=== PATIENT | female | born 1925 | race Caucasian/White ===

== ENCOUNTER 2016-06-27 02:10 | Inpatient (IN) | payer MEDICARE, BC ==
[~2016-06-27] VITALS: Ht 172.7 cm; Wt 63.5 kg
[2016-06-27] VITALS (9 sets, daily range): BP systolic 103–146; BP diastolic 58–92; PULSE 70–120; RESP 16–24; TEMP 98.2–102.3; O2SAT 94–98
[~2016-06-27 02:10] MED LIST: CEFU250T PO; GLIP10TA6 PO; INDA2.5T3 PO; LACTCAP7 PO; LATA.005%O EACH EYE; LORA0.5T PO; NYST100010 TOP; PROT40TA PO; SIMV20 PO; SUCR1S PO; TIMO0.5S29 EACH EYE; VITA500S3 PO; [UNRECOGNIZED DRUG - CODE] PO
--- NOTE | 2016-06-27 02:36 | PD ---
HPI Chief Complaint: Fever Time Seen by Provider: 02:28 Travel History International Travel<30 days: No Contact w/Intl Traveler<30days: No Traveled to known affect area: No History of Present Illness HPI The patient is an 89-year-old female that was sent from [facility] because of fever and vomiting. The patient has had chills for 3 days. She denies any cough or shortness of breath. She does have some slight dysuria and frequency. She does have a history of diabetes and arthroscopic cardiovascular disease. She is a patient of Dr. Bello. [facility] Past Medical History Anxiety: Yes Cancer: No Cardiovascular Problems: Yes High Cholesterol: Yes Diabetes: Yes Patient Takes Glucophage: No (UNKNOWN AT THIS TIME) Diminished Hearing: No Glaucoma: Yes Genitourinary: No Hypertension: Yes Immune Disorder: Yes Musculoskeletal: No Neurologic: No Reproductive: No Respiratory: No Menopausal: Yes Past Surgical History Gynecologic Surgery: Yes (HYSTERECTOMY ) Hysterectomy: Yes (AGE 52) Tonsillectomy: Yes (AGE 9) Other Surgery: Yes Social History Alcohol Use: Yes (A GLASS OF WINE OCC) Tobacco Use: No Substance Use: No Allergies-Medications (Allergen,Severity, Reaction): Coded Allergies: No Known Allergies (Verified , 01/17/16) Reported Meds & Prescriptions Reported Meds & Active Scripts Active Reported Lorazepam 0.5 Mg Tab 0.5 Mg PO Q8H PRN Tylenol (Acetaminophen) 325 Mg Cap 325 Mg PO Q4HR PRN Milk of Magnesia Concentrate Liq (Magnesium Hydroxide) 1,200 Mg/5 Ml Susp 30 Ml PO HS PRN Lantus Inj (Insulin Glargine) 100 Unit/Ml Inj 28 Units SQ DAILY Novolin R Inj (Insulin Human Regular) 100 Unit/Ml Inj Unknown Dose SQ QID Omeprazole 20 Mg Cap 20 Mg PO DAILY Glipizide 5 Mg Tab 5 Mg PO DAILY Take 30 minutes before a meal Glipizide 10 Mg Tab 10 Mg PO DAILY Take 30 minutes before a meal Docusate Sodium 100 Mg Cap 100 Mg PO TID Potassium Chloride ER (Potassium Chloride) 20 Meq Tab 20 Meq PO DAILY Xalatan Opth Drops (Latanoprost) 0.005% Drops 1 Drop EACH EYE HS Timolol Opth Drops 0.5 % Soln 1 Drop EACH EYE BID Aspirin 81 (Aspirin) 81 Mg Tabdr 81 Mg PO DAILY Simvastatin 20 Mg Tab 20 Mg PO DAILY Acidophilus (Probiotic Product) 1 Cap Cap 1 Cap PO DAILY Indapamide 2.5 Mg Tab 2.5 Mg PO DAILY Furosemide 20 Mg Tab 20 Mg PO DAILY Vitamin B-12 (Cyanocobalamin) 1,000 Mcg Tab 1,000 Mcg PO DAILY Review of Systems Except as stated in HPI: all other systems reviewed are Neg Physical Exam Narrative GENERAL: The patient is alert, oriented 3 and slight apparent distress with her bladder discomfort. The patient does appear moderately dehydrated. Her vital signs show rectal temp of 102.3, blood pressure 126/58 and oximetry 94%. The patient is incontinent of urine and stool. SKIN: Warm and dry. HEAD: Atraumatic. Normocephalic. EYES: Pupils equal and round. No scleral icterus. No injection or drainage. ENT: No nasal bleeding or discharge. Mucous membranes pink and moist. NECK: Trachea midline. No JVD. CARDIOVASCULAR: Regular rate and rhythm. No murmur appreciated. RESPIRATORY: No accessory muscle use. Clear to auscultation. Breath sounds equal bilaterally. GASTROINTESTINAL: Abdomen soft, slight bladder discomfort is present when palpating the bladder, nondistended. Hepatic and splenic margins not palpable. I do not get any flank tenderness present. MUSCULOSKELETAL: No obvious deformities. No clubbing. No cyanosis. No edema. NEUROLOGICAL: Awake and alert. No obvious cranial nerve deficits. Motor grossly within normal limits. Normal speech. PSYCHIATRIC: Appropriate mood and affect; insight and judgment normal. Data Data Last Documented VS Vital Signs Date Time Temp Pulse Resp B/P Pulse Ox O2 Delivery O2 Flow Rate FiO2 06/27/16 03:36 71 18 108/58 97 Nasal Cannula 2 06/27/16 02:12 102.3 Orders Blood Culture (06/27/16 02:22) Lactic Acid (06/27/16 02:22) Complete Blood Count With Diff (06/27/16 02:22) Act Partial Throm Time (Ptt) (06/27/16 02:22) Iv Access Insert/Monitor (06/27/16 02:22) Urinalysis - C+S If Indicated (06/27/16 02:22) Cath For Specimen (06/27/16 02:22) Comprehensive Metabolic Panel (06/27/16 02:29) Urine Culture (06/27/16 02:25) Prothrombin Time / Inr (Pt) (06/27/16 03:58) Chest, Pa & Lat (06/27/16 03:59) Urinary Catheter Insert/Apply (06/27/16 05:03) Labs Laboratory Tests Test 06/27/16 06/27/16 02:25 02:35 Urine Color YELLOW Urine Turbidity CLOUDY Urine pH 5.5 Urine Specific [place] 1.016 Urine Protein 30 mg/dL Urine Glucose (UA) NEG mg/dL Urine Ketones NEG mg/dL Urine Occult Blood MOD Urine Nitrite NEG Urine Bilirubin NEG Urine Urobilinogen LESS THAN 2.0 MG/DL Urine Leukocyte Esterase LARGE Urine RBC 13 /hpf Urine WBC /hpf Urine WBC Clumps MANY Urine Squamous Epithelial 1 /hpf Cells Urine Transitional Epithelial <1 /hpf Cells Urine Renal Epithelial Cells 1 /hpf Urine Bacteria MANY /hpf Urine Hyaline Casts 6 /lpf Urine Mucus FEW /lpf Urine Yeast (Budding) MANY Microscopic Urinalysis Comment CATH-CULTURE IND White Blood Count 13.8 TH/MM3 Red Blood Count 3.87 MIL/MM3 Hemoglobin 10.8 GM/DL Hematocrit 30.8 % Mean Corpuscular Volume 79.8 FL Mean Corpuscular Hemoglobin 27.9 PG Mean Corpuscular Hemoglobin 35.0 % Concent Red Cell Distribution Width 16.3 % Platelet Count 233 TH/MM3 Mean Platelet Volume 8.0 FL Neutrophils (%) (Auto) 81.8 % Lymphocytes (%) (Auto) 4.7 % Monocytes (%) (Auto) 13.2 % Eosinophils (%) (Auto) 0.0 % Basophils (%) (Auto) 0.3 % Neutrophils # (Auto) 11.2 TH/MM3 Lymphocytes # (Auto) 0.7 TH/MM3 Monocytes # (Auto) 1.8 TH/MM3 Eosinophils # (Auto) 0.0 TH/MM3 Basophils # (Auto) 0.0 TH/MM3 CBC Comment DIFF FINAL Differential Comment Prothrombin Time 12.7 SEC Prothromb Time International 1.1 RATIO Ratio Activated Partial 30.0 SEC Thromboplast Time Sodium Level 135 MEQ/L Potassium Level 3.8 MEQ/L Chloride Level 99 MEQ/L Carbon Dioxide Level 24.3 MEQ/L Anion Gap 12 MEQ/L Blood Urea Nitrogen 61 MG/DL Creatinine 1.94 MG/DL Estimat Glomerular Filtration 24 ML/MIN Rate Random Glucose 300 MG/DL Lactic Acid Level 2.1 mmol/L Calcium Level 8.6 MG/DL Total Bilirubin 0.4 MG/DL Aspartate Amino Transf 38 U/L (AST/SGOT) Alanine Aminotransferase 37 U/L (ALT/SGPT) Alkaline Phosphatase 104 U/L Total Protein 6.7 GM/DL Albumin 2.6 GM/DL MDM Medical Decision Making Medical Screen Exam Complete: Yes Emergency Medical Condition: Yes Medical Record Reviewed: Yes Interpretation(s) The CBC shows a white count of 13,800 with 82% neutrophils and hemoglobin of 10.8 and hematocrit of 30.8. The urine shows cloudy turbidity, moderate occult blood, large leukocyte esterase with 13 red cells and innumerable white cells with many white cell clumping's and many bacteria. Culture is indicated. The complete metabolic profile shows a BUN of 61 and creatinine of 1.94. The glucose is 300 and the AST is 38 and the albumin is 2.6. The coagulation profile is normal except for a ProTime of 12.7. Differential Diagnosis Sepsis, urosepsis, acute renal failure, urinary tract infection, dehydration, electrolyte disorder, anemia Narrative Course The patient has a urinary tract infection with dehydration and acute renal failure. The creatinine is 0.78 on 22 January in 2015 but has gone up to 1.94 today. Yesterday the values were similar but slightly lower on the BUN and creatinine. Lactic acid is 2.1. The patient also appears dehydrated clinically. Physician Communication Physician Communication I discussed the patient with Dr. Pickett, the patient will be admitted to her. Diagnosis Primary Impression: Acute renal failure Additional Impressions: Urinary tract infection Moderate dehydration Admitting Information Admitting Physician Requests: Admit Geoffrey Carey MD Jun 27, 2016 02:35
[2016-06-27 02:42] LABS: AUTOMATED NEUTROPHIL # 11.2 TH/MM3 (1.8-7.7); BASOPHIL % 0.3 % (0.0-2.0); HEMATOCRIT 30.8 % (35.0-46.0); HEMO FLAGS DIFF FINAL; LYMPH % 4.7 % (9.0-44.0); LYMPHOCYTE # 0.7 TH/MM3 (1.0-4.8); MEAN CELL VOLUME 79.8 FL (80.0-100.0); MEAN CORPUSCULAR HEMOGLOBIN 27.9 PG (27.0-34.0); MONO % 13.2 % (0.0-8.0); NEUT % 81.8 % (16.0-70.0); PLATELET COUNT 233 TH/MM3 (150-450); RED BLOOD COUNT 3.87 MIL/MM3 (4.00-5.30); RED CELL DISTRIBUTION WIDTH 16.3 % (11.6-17.2); WHITE BLOOD COUNT 13.8 TH/MM3 (4.0-11.0)
[2016-06-27 02:47] LABS: BACTERIA, URINE MANY /hpf; BLOOD, URINE MOD (NEG); COMMENT (UR) CATH-CULTURE IND; CULTURE IF INDICATED CATH CULTURE IND; GLUCOSE,URINE NEG (NEG); HYALINE CAST, URINE 6 /lpf (RARE); KETONE, URINE NEG (NEG); MUCUS URINE FEW /lpf (OCC); NITRITE,URINE NEG (NEG); PH, URINE 5.5 (5.0-8.5); RENAL EPITHELIAL CELLS 1 /hpf; SQUAMOUS EPITHELIAL CELL URINE 1 /hpf (0-5); TRANSITIONAL EPI CELLS, URINE <1 /hpf; URINE COLOR YELLOW (YELLW/STRAW)
[2016-06-27] MEDS ORDERED: LANTUS2P SQ (02:50)
[2016-06-27] MEDS ORDERED: GLIP10TA6 PO (02:50)
[2016-06-27] MEDS ORDERED: TIMO0.5S30 EACH EYE (02:50)
[2016-06-27] MEDS ORDERED: GLIP5TAB8 PO (02:50)
[2016-06-27] MEDS ORDERED: PROB1CAP12 PO (02:50)
[2016-06-27] MEDS ORDERED: OMEP20CA2 PO (02:50)
[2016-06-27] MEDS ORDERED: LORA-373 PO (02:50)
[2016-06-27] MEDS ORDERED: MILK2400 PO (02:50)
[2016-06-27] MEDS ORDERED: ASPI-110 PO (02:50)
[2016-06-27] MEDS ORDERED: POTA-163 PO (02:50)
[2016-06-27] MEDS ORDERED: VITA10002 PO (02:50)
[2016-06-27] MEDS ORDERED: DOCU100C PO (02:50)
[2016-06-27] MEDS ORDERED: FURO20TA PO (02:50)
[2016-06-27] MEDS ORDERED: INDA2.5T PO (02:50)
[2016-06-27] MEDS ORDERED: NRDRIP SQ (02:50)
[2016-06-27] MEDS ORDERED: LATA.005%O EACH EYE (02:50)
[2016-06-27] MEDS ORDERED: SIMV20TA PO (02:50)
[2016-06-27] MEDS ORDERED: ACET1CAP18 PO (02:50)
[2016-06-27 03:08] LABS: ALT (GPT) 37 U/L (10-53); ANION GAP 12 MEQ/L (5-15); AST (GOT) 38 U/L (15-37); BICARBONATE 24.3 MEQ/L (21.0-32.0); BLOOD UREA NITROGEN 61 MG/DL (7-18); CHLORIDE 99 MEQ/L (98-107); GLOMERULAR FILTRATION RATE 24 ML/MIN (>89); POTASSIUM 3.8 MEQ/L (3.5-5.1); SODIUM (NA) 135 MEQ/L (136-145)
[2016-06-27 03:10] LABS: ALKALINE PHOSPHATASE 104 U/L (45-117); TOTAL BILIRUBIN ADULT 0.4 MG/DL (0.2-1.0)
[2016-06-27 04:20] LABS: INTERNATIONAL NORMALIZED RATIO 1.1 RATIO; PROTHROMBIN TIME - PATIENT 12.7 SEC (9.8-11.6)
[2016-06-27] MEDS ORDERED: NALOXONE HCL 0.4 MG/ML AMP IV PRN (06:00)
[2016-06-27] MEDS ORDERED: SODIUM CHLORIDE 0.9% FLUSH 10 ML FLUSH IV FLUSH PRN (06:00)
--- NOTE | 2016-06-27 06:08 | RADRPT ---
EXAM DATE/TIME: 06/27/2016 05:32 [place] COMPARISON: CHEST SINGLE AP, January 18, 2010, 10:31. INDICATIONS : Fever. MEDICAL HISTORY : None. SURGICAL HISTORY : None. ENCOUNTER: Initial ACUITY: 1 day PAIN SCORE: 0/10 LOCATION: chest FINDINGS: PA and lateral views of the chest demonstrate the lungs to be symmetrically aerated without evidence of mass, infiltrate or effusion. The cardiomediastinal contours are unremarkable. Osseous structure s are intact. Advanced osteoarthritis involving the right shoulder. CONCLUSION: No acute disease. Vasiliy Lorenzana Jr., MD on June 27, 2016 at 6:06 Board Certified Radiologist. This report was verified electronically.
[2016-06-27] MEDS: CIPROFLOXACIN 400 MG PREMIX 200 ML IV SCH (06:15)
[2016-06-27] MEDS: HEPARIN SODIUM - SQ 10,000 UNITS/ML VIAL SQ SCH ×3 (06:15→22:09)
[2016-06-27] MEDS ORDERED: MAGNESIUM HYDROXIDE SUSP 30 ML CUP PO PRN (08:15)
[2016-06-27] MEDS ORDERED: DEXTROSE 50% IN WATER 50 ML VIAL(D50) IV PUSH PRN (08:30)
[2016-06-27] MEDS ORDERED: GLUCAGON 1 MG/ML VIAL OTHER PRN (08:30)
--- NOTE | 2016-06-27 08:32 | HHI.HP ---
[facility] Unknown Admission Diagnosis acute renal failure, urinary tract infection, dehydration Diagnoses: Chief Complaint: "aching and chills" Travel History International Travel<30 Days: No Contact w/Intl Traveler <30 Da: No Traveled to Known Affected Are: No History of Present Illness This 89-year-old female patient from [facility] with a past medical history which includes HTN, Glaucoma, recurrent UTI, diabetes mellitus type 2, anxiety and macular degeneration. Patient evaluated alert to person only. Patient believes she is back at [facility] and it is year 1919. Therefore information gathered from patient as well as prior computerized charting and documentation from [facility]. Per ER doctor, patient was brought in because of fever and vomiting. Patient reports generalized body aches and chills 3 days. Patient did report dysuria to the emergency room physician currently has Tripathi catheter in place and denies urinary symptoms at this time. Patient does report she has been vomiting and has had lack of appetite for the last 2-3 days. Patient also reports sneezing frequently and feeling associated cannot take a deep breath. Rectal temperature upon arrival to the emergency department was 102.3. Patient denies chest pain diarrhea or constipation. Review of Systems ROS Limitations: Clinical Condition, Poor Historian Except as stated in HPI: all other systems reviewed are Neg Past Family Social History Past Medical History HTN, Glaucoma, recurrent UTI, diabetes mellitus type 2, anxiety and macular degeneration Past Surgical History Hysterectomy age of 52 Tonsillectomy age of 9 Ankle surgery age of 37 Reported Medications Lorazepam 0.5 Mg Tab 0.5 Mg PO Q8H PRN Tylenol (Acetaminophen) 325 Mg Cap 325 Mg PO Q4HR PRN Milk of Magnesia Concentrate Liq (Magnesium Hydroxide) 1,200 Mg/5 Ml Susp 30 Ml PO HS PRN Lantus Inj (Insulin Glargine) 100 Unit/Ml Inj 28 Units SQ DAILY Novolin R Inj (Insulin Human Regular) 100 Unit/Ml Inj Unknown Dose SQ QID Omeprazole 20 Mg Cap 20 Mg PO DAILY Glipizide 5 Mg Tab 5 Mg PO DAILY Take 30 minutes before a meal Glipizide 10 Mg Tab 10 Mg PO DAILY Take 30 minutes before a meal Docusate Sodium 100 Mg Cap 100 Mg PO TID Potassium Chloride ER (Potassium Chloride) 20 Meq Tab 20 Meq PO DAILY Xalatan Opth Drops (Latanoprost) 0.005% Drops 1 Drop EACH EYE HS Timolol Opth Drops 0.5 % Soln 1 Drop EACH EYE BID Aspirin 81 (Aspirin) 81 Mg Tabdr 81 Mg PO DAILY Simvastatin 20 Mg Tab 20 Mg PO DAILY Acidophilus (Probiotic Product) 1 Cap Cap 1 Cap PO DAILY Indapamide 2.5 Mg Tab 2.5 Mg PO DAILY Furosemide 20 Mg Tab 20 Mg PO DAILY Vitamin B-12 (Cyanocobalamin) 1,000 Mcg Tab 1,000 Mcg PO DAILY Allergies: Coded Allergies: No Known Allergies (Verified , 01/17/16) Active Ordered Medications Current Medications Medications (Trade) Dose Ordered Sig/Damaris Route Start Time Stop Time Status Last Admin (NS Flush) 2 ml UNSCH PRN IV FLUSH 06/27/16 06:00 (NS Flush) 2 ml BID IV FLUSH 06/27/16 09:00 (Heparin Inj) 5,000 units Q8HR SQ 06/27/16 06:00 06/27/16 06:15 Naloxone HCl 0.4 mg 0.4 mg UNSCH PRN IV 06/27/16 06:00 (Cipro 400 Mg Premix) 200 ml @ 200 mls/hr Q24H IV 06/27/16 06:00 06/27/16 06:15 Family History Single child, doesn't have siblings Mother had IN at the age of 80 Father at the age of 81, heart problems unspecified. Social History Denies EtOH use ( says occasionally maybe one glass of wine at times), denies tobacco use or illicit drug use. Physical Exam Vital Signs Vital Signs Date Time Temp Pulse Resp B/P Pulse Ox O2 Delivery O2 Flow Rate FiO2 06/27/16 07:20 98.8 96 18 145/67 06/27/16 07:20 93 Room Air 06/27/16 05:55 98.2 06/27/16 05:15 70 17 132/60 97 Nasal Cannula 2 06/27/16 03:36 71 18 108/58 97 Nasal Cannula 2 06/27/16 02:12 102.3 89 24 126/58 94 Physical Exam GENERAL: This is a well-nourished, well-developed patient, ill-appearing elderly 89-year-old female alert and oriented to person only SKIN: Generalized thinning of skin HEAD: Atraumatic. Normocephalic. No temporal or scalp tenderness. EYES: Extraocular motions intact. No scleral icterus. No injection or drainage. CARDIOVASCULAR: Regular rate and rhythm without murmurs, gallops, or rubs. RESPIRATORY: Clear to auscultation. Breath sounds equal bilaterally. No wheezes , rales, or rhonchi. GASTROINTESTINAL: Abdomen soft, non-tender, nondistended. No guarding. MUSCULOSKELETAL: Right ankle larger than left patient had right ankle surgery at 37 years old reports has been edematous since that point. No calf tenderness. Negative Homans sign bilaterally. NEUROLOGICAL: Awake and alert. Oriented to person only. Motor and sensory grossly within normal limits. 4 out of 5 muscle strength in all muscle groups. Normal speech. Laboratory Laboratory Tests Test 06/27/16 06/27/16 02:25 02:35 Urine Color YELLOW Urine Turbidity CLOUDY Urine pH 5.5 Urine Specific [place] 1.016 Urine Protein 30 Urine Glucose (UA) NEG Urine Ketones NEG Urine Occult Blood MOD Urine Nitrite NEG Urine Bilirubin NEG Urine Urobilinogen LESS THAN 2.0 Urine Leukocyte Esterase LARGE Urine RBC 13 Urine WBC Urine WBC Clumps MANY Urine Squamous Epithelial 1 Cells Urine Transitional Epithelial <1 Cells Urine Renal Epithelial Cells 1 Urine Bacteria MANY Urine Hyaline Casts 6 Urine Mucus FEW Urine Yeast (Budding) MANY Microscopic Urinalysis Comment CATH-CULTURE IND White Blood Count 13.8 Red Blood Count 3.87 Hemoglobin 10.8 Hematocrit 30.8 Mean Corpuscular Volume 79.8 Mean Corpuscular Hemoglobin 27.9 Mean Corpuscular Hemoglobin 35.0 Concent Red Cell Distribution Width 16.3 Platelet Count 233 Mean Platelet Volume 8.0 Neutrophils (%) (Auto) 81.8 Lymphocytes (%) (Auto) 4.7 Monocytes (%) (Auto) 13.2 Eosinophils (%) (Auto) 0.0 Basophils (%) (Auto) 0.3 Neutrophils # (Auto) 11.2 Lymphocytes # (Auto) 0.7 Monocytes # (Auto) 1.8 Eosinophils # (Auto) 0.0 Basophils # (Auto) 0.0 CBC Comment DIFF FINAL Differential Comment Prothrombin Time 12.7 Prothromb Time International 1.1 Ratio Activated Partial 30.0 Thromboplast Time Sodium Level 135 Potassium Level 3.8 Chloride Level 99 Carbon Dioxide Level 24.3 Anion Gap 12 Blood Urea Nitrogen 61 Creatinine 1.94 Estimat Glomerular Filtration 24 Rate Random Glucose 300 Lactic Acid Level 2.1 Calcium Level 8.6 Total Bilirubin 0.4 Aspartate Amino Transf 38 (AST/SGOT) Alanine Aminotransferase 37 (ALT/SGPT) Alkaline Phosphatase 104 Total Protein 6.7 Albumin 2.6 Date/Time Procedure Status Source Growth 06/27/16 02:35 Aerobic Blood Culture Received Blood Peripheral Pending 06/27/16 02:35 Anaerobic Blood Culture Received Blood Peripheral Pending 06/27/16 02:25 Urine Culture Received Urine Catheterized Urine Pending Result Diagram: 06/27/16 0235 06/27/16 0235 Imaging Last Impressions Chest X-Ray 06/27/16 0359 Signed Impressions: Service Date/Time: Monday, June 27, 2016 05:32 - CONCLUSION: No acute disease. Vasiliy Lorenzana Jr., MD Septic Shock Reassessment Heart: Regular rate and rhythm Lungs: Clear Skin: Warm, Dry Peripheral Pulses: Bounding Right Radial Bounding Left Radial Bounding Right Dorsalis Pedis Bounding Left Dorsalis Pedis Capillary Refill: Brisk Assessment and Plan Assessment and Plan This 89-year-old female patient from [facility] with a past medical history which includes HTN, Glaucoma, recurrent UTI, diabetes mellitus type 2, anxiety and macular degeneration. Patient confused alert to person only. Temperature 102.3 upon arrival with chills and vomiting 3 days and dysuria. Sepsis (temperature 102.3, white blood cell count 13.8, lactic acid 2.1, source UTI) Lactic acidosis UTI UA reviewed by myself as well as Dr. Lora indicate UTI await culture results Ciprofloxacin 400 mg IV every 24 hours Blood culture obtained and pending Repeat lactic acid per protocol Acute kidney injury Dehydration Normal saline at 100 cc/h Hold home PO diuretics Recheck BMP in a.m. Diabetes mellitus- uncontrolled glucose 300 upon arrival Restart patient's Levemir 28 units daily Accu-Cheks before meals at bedtime with Medium-dose sliding scale insulin coverage and Anxiety Lorazepam 0.5mg Q8H PRN anxiety Macular degeneration Glaucoma continue patient's home Latanoprost and Timolol eyedrops Hyperlipidemia continue patient's simvastatin 20 mg daily GERD continue patient's present omeprazole DVT prophylaxis heparin subQ Discussed with ER provider, nursing and patient Dr. Lora also discussed with nurse at [facility]. At baseline, patient does have periods of confusions, especially at night. She is able to hold a simple conversation. Written by Rachel Gonzales, acting as scribe for Dr. Lora on 06/27/16 at 08:32. All or portions of this note were transcribed by scribe [Rachel Gonzales, PAC]. I, Dr. Moris Lora personally performed the history, physical exam, and medical decision making; and confirmed the accuracy of the information in the transcribed note. Authenticated by Dr. Moris Lora on 06/27/16 at 08:55. Physician Certification 2 Midnight Certification Type: Admission for Inpatient Services Order for Inpatient Services The services are ordered in accordance with Medicare regulations or non- Medicare payer requirements, as applicable. In the case of services not specified as inpatient-only, they are appropriately provided as inpatient services in accordance with the 2-midnight benchmark. Estimated LOS (days): 3 days is the estimated time the patient will need to remain in the hospital, assuming treatment plan goals are met and no additional complications. Post-Hospital Plan: [facility] Rachel Gonzales Jun 27, 2016 08:32 Moris Lora MD Jun 27, 2016 08:56
[2016-06-27] MEDS ORDERED: INSULIN DETEMIR 100 UNITS/ML VIAL SQ SCH (09:00)
[2016-06-27] MEDS: SODIUM CHLOR 0.9% 1000 ML INJ 1,000 ML IV SCH ×2 (10:11→22:09)
[2016-06-27] MEDS: TIMOLOL MALEATE 0.5% OPHT SOLN 5 ML BTL EACH EYE SCH ×2 (10:12→22:09)
[2016-06-27] MEDS: CYANOCOBALAMIN 1,000 MCG TAB PO SCH (10:13)
[2016-06-27] MEDS: ASPIRIN EC 81 MG TABEC PO SCH (10:13)
[2016-06-27] MEDS: PANTOPRAZOLE SOD 20 MG DELAYED RELEASE TAB PO SCH (10:13)
[2016-06-27] MEDS: LACTOBACILLUS ACIDOPHILUS TAB PO SCH (10:13)
[2016-06-27] MEDS: SODIUM CHLORIDE 0.9% FLUSH 10 ML FLUSH IV FLUSH SCH ×2 (10:13→21:00)
[2016-06-27] MEDS: PRAVASTATIN SOD 40 MG TAB PO SCH (10:22)
[2016-06-27] MEDS: INSULIN ASPART SUPPLEMENTAL SCALE SQ SCH ×3 (11:00→21:00)
[2016-06-27] MEDS: ACETAMINOPHEN 325 MG TAB PO PRN (22:08)
[2016-06-27] MEDS: LATANOPROST 0.005% OPHT SOLN 2.5 ML BTL EACH EYE SCH (22:11)
[2016-06-28] VITALS (7 sets, daily range): BP systolic 91–117; BP diastolic 54–68; PULSE 84–104; RESP 16–20; TEMP 96.7–99.9; O2SAT 92–96
[2016-06-28 04:33] LABS: HEMATOCRIT 30.7 % (35.0-46.0); MEAN CELL VOLUME 79.5 FL (80.0-100.0); MEAN CORPUSCULAR HEMOGLOBIN 26.1 PG (27.0-34.0); MEAN CORPUSCULAR HGB CONC 32.8 % (32.0-36.0); PLATELET COUNT 212 TH/MM3 (150-450); RED BLOOD COUNT 3.86 MIL/MM3 (4.00-5.30); RED CELL DISTRIBUTION WIDTH 15.9 % (11.6-17.2); WHITE BLOOD COUNT 13.7 TH/MM3 (4.0-11.0)
[2016-06-28 04:34] LABS: HEMO FLAGS AUTO DIFF
[2016-06-28 05:12] LABS: BICARBONATE 26.2 MEQ/L (21.0-32.0); MAGNESIUM 2.3 MG/DL (1.5-2.5); POTASSIUM 3.4 MEQ/L (3.5-5.1)
[2016-06-28 05:32] LABS: CKMB 0.7 NG/ML (0.5-3.6)
[2016-06-28] MEDS: CIPROFLOXACIN 400 MG PREMIX 200 ML IV SCH (05:54)
[2016-06-28] MEDS: INSULIN ASPART SUPPLEMENTAL SCALE SQ SCH ×4 (05:54→21:00)
[2016-06-28] MEDS: HEPARIN SODIUM - SQ 10,000 UNITS/ML VIAL SQ SCH ×2 (05:54→14:57)
[2016-06-28] MEDS ORDERED: DEXTROSE 50% IN WATER 50 ML SYRINGE IV ONE (06:00)
[2016-06-28] MEDS ORDERED: POTASSIUM CHLORIDE 25 MEQ EFFERVESCENT TAB PO ONE (06:00)
[2016-06-28 06:10] LABS: BANDS 4 % (0-6); BASOPHILS 1 % (0-2); NEUTROPHIL # MANUAL DIFF 10.3 TH/MM3 (1.8-7.7); POLYS (SEG NEUTROPHILS) 71 % (16-70); WBC DIFF SAMPLE 100
[2016-06-28 06:11] LABS: PLATELET ESTIMATE SMEAR NORMAL (NORMAL); PLATELET MORPHOLOGY NORMAL (NORMAL); SCAN/DIFF FINAL DIFF MANUAL
[2016-06-28] MEDS ORDERED: SODIUM CHLORID 0.9% 500 ML INJ 500 ML IV ONE (08:45)
--- NOTE | 2016-06-28 08:55 | HHI.PR ---
Subjective Remarks Patient seen in follow-up for sepsis secondary to UTI, acute renal failure, dehydration, new onset atrial fibrillation. Overnight patient noted to be in A. fib on the monitor. Heart rate in the 90s. Blood glucose 42 on BMP this morning but bedside Accu-Cheks in the 70s. Currently she denies chest pain or heart palpitations. No shortness of breath. States she is feeling bad overall. Main complaint is discomfort at the IV site. No abdominal pain. Objective Vitals Vital Signs Date Time Temp Pulse Resp B/P Pulse Ox O2 Delivery O2 Flow Rate FiO2 06/28/16 04:00 96.8 85 20 103/56 93 06/28/16 00:00 97.7 85 20 105/54 96 06/27/16 23:08 18 06/27/16 20:00 101.1 120 20 108/61 98 06/27/16 16:00 100.7 92 19 103/67 97 06/27/16 14:42 94 Room Air 06/27/16 14:42 102 16 146/77 94 06/27/16 12:47 119 16 113/92 96 Room Air 06/27/16 12:47 Room Air I/O 06/27/16 06/27/16 06/27/16 06/28/16 06/28/16 06/28/16 07:00 15:00 23:00 07:00 15:00 23:00 Intake Total 240 ml 60 ml 1040 ml Output Total 1400 ml 500 ml 700 ml Balance -1160 ml -440 ml 340 ml Intake Oral 240 ml 60 ml 240 ml IV Total 800 ml Output Urine Total 1400 ml 500 ml 700 ml # Voids 1 # Bowel Movements 2 1 Result Diagram: 06/28/16 0330 06/28/16 0330 Imaging Last Impressions Chest X-Ray 06/27/16 0359 Signed Impressions: Service Date/Time: Monday, June 27, 2016 05:32 - CONCLUSION: No acute disease. Vasiliy Lorenzana Jr., MD Objective Remarks GENERAL: Elderly female in no acute distress CARDIOVASCULAR: Rate in the 90s and irregular rhythm without murmurs, gallops, or rubs. RESPIRATORY: Good respiratory efforts. Breath sounds equal and clear to auscultation bilaterally. GASTROINTESTINAL: Abdomen soft, non-tender, non-distended. Normal active bowel sounds MUSCULOSKELETAL: Extremities without cyanosis, or edema. NEURO: Alert to person and place but not to time and situation. Can move all extremities spontaneously. Normal speech PSYCH: Appropriate mood and affect. A/P Problem List: (1) Sepsis secondary to UTI ICD Code: A41.9 Status: Acute (2) Acute renal failure ICD Code: N17.9 Status: Acute (3) Moderate dehydration ICD Code: E86.0 Status: Acute (4) Hypoglycemia ICD Code: E16.2 Status: Acute (5) Atrial fibrillation, new onset ICD Code: I48.91 Status: Acute Assessment and Plan 89-year-old female with Sepsis secondary to UTI. On admission (temperature 102.3, white blood cell count 13.8, lactic acid 2.1, source UTI) - Continue antibiotics. Switch to Rocephin. - Blood pressure borderline. We'll gave a bolus of 500 cc and increase IV fluids to 1 25 cc per hour. - Follow urine and blood cultures. New-onset atrial fibrillation/mild elevation of troponin: Current sepsis and dehydration may be precipitating factors - Cardiology consulted - Rate currently in the 90's at rest with no overt symptoms but have some mild elevation in Troponin. Will start Metoprolol 25 mg BID. Further plans per Cardiology. Acute kidney injury/Dehydration: Mild improvement. Still dry. IV fluid as above. Continue to Hold home PO diuretics Recheck BMP in a.m. Diabetes mellitus- : Hypoglycemic episode. Decrease Levemir to 20 units daily Accu-Cheks before meals at bedtime with Medium-dose sliding scale insulin coverage and Anxiety Lorazepam 0.5mg Q8H PRN anxiety Macular degeneration Glaucoma continue patient's home Latanoprost and Timolol eyedrops Hyperlipidemia continue patient's simvastatin 20 mg daily GERD continue patient's present omeprazole GI prophylaxis: PPI. Stool softener PRN constipation. DVT PPx: Heparin I discussed with the patient's daughter Lela and updated her on the patient's condition. Moris Lora MD Jun 28, 2016 08:55
[2016-06-28] MEDS: METOPROLOL TARTRATE 25 MG TAB PO SCH ×2 (09:00→21:42)
[2016-06-28] MEDS: SODIUM CHLORIDE 0.9% FLUSH 10 ML FLUSH IV FLUSH SCH ×2 (09:00→21:00)
[2016-06-28] MEDS: LACTOBACILLUS ACIDOPHILUS TAB PO SCH (09:06)
[2016-06-28] MEDS: PANTOPRAZOLE SOD 20 MG DELAYED RELEASE TAB PO SCH (09:06)
[2016-06-28] MEDS: LORazepam 0.5 MG TAB PO PRN (09:06)
[2016-06-28] MEDS: PRAVASTATIN SOD 40 MG TAB PO SCH (09:06)
[2016-06-28] MEDS: CYANOCOBALAMIN 1,000 MCG TAB PO SCH (09:06)
[2016-06-28] MEDS: ASPIRIN EC 81 MG TABEC PO SCH (09:06)
[2016-06-28] MEDS: SODIUM CHLOR 0.9% 1000 ML INJ 1,000 ML IV SCH ×2 (09:07→14:57)
[2016-06-28] MEDS: TIMOLOL MALEATE 0.5% OPHT SOLN 5 ML BTL EACH EYE SCH ×2 (09:08→21:43)
[2016-06-28] MEDS: INSULIN DETEMIR 100 UNITS/ML VIAL SQ SCH (09:20)
[2016-06-28] MEDS: cefTRIAXone INJ 1,000 MG in SODIUM CHLORIDE 0.9% INJ 100 ML IV SCH (09:20)
[2016-06-28] MEDS ORDERED: INFLUENZA VIRUS VACCINE (QUADRIVALENT) 0.5 ML SYR IM ONE (10:00)
[2016-06-28] MEDS ORDERED: PNEUMOCOCCAL POLYVALENT INJ 25 MCG/0.5 ML SYR IM ONE (10:00)
[2016-06-28 11:31] LABS: CKMB 0.6 NG/ML (0.5-3.6)
--- NOTE | 2016-06-28 17:26 | EKG ---
Date Performed: 06/28/2016 Time Performed: 01:30:14 PTAGE: 89 years EKG: Atrial fibrillation with controlled ventricular rate Poor R wave progression - suspect lead placement issues Extensive ST-T changes may be due to myocardial ischemia Compared to previous biju ng, atrial fibrillation is new. Nonspecific ST abnormalities improved. Abnormal ECG NO PREVIOUS TRACING DOCTOR: Kevin Carey Interpretating Date/Time 06/28/2016 17:24:54
--- NOTE | 2016-06-28 18:56 | MB ---
cc: NICHOLE HEIN DATE OF CONSULTATION 06/28/2016 REASON FOR CONSULTATION Ms. Gee is an 89-year-old white female with no previous cardiac history. She was admitted for sepsis secondary to urinary tract infection and acute renal failure and dehydration. She developed atrial fibrillation last night with controlled ventricular response. She denies any chest pain or shortness of breath. She is feeling better today. She denies any previous cardiac history. PAST MEDICAL HISTORY Positive for: 1. Hypertension. 2. Type 2 diabetes mellitus. 3. Recurrent urinary tract infections. 4. Glaucoma. 5. Anxiety. 6. Macular degeneration. MEDICATIONS At home include: 1. Vitamin B12. 2. Furosemide 20 milligrams daily. 3. Indapamide 2.5 milligrams daily. 4. Acidophilus. 5. Simvastatin. 6. Baby aspirin. 7. Timolol. 8. Xalatan eye drops. 9. Potassium. 10. Docusate. 11. Glipizide. 12. Omeprazole. 13. Novolin insulin. 14. Lantus insulin. 15. Milk of Magnesia. 16. Tylenol as needed. 17. Lorazepam as needed. ALLERGIES NONE. SOCIAL HISTORY The patient does not smoke. She drinks wine infrequently. She lives at [facility]. FAMILY HISTORY Positive for heart disease, myocardial infarction in her mother and congestive heart failure in her father. REVIEW OF SYSTEMS Otherwise negative. PHYSICAL EXAMINATION VITAL SIGNS: Blood pressure 107/61, pulse 90 and irregular. HEENT: Negative. 2+ carotid upstroke. No bruits. LUNGS: Clear. HEART: Irregularly irregular with no murmur, gallop or rub. ABDOMEN: Soft. No bruits. EXTREMITIES: Without edema. 2+ distal pulses. NEUROLOGICAL: Grossly nonfocal. LABORATORY DATA EKG was reviewed and showed atrial fibrillation with controlled ventricular response, delayed R wave progression of precordial leads and nonspecific ST-T changes. Previous EKG from 01/2016 showed sinus rhythm. Hemoglobin 10.0. Potassium 3.4. Creatinine 1.94 and 1.51. CK 431 and 273. Troponin 0.09 and 0.07. AST 38, ALT 37. DIAGNOSES 1. Atrial fibrillation with controlled ventricular response. 2. Sepsis secondary to urinary tract infection. 3. Acute renal failure. 4. Dehydration. DISPOSITION Ms. Gee was found to be in atrial fibrillation of unknown duration. Her heart rate is now controlled and I recommend to continue low dose metoprolol. I recommend to start low dose Eliquis 2.5 milligrams twice a day for anticoagulation. The last time sinus rhythm was documented appears to be in January of last year. Ms. Gee will be monitored on telemetry. I will follow her for cardiology during her hospitalization. MD NASRIN Moreno/KK /2:47 PM /6:44 PM MTDDanae
[2016-06-28] MEDS: APIXABAN 2.5 MG TABLET PO SCH (21:42)
[2016-06-28] MEDS: LATANOPROST 0.005% OPHT SOLN 2.5 ML BTL EACH EYE SCH (21:56)
[2016-06-29] VITALS (9 sets, daily range): BP systolic 119–143; BP diastolic 62–87; PULSE 62–108; RESP 16–22; TEMP 97.4–99.7; O2SAT 90–97
[2016-06-29] MEDS: SODIUM CHLOR 0.9% 1000 ML INJ 1,000 ML IV SCH ×3 (00:09→20:39)
[2016-06-29] MEDS: LORazepam 0.5 MG TAB PO PRN ×2 (03:17→20:39)
[2016-06-29 04:39] LABS: BICARBONATE 22.4 MEQ/L (21.0-32.0); POTASSIUM 3.5 MEQ/L (3.5-5.1)
[2016-06-29 04:41] LABS: HEMATOCRIT 29.9 % (35.0-46.0); MEAN CELL VOLUME 80.4 FL (80.0-100.0); MEAN CORPUSCULAR HEMOGLOBIN 26.9 PG (27.0-34.0); MEAN CORPUSCULAR HGB CONC 33.5 % (32.0-36.0); PLATELET COUNT 239 TH/MM3 (150-450); RED BLOOD COUNT 3.72 MIL/MM3 (4.00-5.30); RED CELL DISTRIBUTION WIDTH 16.2 % (11.6-17.2); REVIEW FLAG FINAL
[2016-06-29] MEDS: INSULIN ASPART SUPPLEMENTAL SCALE SQ SCH ×4 (05:12→20:42)
--- NOTE | 2016-06-29 06:47 | RADRPT ---
EXAM DATE/TIME: 06/29/2016 06:20 [facility] COMPARISON: CHEST PA & LAT, June 27, 2016, 5:32. CHEST SINGLE AP, January 18, 2010, 10:31. INDICATIONS : Hypoxia. Wheezing. MEDICAL HISTORY : None. SURGICAL HISTORY : None. ENCOUNTER: Subsequent ACUITY: 3 days PAIN SCORE: 6/10 LOCATION: Bilateral chest FINDINGS: A single portable frontal view of the chest shows a rounded area of masslike consolidation involving the right hilum. This is new from the prior study. A retrocardiac parenchymal density also noted whic h is also new. No discernible effusions. The heart is at the upper limits of normal in terms of size. Advanced osteoarthritis involving the right shoulder. CONCLUSION: New area of consolidation involving the right hilum. and left lower lobe. Vasiliy Lorenzana Jr., MD on June 29, 2016 at 6:44 Board Certified Radiologist. This report was verified electronically.
[2016-06-29] MEDS: TIMOLOL MALEATE 0.5% OPHT SOLN 5 ML BTL EACH EYE SCH ×2 (08:22→20:40)
[2016-06-29] MEDS: SODIUM CHLORIDE 0.9% FLUSH 10 ML FLUSH IV FLUSH SCH ×2 (08:22→20:39)
[2016-06-29] MEDS: cefTRIAXone INJ 1,000 MG in SODIUM CHLORIDE 0.9% INJ 100 ML IV SCH (08:22)
[2016-06-29] MEDS: PRAVASTATIN SOD 40 MG TAB PO SCH (08:23)
[2016-06-29] MEDS: PANTOPRAZOLE SOD 20 MG DELAYED RELEASE TAB PO SCH (08:23)
[2016-06-29] MEDS: LACTOBACILLUS ACIDOPHILUS TAB PO SCH (08:23)
[2016-06-29] MEDS: CYANOCOBALAMIN 1,000 MCG TAB PO SCH (08:23)
[2016-06-29] MEDS: ASPIRIN EC 81 MG TABEC PO SCH (08:23)
[2016-06-29] MEDS: METOPROLOL TARTRATE 25 MG TAB PO SCH ×2 (08:23→20:39)
[2016-06-29] MEDS: INSULIN DETEMIR 100 UNITS/ML VIAL SQ SCH (08:24)
[2016-06-29] MEDS: RESP: ALBUTEROL 2.5 MG/IPRATROPIUM 0.5 MG NEB (PRN) NEB (08:31)
[2016-06-29] MEDS ORDERED: AZITHROMYCIN INJ 500 MG in SODIUM CHLOR 0.9% 250 ML INJ 250 ML IV SCH (09:00)
[2016-06-29] MEDS: APIXABAN 2.5 MG TABLET PO SCH ×2 (09:09→20:39)
[2016-06-29] MEDS ORDERED: PIPERACIL-TAZO 3.375 GM PREMIX 50 ML IV SCH (10:00)
--- NOTE | 2016-06-29 10:56 | HHI.PR ---
Subjective Remarks Patient had difficulty with breathing overnight. Chest x-ray showed consolidations. She is stable this morning on 2 L nasal cannula. She denies chest pain. No fevers, or cough. Objective Vitals Vital Signs Date Time Temp Pulse Resp B/P Pulse Ox O2 Delivery O2 Flow Rate FiO2 06/29/16 08:31 94 Nasal Cannula 2.00 06/29/16 08:00 99.7 108 17 136/87 94 06/29/16 05:54 97 Nasal Cannula 2.00 06/29/16 05:51 98.2 100 20 129/70 90 06/29/16 00:00 99.2 96 18 119/68 94 06/28/16 20:17 102 06/28/16 20:00 99.1 104 18 116/68 94 06/28/16 16:00 99.2 84 16 91/54 95 06/28/16 12:00 96.7 87 16 107/61 92 I/O 06/28/16 06/28/16 06/28/16 06/29/16 06/29/16 06/29/16 07:00 15:00 23:00 07:00 15:00 23:00 Intake Total 1040 ml 1483 ml 960 ml 1148 ml Output Total 700 ml 600 ml 450 ml 800 ml Balance 340 ml 883 ml 510 ml 348 ml Intake Oral 240 ml 240 ml 240 ml 240 ml IV Total 800 ml 743 ml 720 ml 908 ml Other 500 ml Output Urine Total 700 ml 600 ml 450 ml 800 ml # Bowel Movements 0 Result Diagram: 06/29/16 0335 06/29/16 0335 Objective Remarks GENERAL: Elderly female in no acute distress CARDIOVASCULAR: Rate in the 80s and irregular rhythm without murmurs, gallops, or rubs. RESPIRATORY: Good respiratory efforts. Breath sounds equal and clear to auscultation bilaterally. GASTROINTESTINAL: Abdomen soft, non-tender, non-distended. Normal active bowel sounds MUSCULOSKELETAL: Extremities without cyanosis, or edema. NEURO: Alert to person and place but not to time and situation. Can move all extremities spontaneously. Normal speech PSYCH: Appropriate mood and affect. A/P Problem List: (1) Sepsis secondary to UTI ICD Code: A41.9 Status: Acute (2) Acute renal failure ICD Code: N17.9 Status: Acute (3) Moderate dehydration ICD Code: E86.0 Status: Acute (4) Hypoglycemia ICD Code: E16.2 Status: Acute (5) Atrial fibrillation, new onset ICD Code: I48.91 Status: Acute Assessment and Plan 89-year-old female with Sepsis secondary to UTI. On admission (temperature 102.3, white blood cell count 13.8, lactic acid 2.1, source UTI) - Urine Culture grew ESBL pos E. Coli. - DC Rocephin and start Zosyn. - Blood pressure normalizing. Decrease IVF to 75 cc per hour. - Follow blood cultures. Pneumonia: Patient had a normal CXR on 06/27/16. X-ray today shows consolidation - On antibiotics as above. - Breathing treatments and supplemental oxygen as needed. New-onset atrial fibrillation/mild elevation of troponin: Current sepsis and dehydration may be precipitating factors - Cardiology following. Continue metoprolol. Patient started on Eliquis. Acute kidney injury/Dehydration: Mild improvement. Decrease IV fluid Continue to Hold home PO diuretics Recheck BMP in a.m. Diabetes mellitus- : Doing okay with decreased dose of Levemir to 20 units daily Accu-Cheks before meals at bedtime with Medium-dose sliding scale insulin coverage and Anxiety Lorazepam 0.5mg Q8H PRN anxiety Macular degeneration Glaucoma continue patient's home Latanoprost and Timolol eyedrops Hyperlipidemia continue patient's simvastatin 20 mg daily GERD continue patient's present omeprazole GI prophylaxis: PPI. Stool softener PRN constipation. DVT PPx: Heparin Moris Lora MD Jun 29, 2016 10:56
--- NOTE | 2016-06-29 13:52 | PD.CARD.PN ---
Subjective Subjective Remarks No CP or SOB, feels tired Objective Medications Current Medications Medications (Trade) Dose Ordered Sig/Damaris Route Start Time Stop Time Status Last Admin (NS Flush) 2 ml UNSCH PRN IV FLUSH 06/27/16 06:00 (NS Flush) 2 ml BID IV FLUSH 06/27/16 09:00 06/27/16 10:13 (Narcan Inj) 0.4 mg UNSCH PRN IV 06/27/16 06:00 (Tylenol) 325 mg Q4HR PRN PO 06/27/16 08:15 06/27/16 22:08 (Ecotrin Ec) 81 mg DAILY PO 06/27/16 09:00 06/29/16 08:23 (Vitamin B12) 1,000 mcg DAILY PO 06/27/16 09:00 06/29/16 08:23 (Xalatan 0.005% Opth Soln) 1 drop HS EACH EYE 06/27/16 21:00 06/28/16 21:56 (Ativan) 0.5 mg Q8H PRN PO 06/27/16 08:15 06/29/16 03:17 (Timoptic 0.5% Opth Soln) 1 drop BID EACH EYE 06/27/16 09:00 06/29/16 08:22 (Milk Of Magnesia Liq) 30 ml HS PRN PO 06/27/16 08:15 (Protonix) 20 mg DAILY PO 06/27/16 09:00 06/29/16 08:23 (Lactinex) 1 tab DAILY PO 06/27/16 09:00 06/29/16 08:23 (Pravachol) 40 mg DAILY PO 06/27/16 09:15 06/29/16 08:23 (D50w (Vial) Inj) 25 ml UNSCH PRN IV PUSH 06/27/16 08:30 (Glucagon Inj) 1 mg UNSCH PRN OTHER 06/27/16 08:30 Insulin Detemir 20 units 20 units DAILY SQ 06/28/16 09:00 06/29/16 08:24 (NS 1000 ml Inj) 1,000 ml @ 75 mls/hr [id number] IV 06/28/16 08:45 06/29/16 08:19 (Lopressor) 25 mg Q12HR PO 06/28/16 09:00 06/29/16 08:23 Apixaban 2.5 mg 2.5 mg BID PO 06/28/16 21:00 06/29/16 09:09 Azithromycin 500 mg/Sodium Chloride 250 ml @ 250 mls/hr Q24H IV 06/29/16 09:00 06/29/16 09:09 (Zosyn 3.375 Gm Premix) 50 ml @ 100 mls/hr Q8H IV 06/29/16 10:00 06/29/16 11:32 Vital Signs / I&O Vital Signs Date Time Temp Pulse Resp B/P Pulse Ox O2 Delivery O2 Flow Rate FiO2 06/29/16 12:00 97.5 71 16 131/62 94 06/29/16 08:31 94 Nasal Cannula 2.00 06/29/16 08:00 99.7 108 17 136/87 94 06/29/16 05:54 97 Nasal Cannula 2.00 06/29/16 05:51 98.2 100 20 129/70 90 06/29/16 00:00 99.2 96 18 119/68 94 06/28/16 20:17 102 06/28/16 20:00 99.1 104 18 116/68 94 06/28/16 16:00 99.2 84 16 91/54 95 I/O 06/28/16 06/28/16 06/28/16 06/29/16 06/29/16 06/29/16 06:59 14:59 22:59 06:59 14:59 22:59 Intake Total 1040 ml 1483 ml 960 ml 1148 ml Output Total 700 ml 600 ml 450 ml 800 ml Balance 340 ml 883 ml 510 ml 348 ml Intake Oral 240 ml 240 ml 240 ml 240 ml IV Total 800 ml 743 ml 720 ml 908 ml Other 500 ml Output Urine Total 700 ml 600 ml 450 ml 800 ml # Bowel Movements 0 Physical Exam GENERAL: In NAD SKIN: Warm and dry. HEAD: Normocephalic. EYES: No scleral icterus. No injection or drainage. NECK: Supple, trachea midline. No JVD or lymphadenopathy. CARDIOVASCULAR: Regular rate and rhythm without murmurs, gallops, or rubs. RESPIRATORY: Breath sounds equal bilaterally. No accessory muscle use. GASTROINTESTINAL: Abdomen soft, non-tender, nondistended. MUSCULOSKELETAL: No cyanosis, or edema. Laboratory Laboratory Tests Test 06/29/16 03:35 White Blood Count 11.0 TH/MM3 Red Blood Count 3.72 MIL/MM3 Hemoglobin 10.0 GM/DL Hematocrit 29.9 % Mean Corpuscular Volume 80.4 FL Mean Corpuscular Hemoglobin 26.9 PG Mean Corpuscular Hemoglobin 33.5 % Concent Red Cell Distribution Width 16.2 % Platelet Count 239 TH/MM3 Mean Platelet Volume 8.4 FL Sodium Level 140 MEQ/L Potassium Level 3.5 MEQ/L Chloride Level 107 MEQ/L Carbon Dioxide Level 22.4 MEQ/L Anion Gap 11 MEQ/L Blood Urea Nitrogen 41 MG/DL Creatinine 1.35 MG/DL Estimat Glomerular Filtration 37 ML/MIN Rate Random Glucose 132 MG/DL Calcium Level 8.5 MG/DL Imaging Last Impressions Chest X-Ray 06/29/16 0000 Signed Impressions: Service Date/Time: Wednesday, June 29, 2016 06:20 - CONCLUSION: New area of consolidation involving the right hilum. and left lower lobe. Vasiliy Lorenzana Jr., MD Assessment and Plan Problem List: (1) Atrial fibrillation, new onset (2) Sepsis secondary to UTI (3) Moderate dehydration (4) Acute renal failure Assessment and Plan Pt spontaneously converted to SR. Continue low dose metoprolol. Continue anticoagulation with Eliquis. Increase activity. Cont tx for sepsis/UTI. D/w pt and family. Karlie Helton MD Jun 29, 2016 13:52
--- NOTE | 2016-06-29 13:55 | PD.ID.CON ---
History of Present Illness Service ID Consult Requested By Reason for Consult Evaluation and Mment of sepsis, ESBL UTI and ? pneumonia. Primary Care Physician Unknown Diagnoses: History of Present Illness is an 89 y/o CF patient from [facility] with a past medical history which includes HTN, Glaucoma, recurrent UTI, diabetes mellitus type 2, anxiety and macular degeneration. Patient confused on admission and oriented x 1 only. Patient reports to me a history of urinary stones and having seen urology in the past. Per ER doctor, patient was brought in because of fever and vomiting. Patient reports generalized body aches and chills 3 days. Patient did report dysuria to the emergency room physician. Patient reported she has been vomiting and has had lack of appetite for the last 2-3 days. Rectal temperature upon arrival to the emergency department was 102.3 and had leucocytosis. Patient was also found to be in acute renal failure. Patient met criteria for severe sepsis and workup initiated. Urine Culture with ESBL E.coli , blood cultures negative. CXR now with infiltrate. H/o vomiting and AMS prior to admission concerning for aspiration pneumonia. Patient denies chest pain diarrhea or constipation. ID consulted for evaluation of sepsis, ESBL E.coli UTI and Pneumonia. Review of Systems ROS Limitations: Altered Mental Status Past Family Social History Allergies: Coded Allergies: No Known Allergies (Verified , 01/17/16) Past Medical History HTN Glaucoma, recurrent UTI, diabetes mellitus type 2, macular degeneration h/o renal stones used to see urology in past. Past Surgical History Hysterectomy age of 52 Tonsillectomy age of 9 Ankle surgery age of 37 Reported Medications Reported Meds & Active Scripts Active Reported Lorazepam 0.5 Mg Tab 0.5 Mg PO Q8H PRN Tylenol (Acetaminophen) 325 Mg Cap 325 Mg PO Q4HR PRN Milk of Magnesia Concentrate Liq (Magnesium Hydroxide) 1,200 Mg/5 Ml Susp 30 Ml PO HS PRN Lantus Inj (Insulin Glargine) 100 Unit/Ml Inj 28 Units SQ DAILY Novolin R Inj (Insulin Human Regular) 100 Unit/Ml Inj Unknown Dose SQ QID Omeprazole 20 Mg Cap 20 Mg PO DAILY Glipizide 5 Mg Tab 5 Mg PO DAILY Take 30 minutes before a meal Glipizide 10 Mg Tab 10 Mg PO DAILY Take 30 minutes before a meal Docusate Sodium 100 Mg Cap 100 Mg PO TID Potassium Chloride ER (Potassium Chloride) 20 Meq Tab 20 Meq PO DAILY Xalatan Opth Drops (Latanoprost) 0.005% Drops 1 Drop EACH EYE HS Timolol Opth Drops 0.5 % Soln 1 Drop EACH EYE BID Aspirin 81 (Aspirin) 81 Mg Tabdr 81 Mg PO DAILY Simvastatin 20 Mg Tab 20 Mg PO DAILY Acidophilus (Probiotic Product) 1 Cap Cap 1 Cap PO DAILY Indapamide 2.5 Mg Tab 2.5 Mg PO DAILY Furosemide 20 Mg Tab 20 Mg PO DAILY Vitamin B-12 (Cyanocobalamin) 1,000 Mcg Tab 1,000 Mcg PO DAILY Active Ordered Medications Current Medications Medications (Trade) Dose Ordered Sig/Damaris Route Start Time Stop Time Status Last Admin (NS Flush) 2 ml UNSCH PRN IV FLUSH 06/27/16 06:00 (NS Flush) 2 ml BID IV FLUSH 06/27/16 09:00 06/27/16 10:13 (Narcan Inj) 0.4 mg UNSCH PRN IV 06/27/16 06:00 (Tylenol) 325 mg Q4HR PRN PO 06/27/16 08:15 06/27/16 22:08 (Ecotrin Ec) 81 mg DAILY PO 06/27/16 09:00 06/29/16 08:23 (Vitamin B12) 1,000 mcg DAILY PO 06/27/16 09:00 06/29/16 08:23 (Xalatan 0.005% Opth Soln) 1 drop HS EACH EYE 06/27/16 21:00 06/28/16 21:56 (Ativan) 0.5 mg Q8H PRN PO 06/27/16 08:15 06/29/16 03:17 (Timoptic 0.5% Opth Soln) 1 drop BID EACH EYE 06/27/16 09:00 06/29/16 08:22 (Milk Of Magnesia Liq) 30 ml HS PRN PO 06/27/16 08:15 (Protonix) 20 mg DAILY PO 06/27/16 09:00 06/29/16 08:23 (Lactinex) 1 tab DAILY PO 06/27/16 09:00 06/29/16 08:23 (Pravachol) 40 mg DAILY PO 06/27/16 09:15 06/29/16 08:23 (D50w (Vial) Inj) 25 ml UNSCH PRN IV PUSH 06/27/16 08:30 (Glucagon Inj) 1 mg UNSCH PRN OTHER 06/27/16 08:30 Insulin Detemir 20 units 20 units DAILY SQ 06/28/16 09:00 06/29/16 08:24 (NS 1000 ml Inj) 1,000 ml @ 75 mls/hr [id number] IV 06/28/16 08:45 06/29/16 08:19 (Lopressor) 25 mg Q12HR PO 06/28/16 09:00 06/29/16 08:23 Apixaban 2.5 mg 2.5 mg BID PO 06/28/16 21:00 06/29/16 09:09 (INVanz INJ/NS Inj) 100 ml @ 200 mls/hr Q24H IV 06/29/16 14:00 UNV (Zithromax) 500 mg DAILY PO 06/30/16 09:00 UNV Family History Per records: Single child, doesn't have siblings Mother had DC at the age of 80 Father at the age of 81, heart problems unspecified. Social History Denies EtOH use ( says occasionally maybe one glass of wine at times), denies tobacco use or illicit drug use. Physical Exam Vital Signs Vital Signs Date Time Temp Pulse Resp B/P Pulse Ox O2 Delivery O2 Flow Rate FiO2 06/29/16 12:00 97.5 71 16 131/62 94 06/29/16 08:31 94 Nasal Cannula 2.00 06/29/16 08:00 99.7 108 17 136/87 94 06/29/16 05:54 97 Nasal Cannula 2.00 06/29/16 05:51 98.2 100 20 129/70 90 06/29/16 00:00 99.2 96 18 119/68 94 06/28/16 20:17 102 06/28/16 20:00 99.1 104 18 116/68 94 06/28/16 16:00 99.2 84 16 91/54 95 Physical Exam GENERAL: This is a fairly well-nourished, well-developed patient, in no apparent distress. SKIN: No rashes, ecchymoses or lesions. Cool and dry. HEAD: Atraumatic. Normocephalic. No temporal or scalp tenderness. EYES: Pupils equal round and reactive. Extraocular motions intact. No scleral icterus. No injection or drainage. ENT: Nose without bleeding, purulent drainage or septal hematoma. Throat without erythema, tonsillar hypertrophy or exudate. Uvula midline. Airway patent. NECK: Trachea midline. Supple, nontender, no meningeal signs. CARDIOVASCULAR: RRR RESPIRATORY: Clear to auscultation. Breath sounds equal bilaterally. No wheezes , rales, or rhonchi. GASTROINTESTINAL: Abdomen soft, non-tender, nondistended. MUSCULOSKELETAL: Extremities without clubbing, cyanosis, or edema. No joint tenderness, effusion, or edema noted. No calf tenderness. Negative Homans sign bilaterally. NEUROLOGICAL: Awake and alert. Grossly non focal Psych: cooperative IV line sites with no e.o infection. Laboratory Laboratory Tests Test 06/29/16 03:35 White Blood Count 11.0 Red Blood Count 3.72 Hemoglobin 10.0 Hematocrit 29.9 Mean Corpuscular Volume 80.4 Mean Corpuscular Hemoglobin 26.9 Mean Corpuscular Hemoglobin 33.5 Concent Red Cell Distribution Width 16.2 Platelet Count 239 Mean Platelet Volume 8.4 Sodium Level 140 Potassium Level 3.5 Chloride Level 107 Carbon Dioxide Level 22.4 Anion Gap 11 Blood Urea Nitrogen 41 Creatinine 1.35 Estimat Glomerular Filtration 37 Rate Random Glucose 132 Calcium Level 8.5 Date/Time Procedure Status Source Growth 06/27/16 02:35 Aerobic Blood Culture - Preliminary Resulted Blood Peripheral NO GROWTH IN 2 DAYS 06/27/16 02:35 Anaerobic Blood Culture - Preliminary Resulted Blood Peripheral NO GROWTH IN 2 DAYS 06/27/16 02:25 Urine Culture - Final Complete Urine Catheterized Urine Escherichia Coli Esbl Positive Result Diagram: 06/29/16 0335 06/29/16 0335 Imaging Last Impressions Chest X-Ray 06/29/16 0000 Signed Impressions: Service Date/Time: Wednesday, June 29, 2016 06:20 - CONCLUSION: New area of consolidation involving the right hilum. and left lower lobe. Vasiliy Lorenzana Jr., MD Assessment and Plan Assessment and Plan Severe Sepsis present on admission (acute renal failure, acute metabolic encephalopathy on admission) ESBL E.coli UTI, ? complicated given h/o renal stones. Prior h/o renal stones Pneumonia likely aspiration. Patient was dry on admission and after adequate fluids may have pneumonia showing up. Rule out atypical or CA Pneumonia. DM 2 uncontrolled. Acute renal failure: Cr in Jan 2016 was normal. Prerenal, sepsis. Acute metabolic encephalopathy on admission: ? sepsis related. Recs Check Urine legionella Ag DC Zosyn IV Contact isolation for ESBL E.coli. Start Ertapenem IV (ASP: ESBL UTI) Continue Azithro change to oral plan on 4 more days. US KUB: look for hydronephrosis or renal/ureteral stones. If any pathology on US will consider Urology consult. Bladder training exercises before cath removal and also check residuals ? neurogenic bladder. d/w patient plan for the day d.w Maria Del Rosario Cox MD Jun 29, 2016 13:55
[2016-06-29] MEDS ORDERED: MISCELLANEOUS PHARMACY INFORMATION XX PRN (14:00)
[2016-06-29] MEDS ORDERED: ASP: Path resistant to other antimicrobials, culture proven XX PRN (14:00)
[2016-06-29] MEDS: ERTAPENEM INJ 1,000 MG in SODIUM CHLORIDE 0.9% INJ 100 ML IV SCH (15:44)
[2016-06-29] MEDS: RESP: ALBUTEROL 2.5 MG/IPRATROPIUM 0.5 MG NEB (SCH) NEB ×2 (16:00→22:00)
[2016-06-29] MEDS: LATANOPROST 0.005% OPHT SOLN 2.5 ML BTL EACH EYE SCH (20:40)
--- NOTE | 2016-06-29 23:13 | RADRPT ---
EXAM DATE/TIME: 06/29/2016 22:14 [facility] COMPARISON: CT ABDOMEN & PELVIS W/O CONTRAST, January 17, 2016, 17:07. INDICATIONS : Recurrent urinary tract infections and history of renal calculi. MEDICAL HISTORY : Renal calculi. Hypercholesterolemia. Hypertension. Recurrent urinary tract infections. Glaucoma. Macu lar degeneration. Diabetes. Anxiety. SURGICAL HISTORY : Tonsillectomy. Hysterectomy. Right ankle fracture repair. ENCOUNTER: Initial ACUITY: 1 day PAIN SCORE: 0/10 LOCATION: Bilateral flank MEASUREMENTS: RIGHT KIDNEY: 11.1 x 5.2 x 5.3 cm LEFT KIDNEY: 10.8 x 5.1 x 4.9 cm FINDINGS: RIGHT KIDNEY: Renal cortex is normal in thickness and echotexture. No hydronephrosis, stone, or mass. Echogenic m ass along the upper pole right kidney measures 23 x 18 x 15 mm. LEFT KIDNEY: Renal cortex is normal in thickness and echotexture. No hydronephrosis, stone, or mass. BLADDER: Decompressed by Tripathi catheter. Incidentally noted is evidence of cholelithiasis. CONCLUSION: 1. 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 This measures 2.3 cm. 2. Bladder decompressed by Tripathi catheter. 3. Cholelithiasis. Bryan Sommers MD on June 29, 2016 at 23:10 Board Certified Radiologist. This report was verified electronically.
[2016-06-30] VITALS (7 sets, daily range): BP systolic 114–140; BP diastolic 65–72; PULSE 70–107; RESP 18–22; TEMP 96.4–98.7; O2SAT 94–97
[2016-06-30] MEDS: INSULIN ASPART SUPPLEMENTAL SCALE SQ SCH ×4 (05:59→22:49)
[2016-06-30] MEDS: RESP: ALBUTEROL 2.5 MG/IPRATROPIUM 0.5 MG NEB (SCH) NEB ×4 (06:29→19:46)
[2016-06-30] MEDS: SODIUM CHLORIDE 0.9% FLUSH 10 ML FLUSH IV FLUSH SCH ×2 (09:00→21:00)
[2016-06-30] MEDS: ASPIRIN EC 81 MG TABEC PO SCH (11:13)
[2016-06-30] MEDS: CYANOCOBALAMIN 1,000 MCG TAB PO SCH (11:13)
[2016-06-30] MEDS: INSULIN DETEMIR 100 UNITS/ML VIAL SQ SCH (11:13)
[2016-06-30] MEDS: METOPROLOL TARTRATE 25 MG TAB PO SCH ×2 (11:13→22:49)
[2016-06-30] MEDS: LACTOBACILLUS ACIDOPHILUS TAB PO SCH (11:13)
[2016-06-30] MEDS: PRAVASTATIN SOD 40 MG TAB PO SCH (11:13)
[2016-06-30] MEDS: APIXABAN 2.5 MG TABLET PO SCH ×2 (11:13→22:49)
[2016-06-30] MEDS: PANTOPRAZOLE SOD 20 MG DELAYED RELEASE TAB PO SCH (11:14)
[2016-06-30] MEDS: AZITHROMYCIN 250 MG TAB PO SCH (11:14)
--- NOTE | 2016-06-30 11:18 | PD.CARD.PN ---
Subjective Subjective Remarks No CP or SOB Objective Medications Current Medications Medications (Trade) Dose Ordered Sig/Damaris Route Start Time Stop Time Status Last Admin (NS Flush) 2 ml UNSCH PRN IV FLUSH 06/27/16 06:00 (NS Flush) 2 ml BID IV FLUSH 06/27/16 09:00 06/27/16 10:13 (Narcan Inj) 0.4 mg UNSCH PRN IV 06/27/16 06:00 (Tylenol) 325 mg Q4HR PRN PO 06/27/16 08:15 06/27/16 22:08 (Ecotrin Ec) 81 mg DAILY PO 06/27/16 09:00 06/29/16 08:23 (Vitamin B12) 1,000 mcg DAILY PO 06/27/16 09:00 06/29/16 08:23 (Xalatan 0.005% Opth Soln) 1 drop HS EACH EYE 06/27/16 21:00 06/29/16 20:40 (Ativan) 0.5 mg Q8H PRN PO 06/27/16 08:15 06/29/16 20:39 (Timoptic 0.5% Opth Soln) 1 drop BID EACH EYE 06/27/16 09:00 06/29/16 20:40 (Milk Of Magnesia Liq) 30 ml HS PRN PO 06/27/16 08:15 (Protonix) 20 mg DAILY PO 06/27/16 09:00 06/29/16 08:23 (Lactinex) 1 tab DAILY PO 06/27/16 09:00 06/29/16 08:23 (Pravachol) 40 mg DAILY PO 06/27/16 09:15 06/29/16 08:23 (D50w (Vial) Inj) 25 ml UNSCH PRN IV PUSH 06/27/16 08:30 (Glucagon Inj) 1 mg UNSCH PRN OTHER 06/27/16 08:30 Insulin Detemir 20 units 20 units DAILY SQ 06/28/16 09:00 06/29/16 08:24 (NS 1000 ml Inj) 1,000 ml @ 75 mls/hr [id number] IV 06/28/16 08:45 06/29/16 20:39 (Lopressor) 25 mg Q12HR PO 06/28/16 09:00 06/29/16 20:39 Apixaban 2.5 mg 2.5 mg BID PO 06/28/16 21:00 06/29/16 20:39 (INVanz INJ/NS Inj) 100 ml @ 200 mls/hr Q24H IV 06/29/16 15:00 06/29/16 15:44 (Zithromax) 500 mg DAILY PO 06/30/16 09:00 Vital Signs / I&O Vital Signs Date Time Temp Pulse Resp B/P Pulse Ox O2 Delivery O2 Flow Rate FiO2 06/30/16 08:47 94 Nasal Cannula 2.00 06/30/16 08:00 96.4 70 22 140/65 95 06/30/16 04:00 97.8 82 20 129/72 95 06/30/16 00:00 98.2 80 20 134/72 96 06/29/16 22:02 94 Nasal Cannula 2.00 06/29/16 20:00 97.4 76 22 141/74 95 06/29/16 16:00 98.3 62 16 143/ 95 06/29/16 12:00 97.5 71 16 131/62 94 I/O 06/29/16 06/29/16 06/29/16 06/30/16 06/30/16 06/30/16 07:00 15:00 23:00 07:00 15:00 23:00 Intake Total 1148 ml 946 ml 953 ml 913 ml Output Total 800 ml 500 ml 650 ml 400 ml Balance 348 ml 446 ml 303 ml 513 ml Intake Oral 240 ml 130 ml 440 ml 220 ml IV Total 908 ml 816 ml 513 ml 693 ml Output Urine Total 800 ml 500 ml 650 ml 400 ml # Bowel Movements 1 0 0 Physical Exam GENERAL: In NAD SKIN: Warm and dry. HEAD: Normocephalic. EYES: No scleral icterus. No injection or drainage. NECK: Supple, trachea midline. No JVD or lymphadenopathy. CARDIOVASCULAR: Regular rate and rhythm without murmurs, gallops, or rubs. RESPIRATORY: Breath sounds equal bilaterally. No accessory muscle use. GASTROINTESTINAL: Abdomen soft, non-tender, nondistended. MUSCULOSKELETAL: No cyanosis, or edema. Laboratory Laboratory Tests Test 06/27/16 06/27/16 06/28/16 06/28/16 02:25 02:35 03:30 10:25 Urine Color YELLOW Urine Turbidity CLOUDY Urine pH 5.5 Urine Specific [place] 1.016 Urine Protein 30 mg/dL Urine Glucose (UA) NEG mg/dL Urine Ketones NEG mg/dL Urine Occult Blood MOD Urine Nitrite NEG Urine Bilirubin NEG Urine Urobilinogen LESS THAN 2.0 MG/DL Urine Leukocyte Esterase LARGE Urine RBC 13 /hpf Urine WBC /hpf Urine WBC Clumps MANY Urine Squamous Epithelial 1 /hpf Cells Urine Transitional Epithelial <1 /hpf Cells Urine Renal Epithelial Cells 1 /hpf Urine Bacteria MANY /hpf Urine Hyaline Casts 6 /lpf Urine Mucus FEW /lpf Urine Yeast (Budding) MANY Microscopic Urinalysis Comment CATH-CULTURE IND Prothrombin Time 12.7 SEC Prothromb Time International 1.1 RATIO Ratio Activated Partial 30.0 SEC Thromboplast Time Total Bilirubin 0.4 MG/DL Aspartate Amino Transf 38 U/L (AST/SGOT) Alanine Aminotransferase 37 U/L (ALT/SGPT) Alkaline Phosphatase 104 U/L Total Protein 6.7 GM/DL Albumin 2.6 GM/DL Neutrophils (%) (Auto) % Lymphocytes (%) (Auto) % Monocytes (%) (Auto) % Eosinophils (%) (Auto) % Basophils (%) (Auto) % Neutrophils # (Auto) TH/MM3 Lymphocytes # (Auto) TH/MM3 Monocytes # (Auto) TH/MM3 Eosinophils # (Auto) TH/MM3 Basophils # (Auto) TH/MM3 CBC Comment AUTO DIFF Differential Total Cells 100 Counted Neutrophils % (Manual) 71 % Band Neutrophils % 4 % Lymphocytes % 10 % Monocytes % 14 % Basophils % 1 % Neutrophils # (Manual) 10.3 TH/MM3 Differential Comment FINAL DIFF MANUAL Platelet Estimate NORMAL Platelet Morphology Comment NORMAL Red Cell Morphology Comment NORMAL Magnesium Level 2.3 MG/DL Thyroid Stimulating Hormone 0.738 uIU/ML 3rd Gen Lactic Acid Level 1.8 mmol/L Total Creatine Kinase 273 U/L Creatine Kinase MB 0.6 NG/ML Creatine Kinase MB % 0.2 % Troponin I 0.07 NG/ML Test 06/29/16 03:35 White Blood Count 11.0 TH/MM3 Red Blood Count 3.72 MIL/MM3 Hemoglobin 10.0 GM/DL Hematocrit 29.9 % Mean Corpuscular Volume 80.4 FL Mean Corpuscular Hemoglobin 26.9 PG Mean Corpuscular Hemoglobin 33.5 % Concent Red Cell Distribution Width 16.2 % Platelet Count 239 TH/MM3 Mean Platelet Volume 8.4 FL Sodium Level 140 MEQ/L Potassium Level 3.5 MEQ/L Chloride Level 107 MEQ/L Carbon Dioxide Level 22.4 MEQ/L Anion Gap 11 MEQ/L Blood Urea Nitrogen 41 MG/DL Creatinine 1.35 MG/DL Estimat Glomerular Filtration 37 ML/MIN Rate Random Glucose 132 MG/DL Calcium Level 8.5 MG/DL Imaging Last Impressions Renal Ultrasound 06/29/16 0000 Signed Impressions: Service Date/Time: Wednesday, June 29, 2016 22:14 - CONCLUSION: 1. 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 This measures 2.3 cm. 2. Bladder decompressed by Tripathi catheter. 3. Cholelithiasis. Bryan Sommers MD Chest X-Ray 06/29/16 0000 Signed Impressions: Service Date/Time: Wednesday, June 29, 2016 06:20 - CONCLUSION: New area of consolidation involving the right hilum. and left lower lobe. Vasiliy Lorenzana Jr., MD Assessment and Plan Problem List: (1) Atrial fibrillation, new onset (2) Sepsis secondary to UTI (3) Moderate dehydration (4) Acute renal failure Assessment and Plan Pt spontaneously converted to SR. Continue low dose metoprolol. Continue anticoagulation with Eliquis. Increase activity. Cont tx for sepsis/UTI. Karlie Helton MD Jun 30, 2016 11:18
--- NOTE | 2016-06-30 12:51 | HHI.IDPN ---
Subjective Subjective Remarks is an 89 y/o CF patient from [facility] with a past medical history which includes HTN, Glaucoma, recurrent UTI, diabetes mellitus type 2, anxiety and macular degeneration. ID following for ESBL UTI and ESBL bacteremia. Overnight events reviewed. No fevers No rash No diarrhea Antibiotics Ertapenem IV Lines Line sites with no e/o infection. Past Medical History reviewed Allergies: Coded Allergies: *MDRO Multi-Drug Resistant Organism (Verified Adverse Reaction, Unknown, ) ESBL E.Coli (urine)-06/27/16 Objective . Vital Signs Date Time Temp Pulse Resp B/P Pulse Ox O2 Delivery O2 Flow Rate FiO2 06/30/16 08:47 94 Nasal Cannula 2.00 06/30/16 08:00 96.4 70 22 140/65 95 06/30/16 04:00 97.8 82 20 129/72 95 06/30/16 00:00 98.2 80 20 134/72 96 06/29/16 22:02 94 Nasal Cannula 2.00 06/29/16 20:00 97.4 76 22 141/74 95 06/29/16 16:00 98.3 62 16 143/ 95 06/29/16 06/29/16 06/30/16 15:00 23:00 07:00 Intake Total 946 ml 953 ml 913 ml Output Total 500 ml 650 ml 400 ml Balance 446 ml 303 ml 513 ml Intake Oral 130 ml 440 ml 220 ml IV Total 816 ml 513 ml 693 ml Output Urine Total 500 ml 650 ml 400 ml # Bowel Movements 1 0 0 . Laboratory Tests Test 06/29/16 03:35 White Blood Count 11.0 TH/MM3 Red Blood Count 3.72 MIL/MM3 Hemoglobin 10.0 GM/DL Hematocrit 29.9 % Mean Corpuscular Volume 80.4 FL Mean Corpuscular Hemoglobin 26.9 PG Mean Corpuscular Hemoglobin 33.5 % Concent Red Cell Distribution Width 16.2 % Platelet Count 239 TH/MM3 Mean Platelet Volume 8.4 FL Laboratory Tests Test 06/29/16 03:35 Sodium Level 140 MEQ/L Potassium Level 3.5 MEQ/L Chloride Level 107 MEQ/L Carbon Dioxide Level 22.4 MEQ/L Anion Gap 11 MEQ/L Blood Urea Nitrogen 41 MG/DL Creatinine 1.35 MG/DL Estimat Glomerular Filtration 37 ML/MIN Rate Random Glucose 132 MG/DL Calcium Level 8.5 MG/DL Microbiology Date/Time Procedure Status Source Growth 06/29/16 23:59 Legionella Antigen - Final Complete Urine Catheterized Urine PRESUMPTIVE NEGATIVE FOR LEGIONELLA P... 06/29/16 23:59 Streptococcus pneumoniae Antigen (M - Final Complete Urine Catheterized Urine PRESUMPTIVE NEGATIVE FOR STREPTOCOCCU... Imaging Last Impressions Renal Ultrasound 06/29/16 0000 Signed Impressions: Service Date/Time: Wednesday, June 29, 2016 22:14 - CONCLUSION: 1. 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 This measures 2.3 cm. 2. Bladder decompressed by Tripathi catheter. 3. Cholelithiasis. Bryan Sommers MD Chest X-Ray 06/29/16 0000 Signed Impressions: Service Date/Time: Wednesday, June 29, 2016 06:20 - CONCLUSION: New area of consolidation involving the right hilum. and left lower lobe. Vasiliy Lorenzana Jr., MD Physical Exam GENERAL: This is a fairly well-nourished, well-developed patient, in no apparent distress. SKIN: No rashes, ecchymoses or lesions. Cool and dry. HEAD: Atraumatic. Normocephalic. No temporal or scalp tenderness. EYES: Pupils equal round and reactive. Extraocular motions intact. No scleral icterus. No injection or drainage. ENT: Nose without bleeding, purulent drainage or septal hematoma. Throat without erythema, tonsillar hypertrophy or exudate. Uvula midline. Airway patent. NECK: Trachea midline. Supple, nontender, no meningeal signs. CARDIOVASCULAR: RRR RESPIRATORY: Clear to auscultation. Breath sounds equal bilaterally. No wheezes , rales, or rhonchi. GASTROINTESTINAL: Abdomen soft, non-tender, nondistended. MUSCULOSKELETAL: Extremities without clubbing, cyanosis, or edema. No joint tenderness, effusion, or edema noted. No calf tenderness. Negative Homans sign bilaterally. NEUROLOGICAL: Awake and alert. Grossly non focal Psych: cooperative IV line sites with no e.o infection. Assessment & Plan Remarks Severe Sepsis present on admission (acute renal failure, acute metabolic encephalopathy on admission) ESBL E.coli UTI, ? complicated given h/o renal stones. Prior h/o renal stones Renal angiomyoplipoma. Pneumonia likely aspiration. Patient was dry on admission and after adequate fluids may have pneumonia showing up. Rule out atypical or CA Pneumonia. DM 2 uncontrolled. Acute renal failure: Cr in Jan 2016 was normal. Prerenal, sepsis. Acute metabolic encephalopathy on admission: ? sepsis related. Recs Contact isolation for ESBL E.coli. Continue Ertapenem IV (ASP: ESBL UTI) Continue Azithro change to oral plan on 4 more days. US KUB: no stones. Bladder training exercises before cath removal and also check residuals ? neurogenic bladder. d/w patient plan for the day d.w Maria Del Rosario Cox MD Jun 30, 2016 12:51
--- NOTE | 2016-06-30 12:52 | HHI.PR ---
Subjective Remarks Patient reports feeling slightly better today. Afebrile. Objective Vitals Vital Signs Date Time Temp Pulse Resp B/P Pulse Ox O2 Delivery O2 Flow Rate FiO2 06/30/16 08:47 94 Nasal Cannula 2.00 06/30/16 08:00 96.4 70 22 140/65 95 06/30/16 04:00 97.8 82 20 129/72 95 06/30/16 00:00 98.2 80 20 134/72 96 06/29/16 22:02 94 Nasal Cannula 2.00 06/29/16 20:00 97.4 76 22 141/74 95 06/29/16 16:00 98.3 62 16 143/ 95 I/O 06/29/16 06/29/16 06/29/16 06/30/16 06/30/16 06/30/16 07:00 15:00 23:00 07:00 15:00 23:00 Intake Total 1148 ml 946 ml 953 ml 913 ml Output Total 800 ml 500 ml 650 ml 400 ml Balance 348 ml 446 ml 303 ml 513 ml Intake Oral 240 ml 130 ml 440 ml 220 ml IV Total 908 ml 816 ml 513 ml 693 ml Output Urine Total 800 ml 500 ml 650 ml 400 ml # Bowel Movements 1 0 0 Result Diagram: 06/29/1633406/29/16334 Objective Remarks GENERAL: Elderly female in no acute distress CARDIOVASCULAR: Rate in the 80s and regular rhythm without murmurs, gallops, or rubs. RESPIRATORY: Good respiratory efforts. Breath sounds equal and clear to auscultation bilaterally. GASTROINTESTINAL: Abdomen soft, non-tender, non-distended. Normal active bowel sounds MUSCULOSKELETAL: Extremities without cyanosis, or edema. NEURO: Alert to person and place but not to time and situation. Can move all extremities spontaneously. Normal speech PSYCH: Appropriate mood and affect. A/P Problem List: (1) Sepsis secondary to UTI ICD Code: A41.9 Status: Acute (2) Acute renal failure ICD Code: N17.9 Status: Acute (3) Moderate dehydration ICD Code: E86.0 Status: Acute (4) Hypoglycemia ICD Code: E16.2 Status: Acute (5) Atrial fibrillation, new onset ICD Code: I48.91 Status: Acute Assessment and Plan 89-year-old female with Sepsis secondary to UTI. On admission (temperature 102.3, white blood cell count 13.8, lactic acid 2.1, source UTI) - Urine Culture grew ESBL pos E. Coli. -Infectious disease following. On Ertapenem and azithromycin.. - Follow blood cultures. Pneumonia: Patient had a normal CXR on 06/27/16. X-ray today shows consolidation - On antibiotics as above. - Breathing treatments and supplemental oxygen as needed. - Incentive spirometry New-onset atrial fibrillation/mild elevation of troponin: Current sepsis and dehydration may be precipitating factors. Patient converted in sinus rhythm after starting metoprolol. - Cardiology following. Continue metoprolol. Patient started on Eliquis. Acute kidney injury/Dehydration: Improving Continue to Hold home PO diuretics Recheck BMP in a.m. Diabetes mellitus- : Doing okay with decreased dose of Levemir to 20 units daily Accu-Cheks before meals at bedtime with Medium-dose sliding scale insulin coverage and Anxiety Lorazepam 0.5mg Q8H PRN anxiety Macular degeneration Glaucoma continue patient's home Latanoprost and Timolol eyedrops Hyperlipidemia continue patient's simvastatin 20 mg daily GERD continue patient's present omeprazole GI prophylaxis: PPI. Stool softener PRN constipation. DVT PPx: Heparin Moris Lora MD Jun 30, 2016 12:52
[2016-06-30] MEDS: ERTAPENEM INJ 1,000 MG in SODIUM CHLORIDE 0.9% INJ 100 ML IV SCH (14:17)
[2016-06-30] MEDS: TIMOLOL MALEATE 0.5% OPHT SOLN 5 ML BTL EACH EYE SCH ×2 (14:17→22:50)
[2016-06-30] MEDS: LORazepam 0.5 MG TAB PO PRN ×2 (14:21→22:49)
[2016-06-30] MEDS: RESP: ALBUTEROL 2.5 MG/IPRATROPIUM 0.5 MG NEB (PRN) NEB (16:28)
[2016-06-30] MEDS: LATANOPROST 0.005% OPHT SOLN 2.5 ML BTL EACH EYE SCH (22:50)
[2016-07-01] VITALS (9 sets, daily range): BP systolic 116–130; BP diastolic 63–80; PULSE 80–95; RESP 17–20; TEMP 97.2–98.8; O2SAT 92–96
[2016-07-01] MEDS: RESP: ALBUTEROL 2.5 MG/IPRATROPIUM 0.5 MG NEB (SCH) NEB ×4 (04:44→20:10)
[2016-07-01 05:03] LABS: HEMATOCRIT 28.1 % (35.0-46.0); MEAN CELL VOLUME 79.9 FL (80.0-100.0); MEAN CORPUSCULAR HEMOGLOBIN 26.8 PG (27.0-34.0); MEAN CORPUSCULAR HGB CONC 33.5 % (32.0-36.0); PLATELET COUNT 291 TH/MM3 (150-450); RED BLOOD COUNT 3.51 MIL/MM3 (4.00-5.30); RED CELL DISTRIBUTION WIDTH 16.6 % (11.6-17.2); REVIEW FLAG FINAL; WHITE BLOOD COUNT 14.5 TH/MM3 (4.0-11.0)
[2016-07-01 05:28] LABS: BICARBONATE 22.1 MEQ/L (21.0-32.0)
[2016-07-01 05:34] LABS: POTASSIUM 2.9 MEQ/L (3.5-5.1)
[2016-07-01] MEDS: INSULIN ASPART SUPPLEMENTAL SCALE SQ SCH ×4 (06:10→21:00)
[2016-07-01] MEDS ORDERED: POTASSIUM CHLORIDE 10 MEQ CONTROLLED RELEASE TAB PO ONE (08:30)
[2016-07-01] MEDS: ASPIRIN EC 81 MG TABEC PO SCH (09:00)
[2016-07-01] MEDS: SODIUM CHLORIDE 0.9% FLUSH 10 ML FLUSH IV FLUSH SCH ×2 (09:00→21:00)
[2016-07-01] MEDS: PRAVASTATIN SOD 40 MG TAB PO SCH (09:00)
[2016-07-01] MEDS: CYANOCOBALAMIN 1,000 MCG TAB PO SCH (09:00)
[2016-07-01] MEDS: METOPROLOL TARTRATE 25 MG TAB PO SCH ×2 (10:40→22:01)
[2016-07-01] MEDS: LACTOBACILLUS ACIDOPHILUS TAB PO SCH (10:41)
[2016-07-01] MEDS: PANTOPRAZOLE SOD 20 MG DELAYED RELEASE TAB PO SCH (10:41)
[2016-07-01] MEDS: AZITHROMYCIN 250 MG TAB PO SCH (10:41)
[2016-07-01] MEDS: APIXABAN 2.5 MG TABLET PO SCH ×2 (10:41→22:01)
[2016-07-01] MEDS: LORazepam 0.5 MG TAB PO PRN (10:42)
[2016-07-01] MEDS: TIMOLOL MALEATE 0.5% OPHT SOLN 5 ML BTL EACH EYE SCH ×2 (10:46→22:01)
[2016-07-01] MEDS: INSULIN DETEMIR 100 UNITS/ML VIAL SQ SCH (10:49)
[2016-07-01] MEDS: ERTAPENEM INJ 1,000 MG in SODIUM CHLORIDE 0.9% INJ 100 ML IV SCH (13:47)
--- NOTE | 2016-07-01 15:31 | PD.CARD.PN ---
Subjective Subjective Remarks No CP or SOB, tired Objective Medications Current Medications Medications (Trade) Dose Ordered Sig/Damaris Route Start Time Stop Time Status Last Admin (NS Flush) 2 ml UNSCH PRN IV FLUSH 06/27/16 06:00 (NS Flush) 2 ml BID IV FLUSH 06/27/16 09:00 06/27/16 10:13 (Narcan Inj) 0.4 mg UNSCH PRN IV 06/27/16 06:00 (Tylenol) 325 mg Q4HR PRN PO 06/27/16 08:15 06/27/16 22:08 (Ecotrin Ec) 81 mg DAILY PO 06/27/16 09:00 07/01/16 09:00 (Vitamin B12) 1,000 mcg DAILY PO 06/27/16 09:00 06/30/16 11:13 (Xalatan 0.005% Opth Soln) 1 drop HS EACH EYE 06/27/16 21:00 06/30/16 22:50 (Ativan) 0.5 mg Q8H PRN PO 06/27/16 08:15 07/01/16 10:42 (Timoptic 0.5% Opth Soln) 1 drop BID EACH EYE 06/27/16 09:00 07/01/16 10:46 (Milk Of Magnesia Liq) 30 ml HS PRN PO 06/27/16 08:15 (Protonix) 20 mg DAILY PO 06/27/16 09:00 07/01/16 10:41 (Lactinex) 1 tab DAILY PO 06/27/16 09:00 07/01/16 10:41 (Pravachol) 40 mg DAILY PO 06/27/16 09:15 07/01/16 09:00 (D50w (Vial) Inj) 25 ml UNSCH PRN IV PUSH 06/27/16 08:30 (Glucagon Inj) 1 mg UNSCH PRN OTHER 06/27/16 08:30 (Levemir Inj) 20 units DAILY SQ 06/28/16 09:00 07/01/16 10:49 (Lopressor) 25 mg Q12HR PO 06/28/16 09:00 07/01/16 10:40 Apixaban 2.5 mg 2.5 mg BID PO 06/28/16 21:00 07/01/16 10:41 (INVanz INJ/NS Inj) 100 ml @ 200 mls/hr Q24H IV 06/29/16 15:00 07/01/16 13:47 (Zithromax) 500 mg DAILY PO 06/30/16 09:00 07/01/16 10:41 Vital Signs / I&O Vital Signs Date Time Temp Pulse Resp B/P Pulse Ox O2 Delivery O2 Flow Rate FiO2 07/01/16 12:00 97.5 83 17 120/68 96 07/01/16 08:33 92 Nasal Cannula 2.00 07/01/16 08:00 97.7 95 19 130/63 93 07/01/16 04:46 93 Nasal Cannula 2.00 07/01/16 04:00 97.8 80 20 130/80 95 07/01/16 00:00 97.4 84 20 128/76 95 06/30/16 19:46 96 Nasal Cannula 2.00 06/30/16 16:00 98.7 92 18 128/70 97 I/O 06/30/16 06/30/16 06/30/16 07/01/16 07/01/16 07/01/16 07:00 15:00 23:00 07:00 15:00 23:00 Intake Total 913 ml 480 ml 440 ml 240 ml 240 ml Output Total 400 ml 1200 ml 1450 ml 450 ml 600 ml Balance 513 ml -720 ml -1010 ml -210 ml -360 ml Intake Oral 220 ml 480 ml 440 ml 240 ml 240 ml IV Total 693 ml Output Urine Total 400 ml 1200 ml 1450 ml 450 ml 600 ml # Bowel Movements 0 0 0 0 0 Physical Exam GENERAL: In NAD SKIN: Warm and dry. HEAD: Normocephalic. EYES: No scleral icterus. No injection or drainage. NECK: Supple, trachea midline. No JVD or lymphadenopathy. CARDIOVASCULAR: irregular rate and rhythm without murmurs, gallops, or rubs. RESPIRATORY: Breath sounds equal bilaterally. No accessory muscle use. GASTROINTESTINAL: Abdomen soft, non-tender, nondistended. MUSCULOSKELETAL: No cyanosis, or edema. Laboratory Laboratory Tests Test 07/01/16 04:33 White Blood Count 14.5 TH/MM3 Red Blood Count 3.51 MIL/MM3 Hemoglobin 9.4 GM/DL Hematocrit 28.1 % Mean Corpuscular Volume 79.9 FL Mean Corpuscular Hemoglobin 26.8 PG Mean Corpuscular Hemoglobin 33.5 % Concent Red Cell Distribution Width 16.6 % Platelet Count 291 TH/MM3 Mean Platelet Volume 8.0 FL Sodium Level 143 MEQ/L Potassium Level 2.9 MEQ/L Chloride Level 110 MEQ/L Carbon Dioxide Level 22.1 MEQ/L Anion Gap 11 MEQ/L Blood Urea Nitrogen 29 MG/DL Creatinine 1.08 MG/DL Estimat Glomerular Filtration 48 ML/MIN Rate Random Glucose 77 MG/DL Calcium Level 8.5 MG/DL Imaging Last Impressions Renal Ultrasound 06/29/16 0000 Signed Impressions: Service Date/Time: Wednesday, June 29, 2016 22:14 - CONCLUSION: 1. 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 This measures 2.3 cm. 2. Bladder decompressed by Tripathi catheter. 3. Cholelithiasis. Bryan Sommers MD Chest X-Ray 06/29/16 0000 Signed Impressions: Service Date/Time: Wednesday, June 29, 2016 06:20 - CONCLUSION: New area of consolidation involving the right hilum. and left lower lobe. Vasiliy Lorenzana Jr., MD Assessment and Plan Problem List: (1) Atrial fibrillation, new onset (2) Sepsis secondary to UTI (3) Moderate dehydration (4) Acute renal failure Assessment and Plan Back in a fib with controlled VR. Continue low dose metoprolol for rate control. Continue anticoagulation with Eliquis. Increase activity. Cont tx for sepsis/UTI. Karlie Helton MD Jul 01, 2016 15:31
--- NOTE | 2016-07-01 15:33 | HHI.PR ---
Subjective Remarks Feeling okay today. Afebrile. Denies suprapubic pain. Still not eating much. She does not like the food here. Objective Vitals Vital Signs Date Time Temp Pulse Resp B/P Pulse Ox O2 Delivery O2 Flow Rate FiO2 07/01/16 12:00 97.5 83 17 120/68 96 07/01/16 08:33 92 Nasal Cannula 2.00 07/01/16 08:00 97.7 95 19 130/63 93 07/01/16 04:46 93 Nasal Cannula 2.00 07/01/16 04:00 97.8 80 20 130/80 95 07/01/16 00:00 97.4 84 20 128/76 95 06/30/16 19:46 96 Nasal Cannula 2.00 06/30/16 16:00 98.7 92 18 128/70 97 I/O 06/30/16 06/30/16 06/30/16 07/01/16 07/01/16 07/01/16 07:00 15:00 23:00 07:00 15:00 23:00 Intake Total 913 ml 480 ml 440 ml 240 ml 240 ml Output Total 400 ml 1200 ml 1450 ml 450 ml 600 ml Balance 513 ml -720 ml -1010 ml -210 ml -360 ml Intake Oral 220 ml 480 ml 440 ml 240 ml 240 ml IV Total 693 ml Output Urine Total 400 ml 1200 ml 1450 ml 450 ml 600 ml # Bowel Movements 0 0 0 0 0 Result Diagram: 07/01/1643207/01/16432 Objective Remarks GENERAL: Elderly female in no acute distress CARDIOVASCULAR: Rate in the 80s and regular rhythm without murmurs, gallops, or rubs. RESPIRATORY: Good respiratory efforts. Breath sounds equal and clear to auscultation bilaterally. GASTROINTESTINAL: Abdomen soft, non-tender, non-distended. Normal active bowel sounds MUSCULOSKELETAL: Extremities without cyanosis, or edema. NEURO: Alert to person and place but not to time and situation. Can move all extremities spontaneously. Normal speech PSYCH: Appropriate mood and affect. A/P Problem List: (1) Sepsis secondary to UTI ICD Code: A41.9 Status: Acute (2) Acute renal failure ICD Code: N17.9 Status: Acute (3) Moderate dehydration ICD Code: E86.0 Status: Acute (4) Hypoglycemia ICD Code: E16.2 Status: Acute (5) Atrial fibrillation, new onset ICD Code: I48.91 Status: Acute Assessment and Plan 89-year-old female with Sepsis secondary to UTI. On admission (temperature 102.3, white blood cell count 13.8, lactic acid 2.1, source UTI) - Urine Culture grew ESBL pos E. Coli. - Infectious disease following. On Ertapenem and azithromycin.. - Follow blood cultures. Pneumonia: Patient had a normal CXR on 06/27/16. X-ray today shows consolidation - On antibiotics as above. - Breathing treatments and supplemental oxygen as needed. - Incentive spirometry New-onset atrial fibrillation/mild elevation of troponin: Current sepsis and dehydration may be precipitating factors. Patient converted in sinus rhythm after starting metoprolol. - Cardiology following. Continue metoprolol. Patient started on Eliquis. Acute kidney injury/Dehydration: Improving Continue to Hold home PO diuretics Recheck BMP in a.m. Hypokalemia: Replace and monitor. Diabetes mellitus- : Doing okay with decreased dose of Levemir to 20 units daily Accu-Cheks before meals at bedtime with Medium-dose sliding scale insulin coverage and Anxiety Lorazepam 0.5mg Q8H PRN anxiety Macular degeneration Glaucoma continue patient's home Latanoprost and Timolol eyedrops Hyperlipidemia continue patient's simvastatin 20 mg daily GERD continue patient's present omeprazole GI prophylaxis: PPI. Stool softener PRN constipation. DVT PPx: Heparin Moris Lora MD Jul 01, 2016 15:33
[2016-07-01] MEDS ORDERED: POTASSIUM CHLORIDE 20 MEQ CONTROLLED RELEASE TAB PO ONE (15:45)
[2016-07-01] MEDS: LATANOPROST 0.005% OPHT SOLN 2.5 ML BTL EACH EYE SCH (21:00)
[2016-07-02] VITALS (9 sets, daily range): BP systolic 100–134; BP diastolic 64–80; PULSE 78–107; RESP 18–20; TEMP 96.8–99.8; O2SAT 92–98
[2016-07-02] MEDS: RESP: ALBUTEROL 2.5 MG/IPRATROPIUM 0.5 MG NEB (SCH) NEB ×3 (04:23→21:23)
[2016-07-02 04:57] LABS: HEMATOCRIT 29.4 % (35.0-46.0); MEAN CELL VOLUME 80.4 FL (80.0-100.0); MEAN CORPUSCULAR HEMOGLOBIN 25.3 PG (27.0-34.0); MEAN CORPUSCULAR HGB CONC 31.5 % (32.0-36.0); PLATELET COUNT 346 TH/MM3 (150-450); RED BLOOD COUNT 3.66 MIL/MM3 (4.00-5.30); RED CELL DISTRIBUTION WIDTH 16.9 % (11.6-17.2); REVIEW FLAG FINAL; WHITE BLOOD COUNT 13.9 TH/MM3 (4.0-11.0)
[2016-07-02 05:13] LABS: BICARBONATE 25.5 MEQ/L (21.0-32.0); POTASSIUM 3.7 MEQ/L (3.5-5.1)
[2016-07-02] MEDS: INSULIN ASPART SUPPLEMENTAL SCALE SQ SCH ×4 (05:14→20:45)
[2016-07-02] MEDS: METOPROLOL TARTRATE 25 MG TAB PO SCH ×2 (08:57→20:39)
[2016-07-02] MEDS: AZITHROMYCIN 250 MG TAB PO SCH (08:57)
[2016-07-02] MEDS: APIXABAN 2.5 MG TABLET PO SCH ×2 (08:57→20:39)
[2016-07-02] MEDS: LORazepam 0.5 MG TAB PO PRN (08:57)
[2016-07-02] MEDS: ASPIRIN EC 81 MG TABEC PO SCH (08:57)
[2016-07-02] MEDS: PANTOPRAZOLE SOD 20 MG DELAYED RELEASE TAB PO SCH (08:57)
[2016-07-02] MEDS: CYANOCOBALAMIN 1,000 MCG TAB PO SCH (08:58)
[2016-07-02] MEDS: PRAVASTATIN SOD 40 MG TAB PO SCH (08:58)
[2016-07-02] MEDS: LACTOBACILLUS ACIDOPHILUS TAB PO SCH (08:58)
[2016-07-02] MEDS: SODIUM CHLORIDE 0.9% FLUSH 10 ML FLUSH IV FLUSH SCH ×2 (08:59→20:44)
[2016-07-02] MEDS: INSULIN DETEMIR 100 UNITS/ML VIAL SQ SCH (08:59)
[2016-07-02] MEDS: TIMOLOL MALEATE 0.5% OPHT SOLN 5 ML BTL EACH EYE SCH ×2 (09:00→20:40)
--- NOTE | 2016-07-02 10:48 | RADRPT ---
EXAM DATE/TIME: 07/02/2016 10:00 [place] COMPARISON: CHEST SINGLE AP, June 29, 2016, 6:20. INDICATIONS : Pneumonia, wheezing MEDICAL HISTORY : Diabetes mellitus type II. SURGICAL HISTORY : None. ENCOUNTER: Initial ACUITY: 4 - 6 days PAIN SCORE: 0/10 LOCATION: Bilateral chest FINDINGS: The cardiac silhouette is enlarged in transverse diameter. There are findings of congestive heart gomez lure with interstitial and alveolar opacity bilaterally. Moderate size bilateral pleural effusions ar e identified. The findings have worsened when compared with the prior examination. CONCLUSION: 1. Cardiomegaly and findings of congestive heart failure. The findings have worsened when compared wi th the prior examination. Ta Dickerson MD on July 02, 2016 at 10:45 Board Certified Radiologist. This report was verified electronically.
--- NOTE | 2016-07-02 11:46 | HHI.IDPN ---
Subjective Subjective Remarks is an 89 y/o CF patient from [facility] with a past medical history which includes HTN, Glaucoma, recurrent UTI, diabetes mellitus type 2, anxiety and macular degeneration. ID following for ESBL UTI. Overnight events reviewed. No fevers No rash No diarrhea Lethargic Antibiotics Ertapenem IV Lines Line sites with no e/o infection. Past Medical History reviewed Allergies: Coded Allergies: *MDRO Multi-Drug Resistant Organism (Verified Adverse Reaction, Unknown, ) ESBL E.Coli (urine)-06/27/16 Objective . Vital Signs Date Time Temp Pulse Resp B/P Pulse Ox O2 Delivery O2 Flow Rate FiO2 07/02/16 10:37 97 Nasal Cannula 2.00 07/02/16 10:00 98.8 95 18 118/79 98 07/02/16 08:00 98.5 97 19 117/73 97 07/02/16 04:25 92 Nasal Cannula 2.00 07/02/16 04:00 99.8 99 18 118/64 96 07/01/16 20:12 95 Nasal Cannula 2.00 07/01/16 20:00 98.8 93 18 116/69 93 07/01/16 16:00 97.2 88 17 128/66 94 07/01/16 12:00 97.5 83 17 120/68 96 07/01/16 07/01/16 07/02/16 15:00 23:00 07:00 Intake Total 240 ml 120 ml 120 ml Output Total 600 ml Balance -360 ml 120 ml 120 ml Intake Oral 240 ml 120 ml 120 ml Output Urine Total 600 ml # Voids 2 2 # Bowel Movements 0 . Laboratory Tests Test 07/01/16 07/02/16 04:33 04:35 White Blood Count 14.5 TH/MM3 13.9 TH/MM3 Red Blood Count 3.51 MIL/MM3 3.66 MIL/MM3 Hemoglobin 9.4 GM/DL 9.3 GM/DL Hematocrit 28.1 % 29.4 % Mean Corpuscular Volume 79.9 FL 80.4 FL Mean Corpuscular Hemoglobin 26.8 PG 25.3 PG Mean Corpuscular Hemoglobin 33.5 % 31.5 % Concent Red Cell Distribution Width 16.6 % 16.9 % Platelet Count 291 TH/MM3 346 TH/MM3 Mean Platelet Volume 8.0 FL 8.0 FL Laboratory Tests Test 07/01/16 07/02/16 04:33 04:35 Sodium Level 143 MEQ/L 144 MEQ/L Potassium Level 2.9 MEQ/L 3.7 MEQ/L Chloride Level 110 MEQ/L 110 MEQ/L Carbon Dioxide Level 22.1 MEQ/L 25.5 MEQ/L Anion Gap 11 MEQ/L 9 MEQ/L Blood Urea Nitrogen 29 MG/DL 28 MG/DL Creatinine 1.08 MG/DL 1.03 MG/DL Estimat Glomerular Filtration 48 ML/MIN 51 ML/MIN Rate Random Glucose 77 MG/DL 92 MG/DL Calcium Level 8.5 MG/DL 8.5 MG/DL Microbiology Date/Time Procedure Status Source Growth 06/29/16 23:59 Legionella Antigen - Final Complete Urine Catheterized Urine PRESUMPTIVE NEGATIVE FOR LEGIONELLA P... 06/29/16 23:59 Streptococcus pneumoniae Antigen (M - Final Complete Urine Catheterized Urine PRESUMPTIVE NEGATIVE FOR STREPTOCOCCU... Imaging Last Impressions Renal Ultrasound 06/29/16 0000 Signed Impressions: Service Date/Time: Wednesday, June 29, 2016 22:14 - CONCLUSION: 1. 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 This measures 2.3 cm. 2. Bladder decompressed by Tripathi catheter. 3. Cholelithiasis. Bryan Sommers MD Chest X-Ray 06/29/16 0000 Signed Impressions: Service Date/Time: Wednesday, June 29, 2016 06:20 - CONCLUSION: New area of consolidation involving the right hilum. and left lower lobe. Vasiliy Lorenzana Jr., MD Physical Exam GENERAL: This is a fairly well-nourished, well-developed patient, in no apparent distress. SKIN: No rashes, ecchymoses or lesions. Cool and dry. HEAD: Atraumatic. Normocephalic. No temporal or scalp tenderness. EYES: Pupils equal round and reactive. Extraocular motions intact. No scleral icterus. No injection or drainage. ENT: Nose without bleeding, purulent drainage or septal hematoma. Throat without erythema, tonsillar hypertrophy or exudate. Uvula midline. Airway patent. NECK: Trachea midline. Supple, nontender, no meningeal signs. CARDIOVASCULAR: RRR RESPIRATORY: Clear to auscultation. Breath sounds equal bilaterally. No wheezes , rales, or rhonchi. GASTROINTESTINAL: Abdomen soft, non-tender, nondistended. MUSCULOSKELETAL: Extremities without clubbing, cyanosis, or edema. No joint tenderness, effusion, or edema noted. No calf tenderness. Negative Homans sign bilaterally. NEUROLOGICAL: Awake and alert. Grossly non focal Psych: cooperative IV line sites with no e.o infection. Assessment & Plan Remarks Severe Sepsis present on admission (acute renal failure, acute metabolic encephalopathy on admission) ESBL E.coli UTI, ? complicated given h/o renal stones. Prior h/o renal stones Renal angiomyoplipoma. Pneumonia likely aspiration. Patient was dry on admission and after adequate fluids may have pneumonia showing up. Rule out atypical or CA Pneumonia. Component of pulm edema. DM 2 uncontrolled. Acute renal failure: Cr in Jan 2016 was normal. Prerenal, sepsis. Acute metabolic encephalopathy on admission: ? sepsis related. Recs Contact isolation for ESBL E.coli. Continue Ertapenem IV (ASP: ESBL UTI) (stop date: 07/13/2016) Continue Azithro (stop date: 07/03/2016) US KUB: no stones. Bladder training exercises before cath removal and also check residuals ? neurogenic bladder. d/w patient plan for the day d.w RN d/w : Still weak, may need rehab on discharge. Pulm edema, 2D ECHO ordered and pending. Will follow prn. If any change in clinical condition or ready for discharge please call sooner. If ready for discharge to rehab and antibiotics pending please call me for DC orders. Maria Del Rosario Aleman MD Jul 02, 2016 11:46
[2016-07-02] MEDS ORDERED: FUROSEMIDE 20 MG/2 ML VIAL IV PUSH ONE (13:30)
--- NOTE | 2016-07-02 13:31 | HHI.PR ---
Subjective Remarks Patient reports feeling about the same. She denies chest pain or shortness of breath. Discussed with RN. Based on discussion with the patient's daughter. She is wheelchair bound at the [facility]. Objective Vitals Vital Signs Date Time Temp Pulse Resp B/P Pulse Ox O2 Delivery O2 Flow Rate FiO2 07/02/16 12:00 97.3 107 18 100/72 96 07/02/16 10:37 97 Nasal Cannula 2.00 07/02/16 10:00 98.8 95 18 118/79 98 07/02/16 08:00 98.5 97 19 117/73 97 07/02/16 04:25 92 Nasal Cannula 2.00 07/02/16 04:00 99.8 99 18 118/64 96 07/01/16 20:12 95 Nasal Cannula 2.00 07/01/16 20:00 98.8 93 18 116/69 93 07/01/16 16:00 97.2 88 17 128/66 94 I/O 07/01/16 07/01/16 07/01/16 07/02/16 07/02/16 07/02/16 07:00 15:00 23:00 07:00 15:00 23:00 Intake Total 240 ml 240 ml 120 ml 120 ml Output Total 450 ml 600 ml Balance -210 ml -360 ml 120 ml 120 ml Intake Oral 240 ml 240 ml 120 ml 120 ml Output Urine Total 450 ml 600 ml # Voids 2 2 # Bowel Movements 0 0 Result Diagram: 07/02/16 0435 07/02/16 0435 Imaging Last Impressions Chest X-Ray 07/02/16 0000 Signed Impressions: Service Date/Time: Saturday, July 02, 2016 10:00 - CONCLUSION: 1. Cardiomegaly and findings of congestive heart failure. The findings have worsened when compared with the prior examination. Ta Dickerson MD Renal Ultrasound 06/29/16 0000 Signed Impressions: Service Date/Time: Wednesday, June 29, 2016 22:14 - CONCLUSION: 1. 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 This measures 2.3 cm. 2. Bladder decompressed by Tripathi catheter. 3. Cholelithiasis. Bryan Sommers MD Objective Remarks GENERAL: Elderly female in no acute distress CARDIOVASCULAR: Rate in the 80s and regular rhythm without murmurs, gallops, or rubs. RESPIRATORY: Good respiratory efforts. Breath sounds diminished at the bases bilaterally. GASTROINTESTINAL: Abdomen soft, non-tender, non-distended. Normal active bowel sounds MUSCULOSKELETAL: Extremities without cyanosis, or edema. NEURO: Alert to person and place but not to time and situation. Can move all extremities spontaneously. Normal speech PSYCH: Appropriate mood and affect. A/P Problem List: (1) Sepsis secondary to UTI ICD Code: A41.9 Status: Acute (2) Acute renal failure ICD Code: N17.9 Status: Acute (3) Moderate dehydration ICD Code: E86.0 Status: Acute (4) Hypoglycemia ICD Code: E16.2 Status: Acute (5) Atrial fibrillation, new onset ICD Code: I48.91 Status: Acute Assessment and Plan 89-year-old female with Sepsis secondary to UTI. On admission (temperature 102.3, white blood cell count 13.8, lactic acid 2.1, source UTI) - Urine Culture grew ESBL pos E. Coli. - Infectious disease following. On Ertapenem and azithromycin. - Blood cultures negative. Pneumonia: Patient had a normal CXR on 06/27/16. X-ray shows consolidation. - On antibiotics as above. - Breathing treatments and supplemental oxygen as needed. - Incentive spirometry Pulmonary edema: Patient has been on Lasix at home. No documented CHF in the EMR. She presented with sepsis and was dry, therefore resuscitated with IV fluids. Chest x-ray today shows pulmonary edema. - Give a dose of IV Lasix, then resume home dose of 20 mg daily. Follow I/O - Obtain echocardiogram. New-onset atrial fibrillation/mild elevation of troponin: Current sepsis and dehydration may be precipitating factors. Patient converted in sinus rhythm after starting metoprolol. - Cardiology following. Continue metoprolol. Patient started on Eliquis. Acute kidney injury/Dehydration: Improving Continue to Hold home PO diuretics Recheck BMP in a.m. Hypokalemia: Replace and monitor. Diabetes mellitus- : Doing okay with decreased dose of Levemir to 20 units daily Accu-Cheks before meals at bedtime with Medium-dose sliding scale insulin coverage and Anxiety Lorazepam 0.5mg Q8H PRN anxiety Macular degeneration Glaucoma continue patient's home Latanoprost and Timolol eyedrops Hyperlipidemia continue patient's simvastatin 20 mg daily GERD continue patient's present omeprazole GI prophylaxis: PPI. Stool softener PRN constipation. DVT PPx: Heparin Moris Lora MD Jul 02, 2016 13:31
--- NOTE | 2016-07-02 13:39 | PD.CARD.PN ---
Subjective Subjective Remarks Not feeling well, but denies any CP or SOB Objective Medications Current Medications Medications (Trade) Dose Ordered Sig/Damaris Route Start Time Stop Time Status Last Admin (NS Flush) 2 ml UNSCH PRN IV FLUSH 06/27/16 06:00 (NS Flush) 2 ml BID IV FLUSH 06/27/16 09:00 07/02/16 08:59 (Narcan Inj) 0.4 mg UNSCH PRN IV 06/27/16 06:00 (Tylenol) 325 mg Q4HR PRN PO 06/27/16 08:15 06/27/16 22:08 (Ecotrin Ec) 81 mg DAILY PO 06/27/16 09:00 07/02/16 08:57 (Vitamin B12) 1,000 mcg DAILY PO 06/27/16 09:00 07/02/16 08:58 (Xalatan 0.005% Opth Soln) 1 drop HS EACH EYE 06/27/16 21:00 07/01/16 21:00 (Ativan) 0.5 mg Q8H PRN PO 06/27/16 08:15 07/02/16 08:57 (Timoptic 0.5% Opth Soln) 1 drop BID EACH EYE 06/27/16 09:00 07/02/16 09:00 (Milk Of Magnesia Liq) 30 ml HS PRN PO 06/27/16 08:15 (Protonix) 20 mg DAILY PO 06/27/16 09:00 07/02/16 08:57 (Lactinex) 1 tab DAILY PO 06/27/16 09:00 07/02/16 08:58 (Pravachol) 40 mg DAILY PO 06/27/16 09:15 07/02/16 08:58 (D50w (Vial) Inj) 25 ml UNSCH PRN IV PUSH 06/27/16 08:30 (Glucagon Inj) 1 mg UNSCH PRN OTHER 06/27/16 08:30 (Levemir Inj) 20 units DAILY SQ 06/28/16 09:00 07/02/16 08:59 (Lopressor) 25 mg Q12HR PO 06/28/16 09:00 07/02/16 08:57 Apixaban 2.5 mg 2.5 mg BID PO 06/28/16 21:00 07/02/16 08:57 (INVanz INJ/NS Inj) 100 ml @ 200 mls/hr Q24H IV 06/29/16 15:00 07/01/16 13:47 (Zithromax) 500 mg DAILY PO 06/30/16 09:00 07/03/16 08:59 07/02/16 08:57 Vital Signs / I&O Vital Signs Date Time Temp Pulse Resp B/P Pulse Ox O2 Delivery O2 Flow Rate FiO2 07/02/16 12:00 97.3 107 18 100/72 96 07/02/16 10:37 97 Nasal Cannula 2.00 07/02/16 10:00 98.8 95 18 118/79 98 07/02/16 08:00 98.5 97 19 117/73 97 07/02/16 04:25 92 Nasal Cannula 2.00 07/02/16 04:00 99.8 99 18 118/64 96 07/01/16 20:12 95 Nasal Cannula 2.00 07/01/16 20:00 98.8 93 18 116/69 93 07/01/16 16:00 97.2 88 17 128/66 94 I/O 07/01/16 07/01/16 07/01/16 07/02/16 07/02/16 07/02/16 07:00 15:00 23:00 07:00 15:00 23:00 Intake Total 240 ml 240 ml 120 ml 120 ml Output Total 450 ml 600 ml Balance -210 ml -360 ml 120 ml 120 ml Intake Oral 240 ml 240 ml 120 ml 120 ml Output Urine Total 450 ml 600 ml # Voids 2 2 # Bowel Movements 0 0 Physical Exam GENERAL: In NAD SKIN: Warm and dry. HEAD: Normocephalic. EYES: No scleral icterus. No injection or drainage. NECK: Supple, trachea midline. No JVD or lymphadenopathy. CARDIOVASCULAR: irregular rate and rhythm without murmurs, gallops, or rubs. RESPIRATORY: Breath sounds equal bilaterally. No accessory muscle use. GASTROINTESTINAL: Abdomen soft, non-tender, nondistended. MUSCULOSKELETAL: No cyanosis, or edema. Laboratory Laboratory Tests Test 07/02/16 04:35 White Blood Count 13.9 TH/MM3 Red Blood Count 3.66 MIL/MM3 Hemoglobin 9.3 GM/DL Hematocrit 29.4 % Mean Corpuscular Volume 80.4 FL Mean Corpuscular Hemoglobin 25.3 PG Mean Corpuscular Hemoglobin 31.5 % Concent Red Cell Distribution Width 16.9 % Platelet Count 346 TH/MM3 Mean Platelet Volume 8.0 FL Sodium Level 144 MEQ/L Potassium Level 3.7 MEQ/L Chloride Level 110 MEQ/L Carbon Dioxide Level 25.5 MEQ/L Anion Gap 9 MEQ/L Blood Urea Nitrogen 28 MG/DL Creatinine 1.03 MG/DL Estimat Glomerular Filtration 51 ML/MIN Rate Random Glucose 92 MG/DL Calcium Level 8.5 MG/DL Imaging Last Impressions Chest X-Ray 07/02/16 0000 Signed Impressions: Service Date/Time: Saturday, July 02, 2016 10:00 - CONCLUSION: 1. Cardiomegaly and findings of congestive heart failure. The findings have worsened when compared with the prior examination. Ta Dickerson MD Renal Ultrasound 06/29/16 0000 Signed Impressions: Service Date/Time: Wednesday, June 29, 2016 22:14 - CONCLUSION: 1. 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 This measures 2.3 cm. 2. Bladder decompressed by Tripathi catheter. 3. Cholelithiasis. Bryan Sommers MD Assessment and Plan Problem List: (1) Atrial fibrillation, new onset (2) Sepsis secondary to UTI (3) Moderate dehydration (4) Acute renal failure Assessment and Plan Stays in a fib with controlled VR. Continue low dose metoprolol for rate control. Continue anticoagulation with Eliquis. Cont tx for sepsis/UTI. Renal fx improved. Increase activity. Karlie Helton MD Jul 02, 2016 13:39
[2016-07-02] MEDS: ERTAPENEM INJ 1,000 MG in SODIUM CHLORIDE 0.9% INJ 100 ML IV SCH (14:26)
--- NOTE | 2016-07-02 17:08 | EC ---
Study Study Date:07/02/2016 STUDY CONCLUSIONS SUMMARY - Left ventricle: The cavity size was normal. Wall thickness was at the upper limits of normal. Systolic function was normal. The estimated ejection fraction was in the range of 55% to 60%. Wall motion was normal; there were no regional wall motion abnormalities. - Aortic valve: A bicuspid morphology cannot be excluded; normal thickness, mildly calcified leaflets. Valve area: 1.41cm^2 (Vmax). - Mitral valve: Mildly to moderately calcified annulus. Mild regurgitation. - Left atrium: The atrium was mildly dilated. - Tricuspid valve: Mild regurgitation. If LV function is below 40, please consider prescribing an ACEI or ARB or document rationale for non-use. PROCEDURE DATA STUDY STATUS: Elective. Procedure: Transthoracic echocardiography. Image quality was good. Scanning was performed from the parasternal, apical, and subcostal acoustic windows. Study completion: The patient tolerated the procedure well. Transthoracic echocardiography. M-mode, complete 2D, complete spectral Doppler, and color Doppler. Height: Height: 68in. Weight: Weight: 138.7lb. Body mass index: BMI: 21.1kg/m^2. Body surface area: BSA: 1.75m^2. Patient status: Inpatient. CARDIAC ANATOMY LEFT VENTRICLE: The cavity size was normal. Wall thickness was at the upper limits of normal. Systolic function was normal. The estimated ejection fraction was in the range of 55% to 60%. Wall motion was normal; there were no regional wall motion abnormalities. AORTIC VALVE: A bicuspid morphology cannot be excluded; normal thickness, mildly calcified leaflets. Doppler: Transvalvular velocity was minimally increased. There was no stenosis. No regurgitation. Valve area: 1.41cm^2 (Vmax). Indexed valve area: 0.81cm^2/m^2 (Vmax). Mean gradient: 7mm Hg (S). Peak gradient: 12mm Hg (S). AORTA: Aortic root: The aortic root was normal in size. MITRAL VALVE: Mildly to moderately calcified annulus. Doppler: Transvalvular velocity was within the normal range. There was no evidence for stenosis. Mild regurgitation. LEFT ATRIUM: The atrium was mildly dilated. RIGHT VENTRICLE: The cavity size was normal. Wall thickness was normal. PULMONIC VALVE: Doppler: Transvalvular velocity was within the normal range. There was no evidence for stenosis. No regurgitation. TRICUSPID VALVE: Structurally normal valve. Doppler: Transvalvular velocity was within the normal range. Mild regurgitation. PULMONARY ARTERY: The main pulmonary artery was normal-sized. Systolic pressure was within the normal range. RIGHT ATRIUM: The atrium was normal in size. PERICARDIUM: There was no pericardial effusion. SYSTEMIC VEINS: Inferior vena cava: The vessel was mildly dilated. Patient weight: 138.7lb _Ejection fraction:_ 65-75% _Fractional shortening:_ 32% up to 5Kg 5-11.5Kg 11.6-22.9Kg 23-45Kg 45-57Kg Aortic Root 7-13 <17 13-22 17-27 17-27 LA diam 6-13 <23 24-38 33-47 37-40 RVID 10-17 7-15 7-15 7-18 8-17 LVIDd 12-22 <32 24-38 33-47 37-40 LVPW 2-4 3-6 5-7 6-8 7-8 IVS 2-4 3-6 5-7 6-8 7-8 BASIC MEASUREMENTS ADULT NORMAL Left ventricle LV internal dimension, ED, chordal *38 mm 43-52 level, PLAX LV internal dimension, ES, chordal 33 mm 23-38 level, PLAX Fractional shortening, chordal level, *13 % >29 PLAX LV posterior wall thickness, ED 9.91 mm IVS/LVPW ratio, ED 1.11 <1.3 Ventricular septum Septal thickness, ED 11 mm Aortic valve Leaflet separation 19 mm 15-26 BASIC MEASUREMENTS ADULT NORMAL Aortic valve Leaflet separation 19 mm 15-26 Aorta Root diameter, ED 28 mm 20-37 Left atrium Anterior-posterior dimension, ES 36 mm 19-40 Anterior-posterior dimension index, ES 2.06 cm/m^2 <2.2 LA/aortic root ratio 1.29 DOPPLER MEASUREMENTS ADULT NORMAL Main pulmonary artery Pressure, S 29 mm Hg =30 Aortic valve Peak velocity, S 170 cm/s Mean velocity, S 126 cm/s VTI, S 36.3 cm Mean gradient, S 7 mm Hg Peak gradient, S 12 mm Hg Valve area, Vmax 1.41 cm^2 Valve area index, Vmax 0.81 cm^2/m^2 Mitral valve Maximal regurgitant velocity 301 cm/s Tricuspid valve Regurgitant peak velocity 240 cm/s Peak RV-RA gradient, S 23 mm Hg Systemic veins Estimated CVP 10 mm Hg Right ventricle RV pressure, S *33 mm Hg <30 Pulmonic valve Peak velocity, S 96.4 cm/s LEGEND: Mean values are shown as u=mean value. Asterisk (*) oates values outside specified normal range. Prepared and signed by Kevin Carey [id number]
[2016-07-02] MEDS: LATANOPROST 0.005% OPHT SOLN 2.5 ML BTL EACH EYE SCH (20:40)
[2016-07-03] VITALS (8 sets, daily range): BP systolic 109–159; BP diastolic 58–98; PULSE 72–97; RESP 18–22; TEMP 96.7–98.7; O2SAT 94–96
[2016-07-03] MEDS: RESP: ALBUTEROL 2.5 MG/IPRATROPIUM 0.5 MG NEB (SCH) NEB (04:15)
[2016-07-03 05:34] LABS: HEMATOCRIT 30.7 % (35.0-46.0); MEAN CELL VOLUME 80.5 FL (80.0-100.0); MEAN CORPUSCULAR HEMOGLOBIN 26.6 PG (27.0-34.0); PLATELET COUNT 434 TH/MM3 (150-450); RED BLOOD COUNT 3.82 MIL/MM3 (4.00-5.30); RED CELL DISTRIBUTION WIDTH 16.7 % (11.6-17.2); REVIEW FLAG FINAL; WHITE BLOOD COUNT 13.9 TH/MM3 (4.0-11.0)
[2016-07-03 05:50] LABS: BICARBONATE 26.7 MEQ/L (21.0-32.0); POTASSIUM 3.3 MEQ/L (3.5-5.1)
[2016-07-03] MEDS: INSULIN ASPART SUPPLEMENTAL SCALE SQ SCH ×4 (06:25→20:14)
[2016-07-03] MEDS: PRAVASTATIN SOD 40 MG TAB PO SCH (09:00)
[2016-07-03] MEDS: INSULIN DETEMIR 100 UNITS/ML VIAL SQ SCH (09:00)
[2016-07-03] MEDS: SODIUM CHLORIDE 0.9% FLUSH 10 ML FLUSH IV FLUSH SCH ×2 (09:00→20:14)
--- NOTE | 2016-07-03 09:06 | HHI.PR ---
Subjective Remarks Feeling better today. Hungry. Wants breakfast. Confused. Denies shortness of breath or chest pain. Objective Vitals Vital Signs Date Time Temp Pulse Resp B/P Pulse Ox O2 Delivery O2 Flow Rate FiO2 07/03/16 04:00 98.4 72 18 130/76 96 07/03/16 00:00 97.0 80 20 128/78 96 07/02/16 21:23 97 Nasal Cannula 2.00 07/02/16 20:00 98.0 78 20 134/80 95 07/02/16 16:00 96.8 93 18 115/68 96 07/02/16 12:00 97.3 107 18 100/72 96 07/02/16 10:37 97 Nasal Cannula 2.00 07/02/16 10:00 98.8 95 18 118/79 98 I/O 07/02/16 07/02/16 07/02/16 07/03/16 07/03/16 07/03/16 07:00 15:00 23:00 07:00 15:00 23:00 Intake Total 120 ml 120 ml 480 ml 220 ml Output Total 550 ml Balance 120 ml 120 ml 480 ml -330 ml Intake Oral 120 ml 120 ml 480 ml 220 ml IV Total 0 ml Output Urine Total 550 ml # Voids 2 3 3 # Bowel Movements 0 0 0 Result Diagram: 07/03/16 0449 07/03/16 0449 Objective Remarks GENERAL: Elderly female in no acute distress CARDIOVASCULAR: Rate in the 80s and regular rhythm without murmurs, gallops, or rubs. RESPIRATORY: Good respiratory efforts. Breath sounds diminished at the bases bilaterally. GASTROINTESTINAL: Abdomen soft, non-tender, non-distended. Normal active bowel sounds MUSCULOSKELETAL: Extremities without cyanosis, or edema. NEURO: Alert to person and place but not to time and situation. Can move all extremities spontaneously. Normal speech PSYCH: Appropriate mood and affect. A/P Problem List: (1) Sepsis secondary to UTI ICD Code: A41.9 Status: Acute (2) Acute renal failure ICD Code: N17.9 Status: Acute (3) Moderate dehydration ICD Code: E86.0 Status: Acute (4) Hypoglycemia ICD Code: E16.2 Status: Acute (5) Atrial fibrillation, new onset ICD Code: I48.91 Status: Acute Assessment and Plan 89-year-old female with Sepsis secondary to UTI. On admission (temperature 102.3, white blood cell count 13.8, lactic acid 2.1, source UTI) - Urine Culture grew ESBL pos E. Coli. - Infectious disease following. On Ertapenem and azithromycin. - Blood cultures negative. Pneumonia: Patient had a normal CXR on 06/27/16. X-ray shows consolidation. - On antibiotics as above. - Breathing treatments and supplemental oxygen as needed. - Incentive spirometry Pulmonary edema: Patient has been on Lasix at home. No documented CHF in the EMR. She presented with sepsis and was dry, therefore resuscitated with IV fluids. Chest x-ray today shows pulmonary edema. - Given a dose of IV Lasix, then resume home dose of 20 mg daily. Follow I/O - Echocardiogram shows preserved EF New-onset atrial fibrillation/mild elevation of troponin: Current sepsis and dehydration may be precipitating factors. Patient converted in sinus rhythm after starting metoprolol. - Cardiology following. Continue metoprolol. Patient started on Eliquis. Acute kidney injury/Dehydration: Resolved -Avoid nephrotoxins. Monitor Hypokalemia: Replace and monitor. Diabetes mellitus- : Doing okay with decreased dose of Levemir to 20 units daily Accu-Cheks before meals at bedtime with Medium-dose sliding scale insulin coverage and Anxiety Lorazepam 0.5mg Q8H PRN anxiety Macular degeneration Glaucoma continue patient's home Latanoprost and Timolol eyedrops Hyperlipidemia continue patient's simvastatin 20 mg daily GERD continue patient's present omeprazole GI prophylaxis: PPI. Stool softener PRN constipation. DVT PPx: Heparin Discharge Planning Improving. Will consider discharge tomorrow if remain stable. Moris Lora MD Jul 03, 2016 09:06
[2016-07-03] MEDS ORDERED: POTASSIUM CHLORIDE 10 MEQ CONTROLLED RELEASE TAB PO ONE (09:45)
[2016-07-03] MEDS: ASPIRIN EC 81 MG TABEC PO SCH (09:51)
[2016-07-03] MEDS: LACTOBACILLUS ACIDOPHILUS TAB PO SCH (09:51)
[2016-07-03] MEDS: PANTOPRAZOLE SOD 20 MG DELAYED RELEASE TAB PO SCH (09:51)
[2016-07-03] MEDS: APIXABAN 2.5 MG TABLET PO SCH ×2 (09:52→20:09)
[2016-07-03] MEDS: METOPROLOL TARTRATE 25 MG TAB PO SCH ×2 (09:52→20:09)
[2016-07-03] MEDS: CYANOCOBALAMIN 1,000 MCG TAB PO SCH (09:52)
[2016-07-03] MEDS: TIMOLOL MALEATE 0.5% OPHT SOLN 5 ML BTL EACH EYE SCH ×2 (09:53→20:15)
--- NOTE | 2016-07-03 10:07 | PD.CARD.PN ---
Subjective Subjective Remarks No CP or SOB, HR better controlled Objective Medications Current Medications Medications (Trade) Dose Ordered Sig/Damaris Route Start Time Stop Time Status Last Admin (NS Flush) 2 ml UNSCH PRN IV FLUSH 06/27/16 06:00 (NS Flush) 2 ml BID IV FLUSH 06/27/16 09:00 07/03/16 09:00 (Narcan Inj) 0.4 mg UNSCH PRN IV 06/27/16 06:00 (Tylenol) 325 mg Q4HR PRN PO 06/27/16 08:15 06/27/16 22:08 (Ecotrin Ec) 81 mg DAILY PO 06/27/16 09:00 07/03/16 09:51 (Vitamin B12) 1,000 mcg DAILY PO 06/27/16 09:00 07/03/16 09:52 (Xalatan 0.005% Opth Soln) 1 drop HS EACH EYE 06/27/16 21:00 07/02/16 20:40 (Ativan) 0.5 mg Q8H PRN PO 06/27/16 08:15 07/02/16 08:57 (Timoptic 0.5% Opth Soln) 1 drop BID EACH EYE 06/27/16 09:00 07/03/16 09:53 (Milk Of Magnesia Liq) 30 ml HS PRN PO 06/27/16 08:15 (Protonix) 20 mg DAILY PO 06/27/16 09:00 07/03/16 09:51 (Lactinex) 1 tab DAILY PO 06/27/16 09:00 07/03/16 09:51 (Pravachol) 40 mg DAILY PO 06/27/16 09:15 07/03/16 09:00 (D50w (Vial) Inj) 25 ml UNSCH PRN IV PUSH 06/27/16 08:30 (Glucagon Inj) 1 mg UNSCH PRN OTHER 06/27/16 08:30 (Levemir Inj) 20 units DAILY SQ 06/28/16 09:00 07/03/16 09:00 (Lopressor) 25 mg Q12HR PO 06/28/16 09:00 07/03/16 09:52 Apixaban 2.5 mg 2.5 mg BID PO 06/28/16 21:00 07/03/16 09:52 (INVanz INJ/NS Inj) 100 ml @ 200 mls/hr Q24H IV 06/29/16 15:00 07/13/16 14:59 07/02/16 14:26 (Lasix) 20 mg DAILY PO 07/04/16 09:00 Vital Signs / I&O Vital Signs Date Time Temp Pulse Resp B/P Pulse Ox O2 Delivery O2 Flow Rate FiO2 07/03/16 04:00 98.4 72 18 130/76 96 07/03/16 00:00 97.0 80 20 128/78 96 07/02/16 21:23 97 Nasal Cannula 2.00 07/02/16 20:00 98.0 78 20 134/80 95 07/02/16 16:00 96.8 93 18 115/68 96 07/02/16 12:00 97.3 107 18 100/72 96 07/02/16 10:37 97 Nasal Cannula 2.00 I/O 07/02/16 07/02/16 07/02/16 07/03/16 07/03/16 07/03/16 07:00 15:00 23:00 07:00 15:00 23:00 Intake Total 120 ml 120 ml 480 ml 220 ml Output Total 550 ml Balance 120 ml 120 ml 480 ml -330 ml Intake Oral 120 ml 120 ml 480 ml 220 ml IV Total 0 ml Output Urine Total 550 ml # Voids 2 3 3 # Bowel Movements 0 0 0 Physical Exam GENERAL: In NAD SKIN: Warm and dry. HEAD: Normocephalic. EYES: No scleral icterus. No injection or drainage. NECK: Supple, trachea midline. No JVD or lymphadenopathy. CARDIOVASCULAR: irregular rate and rhythm without murmurs, gallops, or rubs. RESPIRATORY: Breath sounds equal bilaterally. No accessory muscle use. GASTROINTESTINAL: Abdomen soft, non-tender, nondistended. MUSCULOSKELETAL: No cyanosis, or edema. Laboratory Laboratory Tests Test 07/03/16 04:49 White Blood Count 13.9 TH/MM3 Red Blood Count 3.82 MIL/MM3 Hemoglobin 10.2 GM/DL Hematocrit 30.7 % Mean Corpuscular Volume 80.5 FL Mean Corpuscular Hemoglobin 26.6 PG Mean Corpuscular Hemoglobin 33.0 % Concent Red Cell Distribution Width 16.7 % Platelet Count 434 TH/MM3 Mean Platelet Volume 8.0 FL Sodium Level 142 MEQ/L Potassium Level 3.3 MEQ/L Chloride Level 106 MEQ/L Carbon Dioxide Level 26.7 MEQ/L Anion Gap 9 MEQ/L Blood Urea Nitrogen 26 MG/DL Creatinine 0.97 MG/DL Estimat Glomerular Filtration 54 ML/MIN Rate Random Glucose 103 MG/DL Calcium Level 8.6 MG/DL Imaging Last Impressions Chest X-Ray 07/02/16 0000 Signed Impressions: Service Date/Time: Saturday, July 02, 2016 10:00 - CONCLUSION: 1. Cardiomegaly and findings of congestive heart failure. The findings have worsened when compared with the prior examination. Ta Dickerson MD Renal Ultrasound 06/29/16 0000 Signed Impressions: Service Date/Time: Wednesday, June 29, 2016 22:14 - CONCLUSION: 1. 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 This measures 2.3 cm. 2. Bladder decompressed by Tripathi catheter. 3. Cholelithiasis. Bryan Sommers MD Assessment and Plan Problem List: (1) Atrial fibrillation, new onset (2) Sepsis secondary to UTI (3) Moderate dehydration (4) Acute renal failure Assessment and Plan Stays in a fib with controlled VR. Continue low dose metoprolol for rate control. Renal function improved, continue diuresis with furosemide. Continue anticoagulation with Eliquis. Cont tx for sepsis/UTI. Increase activity. Karlie Helton MD Jul 03, 2016 10:07
[2016-07-03] MEDS ORDERED: EPIN1INJ21 IV PUSH (14:58)
[2016-07-03] MEDS ORDERED: ERTA1P IV (14:58)
[2016-07-03] MEDS ORDERED: SOLU250I IV PUSH (14:58)
[2016-07-03] MEDS ORDERED: EPIN1INJ21 SQ (14:58)
--- NOTE | 2016-07-03 15:07 | HHI.FF ---
Infusion Therapy Location of Infusion Therapy: [facility] Infusion Therapy Order Patient Information Appointment Date: Jul 03, 2016 Patient Weight 63.5 kg Diagnosis: Diagnosis ESBL UTI possible Pyelonephritis Pneumonia community acquired. Coded Allergies: *MDRO Multi-Drug Resistant Organism (Verified Adverse Reaction, Unknown, ) ESBL E.Coli (urine)-06/27/16 Administer Medication Ertapenem 1 gram IV q 24 hours Start Treatment: Jul 03, 2016 Stop Treatment: Jul 13, 2016 Additional Information Venous access: Other (Midline. 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 [] May leave port accessed during therapy. [] May leave peripheral site accessed for duration of therapy. [x] If patient has SOB or respiratory distress, check oxygen saturation. If less than 90% or clinical signs of respiratory distress, administer oxygen at 2 L/min. via nasal cannula and notify physician. [x] Anaphylaxis/Reaction orders: * Stop infusion. * Keep IV line open with saline flush. * Notify physician. * Monitor vital signs every 15 minutes until symptoms resolve. * Check Oxygen saturation; Oxygen at 2 L/min. via nasal cannula if less than 90% or clinical signs of respiratory distress. * Administer diphenhydramine (Benadryl) 25 mg IV STAT, (unless patient has received as pre-med). May repeat once, if necessary. * Solu-Cortef 250 mg IVP over 30-60 seconds, use 100 mg vials for each dissolution. * Epinephrine (1mg/1 ml) 0.3 mg subcutaneously or IVP now with any signs of respiratory distress. * Check with physician for new additional pre-med orders if patient is re- challenged or re-treated. [x] May remove PICC line when treatment complete, after confirming with Physician. [x] If the patient is admitted to the hospital, the ED, or transferred via [facility] , complete transfer form including medication reconciliation order sheet. Laboratory Tests Additional Information Please draw labs on 07/07/2016. Call with abnormals, change in clinical condition or problems to: Primary MD at correction AND or Covering ID Physician Follow up appt: Follow up with PCP Follow up with other MDs as planned. Counseling: Counseled about medication side effects Counseled about PICC line care and hand hygiene. Maria Del Rosario Aleman MD Jul 03, 2016 15:07
--- NOTE | 2016-07-03 15:08 | HHI.PR ---
Addendum to Inpatient Note Addendum Reason: Additional Documentation Additional Information Recd call from patient clinically much improved and being discharged to [facility]. IV infusion orders entered in chart. Medications entered in discharge JUN. Will sign off please call back if any change in clinical condition or questions. Maria Del Rosario Aleman MD Jul 03, 2016 15:08
[2016-07-03] MEDS: ERTAPENEM INJ 1,000 MG in SODIUM CHLORIDE 0.9% INJ 100 ML IV SCH (16:56)
[2016-07-03] MEDS: LORazepam 0.5 MG TAB PO PRN (19:17)
[2016-07-03] MEDS: ACETAMINOPHEN 325 MG TAB PO PRN (20:09)
[2016-07-03] MEDS: LATANOPROST 0.005% OPHT SOLN 2.5 ML BTL EACH EYE SCH (20:15)
[2016-07-04] MEDS: LORazepam 0.5 MG TAB PO PRN (05:57)
[2016-07-04] MEDS: INSULIN ASPART SUPPLEMENTAL SCALE SQ SCH ×2 (06:01→11:00)
--- NOTE | 2016-07-04 07:24 | PD.CARD.PN ---
Subjective Subjective Remarks Feels better, no CP or SOB Objective Medications Current Medications Medications (Trade) Dose Ordered Sig/Damaris Route Start Time Stop Time Status Last Admin (NS Flush) 2 ml UNSCH PRN IV FLUSH 06/27/16 06:00 (NS Flush) 2 ml BID IV FLUSH 06/27/16 09:00 07/03/16 20:14 (Narcan Inj) 0.4 mg UNSCH PRN IV 06/27/16 06:00 (Tylenol) 325 mg Q4HR PRN PO 06/27/16 08:15 07/03/16 20:09 (Ecotrin Ec) 81 mg DAILY PO 06/27/16 09:00 07/03/16 09:51 (Vitamin B12) 1,000 mcg DAILY PO 06/27/16 09:00 07/03/16 09:52 (Xalatan 0.005% Opth Soln) 1 drop HS EACH EYE 06/27/16 21:00 07/03/16 20:15 (Ativan) 0.5 mg Q8H PRN PO 06/27/16 08:15 07/04/16 05:57 (Timoptic 0.5% Opth Soln) 1 drop BID EACH EYE 06/27/16 09:00 07/03/16 20:15 (Milk Of Magnesia Liq) 30 ml HS PRN PO 06/27/16 08:15 (Protonix) 20 mg DAILY PO 06/27/16 09:00 07/03/16 09:51 (Lactinex) 1 tab DAILY PO 06/27/16 09:00 07/03/16 09:51 (Pravachol) 40 mg DAILY PO 06/27/16 09:15 07/03/16 09:00 (D50w (Vial) Inj) 25 ml UNSCH PRN IV PUSH 06/27/16 08:30 (Glucagon Inj) 1 mg UNSCH PRN OTHER 06/27/16 08:30 (Levemir Inj) 20 units DAILY SQ 06/28/16 09:00 07/03/16 09:00 (Lopressor) 25 mg Q12HR PO 06/28/16 09:00 07/03/16 20:09 Apixaban 2.5 mg 2.5 mg BID PO 06/28/16 21:00 07/03/16 20:09 (INVanz INJ/NS Inj) 100 ml @ 200 mls/hr Q24H IV 06/29/16 15:00 07/13/16 14:59 07/03/16 16:56 (Lasix) 20 mg DAILY PO 07/04/16 09:00 Vital Signs / I&O Vital Signs Date Time Temp Pulse Resp B/P Pulse Ox O2 Delivery O2 Flow Rate FiO2 07/03/16 23:41 96.7 84 20 110/58 94 07/03/16 20:00 98.7 91 21 159/98 96 07/03/16 19:04 95 07/03/16 16:00 97.5 97 18 110/62 95 07/03/16 12:00 97.0 90 22 109/61 95 07/03/16 08:00 98.4 97 18 132/66 96 I/O 07/03/16 07/03/16 07/03/16 07/04/16 07/04/16 07/04/16 07:00 15:00 23:00 07:00 15:00 23:00 Intake Total 220 ml 240 ml 240 ml 120 ml Output Total 550 ml Balance -330 ml 240 ml 240 ml 120 ml Intake Oral 220 ml 240 ml 240 ml 120 ml Output Urine Total 550 ml # Voids 3 3 5 # Bowel Movements 0 1 3 Physical Exam GENERAL: In NAD SKIN: Warm and dry. HEAD: Normocephalic. EYES: No scleral icterus. No injection or drainage. NECK: Supple, trachea midline. No JVD or lymphadenopathy. CARDIOVASCULAR: irregular rate and rhythm without murmurs, gallops, or rubs. RESPIRATORY: Breath sounds equal bilaterally. No accessory muscle use. GASTROINTESTINAL: Abdomen soft, non-tender, nondistended. MUSCULOSKELETAL: No cyanosis, or edema. Laboratory Laboratory Tests Test 07/03/16 04:49 White Blood Count 13.9 TH/MM3 Red Blood Count 3.82 MIL/MM3 Hemoglobin 10.2 GM/DL Hematocrit 30.7 % Mean Corpuscular Volume 80.5 FL Mean Corpuscular Hemoglobin 26.6 PG Mean Corpuscular Hemoglobin 33.0 % Concent Red Cell Distribution Width 16.7 % Platelet Count 434 TH/MM3 Mean Platelet Volume 8.0 FL Sodium Level 142 MEQ/L Potassium Level 3.3 MEQ/L Chloride Level 106 MEQ/L Carbon Dioxide Level 26.7 MEQ/L Anion Gap 9 MEQ/L Blood Urea Nitrogen 26 MG/DL Creatinine 0.97 MG/DL Estimat Glomerular Filtration 54 ML/MIN Rate Random Glucose 103 MG/DL Calcium Level 8.6 MG/DL Imaging Last Impressions Chest X-Ray 07/02/16 0000 Signed Impressions: Service Date/Time: Saturday, July 02, 2016 10:00 - CONCLUSION: 1. Cardiomegaly and findings of congestive heart failure. The findings have worsened when compared with the prior examination. Ta Dickerson MD Renal Ultrasound 06/29/16 0000 Signed Impressions: Service Date/Time: Wednesday, June 29, 2016 22:14 - CONCLUSION: 1. 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 This measures 2.3 cm. 2. Bladder decompressed by Tripathi catheter. 3. Cholelithiasis. Bryan Sommers MD Assessment and Plan Problem List: (1) Atrial fibrillation, new onset (2) Sepsis secondary to UTI (3) Moderate dehydration (4) Acute renal failure Assessment and Plan Stays in a fib, but rate much better controlled. Continue low dose metoprolol for rate control. Renal function improved, continue diuresis with furosemide. Continue anticoagulation with Eliquis. Cont tx for sepsis/UTI. Increase activity. No new cardiac issues. Karlie Helton MD Jul 04, 2016 07:24
[2016-07-04 08:00] VITALS: BP 122/72; PULSE 104; RESP 20; TEMP 98; O2SAT 93
[2016-07-04] MEDS: TIMOLOL MALEATE 0.5% OPHT SOLN 5 ML BTL EACH EYE SCH (09:00)
[2016-07-04] MEDS: INSULIN DETEMIR 100 UNITS/ML VIAL SQ SCH (09:00)
[2016-07-04] MEDS: SODIUM CHLORIDE 0.9% FLUSH 10 ML FLUSH IV FLUSH SCH (09:00)
[2016-07-04] MEDS: PRAVASTATIN SOD 40 MG TAB PO SCH (09:00)
[2016-07-04] MEDS ORDERED: FUROSEMIDE 20 MG TAB PO SCH (09:00)
[2016-07-04] MEDS ORDERED: METO25TA3 PO (09:16)
[2016-07-04] MEDS ORDERED: APIX2.5T PO (09:16)
[2016-07-04] MEDS ORDERED: LANTUS2P SQ (09:16)
[2016-07-04] MEDS: CYANOCOBALAMIN 1,000 MCG TAB PO SCH (09:17)
[2016-07-04] MEDS: LACTOBACILLUS ACIDOPHILUS TAB PO SCH (09:17)
[2016-07-04] MEDS: ASPIRIN EC 81 MG TABEC PO SCH (09:17)
[2016-07-04] MEDS: PANTOPRAZOLE SOD 20 MG DELAYED RELEASE TAB PO SCH (09:17)
[2016-07-04] MEDS: APIXABAN 2.5 MG TABLET PO SCH (09:17)
[2016-07-04] MEDS: METOPROLOL TARTRATE 25 MG TAB PO SCH (09:17)
--- NOTE | 2016-07-04 09:18 | HHI.DS ---
Discharge Summary Admission Date Jun 27, 2016 at 05:20 Discharge Date: Jul 04, 2016 Admitting Diagnosis acute renal failure, urinary tract infection, dehydration (1) Sepsis secondary to UTI ICD Code: A41.9 (2) Acute renal failure ICD Code: N17.9 (3) Moderate dehydration ICD Code: E86.0 (4) Hypoglycemia ICD Code: E16.2 (5) Atrial fibrillation, new onset ICD Code: I48.91 Procedures None Brief History - From Admission This 89-year-old female patient from [facility] with a past medical history which includes HTN, Glaucoma, recurrent UTI, diabetes mellitus type 2, anxiety and macular degeneration. Patient evaluated alert to person only. Patient believes she is back at [facility] and it is year 1919. Therefore information gathered from patient as well as prior computerized charting and documentation from [facility]. Per ER doctor, patient was brought in because of fever and vomiting. Patient reports generalized body aches and chills 3 days. Patient did report dysuria to the emergency room physician currently has Tripathi catheter in place and denies urinary symptoms at this time. Patient does report she has been vomiting and has had lack of appetite for the last 2-3 days. Patient also reports sneezing frequently and feeling associated cannot take a deep breath. Rectal temperature upon arrival to the emergency department was 102.3. Patient denies chest pain diarrhea or constipation. CBC/BMP: 07/03/16 0449 07/03/16 0449 Significant Findings Laboratory Tests Test 07/02/16 07/03/16 04:35 04:49 White Blood Count 13.9 TH/MM3 13.9 TH/MM3 (4.0-11.0) (4.0-11.0) Red Blood Count 3.66 MIL/MM3 3.82 MIL/MM3 (4.00-5.30) (4.00-5.30) Hemoglobin 9.3 GM/DL 10.2 GM/DL (11.6-15.3) (11.6-15.3) Hematocrit 29.4 % 30.7 % (35.0-46.0) (35.0-46.0) Mean Corpuscular Hemoglobin 25.3 PG 26.6 PG (27.0-34.0) (27.0-34.0) Mean Corpuscular Hemoglobin 31.5 % Concent (32.0-36.0) Chloride Level 110 MEQ/L (98-107) Blood Urea Nitrogen 28 MG/DL (7-18) 26 MG/DL (7-18) Creatinine 1.03 MG/DL (0.50-1.00) Estimat Glomerular Filtration 51 ML/MIN (>89) 54 ML/MIN (>89) Rate Potassium Level 3.3 MEQ/L (3.5-5.1) Imaging Last Impressions Chest X-Ray 07/02/16 0000 Signed Impressions: Service Date/Time: Saturday, July 02, 2016 10:00 - CONCLUSION: 1. Cardiomegaly and findings of congestive heart failure. The findings have worsened when compared with the prior examination. Ta Dickerson MD Renal Ultrasound 06/29/16 0000 Signed Impressions: Service Date/Time: Wednesday, June 29, 2016 22:14 - CONCLUSION: 1. 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 This measures 2.3 cm. 2. Bladder decompressed by Tripathi catheter. 3. Cholelithiasis. Bryan Sommers MD PE at Discharge GENERAL: Elderly female in no acute distress CARDIOVASCULAR: Rate in the 80s and regular rhythm without murmurs, gallops, or rubs. RESPIRATORY: Good respiratory efforts. Breath sounds diminished at the bases bilaterally. GASTROINTESTINAL: Abdomen soft, non-tender, non-distended. Normal active bowel sounds MUSCULOSKELETAL: Extremities without cyanosis, or edema. NEURO: Alert to person and place but not to time and situation. Can move all extremities spontaneously. Normal speech PSYCH: Appropriate mood and affect. Pt update on day of discharge Feeling OK. She wants to be back to [facility] at her familiar environment. Denies shortness of breath. Hospital Course 89-year-old female admitted and treated for the following: Sepsis secondary to UTI. On admission (temperature 102.3, white blood cell count 13.8, lactic acid 2.1, source UTI) - Urine Culture grew ESBL pos E. Coli. - Infectious disease followed the patient. She was treated with ertapenem and azithromycin. Blood cultures were negative. She is discharged on ertapenem until July 13 per infectious disease recommendations. Pneumonia: Patient had a normal CXR on 06/27/16. X-ray shows consolidation. - Patient treated with antibiotics as above. Breathing treatments and supplemental oxygen as needed. Incentive spirometry Pulmonary edema: Patient has been on Lasix at home. No documented CHF in the EMR. She presented with sepsis and was dry, therefore resuscitated with IV fluids. Chest x-ray showed pulmonary edema. She was given a dose of Lasix and responded well. Home dose Lasix of 20 mg daily resumed. Repeat echocardiogram showed preserved EF. New-onset atrial fibrillation/mild elevation of troponin: Sepsis and dehydration may be precipitating factors. Patient converted in sinus rhythm after starting metoprolol. - Cardiology followed the patient. She was started on metoprolol and Eliquis. She is discharged on the same. Acute kidney injury/Dehydration: Resolved with IV fluid Hypokalemia: Replaced. Diabetes mellitus- : Doing okay with decreased dose of Levemir to 20 units daily Accu-Cheks before meals at bedtime with Medium-dose sliding scale insulin coverage Anxiety Lorazepam 0.5mg Q8H PRN anxiety Macular degeneration Glaucoma continue patient's home Latanoprost and Timolol eyedrops Hyperlipidemia continue patient's simvastatin 20 mg daily GERD continue patient's home dose omeprazole Pt Condition on Discharge: Stable Discharge Disposition: Discharge to SNF Discharge Time: > 30 minutes Discharge Instructions DIET: Follow Instructions for: Heart Healthy Diet Activities you can perform: See Additionl Instruction Other Activity Instructions: per PT instructions. Use assistance at all times. Follow up Referrals: Appointment for Follow Up - 1 Week with PCP New Medications: Epinephrine Inj (Epinephrine Inj) 1 Mg/Ml Inj 0.3 MG IV PUSH ONCE PRN ALLERGIC REACTION #1 VIAL Epinephrine Inj (Epinephrine Inj) 1 Mg/Ml Inj 0.3 MG SQ ONCE Give with any signs of respiratory distress. PRN ALLERGIC REACTION #1 VIAL Ertapenem Inj (Invanz Inj) 1 Gm Vial 1 GM IV DAILY ESBL UTI pyelonephritis Days 9 Ref 0 BAG Hydrocortisone Inj (Solu-Cortef Inj) 250 Mg Inj 250 MG IV PUSH ONCE Give over 30-60 seconds. PRN ALLERGIC REACTION #1 Ref 0 VIAL Apixaban (Eliquis) 2.5 Mg Tab 2.5 MG PO BID #60 TAB Metoprolol Tartrate (Metoprolol Tartrate) 25 Mg Tab 25 MG PO Q12HR #60 TAB Changed Medications: Insulin Glargine Inj (Lantus Inj) 100 Unit/Ml Inj 20 UNITS SQ DAILY Days 30 (Changed from: 28 UNITS) Continued Medications: Acetaminophen (Tylenol) 325 Mg Cap 325 MG PO Q4HR PRN FEVER Ref [address] (Aspirin 81) 81 Mg Tabdr 81 MG PO DAILY Ref 0 TAB Cyanocobalamin (Vitamin B-12) 1,000 Mcg Tab 1000 MCG PO DAILY Nutritional Supplement #1 Ref 0 BOTTLE Docusate Sodium (Docusate Sodium) 100 Mg Cap 100 MG PO TID Prevent Constipation #60 Ref 0 CAP Furosemide (Furosemide) 20 Mg Tab 20 MG PO DAILY #30 Ref 0 TAB Glipizide (Glipizide) 10 Mg Tab 10 MG PO DAILY Take 30 minutes before a meal Blood Sugar Management #30 Ref 0 TAB Glipizide (Glipizide) 5 Mg Tab 5 MG PO DAILY Take 30 minutes before a meal Blood Sugar Management #30 Ref 0 TAB Latanoprost Opth Drops (Xalatan Opth Drops) 0.005% Drops 1 DROP EACH EYE HS Glaucoma #2.5 Ref 0 ML Lorazepam (Lorazepam) 0.5 Mg Tab 0.5 MG PO Q8H PRN ANXIETY Ref 0 TAB Magnesium Hydroxide Concentrate Liq (Milk of Magnesia Concentrate Liq) 1,200 Mg/ 5 Ml Susp 30 ML PO HS PRN CONSTIPATION #1 BOTTLE Omeprazole (Omeprazole) 20 Mg Cap 20 MG PO DAILY Potassium Chloride ER (Potassium Chloride ER) 20 Meq Tab 20 MEQ PO DAILY Electrolyte Replacement #30 Ref 0 TAB Probiotic Product (Acidophilus) 1 Cap Cap 1 CAP PO DAILY Simvastatin (Simvastatin) 20 Mg Tab 20 MG PO DAILY Cholesterol Management #30 Ref 0 TAB Timolol Opth Drops (Timolol Opth Drops) 0.5 % Soln 1 DROP EACH EYE BID Glaucoma #1 Ref 0 BOTTLE Discontinued Medications: Indapamide (Indapamide) 2.5 Mg Tab 2.5 MG PO DAILY Insulin Human Regular Inj (Novolin R Inj) 100 Unit/Ml Inj Unknown Dose SQ QID Moris Lora MD Jul 04, 2016 09:18
[2016-07-18] MEDS ORDERED: INSU100V2 SQ (15:37)
[2016-07-18] MEDS ORDERED: GLIP5TAB8 PO (15:37)
[2016-07-18] MEDS ORDERED: TYLE325T PO (15:41)
[2016-07-18] MEDS ORDERED: MILKSUS PO (15:41)
[2016-07-18] MEDS ORDERED: DULC10SU3 RECTAL (15:41)
[2016-07-24] MEDS ORDERED: CEFT250T8 PO (10:41)
[2016-07-24] MEDS ORDERED: LANTUS2P SQ (12:54)
[2016-07-31] MEDS ORDERED: LANTUS2P SQ (10:53)
[2016-07-31] MEDS ORDERED: ZITHTAB PO (10:53)
[2016-08-15] MEDS ORDERED: LANTUS2P SQ (15:38)
== END 2016-07-04 13:32 | DRG 682 ==
LOC: NEPC 02:10 → NEDA 05:20 → NEDH 08:54 → N07B 15:21
PROVIDERS: ADMIT Family Medicine; ATTEND Family Medicine
DX: N17.9 Acute kidney failure, unspecified (principal); G93.41 Metabolic encephalopathy; R65.20 Severe sepsis without septic shock; J18.9 Pneumonia, unspecified organism; J81.1 Chronic pulmonary edema; E87.2 Acidosis; N39.0 Urinary tract infection, site not specified; E11.649 Type 2 diabetes mellitus with hypoglycemia without coma; E11.65 Type 2 diabetes mellitus with hyperglycemia; E86.0 Dehydration; I48.91 Unspecified atrial fibrillation; I10 Essential (primary) hypertension; B96.20 Unspecified Escherichia coli [E. coli] as the cause of diseases classified elsewhere; E78.00 Pure hypercholesterolemia, unspecified; E78.5 Hyperlipidemia, unspecified; E87.6 Hypokalemia; Z79.01 Long term (current) use of anticoagulants; Z99.3 Dependence on wheelchair; D17.71 Benign lipomatous neoplasm of kidney; Z87.442 Personal history of urinary calculi; H35.30 Unspecified macular degeneration; F41.9 Anxiety disorder, unspecified; H40.9 Unspecified glaucoma; Z79.899 Other long term (current) drug therapy; K21.9 Gastro-esophageal reflux disease without esophagitis
CPT/HCPCS: 51702; 71010; 71020; 76775; 76937; 80048; 80053; 81001; 82550; 82552; 82948; 83605; 83735; 84443; 84484; 85007; 85025; 85027; 85610; 85730; 87040; 87077; 87086; 87186; 87449; 93005; 93306; 94150; 94640; 94664; J0456; J0696; J0744; J1335; J1644; J1815; J1940; J2543; J7030; J7040; J7050

== ENCOUNTER 2017-04-06 14:01 | Inpatient (IN) | payer MEDICARE, BC ==
[~2017-04-06] VITALS: Ht 170.2 cm; Wt 82.9 kg
[2017-04-06] VITALS (10 sets, daily range): BP systolic 100–152; BP diastolic 56–81; PULSE 85–97; RESP 20–32; TEMP 98–98.5; O2SAT 95–100
[~2017-04-06 14:01] MED LIST changes: +APIX2.5T PO; +ASPI1TAB57 PO; -CEFU250T PO; +DOCU100C15 PO; +DULC10SU3 RECTAL; +FURO20TA PO; -GLIP10TA6 PO; -INDA2.5T3 PO; +INSU100V2 SQ; -LACTCAP7 PO; +LANTUS2P SQ; +METO25TA3 PO; +MILK2400 PO; -NYST100010 TOP; +OMEP20CA2 PO; +POTA-163 PO; -PROT40TA PO; -SIMV20 PO; +SIMV20TA PO; -SUCR1S PO; -TIMO0.5S29 EACH EYE; +TIMO0.5S30 EACH EYE; +TIMO0.5S4 EACH EYE; +TYLE325T PO; +VITA10002 PO; -VITA500S3 PO; -[UNRECOGNIZED DRUG - CODE] PO
--- NOTE | 2017-04-06 14:22 | PD ---
HPI Chief Complaint: Respiratory Distress Time Seen by Provider: 14:10 Travel History International Travel<30 days: No Contact w/Intl Traveler<30days: No Traveled to known affect area: No History of Present Illness HPI The patient is a 89-year-old female who presents to the emergency department from [facility] via EMS for shortness of breath. According to EMS they received a call for shortness of breath and when they arrived the patient was breathing approximately 40 times per minute and was satting in the low 90s on several liters of oxygen via nasal cannula. They placed the patient on BiPAP with significant improvement in her symptoms. Upon arrival the patient was able to speak in 2-3 word sentences secondary to her shortness of breath. She does note a dry mostly nonproductive cough. She does complain of shortness of breath without any chest pain. [facility] paperwork stated that the patient's speech was slurred, however, EMS states her speech was garbled secondary to BiPAP. When removed her speech was normal. The patient denies any acute weakness of the arms or legs, does have a chronic right lower extremity injury and has poor mobility. The patient is unsure if she's had any fevers, has had similar symptoms in the past secondary to pneumonia. The patient is unsure if she has any history of COPD or congestive heart failure. EMS did provide the patient 125 mg of Solu-Medrol prior to arrival. PFSH Past Medical History Atrial Fibrillation: Yes Anxiety: Yes Cancer: No Cardiovascular Problems: Yes High Cholesterol: Yes Diabetes: Yes Patient Takes Glucophage: No Diminished Hearing: No Glaucoma: Yes Genitourinary: No Hypertension: Yes Immune Disorder: Yes Musculoskeletal: No Neurologic: No Reproductive: No Respiratory: No Menopausal: Yes Past Surgical History Gynecologic Surgery: Yes (HYSTERECTOMY ) Hysterectomy: Yes (AGE 52) Tonsillectomy: Yes (AGE 9) Other Surgery: Yes Social History Alcohol Use: Yes (A GLASS OF WINE OCC) Tobacco Use: No Substance Use: No Allergies-Medications (Allergen,Severity, Reaction): Coded Allergies: *MDRO Multi-Drug Resistant Organism (Verified Adverse Reaction, Unknown, ) ESBL E.Coli (urine)-06/27/16 Reported Meds & Prescriptions Reported Meds & Active Scripts Active Lorazepam 0.5 Mg Tab 0.5 Mg PO DIRECTED PRN 0.5mg HS scheudled; hold if sleeping or sedated Timoptic-Xe Opth Gel (Timolol Opth Gel) 0.5 % Gel 1 Drop EACH EYE DAILY Metoprolol Tartrate 25 Mg Tab 25 Mg PO Q12HR Eliquis (Apixaban) 2.5 Mg Tab 2.5 Mg PO BID Reported Duoneb (Ipratropium-Albuterol Neb) 0.5-2.5 Mg/3 Ml Neb 1 Nebule INH Q4HR NEB PRN Lantus Inj (Insulin Glargine) 1,000 Unit/10 Ml Vial 15 Units SQ BID Humulin R Inj (Insulin Human Regular) 1,000 Unit/10 Ml Vial 2 Units SQ DIRECTED 2 units prior to lunch Dulcolax Supp (Bisacodyl) 10 Mg Supp 10 Mg RECTAL DAILY PRN Tylenol (Acetaminophen) 325 Mg Tab 650 Mg PO Q4H PRN Humulin R Inj (Insulin Human Regular) 1,000 Unit/10 Ml Vial 1-21 Units SQ ONCE SS coverage: 150-200 3u, 201-250 6u, 251-300 9u, 301-350 12u, 351-400 15u, 401-450 18u, 451-500 21u Milk of Magnesia Concentrate Liq (Magnesium Hydroxide) 1,200 Mg/5 Ml Susp 30 Ml PO HS PRN Omeprazole 20 Mg Cap 20 Mg PO DAILY Docusate Sodium 100 Mg Cap 100 Mg PO TID Potassium Chloride ER (Potassium Chloride) 20 Meq Tab 20 Meq PO DAILY Xalatan Opth Drops (Latanoprost) 0.005% Drops 1 Drop EACH EYE HS Timolol Opth Drops 0.5 % Soln 1 Drop EACH EYE BID Aspirin 81 (Aspirin) 81 Mg Tabdr 81 Mg PO DAILY Simvastatin 20 Mg Tab 20 Mg PO DAILY Furosemide 20 Mg Tab 20 Mg PO DAILY Vitamin B-12 (Cyanocobalamin) 1,000 Mcg Tab 1,000 Mcg PO DAILY Review of Systems Except as stated in HPI: all other systems reviewed are Neg General / Constitutional: No: Fever HENT: Positive: Congestion, No: Lightheadedness Cardiovascular: Positive: Irregular Rhythm, Tachycardia, No: Chest Pain or Discomfort Respiratory: Positive: Cough, Shortness of Breath, Wheezing Gastrointestinal: No: Nausea, Vomiting Musculoskeletal: No: Weakness, Edema Neurologic: No: Dizziness Physical Exam Narrative GENERAL: Awake, alert, pleasant 89-year-old female appears her stated age and is in moderate respiratory distress. She is able to speak in 2-3 word sentences with BiPAP in place. SKIN: Focused skin assessment warm/dry. HEAD: Atraumatic. Normocephalic. EYES: No injection or drainage. ENT: Unable to assess secondary to BiPAP. NECK: Trachea midline. No JVD. CARDIOVASCULAR: Irregularly irregular with a heart rate in the 90s. RESPIRATORY: Tachypnea with a respiratory rate of 26. Upper wheezes noted, diminished breath sounds on the right base. GASTROINTESTINAL: Abdomen soft, slight erythema and some firmness over the anterior lateral right abdomen but no tenderness. MUSCULOSKELETAL: No obvious deformities. No clubbing. No cyanosis. No edema. Chronic degenerative changes noted to the feet bilaterally. NEUROLOGICAL: Awake and alert. No obvious cranial nerve deficits. Motor grossly within normal limits. Normal speech. Speaks in 2-3 word sentences, however, speech is clear, no obvious dysarthria. She is able to move her upper and lower extremities. Sensation is symmetric on the arms and legs bilaterally. PSYCHIATRIC: Appropriate mood and affect; insight and judgment normal. Data Data Last Documented VS Vital Signs Date Time Temp Pulse Resp B/P (MAP) Pulse Ox O2 Delivery O2 Flow Rate FiO2 04/06/17 15:20 85 24 152/65 (94) 100 BiPAP 04/06/17 14:09 98.0 04/06/17 13:50 50 Orders Orders Complete Blood Count With Diff (04/06/17 14:10) Comprehensive Metabolic Panel (04/06/17 14:10) B-Type Natriuretic Peptide (04/06/17 14:10) Act Partial Throm Time (Ptt) (04/06/17 14:10) Prothrombin Time / Inr (Pt) (04/06/17 14:10) Magnesium (Mg) (04/06/17 14:10) Ckmb (Isoenzyme) Profile (04/06/17 14:10) Troponin I (04/06/17 14:10) Arterial Blood Gas (Abg) (04/06/17 14:10) Influenzae A/B Antigen (04/06/17 14:10) Iv Access Insert/Monitor (04/06/17 14:10) Electrocardiogram (04/06/17 14:10) Ecg Monitoring (04/06/17 14:10) Oximetry (04/06/17 14:10) Oxygen Administration (04/06/17 14:10) Chest, Single Ap (04/06/17 14:10) Sodium Chloride 0.9% Flush (Ns Flush) (04/06/17 14:15) Albuterol-Ipratropium Neb (Duoneb Neb) (04/06/17 14:15) Resp Bipap / Cpap Non Invas Vt (04/06/17 14:10) Lactic Acid (04/06/17 14:16) Blood Culture (04/06/17 14:16) Furosemide Inj (Lasix Inj) (04/06/17 15:15) Aspirin Chew (Aspirin Chew) (04/06/17 15:15) Labs Laboratory Tests Test 04/06/17 14:15 04/06/17 14:20 White Blood Count 9.6 TH/MM3 Red Blood Count 4.79 MIL/MM3 Hemoglobin 12.9 GM/DL Hematocrit 39.6 % Mean Corpuscular Volume 82.6 FL Mean Corpuscular Hemoglobin 26.9 PG Mean Corpuscular Hemoglobin Concent 32.6 % Red Cell Distribution Width 16.3 % Platelet Count 256 TH/MM3 Mean Platelet Volume 7.9 FL Neutrophils (%) (Auto) 70.5 % Lymphocytes (%) (Auto) 16.2 % Monocytes (%) (Auto) 12.1 % Eosinophils (%) (Auto) 0.9 % Basophils (%) (Auto) 0.3 % Neutrophils # (Auto) 6.8 TH/MM3 Lymphocytes # (Auto) 1.6 TH/MM3 Monocytes # (Auto) 1.2 TH/MM3 Eosinophils # (Auto) 0.1 TH/MM3 Basophils # (Auto) 0.0 TH/MM3 CBC Comment DIFF FINAL Differential Comment Prothrombin Time 11.1 SEC Prothromb Time International Ratio 1.1 RATIO Activated Partial Thromboplast Time 28.1 SEC Blood Urea Nitrogen 25 MG/DL Creatinine 1.51 MG/DL Random Glucose 184 MG/DL Total Protein 7.5 GM/DL Albumin 4.1 GM/DL Calcium Level 8.5 MG/DL Magnesium Level 2.0 MG/DL Alkaline Phosphatase 120 U/L Aspartate Amino Transf (AST/SGOT) 16 U/L Alanine Aminotransferase (ALT/SGPT) 16 U/L Total Bilirubin 0.4 MG/DL Sodium Level 136 MEQ/L Potassium Level 4.3 MEQ/L Chloride Level 94 MEQ/L Carbon Dioxide Level 32.7 MEQ/L Anion Gap 9 MEQ/L Estimat Glomerular Filtration Rate 32 ML/MIN Total Creatine Kinase 44 U/L Troponin I LESS THAN 0.02 NG/ML B-Type Natriuretic Peptide 294 PG/ML Lactic Acid Level 1.3 mmol/L MDM Medical Decision Making Medical Screen Exam Complete: Yes Emergency Medical Condition: Yes Medical Record Reviewed: Yes Interpretation(s) EKG reveals atrial fibrillation with a heart rate in 92. Nonspecific ST and T- wave changes. Wavy baseline noted. Laboratory Tests Test 04/06/17 14:15 04/06/17 14:20 White Blood Count 9.6 TH/MM3 Red Blood Count 4.79 MIL/MM3 Hemoglobin 12.9 GM/DL Hematocrit 39.6 % Mean Corpuscular Volume 82.6 FL Mean Corpuscular Hemoglobin 26.9 PG Mean Corpuscular Hemoglobin Concent 32.6 % Red Cell Distribution Width 16.3 % Platelet Count 256 TH/MM3 Mean Platelet Volume 7.9 FL Neutrophils (%) (Auto) 70.5 % Lymphocytes (%) (Auto) 16.2 % Monocytes (%) (Auto) 12.1 % Eosinophils (%) (Auto) 0.9 % Basophils (%) (Auto) 0.3 % Neutrophils # (Auto) 6.8 TH/MM3 Lymphocytes # (Auto) 1.6 TH/MM3 Monocytes # (Auto) 1.2 TH/MM3 Eosinophils # (Auto) 0.1 TH/MM3 Basophils # (Auto) 0.0 TH/MM3 CBC Comment DIFF FINAL Differential Comment Prothrombin Time 11.1 SEC Prothromb Time International Ratio 1.1 RATIO Activated Partial Thromboplast Time 28.1 SEC Blood Urea Nitrogen 25 MG/DL Creatinine 1.51 MG/DL Random Glucose 184 MG/DL Total Protein 7.5 GM/DL Albumin 4.1 GM/DL Calcium Level 8.5 MG/DL Magnesium Level 2.0 MG/DL Alkaline Phosphatase 120 U/L Aspartate Amino Transf (AST/SGOT) 16 U/L Alanine Aminotransferase (ALT/SGPT) 16 U/L Total Bilirubin 0.4 MG/DL Sodium Level 136 MEQ/L Potassium Level 4.3 MEQ/L Chloride Level 94 MEQ/L Carbon Dioxide Level 32.7 MEQ/L Anion Gap 9 MEQ/L Estimat Glomerular Filtration Rate 32 ML/MIN Total Creatine Kinase 44 U/L Troponin I LESS THAN 0.02 NG/ML B-Type Natriuretic Peptide 294 PG/ML Lactic Acid Level 1.3 mmol/L Last Impressions Chest X-Ray 04/06/17 1410 Signed Impressions: Service Date/Time: Thursday, April 06, 2017 14:19 - CONCLUSION: Cardiomegaly with mild prominence of interstitium which may represent some pulmonary venous hypertension. Dez Milligan MD Differential Diagnosis Differential diagnosis includes pneumonia, bronchitis, COPD exacerbation, congestive heart failure, pleural effusion, pulmonary embolism, influenza, bronchospasm. Narrative Course IV was established, labs are drawn and sent, and the patient was placed on cardiac telemetry monitoring and continuous pulse oximetry monitoring. EKG was ordered and interpreted. Chest x-ray was obtained. The patient was administered duo nebs on BiPAP, BiPAP was started at 10/5 50%. ABG was obtained. Chest x-ray reveals pulmonary congestion, BNP is elevated, patient was administered Lasix 40 mg intravenously. The patient has congestive heart failure, was reevaluated several times, her breathing did improve on the BiPAP, respiratory rate came down to 20, however, patient will require admission. The patient's primary physician at the care home is Dr. Abel Romero, therefore, the residents were paged for admission. Physician Communication Physician Communication The residents were paged for admission. Diagnosis Primary Impression: Congestive heart failure Qualified Codes: I50.9 - Heart failure, unspecified Additional Impression: Dyspnea Qualified Codes: R06.00 - Dyspnea, unspecified Condition: Stable Sung Bangura MD Apr 06, 2017 14:22
[2017-04-06] MEDS ORDERED: LANTUS2P SQ (14:28)
[2017-04-06] MEDS ORDERED: IPRASOL INH (14:29)
[2017-04-06 14:33] LABS: AUTOMATED NEUTROPHIL # 6.8 TH/MM3 (1.8-7.7); BASOPHIL % 0.3 % (0.0-2.0); EOSINOPHIL # 0.1 TH/MM3 (0-0.4); EOSINOPHIL % 0.9 % (0.0-4.0); HEMATOCRIT 39.6 % (35.0-46.0); HEMOGLOBIN 12.9 GM/DL (11.6-15.3); LYMPH % 16.2 % (9.0-44.0); LYMPHOCYTE # 1.6 TH/MM3 (1.0-4.8); MEAN CELL VOLUME 82.6 FL (80.0-100.0); MEAN CORPUSCULAR HEMOGLOBIN 26.9 PG (27.0-34.0); MEAN CORPUSCULAR HGB CONC 32.6 % (32.0-36.0); MEAN PLATELET VOLUME 7.9 FL (7.0-11.0); MONO % 12.1 % (0.0-8.0); MONOCYTE # 1.2 TH/MM3 (0-0.9); NEUT % 70.5 % (16.0-70.0); PLATELET COUNT 256 TH/MM3 (150-450); RED BLOOD COUNT 4.79 MIL/MM3 (4.00-5.30); RED CELL DISTRIBUTION WIDTH 16.3 % (11.6-17.2); WHITE BLOOD COUNT 9.6 TH/MM3 (4.0-11.0)
--- NOTE | 2017-04-06 14:44 | RADRPT ---
EXAM DATE/TIME: 04/06/2017 14:19 [facility] COMPARISON: CHEST SINGLE AP, July 02, 2016, 10:00. INDICATIONS : Difficulty breathing. MEDICAL HISTORY : Renal calculi. Hypercholesterolemia. Hypertension. Recurrent urinary tract infections. Glaucoma. Macu lar degeneration. Diabetes. Anxiety. SURGICAL HISTORY : Tonsillectomy. Hysterectomy. Right ankle fracture repair. ENCOUNTER: Initial ACUITY: 1 day PAIN SCORE: Non-responsive. LOCATION: Bilateral chest FINDINGS: The heart size is mildly enlarged. There is minimal prominence of the interstitium. Focal consolidati on is not seen. Significant effusions are not seen. CONCLUSION: Cardiomegaly with mild prominence of interstitium which may represent some pulmonary venous hypertens ion. Dze Milligan MD on April 06, 2017 at 14:41 Board Certified Radiologist. This report was verified electronically.
[2017-04-06 14:46] LABS: INTERNATIONAL NORMALIZED RATIO 1.1 RATIO; PROTHROMBIN TIME - PATIENT 11.1 SEC (9.8-11.6)
[2017-04-06 14:49] LABS: ALBUMIN 4.1 GM/DL (3.4-5.0); ALT (GPT) 16 U/L (10-53); AST (GOT) 16 U/L (15-37); BICARBONATE 32.7 MEQ/L (21.0-32.0); BLOOD UREA NITROGEN 25 MG/DL (7-18); CALCIUM 8.5 MG/DL (8.5-10.1); CHLORIDE 94 MEQ/L (98-107); CREATININE 1.51 MG/DL (0.50-1.00); GLOMERULAR FILTRATION RATE 32 ML/MIN (>89); GLUCOSE,RANDOM 184 MG/DL (74-106); SODIUM (NA) 136 MEQ/L (136-145)
[2017-04-06 14:54] LABS: ALKALINE PHOSPHATASE 120 U/L (45-117); TOTAL BILIRUBIN ADULT 0.4 MG/DL (0.2-1.0); TOTAL PROTEIN 7.5 GM/DL (6.4-8.2); TROPONIN I LESS THAN 0.02 NG/ML (0.02-0.05)
[2017-04-06] MEDS: RESP: ALBUTEROL 2.5 MG/IPRATROPIUM 0.5 MG NEB (SCH) INH (15:04)
[2017-04-06] MEDS ORDERED: FUROSEMIDE 40 MG/4 ML VIAL IV PUSH ONE (15:15)
[2017-04-06] MEDS ORDERED: ASPIRIN 81 MG CHEW TAB CHEW ONE (15:15)
[2017-04-06] MEDS: SODIUM CHLORIDE 0.9% FLUSH 10 ML FLUSH IVF PRN (15:18)
--- NOTE | 2017-04-06 16:12 | HHI.HP ---
HPI Service Family Medicine Primary Care Physician Abel Romero MD Admission Diagnosis Diagnoses: International Travel<30 Days: No Contact w/Intl Traveler<30days: No Known Affected Area: No History of Present Illness Mrs. Gee is a 89yo white female with a PMH of Afib, DM type 2, and HTN presenting with shortness of breath and slurred speech. Residents access liaison received 2 calls from Kamini Pride today. The first at 0651 concerning the patient having congestion in her right lung base. Her vitals at that time were a temp of 99-100, BP 144/84, HR 94-100, nonlabored respirations, satting 93-94% on 2L via NC. No significant dyspnea or worsening cough, no fevers. Portable chest x-ray was called stat as well as sharon peña. Was also given a dose of furosemide 20 mg at that time. Physical call was at 1318 visit was notified of the patient having a wet sounding cough and altered mental status which is not her baseline. Also appearing sweaty. It is noted that the chest x-ray was clear. The resident advised the center to transfer the patient to the ER for workup. Note from Malgorzata Mireles. Resident started with cough and congestion. CXR negative. now with slurred speech. O2 sat 94% on 2L NC earlier today before being sent to hospital. Patient was unable to answer our questions due to drowsiness and BiPAP mask. She did nod and shake her head to a few questions. She shook her head no to chest pain and abdominal pain. She nodded her head yes to shortness of breath since this morning and to having palpitations. She was able to speak to the ED doctor earlier this evening without any slurred speech. She noted a dry mostly nonproductive cough. Denied any acute weakness of the arms or legs. Unsure of any history of COPD or congestive heart failure. Spoke to her daughter Lela this evening as well. She stated that her mother had a cough that she described as deep and mucousy that started 3-4 days ago. Today she woke up and was talking like she had something in her mouth. No history of slurred speech or confusion. However, today she couldn't form sentences. She was hard to understand. The daughter was unable to tell if her mother was swallowing okay. She also informed us about her mother's wishes and that she is DNR. She has never had to require oxygen in the past. Her mother is able to move about normally and take care of herself at baseline. (Chela Avelar MD R1) Review of Systems ROS Limitations: Clinical Condition, Altered Mental Status Cardiovascular: COMPLAINS OF: Palpitations, DENIES: Chest pain (Chela Avelar MD R1) Past Family Social History Past Medical History Type 2 diabetes Macular degeneration Glaucoma Paroxysmal atrial fibrillation Hospitalized June 2016 due to urinary tract infection with sepsis and associated pneumonia Hx frequent UTIs Past Surgical History Hysterectomy age 52 Tonsillectomy 89 Right ankle surgery age 37 following an injury Reported Medications Reported Meds & Active Scripts Active Lorazepam 0.5 Mg Tab 0.5 Mg PO DIRECTED PRN 0.5mg HS scheudled; hold if sleeping or sedated Timoptic-Xe Opth Gel (Timolol Opth Gel) 0.5 % Gel 1 Drop EACH EYE DAILY Metoprolol Tartrate 25 Mg Tab 25 Mg PO Q12HR Eliquis (Apixaban) 2.5 Mg Tab 2.5 Mg PO BID Reported Duoneb (Ipratropium-Albuterol Neb) 0.5-2.5 Mg/3 Ml Neb 1 Nebule INH Q4HR NEB PRN Lantus Inj (Insulin Glargine) 1,000 Unit/10 Ml Vial 15 Units SQ BID Humulin R Inj (Insulin Human Regular) 1,000 Unit/10 Ml Vial 2 Units SQ DIRECTED 2 units prior to lunch Dulcolax Supp (Bisacodyl) 10 Mg Supp 10 Mg RECTAL DAILY PRN Tylenol (Acetaminophen) 325 Mg Tab 650 Mg PO Q4H PRN Humulin R Inj (Insulin Human Regular) 1,000 Unit/10 Ml Vial 1-21 Units SQ ONCE SS coverage: 150-200 3u, 201-250 6u, 251-300 9u, 301-350 12u, 351-400 15u, 401-450 18u, 451-500 21u Milk of Magnesia Concentrate Liq (Magnesium Hydroxide) 1,200 Mg/5 Ml Susp 30 Ml PO HS PRN Omeprazole 20 Mg Cap 20 Mg PO DAILY Docusate Sodium 100 Mg Cap 100 Mg PO TID Potassium Chloride ER (Potassium Chloride) 20 Meq Tab 20 Meq PO DAILY Xalatan Opth Drops (Latanoprost) 0.005% Drops 1 Drop EACH EYE HS Timolol Opth Drops 0.5 % Soln 1 Drop EACH EYE BID Aspirin 81 (Aspirin) 81 Mg Tabdr 81 Mg PO DAILY Simvastatin 20 Mg Tab 20 Mg PO DAILY Furosemide 20 Mg Tab 20 Mg PO DAILY Vitamin B-12 (Cyanocobalamin) 1,000 Mcg Tab 1,000 Mcg PO DAILY (Chela Avelar MD R1) Allergies: Coded Allergies: *MDRO Multi-Drug Resistant Organism (Verified Adverse Reaction, Unknown, ) ESBL E.Coli (urine)-06/27/16 Family History Father: at age 81 of heart problems Mother: [place] age 80 Siblings: none Children: Two daughters in [place], one daughter has had radiation to eye tumor. 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 Born in [place], moved to in the 194s. Grew up in [facility]. 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 Tobacco: none Alcohol: rare Illicit drug use: none (Chela Avelar MD R1) Physical Exam Vital Signs Vital Signs Date Time Temp Pulse Resp B/P (MAP) Pulse Ox O2 Delivery O2 Flow Rate FiO2 04/06/17 16:00 92 20 100/56 (71) 98 BiPAP 04/06/17 15:20 85 24 152/65 (94) 100 BiPAP 04/06/17 14:09 98.0 04/06/17 14:04 93 32 137/81 (99) 100 04/06/17 13:50 100 50 Physical Exam GENERAL: This is a well-nourished, well-developed obese white female patient laying in bed on BiPAP machine asleep, in no apparent distress. SKIN: No ecchymoses or lesions. Cool and dry. Erythematous rash on right breast and right torso. Large erythematous rash on abdomen. HEAD: Atraumatic. Normocephalic. EYES: Pupils equal round and reactive. Extraocular motions intact. No scleral icterus. No injection or drainage. NECK: Trachea midline. CARDIOVASCULAR: Irregular irregular rate and rhythm without murmurs, gallops, or rubs. RESPIRATORY: Breath sounds equal bilaterally. Diffuse wheezes. GASTROINTESTINAL: Abdomen soft, non-tender, distended. No hepato-splenomegaly, or palpable masses. No guarding. MUSCULOSKELETAL: Extremities without clubbing, cyanosis, or edema. No joint tenderness, effusion, or edema noted. NEUROLOGICAL: drowsy. Able to open eyes when asked. Nods and shakes head to yes or no questions then falls back asleep. Easily aroused. 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 able to move bilateral legs. Did not lift arms when asked. Unable to assess speech. Laboratory Laboratory Tests Test 04/06/17 14:15 04/06/17 14:20 04/06/17 15:35 White Blood Count 9.6 Red Blood Count 4.79 Hemoglobin 12.9 Hematocrit 39.6 Mean Corpuscular Volume 82.6 Mean Corpuscular Hemoglobin 26.9 Mean Corpuscular Hemoglobin Concent 32.6 Red Cell Distribution Width 16.3 Platelet Count 256 Mean Platelet Volume 7.9 Neutrophils (%) (Auto) 70.5 Lymphocytes (%) (Auto) 16.2 Monocytes (%) (Auto) 12.1 Eosinophils (%) (Auto) 0.9 Basophils (%) (Auto) 0.3 Neutrophils # (Auto) 6.8 Lymphocytes # (Auto) 1.6 Monocytes # (Auto) 1.2 Eosinophils # (Auto) 0.1 Basophils # (Auto) 0.0 CBC Comment DIFF FINAL Differential Comment Prothrombin Time 11.1 Prothromb Time International Ratio 1.1 Activated Partial Thromboplast Time 28.1 Blood Urea Nitrogen 25 Creatinine 1.51 Random Glucose 184 Total Protein 7.5 Albumin 4.1 Calcium Level 8.5 Magnesium Level 2.0 Alkaline Phosphatase 120 Aspartate Amino Transf (AST/SGOT) 16 Alanine Aminotransferase (ALT/SGPT) 16 Total Bilirubin 0.4 Sodium Level 136 Potassium Level 4.3 Chloride Level 94 Carbon Dioxide Level 32.7 Anion Gap 9 Estimat Glomerular Filtration Rate 32 Total Creatine Kinase 44 Troponin I LESS THAN 0.02 B-Type Natriuretic Peptide 294 Lactic Acid Level 1.3 Blood Gas Puncture Site RT RADIAL Blood Gas Patient Temperature 98.6 Blood Gas HCO3 29 Blood Gas Base Excess 4.7 Blood Gas Oxygen Saturation 98 Arterial Blood pH 7.42 Arterial Blood Partial Pressure CO2 46 Arterial Blood Partial Pressure O2 150 Arterial Blood Oxygen Content 17.8 Arterial Blood Carboxyhemoglobin 1.2 Arterial Blood Methemoglobin 0.6 Blood Gas Hemoglobin 12.8 Oxygen Delivery Device BIPAP Blood Gas Ventilator Setting 10 IPAP/ 5 EPAP Blood Gas Inspired Oxygen 50 Date/Time Source Procedure Growth Status 04/06/17 14:20 Blood Peripheral Aerobic Blood Culture Pending Received 04/06/17 14:20 Blood Peripheral Anaerobic Blood Culture Pending Received 04/06/17 14:17 Nasal Aspirate Influenza Types A,B Antigen (FABIANA) - Final NEGATIVE FOR FLU A AND B ANTIGEN.... Complete (Chela Avelar MD R1) Result Diagram: 04/06/17 1415 04/06/17 1415 Imaging Last Impressions Chest X-Ray 04/06/17 1410 Signed Impressions: Service Date/Time: Thursday, April 06, 2017 14:19 - CONCLUSION: Cardiomegaly with mild prominence of interstitium which may represent some pulmonary venous hypertension. Dez Milligan MD Head CT 04/06/17 0000 Signed Impressions: Service Date/Time: Thursday, April 06, 2017 17:15 - CONCLUSION: Chronic and small vessel ischemic changes without any evidence for acute hemorrhage or mass effect. Anthony Tripp MD Course Started on BiPAP by EMS and also given 125mg of Solu-Medrol prior to arrival to the ED (Chela Avelar MD R1) Caprini VTE Risk Assessment Caprini VTE Risk Assessment: Mod/High Risk (score >= 2) Caprini Risk Assessment Model Point Value = 1 Point Value = 2 Point Value = 3 Point Value = 5 Age 41-60 Minor surgery BMI > 25 kg/m2 Swollen legs Varicose veins or History of unexplained or recurrent spontaneous Oral contraceptives or hormone replacement Sepsis (< 1 month) Serious lung disease, including pneumonia (< 1 month) Abnormal pulmonary function Acute myocardial infarction Congestive heart failure (< 1 month) History of inflammatory bowel disease Medical patient at bed rest Age 61-74 Arthroscopic surgery Major open surgery (> 45 min) Laparoscopic surgery (> 45 min) Malignancy Confined to bed (> 72 hours) Immobilizing plaster cast Central venous access Age >= 75 History of VTE Family history of VTE Factor V Leiden Prothrombin [id number] Lupus anticoagulant Anticardiolipin antibodies Elevated serum homocysteine Heparin-induced thrombocytopenia Other congenital or acquired thrombophilia Stroke (< 1 month) Elective arthroplasty Hip, pelvis, or leg fracture Acute spinal cord injury (< 1 month) Prophylaxis Regimen Total Risk Factor Score Risk Level Prophylaxis Regimen 0-1 Low Early ambulation 2 Moderate Order ONE of the following: *Sequential Compression Device (SCD) *Heparin 5000 units SQ BID 3-4 Higher Order ONE of the following medications: *Heparin 5000 units SQ TID *Enoxaparin/Lovenox 40 mg SQ daily (WT < 150 kg, CrCl > 30 mL/min) *Enoxaparin/Lovenox 30 mg SQ daily (WT < 150 kg, CrCl > 10-29 mL/min) *Enoxaparin/Lovenox 30 mg SQ BID (WT < 150 kg, CrCl > 30 mL/min) AND/OR *Sequential Compression Device (SCD) 5 or more Highest Order ONE of the following medications: *Heparin 5000 units SQ TID (Preferred with Epidurals) *Enoxaparin/Lovenox 40 mg SQ daily (WT < 150 kg, CrCl > 30 mL/min) *Enoxaparin/Lovenox 30 mg SQ daily (WT < 150 kg, CrCl > 10-29 mL/min) *Enoxaparin/Lovenox 30 mg SQ BID (WT < 150 kg, CrCl > 30 mL/min) AND *Sequential Compression Device (SCD) (Chela Avelar MD R1) Assessment and Plan Assessment and Plan 89-year-old white female with a past medical history of A. fib, hypertension, and had 2 diabetes presenting with shortness of breath and altered mental status. She is being admitted to inpatient. Code Status DNR Discussed Condition With Doctors Nedra and Danielle (Chela Avelar MD R1) Attending Attestation Patient seen and examined. Case reviewed and discussed with the resident team. Agree with plan of care as discussed with me and documented in the resident note. she was seen in the ED on admission. very concerned about her decreased consciousness and would consider intubation but she is definitely a DNR per daughter (Betzy Santos MD) Problem List: (1) Dyspnea ICD Codes: R06.00 - Dyspnea, unspecified Status: Acute Plan: Patient with cough and ingestion for 3-4 days duration. Shortness of breath started today with tachypnea and saturations in the low 90s. She is currently on BiPAP and does not wish to be intubated. Differential diagnosis: Pneumonia versus CHF. BNP is 294. Blood Gas on 04/06 shows pH 7.42/PCO2 46/PO2 150 on BiPAP/HCO3 29 Chest x-ray upon admission shows cardiomegaly with Pap mild prominence of interstitium which may represent some pulmonary venous hypertension. Influenza A, B antigens are negative * Patient given duo nebs and EGD * 1 dose of furosemide 40 mg IV given in the ED * Continue at home furosemide 20 mg po daily * Started Zosyn 4.5 g IV and vancomycin 2 g IV to cover for possible pneumonia, Consulted pharmacy for vancomycin dosing * Blood cultures pending (2) Mental status alteration ICD Codes: R41.82 - Altered mental status, unspecified Status: Acute Plan: Patient with slurred speech and drowsiness. Not have a history of dementia, confusion. Takes care of herself at baseline. Head CT done on 04/06 shows significant degree of brain atrophy. Moderate to severe periventricular white matter changes, mostly consistent with chronic small vessel ischemic changes. No signs of acute infarction. * Patient has a history of frequent UTIs, will check UA to rule out AMS due to UTI * Neuro checks every 4h * Consult PT, OT, speech therapy (3) Acute kidney injury ICD Codes: N17.9 - Acute kidney failure, unspecified Status: Acute Plan: Creatinine at admission is 1.51. Last creatinine in June was 0.97. * Will continue to monitor * Avoid nephrotoxic meds (4) Atrial fibrillation ICD Codes: I48.91 - Unspecified atrial fibrillation Plan: History of paroxysmal atrial fibrillation. EKG on admission showed atrial fibrillation with rate of 92. * Continue at-home Eliquis 2.5 mg twice a day * Continue at home metoprolol 25 mg q12h * Telemetry (5) Diabetes mellitus type 2 in obese ICD Codes: E11.69 - Type 2 diabetes mellitus with other specified complication ; E66.9 - Obesity, unspecified Status: Acute Plan: * Low-dose sliding scale insulin * Regular Accu-Cheks * Hypoglycemia protocol (6) Glaucoma ICD Codes: H40.9 - Unspecified glaucoma Status: Chronic Plan: * Continue at home medications (7) FEN Status: Acute Plan: Fluids: NS @ 100ml/hr Electrolytes: monitor and replete as needed. Continue at home potassium chloride due to Lasix. Nutrition: NPO, until evaluation by speech therapy. DVT Prophylaxis: Early ambulation. Continue at home Eliquis GI Prophylaxis: Continue at home pantoprazole Fever: Tylenol (Chela Avelar MD R1) Physician Certification 2 Midnight Certification Type: Admission for Inpatient Services Order for Inpatient Services The services are ordered in accordance with Medicare regulations or non- Medicare payer requirements, as applicable. In the case of services not specified as inpatient-only, they are appropriately provided as inpatient services in accordance with the 2-midnight benchmark. Estimated LOS (days): 2 days is the estimated time the patient will need to remain in the hospital, assuming treatment plan goals are met and no additional complications. Post-Hospital Plan: Not yet determined (Chela Avelar MD R1) Problem Qualifiers (1) Dyspnea: Qualified Codes: R06.00 - Dyspnea, unspecified (2) Mental status alteration: Qualified Codes: R41.82 - Altered mental status, unspecified (3) Atrial fibrillation: Qualified Codes: I48.0 - Paroxysmal atrial fibrillation (4) Glaucoma: Qualified Codes: H40.9 - Unspecified glaucoma Chela Avelar MD R1 Apr 06, 2017 16:12 Betzy Santos MD Apr 07, 2017 15:20
[2017-04-06] MEDS ORDERED: BISACODYL 10 MG SUPP RECTAL PRN (17:00)
[2017-04-06] MEDS ORDERED: MAGNESIUM HYDROXIDE SUSP 30 ML CUP PO PRN (17:00)
[2017-04-06] MEDS ORDERED: Vancomycin Consult Pharmacy 1 EA OTHER SCH (17:00)
[2017-04-06] MEDS ORDERED: ACETAMINOPHEN 325 MG TAB PO PRN (17:00)
[2017-04-06] MEDS ORDERED: LACTULOSE SYRUP 20 GM/30 ML CUP PO PRN (17:00)
[2017-04-06] MEDS ORDERED: VANCOMYCIN INJ 1,000 MG in SODIUM CHLOR 0.9% 250 ML INJ 250 ML IV ONE (17:00)
[2017-04-06] MEDS ORDERED: SENNOSIDES 8.6 MG TAB PO PRN (17:00)
[2017-04-06] MEDS ORDERED: NALOXONE HCL 0.4 MG/ML AMP IV PUSH PRN (17:00)
[2017-04-06] MEDS ORDERED: GLUCAGON 1 MG/ML VIAL OTHER PRN (17:15)
[2017-04-06] MEDS ORDERED: DEXTROSE 50% IN WATER 50 ML VIAL(D50) IV PUSH PRN (17:15)
--- NOTE | 2017-04-06 17:40 | RADRPT ---
EXAM DATE/TIME: 04/06/2017 17:15 [facility] COMPARISON: CT BRAIN W/O CONTRAST, January 17, 2016, 16:39. INDICATIONS : Altered mental status. RADIATION DOSE: 56.35 CTDIvol (mGy) MEDICAL HISTORY : Cardiovascular disease. Hypertension. diabetes SURGICAL HISTORY : Hysterectomy. ENCOUNTER: Initial ACUITY: 1 day PAIN SCALE: Non-responsive LOCATION: Bilateral head TECHNIQUE: Multiple contiguous axial images were obtained of the head. Using automated exposure control and adj ustment of the mA and/or kV according to patient size, radiation dose was kept as low as reasonably a chievable to obtain optimal diagnostic quality images. DICOM format image data is available electro nically for review and comparison. FINDINGS: There is no evidence for intracranial hemorrhage, mass effect, mass lesions, or edema. The visualize d bony structures appear intact. Significant degree of brain atrophy is seen. Moderate to severe per iventricular white matter changes are seen nonspecific mostly consistent with chronic small vessel is chemic changes. There are no signs of acute infarction for technique. CONCLUSION: Chronic and small vessel ischemic changes without any evidence for acute hemorrhage o r mass effect. Anthony Tripp MD on April 06, 2017 at 17:37 Board Certified Radiologist. This report was verified electronically.
[2017-04-06] MEDS ORDERED: VANCOMYCIN INJ 2,000 MG in SODIUM CHLORID 0.9% 500 ML INJ 500 ML IV ONE (18:00)
[2017-04-06] MEDS: PIPERACIL-TAZO 4.5 GM PREMIX 100 ML IV SCH ×2 (20:50→23:47)
[2017-04-06] MEDS: SODIUM CHLOR 0.9% 1000 ML INJ 1,000 ML IV SCH (20:50)
[2017-04-06] MEDS: INSULIN ASPART SUPPLEMENTAL SCALE SQ SCH (20:51)
[2017-04-06] MEDS: METOPROLOL TARTRATE 25 MG TAB PO SCH (21:00)
[2017-04-06] MEDS: APIXABAN 2.5 MG TABLET PO SCH (21:00)
[2017-04-06] MEDS: DOCUSATE SODIUM 50 MG/SENNA 8.6 MG TAB PO SCH (21:00)
[2017-04-06] MEDS ORDERED: TIMOLOL MALEATE 0.5% OPHT SOLN 5 ML BTL EACH EYE SCH (21:00)
[2017-04-07] VITALS (15 sets, daily range): BP systolic 110–141; BP diastolic 64–93; PULSE 76–106; RESP 20–22; TEMP 97.8–99.1; O2SAT 93–98
[2017-04-07 00:47] LABS: BACTERIA, URINE MOD /hpf; BILIRUBIN, URINE NEG (NEG); BLOOD, URINE NEG (NEG); GLUCOSE,URINE NEG (NEG); KETONE, URINE NEG (NEG); NITRITE,URINE POS (NEG); SQUAMOUS EPITHELIAL CELL URINE <1 /hpf (0-5); URINE COLOR LIGHT-YELLOW (YELLW/STRAW); URINE LEUKOCYTE ESTERASE SMALL (NEG)
[2017-04-07] MEDS: PIPERACIL-TAZO 4.5 GM PREMIX 100 ML IV SCH ×2 (05:49→13:10)
[2017-04-07 07:04] LABS: AUTOMATED NEUTROPHIL # 5.6 TH/MM3 (1.8-7.7); BASOPHIL % 0.3 % (0.0-2.0); HEMATOCRIT 35.8 % (35.0-46.0); HEMOGLOBIN 11.8 GM/DL (11.6-15.3); LYMPH % 9.9 % (9.0-44.0); LYMPHOCYTE # 0.7 TH/MM3 (1.0-4.8); MEAN CELL VOLUME 83.9 FL (80.0-100.0); MEAN CORPUSCULAR HEMOGLOBIN 27.8 PG (27.0-34.0); MEAN CORPUSCULAR HGB CONC 33.1 % (32.0-36.0); MONO % 11.1 % (0.0-8.0); MONOCYTE # 0.8 TH/MM3 (0-0.9); NEUT % 78.7 % (16.0-70.0); PLATELET COUNT 231 TH/MM3 (150-450); RED BLOOD COUNT 4.27 MIL/MM3 (4.00-5.30); RED CELL DISTRIBUTION WIDTH 16.5 % (11.6-17.2); WHITE BLOOD COUNT 7.1 TH/MM3 (4.0-11.0)
[2017-04-07 07:14] LABS: ALBUMIN 2.8 GM/DL (3.4-5.0); ALKALINE PHOSPHATASE 108 U/L (45-117); ALT (GPT) 18 U/L (10-53); AST (GOT) 8 U/L (15-37); BICARBONATE 27.4 MEQ/L (21.0-32.0); BLOOD UREA NITROGEN 30 MG/DL (7-18); CHLORIDE 103 MEQ/L (98-107); CREATININE 1.36 MG/DL (0.50-1.00); GLOMERULAR FILTRATION RATE 37 ML/MIN (>89); GLUCOSE,RANDOM 225 MG/DL (74-106); SODIUM (NA) 137 MEQ/L (136-145); TOTAL BILIRUBIN ADULT 0.4 MG/DL (0.2-1.0); TOTAL PROTEIN 6.7 GM/DL (6.4-8.2)
[2017-04-07] MEDS ORDERED: TIMOLOL MALEATE 0.25% OPHT SOLN 5 ML BTL EACH EYE SCH (09:00)
[2017-04-07] MEDS: PANTOPRAZOLE SOD 20 MG DELAYED RELEASE TAB PO SCH (09:39)
[2017-04-07] MEDS: DOCUSATE SODIUM 50 MG/SENNA 8.6 MG TAB PO SCH ×2 (09:39→21:30)
[2017-04-07] MEDS: FUROSEMIDE 20 MG TAB PO SCH (09:39)
[2017-04-07] MEDS: ASPIRIN EC 81 MG TABEC PO SCH (09:40)
[2017-04-07] MEDS: METOPROLOL TARTRATE 25 MG TAB PO SCH ×2 (09:40→21:29)
[2017-04-07] MEDS: APIXABAN 2.5 MG TABLET PO SCH ×2 (09:40→21:00)
[2017-04-07] MEDS: PRAVASTATIN SOD 40 MG TAB PO SCH (09:40)
[2017-04-07] MEDS: POTASSIUM CHLORIDE 20 MEQ CONTROLLED RELEASE TAB PO SCH (09:40)
[2017-04-07] MEDS: CYANOCOBALAMIN 1,000 MCG TAB PO SCH (09:40)
[2017-04-07] MEDS: INSULIN ASPART SUPPLEMENTAL SCALE SQ SCH ×4 (09:41→21:49)
[2017-04-07] MEDS: SODIUM CHLOR 0.9% 1000 ML INJ 1,000 ML IV SCH (11:29)
[2017-04-07] MEDS: methylPREDNISolone SOD SUCC 40 MG/1 ML VIAL IV PUSH SCH ×2 (13:11→21:31)
--- NOTE | 2017-04-07 13:54 | HHI.HP ---
HPI Service Family Medicine Primary Care Physician Abel Romero MD Admission Diagnosis Diagnoses: (1) Dyspnea Diagnosis: Principal (2) Mental status alteration Diagnosis: Principal (3) Acute kidney injury Diagnosis: Principal (4) Atrial fibrillation Diagnosis: Principal (5) Diabetes mellitus type 2 in obese Diagnosis: Principal (6) Glaucoma Diagnosis: Principal (7) FEN International Travel<30 Days: No Contact w/Intl Traveler<30days: No Known Affected Area: No History of Present Illness Mrs. Gee is a 89yo white female with a PMH of Afib, DM type 2, and HTN presenting with shortness of breath and slurred speech. 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 The first at 0651 concerning the patient having congestion in her right lung base. Her vitals at that time were a temp of 99-100, BP 144/84, HR 94-100, nonlabored respirations, satting 93-94% on 2L via NC. No significant dyspnea or worsening cough, no fevers. Portable chest x- ray was called stat as well as sharon peña. Was also given a dose of furosemide 20 mg at that time. Physical call was at 1318 visit was notified of the patient having a wet sounding cough and altered mental status which is not her baseline. Also appearing sweaty. It is noted that the chest x-ray was clear. The resident advised the center to transfer the patient to the ER for workup. Note from Malgorzata Mireles. Resident started with cough and congestion. CXR negative. now with slurred speech. O2 sat 94% on 2L NC earlier today before being sent to hospital. Patient was unable to answer our questions due to drowsiness and BiPAP mask in the ED. She did nod and shake her head to a few questions. She shook her head no to chest pain and abdominal pain. She nodded her head yes to shortness of breath since this morning and to having palpitations. She was able to speak to the ED doctor earlier this evening without any slurred speech. She noted a dry mostly nonproductive cough. Denied any acute weakness of the arms or legs. Unsure of any history of COPD or congestive heart failure. Spoke to her daughter Lela this evening as well. She stated that her mother had a cough that she described as deep and "mucousy" that started 3-4 days ago. She woke up and was "talking like she had something in her mouth". No history of slurred speech or confusion. However, she couldn't form sentences. She was hard to understand. The daughter was unable to tell if her mother was swallowing okay. She also informed us about her mother's wishes and that she is DNR. She has never required oxygen in the past. Her mother is able to move about normally and take care of herself at baseline. Overnight, Ms Gee's maculopapular erythematous rash disappeared and her breathing is so much better now. She was sitting up in the room and eating her breakfast and a remarkable improvement from yesterday Review of Systems ROS Limitations: Clinical Condition Constitutional: COMPLAINS OF: Diaphoretic episodes, Fatigue Eyes: COMPLAINS OF: Eye inflammation, Vision loss Ears, nose, mouth, throat: COMPLAINS OF: Hearing loss, DENIES: Nasal discharge Respiratory: COMPLAINS OF: Cough, Wheezing, Shortness of breath Cardiovascular: COMPLAINS OF: Dyspnea on Exertion, DENIES: Chest pain Gastrointestinal: DENIES: Abdominal pain, Nausea, Vomiting, Anorexia Genitourinary: COMPLAINS OF: Urinary incontinence, DENIES: Abnormal vaginal bleeding, Urinary frequency, Dysuria Musculoskeletal: DENIES: Joint pain Integumentary: COMPLAINS OF: Rash Hematologic/lymphatic: DENIES: Bruising Immunologic/allergic: COMPLAINS OF: Urticaria, DENIES: Eczema Neurologic: COMPLAINS OF: Speech Problems, DENIES: Headache, Seizures Psychiatric: DENIES: Confusion, Hallucinations, Agitation Other ROS Limitations: Clinical Condition, Altered Mental Status Cardiovascular: COMPLAINS OF: Palpitations, DENIES: Chest pain Past Family Social History Past Medical History Type 2 diabetes Macular degeneration Glaucoma Paroxysmal atrial fibrillation Hospitalized June 2016 due to urinary tract infection with sepsis and associated pneumonia Hx frequent UTIs Past Surgical History Hysterectomy age 52 Tonsillectomy 89 Right ankle surgery age 37 following an injury Reported Medications Lorazepam 0.5 Mg Tab 0.5 Mg PO DIRECTED PRN 0.5mg HS scheudled; hold if sleeping or sedated Timoptic-Xe Opth Gel (Timolol Opth Gel) 0.5 % Gel 1 Drop EACH EYE DAILY Metoprolol Tartrate 25 Mg Tab 25 Mg PO Q12HR Eliquis (Apixaban) 2.5 Mg Tab 2.5 Mg PO BID Reported Duoneb (Ipratropium-Albuterol Neb) 0.5-2.5 Mg/3 Ml Neb 1 Nebule INH Q4HR NEB PRN Lantus Inj (Insulin Glargine) 1,000 Unit/10 Ml Vial 15 Units SQ BID Humulin R Inj (Insulin Human Regular) 1,000 Unit/10 Ml Vial 2 Units SQ DIRECTED 2 units prior to lunch Dulcolax Supp (Bisacodyl) 10 Mg Supp 10 Mg RECTAL DAILY PRN Tylenol (Acetaminophen) 325 Mg Tab 650 Mg PO Q4H PRN Humulin R Inj (Insulin Human Regular) 1,000 Unit/10 Ml Vial 1-21 Units SQ ONCE SS coverage: 150-200 3u, 201-250 6u, 251-300 9u, 301-350 12u, 351-400 15u, 401-450 18u, 451-500 21u Milk of Magnesia Concentrate Liq (Magnesium Hydroxide) 1,200 Mg/5 Ml Susp 30 Ml PO HS PRN Omeprazole 20 Mg Cap 20 Mg PO DAILY Docusate Sodium 100 Mg Cap 100 Mg PO TID Potassium Chloride ER (Potassium Chloride) 20 Meq Tab 20 Meq PO DAILY Xalatan Opth Drops (Latanoprost) 0.005% Drops 1 Drop EACH EYE HS Timolol Opth Drops 0.5 % Soln 1 Drop EACH EYE BID Aspirin 81 (Aspirin) 81 Mg Tabdr 81 Mg PO DAILY Simvastatin 20 Mg Tab 20 Mg PO DAILY Furosemide 20 Mg Tab 20 Mg PO DAILY Vitamin B-12 (Cyanocobalamin) 1,000 Mcg Tab 1,000 Mcg PO DAILY Allergies: Coded Allergies: *MDRO Multi-Drug Resistant Organism (Verified Adverse Reaction, Unknown, ) ESBL E.Coli (urine)-06/27/16 Family History Father: at age 81 of heart problems Mother: [place] age 80 Siblings: none Children: Two daughters in [place], one daughter has had radiation to eye tumor. Son (bipolar disorder) Social History Marital Status: Living Situation: shelter care resident at [facility]. Born in [place], moved to in the 194s. Grew up in [facility]. 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 Tobacco: none Alcohol: rare Illicit drug use: none Physical Exam Vital Signs Vital Signs Date Time Temp Pulse Resp B/P (MAP) Pulse Ox O2 Delivery O2 Flow Rate FiO2 04/07/17 11:32 98.2 79 22 141/75 (97) 98 04/07/17 09:05 2.00 04/07/17 07:05 98.5 79 20 110/70 (83) 96 04/07/17 07:05 95 Nasal Cannula 2.00 04/07/17 05:10 95 Nasal Cannula 2.00 04/07/17 05:00 93 Nasal Cannula 2.00 04/07/17 04:00 82 04/07/17 04:00 97 Bi-Pap 50 04/07/17 04:00 98.1 82 20 117/64 (81) 97 04/07/17 02:00 78 04/07/17 01:05 95 35 04/07/17 00:00 82 04/07/17 00:00 98.4 82 20 134/71 (92) 97 04/07/17 00:00 97 Bi-Pap 50 04/06/17 22:00 86 04/06/17 22:00 95 35 04/06/17 20:00 98.5 96 22 129/56 (80) 98 04/06/17 20:00 98 Bi-Pap 50 04/06/17 20:00 96 04/06/17 19:35 100 35 04/06/17 18:35 99 50 04/06/17 18:33 98.0 97 20 105/65 (78) 97 04/06/17 18:17 BiPAP 50 04/06/17 18:00 04/06/17 16:00 92 20 100/56 (71) 98 BiPAP 04/06/17 15:20 85 24 152/65 (94) 100 BiPAP 04/06/17 14:09 98.0 04/06/17 14:04 93 32 137/81 (99) 100 04/06/17 13:50 100 50 Physical Exam GENERAL: This is a well-nourished, well-developed obese white female patient sitting up in bed on nasal canula, in no apparent distress. Eating breakfast well SKIN: No ecchymoses or lesions. Cool and dry. Erythematous rash on right breast and right torso. Large erythematous rash on abdomen maculopapular on admission. all skin rashes are gone today with the skin on her abdomen and breast clear this am HEAD: Atraumatic. Normocephalic. EYES: Pupils equal round and reactive. Extraocular motions intact. No scleral icterus. No injection or drainage. NECK: Trachea midline. CARDIOVASCULAR: Irregular irregular rate and rhythm without murmurs, gallops, or rubs. RESPIRATORY: Breath sounds equal bilaterally. Diffuse wheezes end expiratory. GASTROINTESTINAL: Abdomen soft, non-tender, distended. No hepato-splenomegaly, or palpable masses. No guarding. MUSCULOSKELETAL: Extremities without clubbing, cyanosis, or edema. No joint tenderness, effusion, or edema noted. NEUROLOGICAL:awake and alert and conversant this am. a very big improvement from admission Laboratory Laboratory Tests Test 04/06/17 14:15 04/06/17 14:20 04/06/17 15:35 04/06/17 23:20 White Blood Count 9.6 Red Blood Count 4.79 Hemoglobin 12.9 Hematocrit 39.6 Mean Corpuscular Volume 82.6 Mean Corpuscular Hemoglobin 26.9 Mean Corpuscular Hemoglobin Concent 32.6 Red Cell Distribution Width 16.3 Platelet Count 256 Mean Platelet Volume 7.9 Neutrophils (%) (Auto) 70.5 Lymphocytes (%) (Auto) 16.2 Monocytes (%) (Auto) 12.1 Eosinophils (%) (Auto) 0.9 Basophils (%) (Auto) 0.3 Neutrophils # (Auto) 6.8 Lymphocytes # (Auto) 1.6 Monocytes # (Auto) 1.2 Eosinophils # (Auto) 0.1 Basophils # (Auto) 0.0 CBC Comment DIFF FINAL Differential Comment Prothrombin Time 11.1 Prothromb Time International Ratio 1.1 Activated Partial Thromboplast Time 28.1 Blood Urea Nitrogen 25 Creatinine 1.51 Random Glucose 184 Total Protein 7.5 Albumin 4.1 Calcium Level 8.5 Magnesium Level 2.0 Alkaline Phosphatase 120 Aspartate Amino Transf (AST/SGOT) 16 Alanine Aminotransferase (ALT/SGPT) 16 Total Bilirubin 0.4 Sodium Level 136 Potassium Level 4.3 Chloride Level 94 Carbon Dioxide Level 32.7 Anion Gap 9 Estimat Glomerular Filtration Rate 32 Total Creatine Kinase 44 Troponin I LESS THAN 0.02 B-Type Natriuretic Peptide 294 Lactic Acid Level 1.3 Blood Gas Puncture Site RT RADIAL Blood Gas Patient Temperature 98.6 Blood Gas HCO3 29 Blood Gas Base Excess 4.7 Blood Gas Oxygen Saturation 98 Arterial Blood pH 7.42 Arterial Blood Partial Pressure CO2 46 Arterial Blood Partial Pressure O2 150 Arterial Blood Oxygen Content 17.8 Arterial Blood Carboxyhemoglobin 1.2 Arterial Blood Methemoglobin 0.6 Blood Gas Hemoglobin 12.8 Oxygen Delivery Device BIPAP Blood Gas Ventilator Setting 10 IPAP/ 5 EPAP Blood Gas Inspired Oxygen 50 Urine Color LIGHT-YELLOW Urine Turbidity CLEAR Urine pH 5.0 Urine Specific [place] 1.006 Urine Protein NEG Urine Glucose (UA) NEG Urine Ketones NEG Urine Occult Blood NEG Urine Nitrite POS Urine Bilirubin NEG Urine Urobilinogen LESS THAN 2.0 Urine Leukocyte Esterase SMALL Urine RBC 1 Urine WBC 2 Urine Squamous Epithelial Cells <1 Urine Bacteria MOD Microscopic Urinalysis Comment CATH-CULTURE IND Test 04/07/17 06:28 White Blood Count 7.1 Red Blood Count 4.27 Hemoglobin 11.8 Hematocrit 35.8 Mean Corpuscular Volume 83.9 Mean Corpuscular Hemoglobin 27.8 Mean Corpuscular Hemoglobin Concent 33.1 Red Cell Distribution Width 16.5 Platelet Count 231 Mean Platelet Volume 8.0 Neutrophils (%) (Auto) 78.7 Lymphocytes (%) (Auto) 9.9 Monocytes (%) (Auto) 11.1 Eosinophils (%) (Auto) 0.0 Basophils (%) (Auto) 0.3 Neutrophils # (Auto) 5.6 Lymphocytes # (Auto) 0.7 Monocytes # (Auto) 0.8 Eosinophils # (Auto) 0.0 Basophils # (Auto) 0.0 CBC Comment DIFF FINAL Differential Comment Blood Urea Nitrogen 30 Creatinine 1.36 Random Glucose 225 Total Protein 6.7 Albumin 2.8 Calcium Level 8.0 Alkaline Phosphatase 108 Aspartate Amino Transf (AST/SGOT) 8 Alanine Aminotransferase (ALT/SGPT) 18 Total Bilirubin 0.4 Sodium Level 137 Potassium Level 4.4 Chloride Level 103 Carbon Dioxide Level 27.4 Anion Gap 7 Estimat Glomerular Filtration Rate 37 Date/Time Source Procedure Growth Status 04/06/17 14:20 Blood Peripheral Aerobic Blood Culture - Preliminary NO GROWTH IN 1 DAY Resulted 04/06/17 14:20 Blood Peripheral Anaerobic Blood Culture - Preliminary NO GROWTH IN 1 DAY Resulted 04/06/17 14:17 Nasal Aspirate Influenza Types A,B Antigen (FABIANA) - Final NEGATIVE FOR FLU A AND B ANTIGEN.... Complete 1/1/18 23:20 Urine Catheterized Urine Urine Culture Pending Received Result Diagram: 04/07/17 0628 04/07/17 0628 Imaging Last Impressions Chest X-Ray 04/06/17 1410 Signed Impressions: Service Date/Time: Thursday, April 06, 2017 14:19 - CONCLUSION: Cardiomegaly with mild prominence of interstitium which may represent some pulmonary venous hypertension. Dez Milligan MD Head CT 04/06/17 0000 Signed Impressions: Service Date/Time: Thursday, April 06, 2017 17:15 - CONCLUSION: Chronic and small vessel ischemic changes without any evidence for acute hemorrhage or mass effect. Anthony Tripp MD [place] VTE Risk Assessment Caprini VTE Risk Assessment: Mod/High Risk (score >= 2) Caprini Risk Assessment Model Point Value = 1 Point Value = 2 Point Value = 3 Point Value = 5 Age 41-60 Minor surgery BMI > 25 kg/m2 Swollen legs Varicose veins or History of unexplained or recurrent spontaneous Oral contraceptives or hormone replacement Sepsis (< 1 month) Serious lung disease, including pneumonia (< 1 month) Abnormal pulmonary function Acute myocardial infarction Congestive heart failure (< 1 month) History of inflammatory bowel disease Medical patient at bed rest Age 61-74 Arthroscopic surgery Major open surgery (> 45 min) Laparoscopic surgery (> 45 min) Malignancy Confined to bed (> 72 hours) Immobilizing plaster cast Central venous access Age >= 75 History of VTE Family history of VTE Factor V Leiden Prothrombin [id number] Lupus anticoagulant Anticardiolipin antibodies Elevated serum homocysteine Heparin-induced thrombocytopenia Other congenital or acquired thrombophilia Stroke (< 1 month) Elective arthroplasty Hip, pelvis, or leg fracture Acute spinal cord injury (< 1 month) Prophylaxis Regimen Total Risk Factor Score Risk Level Prophylaxis Regimen 0-1 Low Early ambulation 2 Moderate Order ONE of the following: *Sequential Compression Device (SCD) *Heparin 5000 units SQ BID 3-4 Higher Order ONE of the following medications: *Heparin 5000 units SQ TID *Enoxaparin/Lovenox 40 mg SQ daily (WT < 150 kg, CrCl > 30 mL/min) *Enoxaparin/Lovenox 30 mg SQ daily (WT < 150 kg, CrCl > 10-29 mL/min) *Enoxaparin/Lovenox 30 mg SQ BID (WT < 150 kg, CrCl > 30 mL/min) AND/OR *Sequential Compression Device (SCD) 5 or more Highest Order ONE of the following medications: *Heparin 5000 units SQ TID (Preferred with Epidurals) *Enoxaparin/Lovenox 40 mg SQ daily (WT < 150 kg, CrCl > 30 mL/min) *Enoxaparin/Lovenox 30 mg SQ daily (WT < 150 kg, CrCl > 10-29 mL/min) *Enoxaparin/Lovenox 30 mg SQ BID (WT < 150 kg, CrCl > 30 mL/min) AND *Sequential Compression Device (SCD) Assessment and Plan Assessment and Plan 89-year-old white female with a past medical history of A. fib, hypertension, and type 2 diabetes presenting with shortness of breath and altered mental status. She was admitted to inpatient. Problem List: (1) Dyspnea ICD Codes: R06.00 - Dyspnea, unspecified Status: Acute Plan: Patient with cough and ingestion for 3-4 days duration. Shortness of breath started today with tachypnea and saturations in the low 90s. She was on BiPAP and does not wish to be intubated. Differential diagnosis: Pneumonia versus CHF vs possible allergic reaction. BNP is 294. Blood Gas on 04/06 shows pH 7.42/PCO2 46/PO2 150 on BiPAP/HCO3 29 Chest x-ray upon admission shows cardiomegaly with Pap mild prominence of interstitium which may represent some pulmonary venous hypertension. Influenza A, B antigens are negative * Patient given duo nebs and EGD * 1 dose of furosemide 40 mg IV given in the ED * Continue at home furosemide 20 mg po daily * Started Zosyn 4.5 g IV and vancomycin 2 g IV to cover for possible pneumonia, Consulted pharmacy for vancomycin dosing * Blood cultures pending * considered allergy as she developed such acute respiratory failure with a RR of 40 plus her skin findings that might have been hives or an allergic rash. She is markedly improved today. I called Kamini Mireles and she did not take any new meds or anything different so it makes allergy less likely. (2) Mental status alteration ICD Codes: R41.82 - Altered mental status, unspecified Status: Acute Plan: Patient with slurred speech and drowsiness on admission, better now. Not have a history of dementia, confusion. Takes care of herself at baseline. Head CT done on 04/06 shows significant degree of brain atrophy. Moderate to severe periventricular white matter changes, mostly consistent with chronic small vessel ischemic changes. No signs of acute infarction. * Patient has a history of frequent UTIs, will check UA to rule out AMS due to UTI * Neuro checks every 4h * Consult PT, OT, speech therapy (3) Acute kidney injury ICD Codes: N17.9 - Acute kidney failure, unspecified Status: Acute Plan: Creatinine at admission is 1.51. Last creatinine in June was 0.97. * Will continue to monitor * Avoid nephrotoxic meds (4) Atrial fibrillation ICD Codes: I48.91 - Unspecified atrial fibrillation Plan: History of paroxysmal atrial fibrillation. EKG on admission showed atrial fibrillation with rate of 92. * Continue at-home Eliquis 2.5 mg twice a day * Continue at home metoprolol 25 mg q12h * Telemetry (5) Diabetes mellitus type 2 in obese ICD Codes: E11.69 - Type 2 diabetes mellitus with other specified complication ; E66.9 - Obesity, unspecified Status: Acute Plan: * Low-dose sliding scale insulin * Regular Accu-Cheks * Hypoglycemia protocol (6) Glaucoma ICD Codes: H40.9 - Unspecified glaucoma Status: Chronic Plan: * Continue at home medications (7) FEN Status: Acute Plan: Fluids: NS @ 100ml/hr, jose enrique heplock Electrolytes: monitor and replete as needed. Continue at home potassium chloride due to Lasix. Nutrition: eating this am DVT Prophylaxis: Early ambulation. Continue at home Eliquis GI Prophylaxis: Continue at home pantoprazole Fever: Tylenol Problem Qualifiers (1) Dyspnea: Qualified Codes: R06.00 - Dyspnea, unspecified (2) Mental status alteration: Qualified Codes: R41.82 - Altered mental status, unspecified (3) Atrial fibrillation: Qualified Codes: I48.0 - Paroxysmal atrial fibrillation (4) Glaucoma: Qualified Codes: H40.9 - Unspecified glaucoma Betzy Santos MD Apr 07, 2017 13:54
[2017-04-07] MEDS: RESP: ALBUTEROL 2.5 MG/IPRATROPIUM 0.5 MG NEB (SCH) NEB ×2 (15:56→20:06)
[2017-04-07] MEDS: PIPERACIL-TAZO 3.375 GM PREMIX 50 ML IV SCH ×2 (17:40→23:53)
--- NOTE | 2017-04-07 18:02 | EKG ---
Date Performed: 04/06/2017 Time Performed: 14:10:23 PTAGE: 89 years EKG: ATRIAL FIBRILLATION NONSPECIFIC ST & T-WAVE ABNORMALITY ABNORMAL RHYTHM ECG PREVIOUS TRACING : 06/28/2016 01.30 Compared to prior tracing no significant change DOCTOR: Bradly Lane Interpretating Date/Time 04/07/2017 18:00:40
[2017-04-07] MEDS: LATANOPROST 0.005% OPHT SOLN 2.5 ML BTL EACH EYE SCH (21:51)
[2017-04-07] MEDS: NON-FORMULARY DRUG EACH EYE SCH (22:06)
[2017-04-08] VITALS (8 sets, daily range): BP systolic 128–150; BP diastolic 60–97; PULSE 79–108; RESP 18; TEMP 97.7–98.6; O2SAT 93–98
[2017-04-08] MEDS: VANCOMYCIN 1,000 MG/NS 250 ML IV SCH ×2 (02:20)
[2017-04-08] MEDS: PIPERACIL-TAZO 3.375 GM PREMIX 50 ML IV SCH ×2 (05:25→18:08)
[2017-04-08 07:35] LABS: CREATININE 1.27 MG/DL (0.50-1.00)
[2017-04-08] MEDS: RESP: ALBUTEROL 2.5 MG/IPRATROPIUM 0.5 MG NEB (SCH) NEB ×3 (08:38→20:08)
[2017-04-08] MEDS: PANTOPRAZOLE SOD 20 MG DELAYED RELEASE TAB PO SCH (09:00)
[2017-04-08] MEDS: METOPROLOL TARTRATE 25 MG TAB PO SCH ×2 (09:00→21:34)
[2017-04-08] MEDS ORDERED: ONDANSETRON HCL 4 MG/2 ML VIAL IV PUSH PRN (09:30)
[2017-04-08] MEDS ORDERED: PNEUMOCOCCAL POLYVALENT INJ 25 MCG/0.5 ML SYR IM ONE (10:00)
[2017-04-08] MEDS ORDERED: INFLUENZA VIRUS VACCINE (QUADRIVALENT) 0.5 ML SYR IM ONE (10:00)
[2017-04-08] MEDS: methylPREDNISolone SOD SUCC 40 MG/1 ML VIAL IV PUSH SCH ×2 (10:22→21:34)
[2017-04-08] MEDS: ASPIRIN EC 81 MG TABEC PO SCH (10:23)
[2017-04-08] MEDS: FUROSEMIDE 20 MG TAB PO SCH (10:23)
[2017-04-08] MEDS: PRAVASTATIN SOD 40 MG TAB PO SCH (10:24)
[2017-04-08] MEDS: APIXABAN 2.5 MG TABLET PO SCH ×2 (10:24→21:33)
[2017-04-08] MEDS: DOCUSATE SODIUM 50 MG/SENNA 8.6 MG TAB PO SCH ×2 (10:24→21:33)
[2017-04-08] MEDS: CYANOCOBALAMIN 1,000 MCG TAB PO SCH (10:24)
[2017-04-08] MEDS: POTASSIUM CHLORIDE 20 MEQ CONTROLLED RELEASE TAB PO SCH (10:25)
--- NOTE | 2017-04-08 10:50 | HHI.FPPN ---
Subjective Remarks Ms Gee is a little confused today. She complained of vomiting x one. She expressed her wishes to go back to [facility] and hated her bipap and doesn't want that again. "I'm 89 and I don't want to live forever." She talked about her DNR and we discussed hospice. She has a definite attitude of wanting comfort care and not having to come back to the hospital. Overall, despite her vomiting, her breathing is better overall and she is doing well with her O2 sats on 2 liter nasal canula. She did not complain about abdominal pain or chest pain or other problems but is worried about her renal function overall and her general condition. Objective Vitals Vital Signs Date Time Temp Pulse Resp B/P (MAP) Pulse Ox O2 Delivery O2 Flow Rate FiO2 04/08/17 08:38 97 Nasal Cannula 2.50 04/08/17 03:00 98.3 79 18 133/77 (95) 98 04/07/17 23:38 97 35 04/07/17 23:00 99.1 101 22 131/93 (106) 98 04/07/17 20:06 97 Nasal Cannula 2.50 04/07/17 19:00 97.8 106 22 117/69 (85) 97 04/07/17 19:00 97 Nasal Cannula 2.00 04/07/17 16:00 98.4 95 21 123/76 (92) 96 04/07/17 15:00 93 04/07/17 11:32 98.2 79 22 141/75 (97) 98 04/07/17 11:00 77 I/O 04/07/17 04/07/17 04/07/17 04/08/17 04/08/17 04/08/17 06:59 14:59 22:59 06:59 14:59 22:59 Intake Total 720 ml 100 ml 1282 ml 710 ml Output Total 700 ml 1100 ml 1330 ml Balance 20 ml 100 ml 182 ml -620 ml Intake Oral 0 ml 720 ml 360 ml IV Total 720 ml 100 ml 562 ml 350 ml Output Urine Total 700 ml 1100 ml 1330 ml # Bowel Movements 0 1 2 Result Diagram: 04/07/17 0628 04/08/17 0600 Objective Remarks GENERAL: This is a well-nourished, well-developed pleasant elderly white female patient laying in bed on BiPAP machine asleep, in no apparent distress. SKIN: No ecchymoses or lesions. Cool and dry. Erythematous maculopapular rash on right breast and right torso present on admission, now gone. diffuse erythematous rash on abdomen. HEAD: Atraumatic. Normocephalic. rosacea EYES: Pupils equal round and reactive. Extraocular motions intact. No scleral icterus. No injection or drainage. NECK: Trachea midline. CARDIOVASCULAR: Irregular irregular rate and rhythm without murmurs, gallops, or rubs. RESPIRATORY: Breath sounds equal bilaterally. Diffuse wheezes throughout still present. not moving air extremely well. GASTROINTESTINAL: Abdomen soft, non-tender, distended. No hepato-splenomegaly, or palpable masses. No guarding. MUSCULOSKELETAL: Extremities without clubbing, cyanosis, or edema. No joint tenderness, effusion, or edema noted. NEUROLOGICAL:awake. alert and conversant some slight confusion- not remembering how long she's been vomiting and her exact age. otherwise lucid and understanding her overall condition and the consequences of actions as well as being oriented to place, person and condition Urinary Catheter: No Vascular Central Line Catheter: No A/P Assessment and Plan 89-year-old white female with a past medical history of A. fib, hypertension, and type 2 diabetes presenting with shortness of breath and altered mental status. She was admitted to inpatient. will speak to her daughter. Ms Gee is doing well currently but may want to consider hospice for the senior care as she does not want to come back to the hospital or have any aggressive treatment Problem List: (1) Dyspnea ICD Codes: R06.00 - Dyspnea, unspecified Status: Acute Plan: Patient with cough and ingestion for 3-4 days duration. Shortness of breath with tachypnea and saturations in the low 90s. She was on BiPAP and does not wish to be intubated. Differential diagnosis: Pneumonia versus CHF vs possible allergic reaction. BNP is 294. Blood Gas on 04/06 shows pH 7.42/PCO2 46/PO2 150 on BiPAP/HCO3 29 Chest x-ray upon admission shows cardiomegaly with Pap mild prominence of interstitium which may represent some pulmonary venous hypertension. Influenza A, B antigens are negative * Patient given duo nebs and EGD * 1 dose of furosemide 40 mg IV given in the ED * Continue at home furosemide 20 mg po daily * Started Zosyn 4.5 g IV and vancomycin 2 g IV to cover for possible pneumonia, Consulted pharmacy for vancomycin dosing * Blood cultures pending * considered allergy as she developed such acute respiratory failure with a RR of 40 plus her skin findings that might have been hives or an allergic rash. She is markedly improved today. I called Kamin[facility] Mireles and she did not take any new meds or anything different so it makes allergy less likely. (2) Acute kidney injury ICD Codes: N17.9 - Acute kidney failure, unspecified Status: Acute Plan: Creatinine at admission is 1.51. Last creatinine in June was 0.97. * Will continue to monitor * Avoid nephrotoxic meds (3) Atrial fibrillation ICD Codes: I48.91 - Unspecified atrial fibrillation Plan: History of paroxysmal atrial fibrillation. EKG on admission showed atrial fibrillation with rate of 92. * Continue at-home Eliquis 2.5 mg twice a day * Continue at home metoprolol 25 mg q12h * Telemetry (4) Diabetes mellitus type 2 in obese ICD Codes: E11.69 - Type 2 diabetes mellitus with other specified complication ; E66.9 - Obesity, unspecified Status: Acute Plan: * Low-dose sliding scale insulin * Regular Accu-Cheks * Hypoglycemia protocol (5) Glaucoma ICD Codes: H40.9 - Unspecified glaucoma Status: Chronic Plan: * Continue at home medications (6) FEN Status: Acute Plan: Fluids: NS @ 100ml/hr, will heplock Electrolytes: monitor and replete as needed. Continue at home potassium chloride due to Lasix. Nutrition: eating this am DVT Prophylaxis: Early ambulation. Continue at home Eliquis GI Prophylaxis: Continue at home pantoprazole Fever: Tylenol Nausea: zofran prn (7) Mental status alteration ICD Codes: R41.82 - Altered mental status, unspecified Status: Acute Plan: Patient with slurred speech and drowsiness on admission, better now. Not have a history of dementia, confusion. Takes care of herself at baseline. Head CT done on 04/06 shows significant degree of brain atrophy. Moderate to severe periventricular white matter changes, mostly consistent with chronic small vessel ischemic changes. No signs of acute infarction. * Patient has a history of frequent UTIs, will check UA to rule out AMS due to UTI * Neuro checks every 4h * Consult PT, OT, speech therapy Problem Qualifiers (1) Dyspnea: Qualified Codes: R06.00 - Dyspnea, unspecified (2) Atrial fibrillation: Qualified Codes: I48.0 - Paroxysmal atrial fibrillation (3) Glaucoma: Qualified Codes: H40.9 - Unspecified glaucoma (4) Mental status alteration: Qualified Codes: R41.82 - Altered mental status, unspecified Betzy Santos MD Apr 08, 2017 10:50
[2017-04-08] MEDS: INSULIN ASPART SUPPLEMENTAL SCALE SQ SCH ×3 (13:08→21:34)
[2017-04-08] MEDS: NON-FORMULARY DRUG EACH EYE SCH (21:00)
[2017-04-08] MEDS: TIMOLOL MALEATE 0.5% OPHT SOLN 5 ML BTL EACH EYE SCH (21:34)
[2017-04-08] MEDS: LATANOPROST 0.005% OPHT SOLN 2.5 ML BTL EACH EYE SCH (21:34)
[2017-04-09] MEDS: PIPERACIL-TAZO 3.375 GM PREMIX 50 ML IV SCH ×3 (00:33→11:35)
[2017-04-09] MEDS: VANCOMYCIN 1,000 MG/NS 250 ML IV SCH ×2 (03:51)
[2017-04-09 04:19] VITALS: BP 123/68; PULSE 86; TEMP 97.6; O2SAT 96
[2017-04-09 05:47] LABS: CREATININE 1.29 MG/DL (0.50-1.00)
[2017-04-09] MEDS ORDERED: OXYGENDME NAS.CANULA (09:32)
--- NOTE | 2017-04-09 09:32 | HHI.DCPOC ---
Discharge Care Plan Diagnosis: (1) Dyspnea (2) Congestive heart failure (3) UTI (urinary tract infection) (4) Acute kidney injury (5) Cough in adult patient Goals to Promote Your Health * To prevent worsening of your condition and complications * To maintain your health at the optimal level Directions to Meet Your Goals Take your medications as prescribed Follow your dietary instruction Follow activity as directed Keep your appointments as scheduled Take your immunizations and boosters as scheduled If your symptoms worsen call your PCP, if no PCP go to Urgent Care Center or Emergency Room Smoking is Dangerous to Your Health. Avoid second hand smoke Call the 24-hour hour crisis hotline for domestic abuse at Bob Sneed MD Apr 09, 2017 9:32 am
[2017-04-09] MEDS: RESP: ALBUTEROL 2.5 MG/IPRATROPIUM 0.5 MG NEB (SCH) NEB ×2 (10:08→13:47)
[2017-04-09 10:11] VITALS: O2SAT 92
[2017-04-09] MEDS: SODIUM CHLORIDE 0.9% FLUSH 10 ML FLUSH IVF PRN (10:19)
[2017-04-09] MEDS: methylPREDNISolone SOD SUCC 40 MG/1 ML VIAL IV PUSH SCH (10:19)
[2017-04-09] MEDS: ASPIRIN EC 81 MG TABEC PO SCH (10:20)
[2017-04-09] MEDS: POTASSIUM CHLORIDE 20 MEQ CONTROLLED RELEASE TAB PO SCH (10:20)
[2017-04-09] MEDS: APIXABAN 2.5 MG TABLET PO SCH (10:20)
[2017-04-09] MEDS: FUROSEMIDE 20 MG TAB PO SCH (10:20)
[2017-04-09] MEDS: CYANOCOBALAMIN 1,000 MCG TAB PO SCH (10:21)
[2017-04-09] MEDS: DOCUSATE SODIUM 50 MG/SENNA 8.6 MG TAB PO SCH (10:21)
[2017-04-09] MEDS: METOPROLOL TARTRATE 25 MG TAB PO SCH (10:21)
[2017-04-09] MEDS: PRAVASTATIN SOD 40 MG TAB PO SCH (10:21)
[2017-04-09] MEDS: TIMOLOL MALEATE 0.5% OPHT SOLN 5 ML BTL EACH EYE SCH (10:22)
[2017-04-09] MEDS: PANTOPRAZOLE SOD 20 MG DELAYED RELEASE TAB PO SCH (10:27)
[2017-04-09] MEDS: INSULIN ASPART SUPPLEMENTAL SCALE SQ SCH ×2 (12:16→17:35)
[2017-04-09] MEDS ORDERED: BACT400T PO (14:48)
--- NOTE | 2017-04-09 15:11 | HHI.FPPN ---
Subjective Remarks Saw and examined patient this morning. She states that she is very to go back to [facility]. She wants to go to rehabilitation so that she can be sure she was before. No fevers or chills, no chest pain, no shortness of breath, no dysuria. (Chela Avelar MD R1) Objective Vitals Vital Signs Date Time Temp Pulse Resp B/P (MAP) Pulse Ox O2 Delivery O2 Flow Rate FiO2 04/09/17 10:11 92 Nasal Cannula 2.50 04/09/17 04:19 97.6 86 123/68 (86) 96 04/08/17 23:00 98.1 80 128/84 (99) 98 04/08/17 20:11 95 Nasal Cannula 2.50 04/08/17 20:00 98.3 87 141/77 (98) 95 04/08/17 20:00 Nasal Cannula 3.00 04/08/17 15:44 97.9 98 18 148/91 (110) 93 I/O 04/08/17 04/08/17 04/08/17 04/09/17 04/09/17 04/09/17 07:00 15:00 23:00 07:00 15:00 23:00 Intake Total 710 ml 120 ml Output Total 1330 ml Balance -620 ml 120 ml Intake Oral 360 ml 120 ml IV Total 350 ml Output Urine Total 1330 ml # Voids 3 # Bowel Movements 2 (Chela Avelar MD R1) Result Diagram: 04/07/17 0628 04/09/17 0423 Imaging Last Impressions Chest X-Ray 04/06/17 1410 Signed Impressions: Service Date/Time: Thursday, April 06, 2017 14:19 - CONCLUSION: Cardiomegaly with mild prominence of interstitium which may represent some pulmonary venous hypertension. Dez Milligan MD Head CT 04/06/17 0000 Signed Impressions: Service Date/Time: Thursday, April 06, 2017 17:15 - CONCLUSION: Chronic and small vessel ischemic changes without any evidence for acute hemorrhage or mass effect. Anthony Tripp MD Objective Remarks GENERAL: This is a well-nourished, well-developed pleasant elderly white female patient laying in bed on BiPAP machine asleep, in no apparent distress. SKIN: No ecchymoses or lesions. Cool and dry. HEAD: Atraumatic. Normocephalic. rosacea EYES: Pupils equal round and reactive. Extraocular motions intact. No scleral icterus. No injection or drainage. NECK: Trachea midline. CARDIOVASCULAR: Irregular irregular rate and rhythm without murmurs, gallops, or rubs. RESPIRATORY: Breath sounds equal bilaterally. Diffuse wheezes throughout still present. not moving air extremely well. GASTROINTESTINAL: Abdomen soft, non-tender, distended. No hepato-splenomegaly, or palpable masses. No guarding. MUSCULOSKELETAL: Extremities without clubbing, cyanosis, or edema. No joint tenderness, effusion, or edema noted. NEUROLOGICAL:awake. alert and conversant some slight confusion- not remembering how long she's been vomiting and her exact age. otherwise lucid and understanding her overall condition and the consequences of actions as well as being oriented to place, person and condition (Chela Avelar MD R1) A/P Assessment and Plan 89-year-old white female with a past medical history of A. fib, hypertension, and type 2 diabetes presenting with shortness of breath and altered mental status. She was admitted to inpatient. will speak to her daughter. Ms Gee is doing well currently but may want to consider hospice for the retirement as she does not want to come back to the hospital or have any aggressive treatment Discharge Planning Discharge to [facility] today (Chela Avelar MD R1) Attending Attestation Patient seen and examined. Case reviewed and discussed with the resident team. Agree with plan of care as discussed with me and documented in the resident note. feels well and wants to go back to her home at [facility]. spoke to pt and her daughter and explained that it is unclear exactly what caused her to get so sick and that unfortunately she could have similar problems in the future. She does not ever want aggressive care or procedures so she was encouraged to have a living will in future. (Betzy Santos MD) Problem List: (1) UTI (urinary tract infection) ICD Codes: N39.0 - Urinary tract infection, site not specified Status: Acute Plan: UA reveals positive nitrites, small leukocytes esterase, and moderate bacteria. Susceptibilities show ESBL * will discharge on Bactrim po (2) Dyspnea ICD Codes: R06.00 - Dyspnea, unspecified Status: Acute Plan: Patient with cough and ingestion for 3-4 days duration. Shortness of breath with tachypnea and saturations in the low 90s. She was on BiPAP and does not wish to be intubated. Differential diagnosis: Pneumonia versus CHF vs possible allergic reaction. BNP is 294. Blood Gas on 04/06 shows pH 7.42/PCO2 46/PO2 150 on BiPAP/HCO3 29 Chest x-ray upon admission shows cardiomegaly with Pap mild prominence of interstitium which may represent some pulmonary venous hypertension. Influenza A, B antigens are negative * Patient given duo nebs and EGD * 1 dose of furosemide 40 mg IV given in the ED * Continue at home furosemide 20 mg po daily * Started Zosyn 4.5 g IV and vancomycin 2 g IV to cover for possible pneumonia, Consulted pharmacy for vancomycin dosing * Blood cultures pending * considered allergy as she developed such acute respiratory failure with a RR of 40 plus her skin findings that might have been hives or an allergic rash. She is markedly improved today. I called [facility] Mireles and she did not take any new meds or anything different so it makes allergy less likely. (3) Acute kidney injury ICD Codes: N17.9 - Acute kidney failure, unspecified Status: Acute Plan: Creatinine at admission is 1.51. Last creatinine in June was 0.97. * Will continue to monitor * Avoid nephrotoxic meds (4) Atrial fibrillation ICD Codes: I48.91 - Unspecified atrial fibrillation Plan: History of paroxysmal atrial fibrillation. EKG on admission showed atrial fibrillation with rate of 92. * Continue at-home Eliquis 2.5 mg twice a day * Continue at home metoprolol 25 mg q12h * Telemetry (5) Diabetes mellitus type 2 in obese ICD Codes: E11.69 - Type 2 diabetes mellitus with other specified complication ; E66.9 - Obesity, unspecified Status: Acute Plan: * Low-dose sliding scale insulin * Regular Accu-Cheks * Hypoglycemia protocol (6) Glaucoma ICD Codes: H40.9 - Unspecified glaucoma Status: Chronic Plan: * Continue at home medications (7) Mental status alteration ICD Codes: R41.82 - Altered mental status, unspecified Status: Acute Plan: Patient with slurred speech and drowsiness on admission, better now. Not have a history of dementia, confusion. Takes care of herself at baseline. Head CT done on 04/06 shows significant degree of brain atrophy. Moderate to severe periventricular white matter changes, mostly consistent with chronic small vessel ischemic changes. No signs of acute infarction. * Patient has a history of frequent UTIs, will check UA to rule out AMS due to UTI * Neuro checks every 4h * Consult PT, OT, speech therapy (8) FEN Status: Acute Plan: Fluids: NS @ 100ml/hr, will heplock Electrolytes: monitor and replete as needed. Continue at home potassium chloride due to Lasix. Nutrition: eating this am DVT Prophylaxis: Early ambulation. Continue at home Eliquis GI Prophylaxis: Continue at home pantoprazole Fever: Tylenol Nausea: zofran prn (Chela Avelar MD R1) Problem Qualifiers (1) UTI (urinary tract infection): Qualified Codes: N39.0 - Urinary tract infection, site not specified (2) Dyspnea: Qualified Codes: R06.00 - Dyspnea, unspecified (3) Atrial fibrillation: Qualified Codes: I48.0 - Paroxysmal atrial fibrillation (4) Glaucoma: Qualified Codes: H40.9 - Unspecified glaucoma (5) Mental status alteration: Qualified Codes: R41.82 - Altered mental status, unspecified Chela Avelar MD R1 Apr 09, 2017 15:11 Betzy Santos MD Apr 11, 2017 15:48
--- NOTE | 2017-04-09 15:16 | HHI.DS ---
Discharge Summary Admission Date Apr 06, 2017 at 16:09 Discharge Date: Apr 09, 2017 Admitting Diagnosis (1) UTI (urinary tract infection) Plan: UA reveals positive nitrites, small leukocytes esterase, and moderate bacteria. Susceptibilities show ESBL * will discharge on Bactrim po ICD Codes: N39.0 - Urinary tract infection, site not specified Status: Acute (2) Dyspnea Plan: Patient with cough and ingestion for 3-4 days duration. Shortness of breath with tachypnea and saturations in the low 90s. She was on BiPAP and does not wish to be intubated. Differential diagnosis: Pneumonia versus CHF vs possible allergic reaction. BNP is 294. Blood Gas on 04/06 shows pH 7.42/PCO2 46/PO2 150 on BiPAP/HCO3 29 Chest x-ray upon admission shows cardiomegaly with Pap mild prominence of interstitium which may represent some pulmonary venous hypertension. Influenza A, B antigens are negative * Patient given duo nebs and EGD * 1 dose of furosemide 40 mg IV given in the ED * Continue at home furosemide 20 mg po daily * Started Zosyn 4.5 g IV and vancomycin 2 g IV to cover for possible pneumonia, Consulted pharmacy for vancomycin dosing * Blood cultures pending * considered allergy as she developed such acute respiratory failure with a RR of 40 plus her skin findings that might have been hives or an allergic rash. She is markedly improved today. I called Kamini Mireles and she did not take any new meds or anything different so it makes allergy less likely. ICD Codes: R06.00 - Dyspnea, unspecified Status: Acute (3) Acute kidney injury Plan: Creatinine at admission is 1.51. Last creatinine in June was 0.97. * Will continue to monitor * Avoid nephrotoxic meds ICD Codes: N17.9 - Acute kidney failure, unspecified Status: Acute (4) Atrial fibrillation Plan: History of paroxysmal atrial fibrillation. EKG on admission showed atrial fibrillation with rate of 92. * Continue at-home Eliquis 2.5 mg twice a day * Continue at home metoprolol 25 mg q12h * Telemetry ICD Codes: I48.91 - Unspecified atrial fibrillation (5) Diabetes mellitus type 2 in obese Plan: * Low-dose sliding scale insulin * Regular Accu-Cheks * Hypoglycemia protocol ICD Codes: E11.69 - Type 2 diabetes mellitus with other specified complication ; E66.9 - Obesity, unspecified Status: Acute (6) Glaucoma Plan: * Continue at home medications ICD Codes: H40.9 - Unspecified glaucoma Status: Chronic (7) Mental status alteration Plan: Patient with slurred speech and drowsiness on admission, better now. Not have a history of dementia, confusion. Takes care of herself at baseline. Head CT done on 04/06 shows significant degree of brain atrophy. Moderate to severe periventricular white matter changes, mostly consistent with chronic small vessel ischemic changes. No signs of acute infarction. * Patient has a history of frequent UTIs, will check UA to rule out AMS due to UTI * Neuro checks every 4h * Consult PT, OT, speech therapy ICD Codes: R41.82 - Altered mental status, unspecified Status: Acute (8) FEN Plan: Fluids: NS @ 100ml/hr, will heplock Electrolytes: monitor and replete as needed. Continue at home potassium chloride due to Lasix. Nutrition: eating this am DVT Prophylaxis: Early ambulation. Continue at home Eliquis GI Prophylaxis: Continue at home pantoprazole Fever: Tylenol Nausea: zofran prn Status: Acute Brief History Mrs. Gee is a 89yo white female with a PMH of Afib, DM type 2, and HTN presenting with shortness of breath and slurred speech. Residents national account executive received 2 calls from Kamini Pride. The first at 0651 concerning the patient having congestion in her right lung base. Her vitals at that time were a temp of 99-100, BP 144/84, HR 94-100, nonlabored respirations, satting 93-94% on 2L via NC. No significant dyspnea or worsening cough, no fevers. Portable chest x- ray was called stat as well as sharon peña. Was also given a dose of furosemide 20 mg at that time. Physical call was at 1318 visit was notified of the patient having a wet sounding cough and altered mental status which is not her baseline. Also appearing sweaty. It is noted that the chest x-ray was clear. The resident advised the center to transfer the patient to the ER for workup. Note from Malgorzata Mireles. Resident started with cough and congestion. CXR negative. now with slurred speech. O2 sat 94% on 2L NC earlier today before being sent to hospital. Patient was unable to answer our questions due to drowsiness and BiPAP mask in the ED. She did nod and shake her head to a few questions. She shook her head no to chest pain and abdominal pain. She nodded her head yes to shortness of breath since this morning and to having palpitations. She was able to speak to the ED doctor earlier this evening without any slurred speech. She noted a dry mostly nonproductive cough. Denied any acute weakness of the arms or legs. Unsure of any history of COPD or congestive heart failure. Spoke to her daughter Lela this evening as well. She stated that her mother had a cough that she described as deep and "mucousy" that started 3-4 days ago. She woke up and was "talking like she had something in her mouth". No history of slurred speech or confusion. However, she couldn't form sentences. She was hard to understand. The daughter was unable to tell if her mother was swallowing okay. She also informed us about her mother's wishes and that she is DNR. She has never required oxygen in the past. Her mother is able to move about normally and take care of herself at baseline. Overnight, Ms Gee's maculopapular erythematous rash disappeared and her breathing is so much better now. She was sitting up in the room and eating her breakfast and a remarkable improvement from yesterday CBC/BMP: 04/07/17 0628 04/09/17 0423 Significant Findings Laboratory Tests Test 04/06/17 15:35 04/06/17 23:20 04/07/17 06:28 04/08/17 06:00 Blood Gas HCO3 29 mmol/L (22-26) Blood Gas Base Excess 4.7 mmol/L (-2-2) Arterial Blood Partial Pressure CO2 46 mmHg (38-42) Arterial Blood Partial Pressure O2 150 mmHG (61-120) Urine Nitrite POS (NEG) Urine Leukocyte Esterase SMALL (NEG) Urine Bacteria MOD /hpf (NONE) Neutrophils (%) (Auto) 78.7 % (16.0-70.0) Monocytes (%) (Auto) 11.1 % (0.0-8.0) Lymphocytes # (Auto) 0.7 TH/MM3 (1.0-4.8) Blood Urea Nitrogen 30 MG/DL (7-18) Creatinine 1.36 MG/DL (0.50-1.00) 1.27 MG/DL (0.50-1.00) Random Glucose 225 MG/DL (74-106) Albumin 2.8 GM/DL (3.4-5.0) Calcium Level 8.0 MG/DL (8.5-10.1) Aspartate Amino Transf (AST/SGOT) 8 U/L (15-37) Estimat Glomerular Filtration Rate 37 ML/MIN (>89) 40 ML/MIN (>89) Test 04/09/17 04:23 Blood Urea Nitrogen 35 MG/DL (7-18) Creatinine 1.29 MG/DL (0.50-1.00) Estimat Glomerular Filtration Rate 39 ML/MIN (>89) PE at Discharge GENERAL: This is a well-nourished, well-developed pleasant elderly white female patient laying in bed on BiPAP machine asleep, in no apparent distress. SKIN: No ecchymoses or lesions. Cool and dry. HEAD: Atraumatic. Normocephalic. rosacea EYES: Pupils equal round and reactive. Extraocular motions intact. No scleral icterus. No injection or drainage. NECK: Trachea midline. CARDIOVASCULAR: Irregular irregular rate and rhythm without murmurs, gallops, or rubs. RESPIRATORY: Breath sounds equal bilaterally. Diffuse wheezes throughout still present. not moving air extremely well. GASTROINTESTINAL: Abdomen soft, non-tender, distended. No hepato-splenomegaly, or palpable masses. No guarding. MUSCULOSKELETAL: Extremities without clubbing, cyanosis, or edema. No joint tenderness, effusion, or edema noted. NEUROLOGICAL:awake. alert and conversant some slight confusion- not remembering how long she's been vomiting and her exact age. otherwise lucid and understanding her overall condition and the consequences of actions as well as being oriented to place, person and condition Hospital Course Mrs. Gee is an 89-year-old white female with past nuchal history of A. fib , diabetes type 2, and hypertension who presented to the ED with shortness of breath and slurred speech from her SNF. When she got into the ED her slurred speech is not evident. She was placed on BiPAP. A maculopapular rash is located on her right breast and abdomen was noted to on physical exam. When the team visited the patient the next morning the rash had cleared along with her shortness of breath. An anaphylactic reaction was included in the differential. However, upon inquiring at her SNF they stated that she had not taken any new medications or eaten any new foods. Patient was back to baseline and only had nasal cannula for oxygen supplementation. She was also treated for a UTI. She was discharged back to her SNF on 04/09. Pt Condition on Discharge: Stable Discharge Disposition: Discharge to SNF Discharge Instructions DIET: Follow Instructions for: As Tolerated, No Restrictions Activities you can perform: Regular-No Restrictions Follow up Referrals: PCP Follow-up - 1 Week New Medications: Oxygen (O2) (Oxygen (O2)) Device LITER MEME.CANULA CONTINUOUS for Prevent Hypoxemia, #2 Oxygen Concentrator Portable Gaseous 2 L/min via Nasal Canula Continuous For 99 months Sulfamethoxazole-Trimethoprim (Bactrim) 400-80 Mg Tab 2 TAB PO BID for Infection for 10 Days, #40 TAB 0 Refills Continued Medications: Acetaminophen (Tylenol) 325 Mg Tab 650 MG PO Q4H PRN for PAIN SCALE 1 TO 10, TAB 0 Refills Apixaban (Eliquis) 2.5 Mg Tab 2.5 MG PO BID, #[address] (Aspirin 81) 81 Mg Tabdr 81 MG PO DAILY, TAB 0 Refills Bisacodyl Supp (Dulcolax Supp) 10 Mg Supp 10 MG RECTAL DAILY PRN for CONSTIPATION, #12 SUPP 0 Refills Cyanocobalamin (Vitamin B-12) 1,000 Mcg Tab 1000 MCG PO DAILY for Nutritional Supplement, #1 BOTTLE 0 Refills Docusate Sodium (Docusate Sodium) 100 Mg Cap 100 MG PO TID for Prevent Constipation, #60 CAP 0 Refills Furosemide (Furosemide) 20 Mg Tab 20 MG PO DAILY, #30 TAB 0 Refills Insulin Glargine Inj (Lantus Inj) 1,000 Unit/10 Ml Vial 15 UNITS SQ BID for Blood Sugar Management, VIAL 0 Refills Insulin Human Regular Inj (Humulin R Inj) 1,000 Unit/10 Ml Vial 1-21 UNITS SQ ONCE for Blood Sugar Management, #10 ML 0 Refills SS coverage: 150-200 3u, 201-250 6u, 251-300 9u, 301-350 12u, 351-400 15u, 401-450 18u, 451-500 21u Insulin Human Regular Inj (Humulin R Inj) 1,000 Unit/10 Ml Vial 2 UNITS SQ DIRECTED for Blood Sugar Management, #10 ML 0 Refills 2 units prior to lunch Ipratropium-Albuterol Neb (Duoneb) 0.5-2.5 Mg/3 Ml Neb 1 NEBULE INH Q4HR NEB PRN for SOB/WHEEZING, #120 NEBULE 0 Refills Latanoprost Opth Drops (Xalatan Opth Drops) 0.005% Drops 1 DROP EACH EYE HS for Glaucoma, #2.5 ML 0 Refills Lorazepam (Lorazepam) 0.5 Mg Tab 0.5 MG PO DIRECTED PRN for ANXIETY, #90 TAB 0 Refills 0.5mg HS scheudled; hold if sleeping or sedated Magnesium Hydroxide Concentrate Liq (Milk of Magnesia Concentrate Liq) 1,200 Mg/ 5 Ml Susp 30 ML PO HS PRN for CONSTIPATION, #1 BOTTLE Metoprolol Tartrate (Metoprolol Tartrate) 25 Mg Tab 25 MG PO Q12HR, #60 TAB Omeprazole (Omeprazole) 20 Mg Cap 20 MG PO DAILY Potassium Chloride ER (Potassium Chloride ER) 20 Meq Tab 20 MEQ PO DAILY for Electrolyte Replacement, #30 TAB 0 Refills Simvastatin (Simvastatin) 20 Mg Tab 20 MG PO DAILY for Cholesterol Management, #30 TAB 0 Refills Timolol Opth Drops (Timolol Opth Drops) 0.5 % Soln 1 DROP EACH EYE BID for Glaucoma, #1 BOTTLE 0 Refills Timolol Opth Gel (Timoptic-Xe Opth Gel) 0.5 % Gel 1 DROP EACH EYE DAILY for Glaucoma, #1 BOTTLE 3 Refills Chela Avelar MD R1 Apr 09, 2017 15:16
[2017-04-10] MEDS ORDERED: PHARMACY ORDERED LAB ONE ×2 (02:45)
== END 2017-04-09 18:25 | DRG 193 ==
LOC: NEPC 14:01 → NEDA 16:09 → HCIS 18:32
PROVIDERS: ADMIT Family Medicine; ATTEND Family Medicine
PROC: 5A09457 Assistance with Respiratory Ventilation, 24-96 Consecutive Hours, Continuous Positive Airway Pressure (ICD-10-PCS; principal; 2017-04-06)
DX: J18.9 Pneumonia, unspecified organism (principal); J96.00 Acute respiratory failure, unspecified whether with hypoxia or hypercapnia; N17.9 Acute kidney failure, unspecified; N39.0 Urinary tract infection, site not specified; I48.0 Paroxysmal atrial fibrillation; I50.9 Heart failure, unspecified; I11.0 Hypertensive heart disease with heart failure; E11.9 Type 2 diabetes mellitus without complications; G31.9 Degenerative disease of nervous system, unspecified; E66.9 Obesity, unspecified; F41.9 Anxiety disorder, unspecified; H40.9 Unspecified glaucoma; R47.81 Slurred speech; Z66 Do not resuscitate; E78.00 Pure hypercholesterolemia, unspecified; R00.2 Palpitations; R11.2 Nausea with vomiting, unspecified; R21 Rash and other nonspecific skin eruption; R41.82 Altered mental status, unspecified; Z79.01 Long term (current) use of anticoagulants; Z87.440 Personal history of urinary (tract) infections; Z79.4 Long term (current) use of insulin
CPT/HCPCS: 36600; 70450; 71045; 76937; 80053; 81001; 82550; 82565; 82805; 82948; 83605; 83735; 83880; 84484; 84520; 85025; 85610; 85730; 87040; 87077; 87086; 87186; 87804; 93005; 94002; 94003; 94640; 94664; 96374; J1815; J1940; J2405; J2543; J2920; J3370; J7030; J7040; J7050

== ENCOUNTER 2017-05-05 19:07 | Inpatient (IN) | payer MEDICARE, BC ==
[~2017-05-05] VITALS: Ht 165.1 cm; Wt 81.2 kg
[~2017-05-05 19:07] MED LIST changes: +BACT400T PO; +IPRASOL INH; +OXYGENDME NAS.CANULA
[2017-05-05 19:22] VITALS: BP 155/69; PULSE 108; RESP 18; TEMP 98.7; O2SAT 97
[2017-05-05 19:24] VITALS: RESP 18; O2SAT 97
--- NOTE | 2017-05-05 19:27 | PD ---
HPI Chief Complaint: General Weakness Time Seen by Provider: 19:12 Travel History International Travel<30 days: No Contact w/Intl Traveler<30days: No Traveled to known affect area: No History of Present Illness HPI The patient is a 89-year-old female who presents to the emergency department via EMS from the [facility] for generalized weakness. The patient notes a one-day history of generalized weakness, apparently had a temperature at the [facility] yesterday 101.2 with increasing generalized malaise and an oxygen saturation on room air of 89%. The patient does have a known history of atrial fibrillation and is currently anticoagulated with Eliquis and aspirin. The patient does states she has a history of urinary tract infections, denies any headache, chest pain, shortness breath, cough, or abdominal pain. She does complain of 2 episodes of nausea and vomiting. The patient denies any dysuria, but does note that previous history of UTIs. Symptoms are moderate, there are no current alleviating or exacerbating factors. PFSH Past Medical History Atrial Fibrillation: Yes Anxiety: Yes Cancer: No Cardiovascular Problems: Yes High Cholesterol: Yes Diabetes: Yes Patient Takes Glucophage: No Diminished Hearing: No Glaucoma: Yes Genitourinary: No Hypertension: Yes Immune Disorder: Yes Musculoskeletal: No Neurologic: No Reproductive: No Respiratory: No Immunizations Current: Yes Menopausal: Yes Past Surgical History Gynecologic Surgery: Yes (HYSTERECTOMY ) Hysterectomy: Yes (AGE 52) Tonsillectomy: Yes (AGE 9) Other Surgery: Yes Social History Alcohol Use: No Tobacco Use: No Substance Use: No Allergies-Medications (Allergen,Severity, Reaction): Coded Allergies: *MDRO Multi-Drug Resistant Organism (Verified Adverse Reaction, Unknown, ) ESBL E.Coli (urine)-06/27/16 Reported Meds & Prescriptions Reported Meds & Active Scripts Active Bactrim (Sulfamethoxazole-Trimethoprim) 400-80 Mg Tab 2 Tab PO BID 10 Days Oxygen (O2) Device Liter MEME.CANULA CONTINUOUS Oxygen Concentrator Portable Gaseous 2 L/min via Nasal Canula Continuous For 99 months Lorazepam 0.5 Mg Tab 0.5 Mg PO DIRECTED PRN 0.5mg HS scheudled; hold if sleeping or sedated Timoptic-Xe Opth Gel (Timolol Opth Gel) 0.5 % Gel 1 Drop EACH EYE DAILY Metoprolol Tartrate 25 Mg Tab 25 Mg PO Q12HR Eliquis (Apixaban) 2.5 Mg Tab 2.5 Mg PO BID Reported Duoneb (Ipratropium-Albuterol Neb) 0.5-2.5 Mg/3 Ml Neb 1 Nebule INH Q4HR NEB PRN Lantus Inj (Insulin Glargine) 1,000 Unit/10 Ml Vial 15 Units SQ BID Humulin R Inj (Insulin Human Regular) 1,000 Unit/10 Ml Vial 2 Units SQ DIRECTED 2 units prior to lunch Dulcolax Supp (Bisacodyl) 10 Mg Supp 10 Mg RECTAL DAILY PRN Tylenol (Acetaminophen) 325 Mg Tab 650 Mg PO Q4H PRN Humulin R Inj (Insulin Human Regular) 1,000 Unit/10 Ml Vial 1-21 Units SQ ONCE SS coverage: 150-200 3u, 201-250 6u, 251-300 9u, 301-350 12u, 351-400 15u, 401-450 18u, 451-500 21u Milk of Magnesia Concentrate Liq (Magnesium Hydroxide) 1,200 Mg/5 Ml Susp 30 Ml PO HS PRN Omeprazole 20 Mg Cap 20 Mg PO DAILY Docusate Sodium 100 Mg Cap 100 Mg PO TID Potassium Chloride ER (Potassium Chloride) 20 Meq Tab 20 Meq PO DAILY Xalatan Opth Drops (Latanoprost) 0.005% Drops 1 Drop EACH EYE HS Timolol Opth Drops 0.5 % Soln 1 Drop EACH EYE BID Aspirin 81 (Aspirin) 81 Mg Tabdr 81 Mg PO DAILY Simvastatin 20 Mg Tab 20 Mg PO DAILY Furosemide 20 Mg Tab 20 Mg PO DAILY Vitamin B-12 (Cyanocobalamin) 1,000 Mcg Tab 1,000 Mcg PO DAILY Review of Systems Except as stated in HPI: all other systems reviewed are Neg General / Constitutional: Positive: Fever HENT: No: Lightheadedness Cardiovascular: No: Chest Pain or Discomfort Respiratory: No: Cough, Shortness of Breath Gastrointestinal: Positive: Nausea, Vomiting, No: Diarrhea, Abdominal Pain Genitourinary: No: Dysuria Musculoskeletal: Positive: Edema Neurologic: Positive: Change in Mentation Physical Exam Narrative GENERAL: Awake, alert, pleasant 89-year-old female who appears her stated age and is in no acute respiratory distress. SKIN: Focused skin assessment warm/dry. HEAD: Atraumatic. Normocephalic. EYES: Pupils equal and round. 3 mm bilateral and reactive. ENT: No nasal bleeding or discharge. Slightly dry mucous membranes. Neck: No tracheal deviation. Cardiovascular: Irregularly irregular with a heart rate in the 90s. RESPIRATORY: No accessory muscle use. Clear to auscultation. Breath sounds equal bilaterally. GASTROINTESTINAL: Abdomen slightly distended and tympanic. No rebound tenderness. MUSCULOSKELETAL: No obvious deformities. No clubbing. No cyanosis. Bilateral lower except the pain edema from the knees inferiorly. NEUROLOGICAL: Awake and alert. No obvious cranial nerve deficits. Motor grossly within normal limits. Patient is oriented to person, place, and month, but does not know the current year. Back: No CVA tenderness. No visible sacral decubitus ulcer. PSYCHIATRIC: Appropriate mood and affect; insight and judgment normal. Data Data Last Documented VS Vital Signs Date Time Temp Pulse Resp B/P (MAP) Pulse Ox O2 Delivery O2 Flow Rate FiO2 05/05/17 19:24 18 97 Room Air 05/05/17 19:22 98.7 108 Orders Orders Electrocardiogram (05/05/17 19:20) Complete Blood Count With Diff (05/05/17 19:20) Comprehensive Metabolic Panel (05/05/17 19:20) Creatine Kinase (Cpk) (05/05/17 19:20) Prothrombin Time / Inr (Pt) (05/05/17 19:20) Act Partial Throm Time (Ptt) (05/05/17 19:20) Troponin I (05/05/17 19:20) Thyroid Stimulating Hormone (05/05/17 19:20) Urinalysis - C+S If Indicated (05/05/17 19:20) Blood Culture (05/05/17 19:20) Chest, Single Ap (05/05/17 19:20) Ct Brain W/O Iv Contrast(Rout) (05/05/17 19:20) Blood Glucose (05/05/17 19:20) Ecg Monitoring (05/05/17 19:20) Iv Access Insert/Monitor (05/05/17 19:20) Oximetry (05/05/17 19:20) Sodium Chloride 0.9% Flush (Ns Flush) (05/05/17 19:30) Sodium Chlor 0.9% 1000 Ml Inj (Ns 1000 M (05/05/17 19:30) Ondansetron Inj (Zofran Inj) (05/05/17 19:30) Ct Abd/Pel W/O Iv Contrast (05/05/17 ) Cath For Specimen (05/05/17 19:20) Influenzae A/B Antigen (05/05/17 19:20) Urine Culture (05/05/17 19:34) Ceftriaxone Inj (Rocephin Inj) (05/05/17 20:15) Piperacil-Tazo 4.5 Gm Premix (Zosyn 4.5 (05/05/17 20:15) Admit Order (Ed Use Only) (05/05/17 20:48) Labs Laboratory Tests Test 05/05/17 19:24 05/05/17 19:34 White Blood Count 16.4 TH/MM3 Red Blood Count 4.50 MIL/MM3 Hemoglobin 12.4 GM/DL Hematocrit 37.4 % Mean Corpuscular Volume 83.2 FL Mean Corpuscular Hemoglobin 27.5 PG Mean Corpuscular Hemoglobin Concent 33.1 % Red Cell Distribution Width 18.5 % Platelet Count 274 TH/MM3 Mean Platelet Volume 8.1 FL Neutrophils (%) (Auto) 80.5 % Lymphocytes (%) (Auto) 6.8 % Monocytes (%) (Auto) 12.2 % Eosinophils (%) (Auto) 0.2 % Basophils (%) (Auto) 0.3 % Neutrophils # (Auto) 13.2 TH/MM3 Lymphocytes # (Auto) 1.1 TH/MM3 Monocytes # (Auto) 2.0 TH/MM3 Eosinophils # (Auto) 0.0 TH/MM3 Basophils # (Auto) 0.1 TH/MM3 CBC Comment DIFF FINAL Differential Comment Prothrombin Time 11.7 SEC Prothromb Time International Ratio 1.2 RATIO Activated Partial Thromboplast Time 28.6 SEC Blood Urea Nitrogen 30 MG/DL Creatinine 1.48 MG/DL Random Glucose 183 MG/DL Total Protein 7.3 GM/DL Albumin 2.8 GM/DL Calcium Level 8.8 MG/DL Alkaline Phosphatase 104 U/L Aspartate Amino Transf (AST/SGOT) 27 U/L Alanine Aminotransferase (ALT/SGPT) 14 U/L Total Bilirubin 0.8 MG/DL Sodium Level 135 MEQ/L Potassium Level 4.7 MEQ/L Chloride Level 103 MEQ/L Carbon Dioxide Level 26.8 MEQ/L Anion Gap 5 MEQ/L Estimat Glomerular Filtration Rate 33 ML/MIN Total Creatine Kinase 63 U/L Troponin I LESS THAN 0.02 NG/ML Thyroid Stimulating Hormone 3rd Gen 1.050 uIU/ML Urine Color YELLOW Urine Turbidity HAZY Urine pH 6.5 Urine Specific [place] 1.014 Urine Protein 100 mg/dL Urine Glucose (UA) NEG mg/dL Urine Ketones NEG mg/dL Urine Occult Blood TRACE Urine Nitrite POS Urine Bilirubin NEG Urine Urobilinogen LESS THAN 2.0 MG/DL Urine Leukocyte Esterase LARGE Urine RBC 8 /hpf Urine WBC 49 /hpf Urine Squamous Epithelial Cells 1 /hpf Urine Amorphous Sediment RARE Urine Bacteria MANY /hpf Microscopic Urinalysis Comment CATH-CULTURE IND MDM Medical Decision Making Medical Screen Exam Complete: Yes Emergency Medical Condition: Yes Medical Record Reviewed: Yes Interpretation(s) EKG reveals atrial fibrillation with RVR, rate 110. Nonspecific ST-T wave changes. Last Impressions Head CT 05/05/171919 Signed Impressions: Service Date/Time: Friday, May 05, 2017 19:55 - CONCLUSION: 1. Stable diffuse atrophy and severe diffuse periventricular and subcortical white matter small vessel ischemic changes bilaterally. 2. No acute infarct, acute hemorrhage, mass effect or extra-axial fluid collections. 3. Fluid levels within the sphenoid sinuses bilaterally. Antonio Flores MD CT abdomen and pelvis reveals cholelithiasis. Uncomplicated colonic diverticulosis. Stable 2 cm exophytic right renal mass. Cardiomegaly and tight pericardial effusion. Scattered fibrotic scarring within the lung bases. Degenerative changes and scoliosis of the lumbar spine. Chest x-ray reveals cardiomegaly. No acute focal pulmonary infiltrate or pulmonary vascular congestion. Degenerative changes involving the shoulders with the right worse than the left. Laboratory Tests Test 05/05/17 19:24 05/05/17 19:34 White Blood Count 16.4 TH/MM3 Red Blood Count 4.50 MIL/MM3 Hemoglobin 12.4 GM/DL Hematocrit 37.4 % Mean Corpuscular Volume 83.2 FL Mean Corpuscular Hemoglobin 27.5 PG Mean Corpuscular Hemoglobin Concent 33.1 % Red Cell Distribution Width 18.5 % Platelet Count 274 TH/MM3 Mean Platelet Volume 8.1 FL Neutrophils (%) (Auto) 80.5 % Lymphocytes (%) (Auto) 6.8 % Monocytes (%) (Auto) 12.2 % Eosinophils (%) (Auto) 0.2 % Basophils (%) (Auto) 0.3 % Neutrophils # (Auto) 13.2 TH/MM3 Lymphocytes # (Auto) 1.1 TH/MM3 Monocytes # (Auto) 2.0 TH/MM3 Eosinophils # (Auto) 0.0 TH/MM3 Basophils # (Auto) 0.1 TH/MM3 CBC Comment DIFF FINAL Differential Comment Prothrombin Time 11.7 SEC Prothromb Time International Ratio 1.2 RATIO Activated Partial Thromboplast Time 28.6 SEC Blood Urea Nitrogen 30 MG/DL Creatinine 1.48 MG/DL Random Glucose 183 MG/DL Total Protein 7.3 GM/DL Albumin 2.8 GM/DL Calcium Level 8.8 MG/DL Alkaline Phosphatase 104 U/L Aspartate Amino Transf (AST/SGOT) 27 U/L Alanine Aminotransferase (ALT/SGPT) 14 U/L Total Bilirubin 0.8 MG/DL Sodium Level 135 MEQ/L Potassium Level 4.7 MEQ/L Chloride Level 103 MEQ/L Carbon Dioxide Level 26.8 MEQ/L Anion Gap 5 MEQ/L Estimat Glomerular Filtration Rate 33 ML/MIN Total Creatine Kinase 63 U/L Troponin I LESS THAN 0.02 NG/ML Thyroid Stimulating Hormone 3rd Gen 1.050 uIU/ML Urine Color YELLOW Urine Turbidity HAZY Urine pH 6.5 Urine Specific [place] 1.014 Urine Protein 100 mg/dL Urine Glucose (UA) NEG mg/dL Urine Ketones NEG mg/dL Urine Occult Blood TRACE Urine Nitrite POS Urine Bilirubin NEG Urine Urobilinogen LESS THAN 2.0 MG/DL Urine Leukocyte Esterase LARGE Urine RBC 8 /hpf Urine WBC 49 /hpf Urine Squamous Epithelial Cells 1 /hpf Urine Amorphous Sediment RARE Urine Bacteria MANY /hpf Microscopic Urinalysis Comment CATH-CULTURE IND Differential Diagnosis Differential diagnosis includes UTI, hyponatremia, dehydration, ileus, small bowel obstruction, electrolyte abnormality, sepsis, pneumonia, influenza. Narrative Course IV was established, labs are drawn and sent, and the patient was placed on cardiac telemetry monitoring and continuous pulse oximetry monitoring. EKG was ordered and interpreted. Chest x-ray was obtained. CT the brain was obtained to rule out subdural hemorrhage with altered mental status, generalized weakness , and anticoagulant use with Eliquis. CT of the abdomen and pelvis was performed as patient is somewhat tympanic and distended with nausea and vomiting earlier today to rule out small bowel obstruction. Catheter UA was sent to lab. Influenza screen was sent to lab. The patient was placed on maintenance IV fluids. The patient's last urine cultures reveal Escherichia coli that is ESBL positive, but was sensitive to Zosyn. Therefore, the patient was administered Zosyn. Creatinine is elevated, patient appears to have chronic kidney disease stage III. Patient does meet sepsis criteria with tachycardia, leukocytosis, and UTI with history of multidrug resistant organism , Escherichia coli ESBL. Therefore, the patient will be admitted. Patient's primary physician is Dr. Abel Romero, therefore, the residents were paged for admission. Sepsis Criteria SIRS Criteria (2 or more): Heart rate over 90, WBC > 06414, < 4000 or > 10% bands Sepsis Criteria (SIRS+source): Infect source susp/known Criteria Outcome: Meets sepsis criteria Physician Communication Physician Communication The patient's primary physician is Dr. Abel Romero, therefore, the residents were paged for admission. I discussed the patient with the residents who agreed with admission to Dr. Graham. Diagnosis Primary Impression: Sepsis secondary to UTI Additional Impressions: Chronic kidney disease Qualified Codes: N18.3 - Chronic kidney disease, stage 3 (moderate) Atrial fibrillation with RVR Admitting Information Admitting Physician Requests: Admit Condition: Stable Sung Bangura MD May 05, 2017 19:27
[2017-05-05] MEDS ORDERED: SODIUM CHLOR 0.9% 1000 ML INJ 1,000 ML IV SCH (19:30)
[2017-05-05] MEDS ORDERED: ONDANSETRON HCL 4 MG/2 ML VIAL IV PUSH ONE (19:30)
[2017-05-05] MEDS ORDERED: SODIUM CHLORIDE 0.9% FLUSH 10 ML FLUSH IV FLUSH PRN ×2 (19:30→21:30)
[2017-05-05 19:48] LABS: AUTOMATED NEUTROPHIL # 13.2 TH/MM3 (1.8-7.7); BASOPHIL # 0.1 TH/MM3 (0-0.2); BASOPHIL % 0.3 % (0.0-2.0); EOSINOPHIL % 0.2 % (0.0-4.0); HEMATOCRIT 37.4 % (35.0-46.0); HEMOGLOBIN 12.4 GM/DL (11.6-15.3); LYMPH % 6.8 % (9.0-44.0); LYMPHOCYTE # 1.1 TH/MM3 (1.0-4.8); MEAN CELL VOLUME 83.2 FL (80.0-100.0); MEAN CORPUSCULAR HEMOGLOBIN 27.5 PG (27.0-34.0); MEAN CORPUSCULAR HGB CONC 33.1 % (32.0-36.0); MEAN PLATELET VOLUME 8.1 FL (7.0-11.0); MONO % 12.2 % (0.0-8.0); NEUT % 80.5 % (16.0-70.0); PLATELET COUNT 274 TH/MM3 (150-450); RED CELL DISTRIBUTION WIDTH 18.5 % (11.6-17.2); WHITE BLOOD COUNT 16.4 TH/MM3 (4.0-11.0)
[2017-05-05 19:56] LABS: AMORPHOUS SEDIMENT, URINE RARE; BACTERIA, URINE MANY /hpf; BILIRUBIN, URINE NEG (NEG); BLOOD, URINE TRACE (NEG); GLUCOSE,URINE NEG (NEG); KETONE, URINE NEG (NEG); NITRITE,URINE POS (NEG); PH, URINE 6.5 (5.0-8.5); SQUAMOUS EPITHELIAL CELL URINE 1 /hpf (0-5); URINE COLOR YELLOW (YELLW/STRAW); URINE LEUKOCYTE ESTERASE LARGE (NEG)
[2017-05-05 20:05] LABS: INTERNATIONAL NORMALIZED RATIO 1.2 RATIO; PROTHROMBIN TIME - PATIENT 11.7 SEC (9.8-11.6)
[2017-05-05] MEDS ORDERED: PIPERACIL-TAZO 4.5 GM PREMIX 100 ML IV ONE (20:15)
[2017-05-05] MEDS ORDERED: cefTRIAXone INJ 1,000 MG in SODIUM CHLORIDE 0.9% INJ 100 ML IV ONE (20:15)
[2017-05-05 20:16] LABS: ALBUMIN 2.8 GM/DL (3.4-5.0); ALT (GPT) 14 U/L (10-53); AST (GOT) 27 U/L (15-37); BICARBONATE 26.8 MEQ/L (21.0-32.0); BLOOD UREA NITROGEN 30 MG/DL (7-18); CALCIUM 8.8 MG/DL (8.5-10.1); CHLORIDE 103 MEQ/L (98-107); CREATININE 1.48 MG/DL (0.50-1.00); GLOMERULAR FILTRATION RATE 33 ML/MIN (>89); GLUCOSE,RANDOM 183 MG/DL (74-106); SODIUM (NA) 135 MEQ/L (136-145)
--- NOTE | 2017-05-05 20:16 | RADRPT ---
EXAM DATE/TIME: 05/05/2017 19:55 [facility] COMPARISON: CT BRAIN W/O CONTRAST, April 06, 2017, 17:15. INDICATIONS : Head pain from general weakness. RADIATION DOSE: 56.35 CTDIvol (mGy) MEDICAL HISTORY : Cardiovascular disease. Hypertension. Diabetes mellitus type 2. SURGICAL HISTORY : Hysterectomy. ENCOUNTER: Initial ACUITY: 1 day PAIN SCALE: 3/10 LOCATION: Bilateral cranial TECHNIQUE: Multiple contiguous axial images were obtained of the head. Using automated exposure control and adj ustment of the mA and/or kV according to patient size, radiation dose was kept as low as reasonably a chievable to obtain optimal diagnostic quality images. DICOM format image data is available electro nically for review and comparison. FINDINGS: CEREBRUM: Diffuse cerebral atrophy is again noted. Severe diffuse periventricular and subcortical white matter small vessel ischemic changes are also again noted. No evidence of midline shift, mass lesion, hemorr alissa or acute infarction. No extra-axial fluid collections are seen. POSTERIOR FOSSA: The cerebellum and brainstem are intact. The 4th ventricle is midline. The cerebellopontine angle i s unremarkable. EXTRACRANIAL: The visualized portion of the orbits is intact. Fluid levels within the sphenoid sinuses bilaterally. SKULL: The calvaria is intact. No evidence of skull fracture. CONCLUSION: 1. Stable diffuse atrophy and severe diffuse periventricular and subcortical white matter small vesse l ischemic changes bilaterally. 2. No acute infarct, acute hemorrhage, mass effect or extra-axial fluid collections. 3. Fluid levels within the sphenoid sinuses bilaterally. Antonio Flores MD on May 05, 2017 at 20:10 Board Certified Radiologist. This report was verified electronically.
--- NOTE | 2017-05-05 20:21 | RADRPT ---
EXAM DATE/TIME: 05/05/2017 20:00 [facility] COMPARISON: CT ABDOMEN & PELVIS W/O CONTRAST, January 17, 2016, 17:07. INDICATIONS : Diffuse abdomen pain from general weakness. ORAL CONTRAST: No oral contrast ingested. RADIATION DOSE: 10.62 CTDIvol (mGy) MEDICAL HISTORY : Diabetes mellitus type 2. Cardiovascular disease Hypertension. SURGICAL HISTORY : Hysterectomy. ENCOUNTER: Initial ACUITY: 1 day PAIN SCALE: 3/10 LOCATION: Bilateral upper quadrant TECHNIQUE: Volumetric scanning of the abdomen and pelvis was performed. Using automated exposure control and ad justment of the mA and/or kV according to patient size, radiation dose was kept as low as reasonably achievable to obtain optimal diagnostic quality images. DICOM format image data is available electro nically for review and comparison. FINDINGS: LOWER LUNGS: Scattered fibrotic scarring is noted within the visualized lung bases. Cardiomegaly and tiny pericard ial effusion are noted. LIVER: Homogeneous density without lesion. There is no dilation of the biliary tree. Cholelithiasis is note d. SPLEEN: Normal size without lesion. PANCREAS: Within normal limits. KIDNEYS: Normal in size and shape. There is no stone or hydronephrosis. There is a stable 2 cm exophytic mass arising from the right kidney. ADRENAL GLANDS: Within normal limits. VASCULAR: There is no aortic aneurysm. BOWEL/MESENTERY: Uncomplicated colonic diverticulosis is noted. No acute diverticulitis is noted. ABDOMINAL WALL: Within normal limits. RETROPERITONEUM: There is no lymphadenopathy. BLADDER: No wall thickening or mass. REPRODUCTIVE: Within normal limits. INGUINAL: There is no lymphadenopathy or hernia. MUSCULOSKELETAL: Degenerative changes and scoliosis of the thoraco-lumbar spine are noted. CONCLUSION: 1. Cholelithiasis. 2. Uncomplicated colonic diverticulosis. 3. Stable 2 cm exophytic right renal mass. 4. Cardiomegaly and tiny pericardial effusion. 5. Scattered fibrotic scarring within the lung bases. 6. Degenerative changes and scoliosis of the lumbar spine. Antonio Flores MD on May 05, 2017 at 20:13 Board Certified Radiologist. This report was verified electronically.
[2017-05-05 20:23] LABS: ALKALINE PHOSPHATASE 104 U/L (45-117); TOTAL BILIRUBIN ADULT 0.8 MG/DL (0.2-1.0); TOTAL PROTEIN 7.3 GM/DL (6.4-8.2); TROPONIN I LESS THAN 0.02 NG/ML (0.02-0.05)
--- NOTE | 2017-05-05 20:25 | RADRPT ---
EXAM DATE/TIME: 05/05/2017 20:10 [facility] COMPARISON: CHEST SINGLE AP, April 06, 2017, 14:19. INDICATIONS : Shortness of breath, nausea, vomiting. MEDICAL HISTORY : Cardiovascular disease. Hypertension. Diabetes mellitus type 2. SURGICAL HISTORY : Hysterectomy. ENCOUNTER: Initial ACUITY: 1 day PAIN SCORE: 0/10 LOCATION: Bilateral chest FINDINGS: The heart is mildly prominent. The pulmonary vascular pattern is normal. The lungs are clear. Severe degenerative changes are noted involving the right shoulder joint and mild degenerative changes are n oted involving the left shoulder joint. CONCLUSION: 1. Cardiomegaly. 2. No acute focal pulmonary infiltrate or pulmonary vascular congestion. 3. Degenerative changes involving the shoulders with the right worse than the left. Antonio Flores MD on May 05, 2017 at 20:21 Board Certified Radiologist. This report was verified electronically.
--- NOTE | 2017-05-05 21:04 | HHI.HP ---
HPI Service Family Medicine Primary Care Physician Unknown Admission Diagnosis sepsis with UTI, leukocytosis, A. fib with RVR, CKD Diagnoses: International Travel<30 Days: No Contact w/Intl Traveler<30days: No Known Affected Area: No History of Present Illness Patient's an 89-year-old female past history of diabetes type 2, paroxysmal A. fib, frequent UTIs presenting today from [facility] for suspected UTI. Covering physician was contacted earlier today due to patient's heart rate being in the 130s. The staff also alerted the physician that the patient had had nausea, vomiting 2, chills, fever last night up to 101.2 however the patient had been afebrile today. The covering physician advised click staff to bring the patient into the ED. When speaking with the patient she stated that she has had nausea and vomiting today, some chills but does not feel febrile. Denies cough, chest pain, shortness of breath, arm or jaw pain, diaphoresis, abdominal pain, changes in bowel habits (states that she is usually pretty regular and passes 2 BMs a day, soft and brown with no blood), urinary frequency , change in smell/color, dysuria, vaginal discharge, headache, change in vision , lightheadedness, dizziness, neck pain. No other complaints today. Review of Systems Constitutional: COMPLAINS OF: Fever, Chills, DENIES: Diaphoretic episodes, Fatigue, Weight gain, Weight loss, Dizziness Endocrine: DENIES: Heat/cold intolerance, Polydipsia, Polyuria Eyes: DENIES: Blurred vision, Diplopia, Eye inflammation, Eye pain, Vision loss , Photosensitivity, Double Vision Ears, nose, mouth, throat: DENIES: Tinnitus, Hearing loss, Throat pain, Hoarseness, Running Nose, Sinus Pain Respiratory: DENIES: Apneas, Cough, Wheezing, Hemoptysis, Sputum production, Shortness of breath Cardiovascular: DENIES: Chest pain, Palpitations, Syncope Gastrointestinal: COMPLAINS OF: Nausea, Vomiting (x2), DENIES: Abdominal pain, Black stools, Bloody stools, Constipation, Diarrhea, Difficulty Swallowing Genitourinary: DENIES: Abnormal vaginal bleeding, Urinary frequency, Urinary incontinence, Urgency, Hematuria, Dysuria, Vaginal discharge Musculoskeletal: DENIES: Joint pain, Muscle aches, Stiffness, Back pain, Neck pain Integumentary: DENIES: Abnormal pigmentation, Pruritus, Rash Hematologic/lymphatic: DENIES: Bruising, Lymphadenopathy Immunologic/allergic: DENIES: Eczema, Urticaria Neurologic: DENIES: Abnormal gait (Wheelchair bound), Headache, Paresthesias, Speech Problems Psychiatric: DENIES: Anxiety, Confusion Past Family Social History Past Medical History All PFSH per chart review, verified by patient - Type 2 diabetes Macular degeneration Glaucoma Paroxysmal atrial fibrillation Hospitalized June 2016 due to urinary tract infection with sepsis and associated pneumonia - Hospitalized April 2017 -- Hx frequent UTIs Past Surgical History - Hysterectomy age 52 Tonsillectomy 89 Right ankle surgery age 37 following an injury Allergies: Coded Allergies: *MDRO Multi-Drug Resistant Organism (Verified Adverse Reaction, Unknown, ) ESBL E.Coli (urine)-06/27/16 Family History Family History: Father: at age 81 of heart problems Mother: [place] age 80 Siblings: none Children: Two daughters in [place], one daughter has had radiation to eye tumor. Son (bipolar disorder) Social History Other Physicians/Providers Involved in the Care of Patient: - Previous PCPs or Dr. Milad Molina and Dr. Bello Social History: Marital Status: Living Situation: residential care resident at [facility]. Born in [place], moved to in the 1940s. Grew up in [facility] [place] [facility]. 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 Tobacco: none Alcohol: rare Illicit drug use: none Physical Exam Vital Signs Vital Signs Date Time Temp Pulse Resp B/P (MAP) Pulse Ox O2 Delivery O2 Flow Rate FiO2 05/05/17 19:24 18 97 Room Air 05/05/17 19:22 98.7 108 18 155/69 (97) 97 Room Air Physical Exam GENERAL: This is a well-nourished, well-developed patient, in no apparent distress. SKIN: No rashes, ecchymoses or lesions. Cool and dry. No sacral ulcer noted. HEAD: Atraumatic. Normocephalic. No temporal or scalp tenderness. EYES: Pupils equal round and reactive. Extraocular motions intact. No scleral icterus. No injection or drainage. ENT: Nose without bleeding, purulent drainage or septal hematoma. Throat without erythema, tonsillar hypertrophy or exudate. Uvula midline. Airway patent. NECK: Trachea midline. No JVD or lymphadenopathy. Supple, nontender, no meningeal signs. CARDIOVASCULAR: Regular rate, irregularly irregular without murmurs, gallops, or rubs. RESPIRATORY: Clear to auscultation. Breath sounds equal bilaterally. No wheezes , rales, or rhonchi. GASTROINTESTINAL: Abdomen soft, non-tender, nondistended. No hepato-splenomegaly , or palpable masses. No guarding. MUSCULOSKELETAL: Extremities without clubbing, cyanosis, or edema. No joint tenderness, effusion, or edema noted. No calf tenderness. NEUROLOGICAL: Awake and alert. Oriented to person place and time. Cranial nerves II through XII intact. Motor and sensory grossly within normal limits. Normal speech. Laboratory Laboratory Tests Test 05/05/17 19:24 05/05/17 19:34 White Blood Count 16.4 Red Blood Count 4.50 Hemoglobin 12.4 Hematocrit 37.4 Mean Corpuscular Volume 83.2 Mean Corpuscular Hemoglobin 27.5 Mean Corpuscular Hemoglobin Concent 33.1 Red Cell Distribution Width 18.5 Platelet Count 274 Mean Platelet Volume 8.1 Neutrophils (%) (Auto) 80.5 Lymphocytes (%) (Auto) 6.8 Monocytes (%) (Auto) 12.2 Eosinophils (%) (Auto) 0.2 Basophils (%) (Auto) 0.3 Neutrophils # (Auto) 13.2 Lymphocytes # (Auto) 1.1 Monocytes # (Auto) 2.0 Eosinophils # (Auto) 0.0 Basophils # (Auto) 0.1 CBC Comment DIFF FINAL Differential Comment Prothrombin Time 11.7 Prothromb Time International Ratio 1.2 Activated Partial Thromboplast Time 28.6 Blood Urea Nitrogen 30 Creatinine 1.48 Random Glucose 183 Total Protein 7.3 Albumin 2.8 Calcium Level 8.8 Alkaline Phosphatase 104 Aspartate Amino Transf (AST/SGOT) 27 Alanine Aminotransferase (ALT/SGPT) 14 Total Bilirubin 0.8 Sodium Level 135 Potassium Level 4.7 Chloride Level 103 Carbon Dioxide Level 26.8 Anion Gap 5 Estimat Glomerular Filtration Rate 33 Total Creatine Kinase 63 Troponin I LESS THAN 0.02 Thyroid Stimulating Hormone 3rd Gen 1.050 Urine Color YELLOW Urine Turbidity HAZY Urine pH 6.5 Urine Specific [place] 1.014 Urine Protein 100 Urine Glucose (UA) NEG Urine Ketones NEG Urine Occult Blood TRACE Urine Nitrite POS Urine Bilirubin NEG Urine Urobilinogen LESS THAN 2.0 Urine Leukocyte Esterase LARGE Urine RBC 8 Urine WBC 49 Urine Squamous Epithelial Cells 1 Urine Amorphous Sediment RARE Urine Bacteria MANY Microscopic Urinalysis Comment CATH-CULTURE IND Date/Time Source Procedure Growth Status 05/05/17 19:24 Blood Peripheral Aerobic Blood Culture Pending Received 05/05/17 19:24 Blood Peripheral Anaerobic Blood Culture Pending Received 05/05/17 19:34 Nasal Aspirate Influenza Types A,B Antigen (FABIANA) - Final NEGATIVE FOR FLU A AND B ANTIGEN.... Complete 05/05/17 19:34 Urine Catheterized Urine Urine Culture Pending Received Result Diagram: 05/05/17192305/05/171923 Imaging Last [address] 05/05/171919 Signed Impressions: Service Date/Time: Friday, May 05, 2017 19:55 - CONCLUSION: 1. Stable diffuse atrophy and severe diffuse periventricular and subcortical white matter small vessel ischemic changes bilaterally. 2. No acute infarct, acute hemorrhage, mass effect or extra-axial fluid collections. 3. Fluid levels within the sphenoid sinuses bilaterally. Antonio Flores MD Chest X-Ray 05/05/171919 Signed Impressions: Service Date/Time: Friday, May 05, 2017 20:10 - CONCLUSION: 1. Cardiomegaly. 2. No acute focal pulmonary infiltrate or pulmonary vascular congestion. 3. Degenerative changes involving the shoulders with the right worse than the left. Antonio Flores MD Abdomen/Pelvis CT 05/05/17 0000 Signed Impressions: Service Date/Time: Friday, May 05, 2017 20:00 - CONCLUSION: 1. Cholelithiasis. 2. Uncomplicated colonic diverticulosis. 3. Stable 2 cm exophytic right renal mass. 4. Cardiomegaly and tiny pericardial effusion. 5. Scattered fibrotic scarring within the lung bases. 6. Degenerative changes and scoliosis of the lumbar spine. Antonio Flores MD Caprini VTE Risk Assessment Caprini VTE Risk Assessment: Mod/High Risk (score >= 2) Caprini Risk Assessment Model Point Value = 1 Point Value = 2 Point Value = 3 Point Value = 5 Age 41-60 Minor surgery BMI > 25 kg/m2 Swollen legs Varicose veins or History of unexplained or recurrent spontaneous Oral contraceptives or hormone replacement Sepsis (< 1 month) Serious lung disease, including pneumonia (< 1 month) Abnormal pulmonary function Acute myocardial infarction Congestive heart failure (< 1 month) History of inflammatory bowel disease Medical patient at bed rest Age 61-74 Arthroscopic surgery Major open surgery (> 45 min) Laparoscopic surgery (> 45 min) Malignancy Confined to bed (> 72 hours) Immobilizing plaster cast Central venous access Age >= 75 History of VTE Family history of VTE Factor V Leiden Prothrombin [id number] Lupus anticoagulant Anticardiolipin antibodies Elevated serum homocysteine Heparin-induced thrombocytopenia Other congenital or acquired thrombophilia Stroke (< 1 month) Elective arthroplasty Hip, pelvis, or leg fracture Acute spinal cord injury (< 1 month) Prophylaxis Regimen Total Risk Factor Score Risk Level Prophylaxis Regimen 0-1 Low Early ambulation 2 Moderate Order ONE of the following: *Sequential Compression Device (SCD) *Heparin 5000 units SQ BID 3-4 Higher Order ONE of the following medications: *Heparin 5000 units SQ TID *Enoxaparin/Lovenox 40 mg SQ daily (WT < 150 kg, CrCl > 30 mL/min) *Enoxaparin/Lovenox 30 mg SQ daily (WT < 150 kg, CrCl > 10-29 mL/min) *Enoxaparin/Lovenox 30 mg SQ BID (WT < 150 kg, CrCl > 30 mL/min) AND/OR *Sequential Compression Device (SCD) 5 or more Highest Order ONE of the following medications: *Heparin 5000 units SQ TID (Preferred with Epidurals) *Enoxaparin/Lovenox 40 mg SQ daily (WT < 150 kg, CrCl > 30 mL/min) *Enoxaparin/Lovenox 30 mg SQ daily (WT < 150 kg, CrCl > 10-29 mL/min) *Enoxaparin/Lovenox 30 mg SQ BID (WT < 150 kg, CrCl > 30 mL/min) AND *Sequential Compression Device (SCD) Assessment and Plan Assessment and Plan 89-year-old female with DM type II, paroxysmal A. fib, history of UTIs presenting with UTI and signs of septicemia (pulse 108, WBC 16.4). Previous UTIs with ESBL positive Escherichia coli, sensitive to Zosyn. Started on Zosyn in the ED. At time of admission no acute mental changes, respiratory complaints. A. fib present. Problem List: (1) Sepsis secondary to UTI ICD Codes: A41.9 - Sepsis, unspecified organism; N39.0 - Urinary tract infection, site not specified Status: Acute Plan: History of multiple UTIs with ESBL Escherichia coli sensitive to Zosyn in the past. Admitted with pulse of 108, WBC 16.4 and signs of UTI on UA. Chest x-ray without acute pulmonary pathology. Flu a/b negative -Follow up blood cultures -Follow up UA microbiology, sensitivities -Currently on Zosyn 4.5 g every 6 hours -Monitor for signs of severe sepsis (2) Atrial fibrillation with RVR ICD Codes: I48.91 - Unspecified atrial fibrillation Status: Acute Plan: History of paroxysmal A. fib, presented with A. fib with RVR, rate controlled following interview. Troponin less than 0.02, -Continue home medications Eliquis, metoprolol (3) UTI (urinary tract infection) ICD Codes: N39.0 - Urinary tract infection, site not specified Status: Acute Plan: Please see plan for sepsis secondary to UTI (4) Chronic kidney disease ICD Codes: N18.9 - Chronic kidney disease, unspecified Status: Acute Plan: Patient historically between 1.27 and 1.51 creatinine. -Creatinine 1.48 on admission -Avoid nephrotoxic agents when possible (5) Diabetes ICD Codes: E11.9 - Type 2 diabetes mellitus without complications Status: Chronic Plan: History of diabetes type 2 with macular degeneration, chronic kidney disease, takes Lantus 15 units subcutaneous twice a day at home -Detemir 15 units subcutaneous twice a day -Sliding-scale insulin (6) FEN Status: Acute Plan: Fluids: Tolerating by mouth fluids well Electrolytes: Monitor and replete as needed Physician Certification 2 Midnight Certification Type: Admission for Inpatient Services Order for Inpatient Services The services are ordered in accordance with Medicare regulations or non- Medicare payer requirements, as applicable. In the case of services not specified as inpatient-only, they are appropriately provided as inpatient services in accordance with the 2-midnight benchmark. Estimated LOS (days): 2 2 days is the estimated time the patient will need to remain in the hospital, assuming treatment plan goals are met and no additional complications. Post-Hospital Plan: Home Problem Qualifiers (1) Chronic kidney disease: Qualified Codes: N18.3 - Chronic kidney disease, stage 3 (moderate) (2) Diabetes: Qualified Codes: E11.39 - Type 2 diabetes mellitus with other diabetic ophthalmic complication; Z79.4 - long term care administrator (current) use of insulin Shashi Pepe MD R1 May 05, 2017 21:04
[2017-05-05] MEDS: LATANOPROST 0.005% OPHT SOLN 2.5 ML BTL EACH EYE SCH (21:15)
[2017-05-05] MEDS: TIMOLOL MALEATE 0.5% OPHT SOLN 5 ML BTL EACH EYE SCH (21:15)
[2017-05-05] MEDS ORDERED: ACETAMINOPHEN 325 MG TAB PO PRN (21:15)
[2017-05-05] MEDS ORDERED: MAGNESIUM HYDROXIDE PO PRN (21:15)
[2017-05-05] MEDS: METOPROLOL TARTRATE 25 MG TAB PO SCH (21:15)
[2017-05-05] MEDS ORDERED: BISACODYL 10 MG SUPP RECTAL PRN (21:15)
[2017-05-05] MEDS ORDERED: ONDANSETRON HCL 4 MG/2 ML VIAL IVP PRN (21:30)
[2017-05-05] MEDS: SODIUM CHLORIDE 0.9% FLUSH 10 ML FLUSH IV FLUSH SCH (21:30)
[2017-05-05] MEDS ORDERED: NALOXONE HCL 0.4 MG/ML AMP IV PUSH PRN (21:30)
[2017-05-05] MEDS ORDERED: RESP: ALBUTEROL 2.5 MG/IPRATROPIUM 0.5 MG NEB (PRN) NEB (22:00)
[2017-05-05] MEDS: SODIUM CHLOR 0.9% 1000 ML INJ 1,000 ML IV SCH (22:00)
[2017-05-05 22:17] VITALS: BP 102/54; PULSE 109; RESP 18; TEMP 98.8; O2SAT 96
[2017-05-05 23:04] VITALS: BP 106/56; PULSE 109; RESP 18; O2SAT 97
[2017-05-06] VITALS (9 sets, daily range): BP systolic 98–131; BP diastolic 57–79; PULSE 77–106; RESP 18–24; TEMP 97.6–100.1; O2SAT 94–100
[2017-05-06] MEDS: PIPERACIL-TAZO 4.5 GM PREMIX 100 ML IV SCH ×4 (03:18→21:41)
[2017-05-06 06:58] LABS: AUTOMATED NEUTROPHIL # 8.7 TH/MM3 (1.8-7.7); BASOPHIL % 0.2 % (0.0-2.0); EOSINOPHIL # 0.1 TH/MM3 (0-0.4); EOSINOPHIL % 0.9 % (0.0-4.0); HEMATOCRIT 34.1 % (35.0-46.0); LYMPHOCYTE # 1.2 TH/MM3 (1.0-4.8); MEAN CORPUSCULAR HGB CONC 32.2 % (32.0-36.0); MONO % 10.8 % (0.0-8.0); MONOCYTE # 1.2 TH/MM3 (0-0.9); NEUT % 77.1 % (16.0-70.0); PLATELET COUNT 233 TH/MM3 (150-450); RED BLOOD COUNT 4.06 MIL/MM3 (4.00-5.30); WHITE BLOOD COUNT 11.3 TH/MM3 (4.0-11.0)
[2017-05-06 07:12] LABS: BICARBONATE 29.5 MEQ/L (21.0-32.0); CALCIUM 8.2 MG/DL (8.5-10.1); CREATININE 1.6 MG/DL (0.50-1.00)
[2017-05-06] MEDS: INSULIN ASPART SUPPLEMENTAL SCALE SQ SCH ×4 (08:00→21:59)
[2017-05-06] MEDS: SODIUM CHLORIDE 0.9% FLUSH 10 ML FLUSH IV FLUSH SCH ×2 (09:00→21:42)
[2017-05-06] MEDS ORDERED: TIMOLOL OPTH EACH EYE SCH (09:00)
--- NOTE | 2017-05-06 09:51 | EKG ---
Date Performed: 05/05/2017 Time Performed: 19:27:56 PTAGE: 89 years EKG: ATRIAL FIBRILLATION WITH RAPID VENTRICULAR RESPONSE WITH ABERRANT CONDUCTION OR VENTRICULAR PREMATURE COMPLEXES MODERATE INTRAVENTRICULAR CONDUCTION DELAY NONSPECIFIC ST & T-WAVE ABNORMALITY A BNORMAL ECG Since the prior tracing, there has been no significant change PREVIOUS TRACING : 04/06/2017 14.10 DOCTOR: Ta Momin Interpretating Date/Time 05/06/2017 09:47:33
--- NOTE | 2017-05-06 09:53 | HHI.FPPN ---
Subjective Remarks 89 y/o female presenting with confusion, fevers to 102, and +leukocyte esterase and Nitrites in urine. Feeling "much better" today. Reports that she doesn't really know why she is here. ROS: Negative for CP, SOB, cough, urinary frequency, incontinence, or dysuria. No fevers overnight. Nursing aid at her bedside. Patient eating breakfast. (Jonathan Curry MD, R3) Objective Vitals Vital Signs Date Time Temp Pulse Resp B/P (MAP) Pulse Ox O2 Delivery O2 Flow Rate FiO2 05/06/17 08:17 97.8 77 18 110/58 (75) 99 05/06/17 05:51 18 05/06/17 04:14 98.3 99 22 121/57 (78) 97 05/06/17 00:27 98.0 92 20 106/57 (73) 96 05/05/17 23:04 109 18 106/56 (73) 97 Nasal Cannula 2.00 05/05/17 23:03 05/05/17 22:17 98.8 109 18 102/54 (70) 96 Room Air 05/05/17 22:17 96 21 05/05/17 19:24 18 97 Room Air 05/05/17 19:22 98.7 108 18 155/69 (97) 97 Room Air I/O 05/05/17 05/05/17 05/05/17 05/06/17 05/06/17 05/06/17 07:00 15:00 23:00 07:00 15:00 23:00 Intake Total 100 ml 200 ml 200 ml Balance 100 ml 200 ml 200 ml Intake Oral 200 ml IV Total 100 ml 200 ml (Jonathan Curry MD, R3) Result Diagram: 05/06/17 0625 05/06/17 0625 Imaging Last [address] 05/05/171919 Signed Impressions: Service Date/Time: Friday, May 05, 2017 19:55 - CONCLUSION: 1. Stable diffuse atrophy and severe diffuse periventricular and subcortical white matter small vessel ischemic changes bilaterally. 2. No acute infarct, acute hemorrhage, mass effect or extra-axial fluid collections. 3. Fluid levels within the sphenoid sinuses bilaterally. Antonio Flores MD Chest X-Ray 05/05/171919 Signed Impressions: Service Date/Time: Friday, May 05, 2017 20:10 - CONCLUSION: 1. Cardiomegaly. 2. No acute focal pulmonary infiltrate or pulmonary vascular congestion. 3. Degenerative changes involving the shoulders with the right worse than the left. Antonio Flores MD Abdomen/Pelvis CT 05/05/17 0000 Signed Impressions: Service Date/Time: Friday, May 05, 2017 20:00 - CONCLUSION: 1. Cholelithiasis. 2. Uncomplicated colonic diverticulosis. 3. Stable 2 cm exophytic right renal mass. 4. Cardiomegaly and tiny pericardial effusion. 5. Scattered fibrotic scarring within the lung bases. 6. Degenerative changes and scoliosis of the lumbar spine. Antonio Flores MD Objective Remarks GENERAL: Well-nourished, well-developed patient. No acute distress. Elderly. SKIN: Warm and dry. No rash. EYES: No scleral icterus. No injection or drainage. PERRLA. EOMI. HENT: Normocephalic. Atraumatic. MMM. NECK: No visible JVD or lymphadenopathy. CARDIOVASCULAR: Warm and well perfused. Irregular rate, approximately 70 bpm. No murmurs appreciated. Right lower leg 2+ pitting edema to the mid shins. RESPIRATORY: Normal respiratory effort. Clear to auscultation. GASTROINTESTINAL: Abdomen nondistended. MUSCULOSKELETAL: Strength grossly WNL. BACK: Without obvious deformity. NEURO/PSYCH: Afocal. Awake, alert, and oriented x3. Moving all of her extremities. (Jonathan Curry MD, R3) A/P Assessment and Plan 89-year-old female with DM type II, paroxysmal A. fib, history of UTIs presenting with UTI and signs of septicemia (pulse 108, WBC 16.4). Previous UTIs with ESBL positive Escherichia coli, sensitive to Zosyn. Started on Zosyn in the ED. At time of admission no acute mental changes, respiratory complaints. A. fib present. (Jonathan Curry MD, R3) Attending Attestation Patient seen and examined. Case reviewed and discussed with the resident team. Agree with plan of care as discussed with me and documented in the resident note. (Abel Romero MD) Problem List: (1) Sepsis secondary to UTI ICD Codes: A41.9 - Sepsis, unspecified organism; N39.0 - Urinary tract infection, site not specified Status: Acute Plan: History of multiple UTIs with ESBL Escherichia coli sensitive to Zosyn in the past. On admission was meeting sepsis criteria, however this has resolved. -Follow up blood cultures -Follow up UA microbiology, sensitivities -Currently on Zosyn 4.5 g every 6 hours -Monitor for signs of severe sepsis (2) Atrial fibrillation with RVR ICD Codes: I48.91 - Unspecified atrial fibrillation Status: Acute Plan: History of paroxysmal A. fib, presented with A. fib with RVR, rate controlled following interview. Troponin less than 0.02, -Continue home medications Eliquis, metoprolol. (3) UTI (urinary tract infection) ICD Codes: N39.0 - Urinary tract infection, site not specified Status: Acute Plan: Please see plan for sepsis secondary to UTI (4) Chronic kidney disease ICD Codes: N18.9 - Chronic kidney disease, unspecified Status: Acute Plan: Patient historically between 1.27 and 1.51 creatinine. -Creatinine 1.48 on admission. Increase to 1.60. GFR was 30. We will consult pharmacist for management of Zosyn dosage. -Avoid nephrotoxic agents when possible. Eliquis at 2.5 mg twice a day. (5) Diabetes ICD Codes: E11.9 - Type 2 diabetes mellitus without complications Status: Chronic Plan: History of diabetes type 2 with macular degeneration, chronic kidney disease, takes Lantus 15 units subcutaneous twice a day at home -Detemir 15 units subcutaneous twice a day -Sliding-scale insulin (6) FEN Status: Acute Plan: Fluids: Tolerating by mouth fluids well Electrolytes: Monitor and replete as needed DVT prophylaxis: Anticoagulated on Eiliquis. GI prophylaxis: No indications. Discussed with Dr. Henry's. (Jonathan Curry MD, R3) Problem Qualifiers (1) Chronic kidney disease: Qualified Codes: N18.3 - Chronic kidney disease, stage 3 (moderate) (2) Diabetes: Qualified Codes: E11.39 - Type 2 diabetes mellitus with other diabetic ophthalmic complication; Z79.4 - assisted (current) use of insulin Jonathan Curry MD, R3 May 06, 2017 09:53 Abel Romero MD May 06, 2017 20:48
[2017-05-06] MEDS: INSULIN DETEMIR 100 UNITS/ML VIAL SQ SCH ×2 (10:21→21:59)
[2017-05-06] MEDS ORDERED: PIPERACIL-TAZO 3.375 GM PREMIX 50 ML IV SCH (10:30)
[2017-05-06] MEDS: DOCUSATE SODIUM 100 MG CAP PO SCH ×3 (10:37→18:00)
[2017-05-06] MEDS: METOPROLOL TARTRATE 25 MG TAB PO SCH ×2 (10:37→21:42)
[2017-05-06] MEDS: ASPIRIN EC 81 MG TABEC PO SCH (10:37)
[2017-05-06] MEDS: POTASSIUM CHLORIDE 20 MEQ CONTROLLED RELEASE TAB PO SCH (10:37)
[2017-05-06] MEDS: PRAVASTATIN SOD 40 MG TAB PO SCH (10:38)
[2017-05-06] MEDS: FUROSEMIDE 20 MG TAB PO SCH (10:38)
[2017-05-06] MEDS: PANTOPRAZOLE SOD 20 MG DELAYED RELEASE TAB PO SCH (12:28)
[2017-05-06] MEDS: APIXABAN 2.5 MG TABLET PO SCH ×2 (12:28→21:42)
[2017-05-06] MEDS: SODIUM CHLOR 0.9% 1000 ML INJ 1,000 ML IV SCH ×2 (12:31→18:00)
[2017-05-06] MEDS: TIMOLOL MALEATE 0.5% OPHT SOLN 5 ML BTL EACH EYE SCH ×2 (13:55→21:41)
[2017-05-06] MEDS: LATANOPROST 0.005% OPHT SOLN 2.5 ML BTL EACH EYE SCH (21:59)
[2017-05-07] VITALS (10 sets, daily range): BP systolic 114–125; BP diastolic 58–68; PULSE 78–97; RESP 16–24; TEMP 98.8–99.6; O2SAT 92–98
[2017-05-07] MEDS: PIPERACIL-TAZO 4.5 GM PREMIX 100 ML IV SCH ×2 (03:32→09:52)
[2017-05-07] MEDS: SODIUM CHLOR 0.9% 1000 ML INJ 1,000 ML IV SCH (03:33)
[2017-05-07 07:33] LABS: AUTOMATED NEUTROPHIL # 7.1 TH/MM3 (1.8-7.7); BASOPHIL % 0.3 % (0.0-2.0); EOSINOPHIL # 0.1 TH/MM3 (0-0.4); EOSINOPHIL % 1.2 % (0.0-4.0); HEMOGLOBIN 10.8 GM/DL (11.6-15.3); LYMPH % 12.9 % (9.0-44.0); LYMPHOCYTE # 1.3 TH/MM3 (1.0-4.8); MEAN CORPUSCULAR HEMOGLOBIN 27.6 PG (27.0-34.0); MEAN CORPUSCULAR HGB CONC 32.8 % (32.0-36.0); MONOCYTE # 1.4 TH/MM3 (0-0.9); NEUT % 71.6 % (16.0-70.0); PLATELET COUNT 221 TH/MM3 (150-450); RED BLOOD COUNT 3.93 MIL/MM3 (4.00-5.30); RED CELL DISTRIBUTION WIDTH 17.8 % (11.6-17.2)
[2017-05-07 07:43] LABS: BICARBONATE 25.9 MEQ/L (21.0-32.0); CALCIUM 7.8 MG/DL (8.5-10.1); CREATININE 1.43 MG/DL (0.50-1.00)
[2017-05-07] MEDS: INSULIN ASPART SUPPLEMENTAL SCALE SQ SCH ×4 (08:00→21:00)
[2017-05-07] MEDS: SODIUM CHLORIDE 0.9% FLUSH 10 ML FLUSH IV FLUSH SCH ×2 (09:00→21:00)
[2017-05-07] MEDS: INSULIN DETEMIR 100 UNITS/ML VIAL SQ SCH ×2 (09:55→21:00)
[2017-05-07] MEDS: FUROSEMIDE 20 MG TAB PO SCH (10:03)
[2017-05-07] MEDS: PANTOPRAZOLE SOD 20 MG DELAYED RELEASE TAB PO SCH (10:03)
[2017-05-07] MEDS: PRAVASTATIN SOD 40 MG TAB PO SCH (10:04)
[2017-05-07] MEDS: DOCUSATE SODIUM 100 MG CAP PO SCH ×3 (10:04→16:56)
[2017-05-07] MEDS: ASPIRIN EC 81 MG TABEC PO SCH (10:04)
[2017-05-07] MEDS: APIXABAN 2.5 MG TABLET PO SCH ×2 (10:05→21:48)
[2017-05-07] MEDS: TIMOLOL MALEATE 0.5% OPHT SOLN 5 ML BTL EACH EYE SCH ×2 (10:06→21:00)
--- NOTE | 2017-05-07 10:22 | HHI.FPPN ---
Subjective Remarks Patient feeling "better" today. She is not complaining of any shortness of breath, cough, fevers, chest pain, swelling, or abdominal pain. She did report some nausea yesterday after meals. She does tell me that she had a bowel movement yesterday, but does not know if it was formed or loose. She is alert and oriented to person, place, day of week, date, and year. She is slower to respond in comparison to yesterday. (Jonathan Curry MD, R3) Objective Vitals Vital Signs Date Time Temp Pulse Resp B/P (MAP) Pulse Ox O2 Delivery O2 Flow Rate FiO2 05/07/17 09:10 99.6 83 24 114/64 (81) 92 05/07/17 03:34 98.9 86 20 116/68 (84) 98 05/07/17 03:15 89 05/07/17 02:05 Nasal Cannula 2.00 05/07/17 00:00 97 05/06/17 23:39 98.6 89 24 113/79 (90) 98 05/06/17 21:27 106 111/68 (82) 95 05/06/17 20:00 91 05/06/17 19:34 99.0 102 20 98/68 (78) 94 05/06/17 15:57 100.1 101 18 107/61 (76) 96 05/06/17 11:51 97.6 91 18 131/75 (93) 100 I/O 05/06/17 05/06/17 05/06/17 05/07/17 05/07/17 05/07/17 07:00 15:00 23:00 07:00 15:00 23:00 Intake Total 200 ml 200 ml 580 ml Balance 200 ml 200 ml 580 ml Intake Oral 200 ml 480 ml IV Total 200 ml 100 ml # Voids 3 4 (Jonathan Curry MD, R3) Result Diagram: 05/07/17 0600 05/07/17 0600 Imaging Last [address] 05/05/171919 Signed Impressions: Service Date/Time: Friday, May 05, 2017 19:55 - CONCLUSION: 1. Stable diffuse atrophy and severe diffuse periventricular and subcortical white matter small vessel ischemic changes bilaterally. 2. No acute infarct, acute hemorrhage, mass effect or extra-axial fluid collections. 3. Fluid levels within the sphenoid sinuses bilaterally. Antonio Flores MD Chest X-Ray 05/05/17 1920 Signed Impressions: Service Date/Time: Friday, May 05, 2017 20:10 - CONCLUSION: 1. Cardiomegaly. 2. No acute focal pulmonary infiltrate or pulmonary vascular congestion. 3. Degenerative changes involving the shoulders with the right worse than the left. Antonio Flores MD Abdomen/Pelvis CT 05/05/17 0000 Signed Impressions: Service Date/Time: Friday, May 05, 2017 20:00 - CONCLUSION: 1. Cholelithiasis. 2. Uncomplicated colonic diverticulosis. 3. Stable 2 cm exophytic right renal mass. 4. Cardiomegaly and tiny pericardial effusion. 5. Scattered fibrotic scarring within the lung bases. 6. Degenerative changes and scoliosis of the lumbar spine. Antonio Flores MD Objective Remarks GENERAL: Well-nourished, well-developed patient. No acute distress. Elderly. SKIN: Warm and dry. No rash. EYES: No scleral icterus. No injection or drainage. PERRLA. EOMI. HENT: Normocephalic. Atraumatic. MMM. NECK: No visible JVD or lymphadenopathy. CARDIOVASCULAR: Warm and well perfused. Irregular rate, approximately 70 bpm. No murmurs appreciated. Right lower leg 2+ pitting edema to the mid shins. RESPIRATORY: Normal respiratory effort. Coarse crackles at the bases. Using abdominal muscles to breathe. Respiration rate at 28. GASTROINTESTINAL: Abdomen distended, tympanic to percussion, high-pitched bowel sounds. MUSCULOSKELETAL: Strength grossly WNL. BACK: Without obvious deformity. NEURO/PSYCH: Afocal. Awake, alert, and oriented x3. Moving all of her extremities. (Jonathan Curry MD, R3) A/P Assessment and Plan 89-year-old female with DM type II, paroxysmal A. fib, history of UTIs presenting with UTI and signs of septicemia (pulse 108, WBC 16.4). Previous UTIs with ESBL positive Escherichia coli, sensitive to Zosyn. Started on Zosyn in the ED. At time of admission no acute mental changes, respiratory complaints. A. fib present. (Jonathan Curry MD, R3) Assessment and Plan Patient seen and examined. Case reviewed and discussed with the resident team. Agree with plan of care as discussed with me and documented in the resident note. (Abel Romero MD) Problem List: (1) Sepsis secondary to UTI ICD Codes: A41.9 - Sepsis, unspecified organism; N39.0 - Urinary tract infection, site not specified Status: Acute Plan: History of multiple UTIs with ESBL Escherichia coli sensitive to Zosyn in the past. On admission was meeting sepsis criteria, however this has resolved. -Blood cultures, growing gram-negative rods x 1. Follow-up sensitivities. -Initial urine culture showing gram-negative rods, will follow sensitivities. -Currently on Zosyn 3.375 g every 6 hours. -Monitor for signs of severe sepsis. (2) Abdominal distension ICD Codes: R14.0 - Abdominal distension (gaseous) Plan: Abdominal distention worsening. CT of abdomen and pelvis on admission did not show any signs of obstruction or acute processes. Get a flat and upright abdominal series today. If air-fluid levels, or any signs of small bowel obstruction, would have the patient be nothing by mouth. 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 Not currently nauseated on exam today. (3) Lung crackles ICD Codes: R09.89 - Other specified symptoms and signs involving the circulatory and respiratory systems Plan: Respiration rate: 28 at bedside. Using abdomen to breathe. Coarse crackles at the bases. Impression: Suspect fluid overload/cardiogenic pulmonary edema, versus hospital- acquired pneumonia. Recommend duo nebs every 6 hours while awake, chest x-ray, and 20 mg of IV Lasix. Check a BNP, if elevated would get a echocardiogram. Last echocardiogram was on 07/02/2016, which showed an EF of 55-60%. (4) Atrial fibrillation with RVR ICD Codes: I48.91 - Unspecified atrial fibrillation Status: Acute Plan: History of paroxysmal A. fib, presented with A. fib with RVR, rate controlled following interview. Troponin less than 0.02, -Continue home medications Eliquis, metoprolol. (5) UTI (urinary tract infection) ICD Codes: N39.0 - Urinary tract infection, site not specified Status: Acute Plan: Please see plan for sepsis secondary to UTI (6) Chronic kidney disease ICD Codes: N18.9 - Chronic kidney disease, unspecified Status: Acute Plan: Patient historically between 1.27 and 1.51 creatinine. -Creatinine 1.48 on admission. Stable. We will consult pharmacist for management of Zosyn dosage. -Avoid nephrotoxic agents when possible. Eliquis at 2.5 mg twice a day. (7) Diabetes ICD Codes: E11.9 - Type 2 diabetes mellitus without complications Status: Chronic Plan: History of diabetes type 2 with macular degeneration, chronic kidney disease, takes Lantus 15 units subcutaneous twice a day at home -Sugars well controlled during hospitalization. -Detemir 15 units subcutaneous twice a day, is continue if there is a change to her diet. -Sliding-scale insulin (8) FEN Status: Acute Plan: Fluids: Tolerating by mouth fluids well Electrolytes: Monitor and replete as needed DVT prophylaxis: Anticoagulated on Eiliquis. GI prophylaxis: No indications. Discussed with Dr. Henry's. (Jonathan Curry MD, R3) Problem Qualifiers (1) Chronic kidney disease: Qualified Codes: N18.3 - Chronic kidney disease, stage 3 (moderate) (2) Diabetes: Qualified Codes: E11.39 - Type 2 diabetes mellitus with other diabetic ophthalmic complication; Z79.4 - FPC (current) use of insulin Jonathan Curry MD, R3 May 07, 2017 10:22 Abel Romero MD May 07, 2017 18:29
[2017-05-07] MEDS ORDERED: predniSONE 20 MG TAB PO SCH (12:00)
[2017-05-07] MEDS ORDERED: FUROSEMIDE 20 MG/2 ML VIAL IV PUSH ONE (12:00)
[2017-05-07] MEDS: POTASSIUM CHLORIDE 20 MEQ CONTROLLED RELEASE TAB PO SCH (12:55)
[2017-05-07] MEDS: METOPROLOL TARTRATE 25 MG TAB PO SCH ×2 (12:56→21:47)
--- NOTE | 2017-05-07 13:56 | RADRPT ---
EXAM DATE/TIME: 05/07/2017 13:24 [facility] COMPARISON: CHEST PA & LAT, June 27, 2016, 5:32. INDICATIONS : Congestion. Shortness of breath. MEDICAL HISTORY : Hypertension. Diabetes mellitus type II. Cardiovascular disease. SURGICAL HISTORY : Hysterectomy. ENCOUNTER: Subsequent ACUITY: 2 days PAIN SCORE: 0/10 LOCATION: Bilateral chest FINDINGS: AP and lateral views of the chest demonstrate the lungs to be symmetrically aerated without evidence of mass, infiltrate or effusion. The heart size is mildly prominent with no definite pulmonary vascu lar redistribution. Atherosclerotic changes are present in the aorta. Osseous structures are intact w ith degenerative change again noted in the right glenohumeral joint. CONCLUSION: No acute disease. There is no evidence of pneumonia. Shashi Johnson MD on May 07, 2017 at 13:51 Board Certified Radiologist. This report was verified electronically.
--- NOTE | 2017-05-07 14:03 | RADRPT ---
EXAM DATE/TIME: 05/07/2017 13:26 [facility] COMPARISON: No previous studies available for comparison. INDICATIONS : Evaluate for obstruction. Nausea and vomiting. MEDICAL HISTORY : Hypertension. Diabetes mellitus type II. Cardiovascular disease. SURGICAL HISTORY : Hysterectomy. ENCOUNTER: Subsequent ACUITY: 2 days PAIN SCORE: 0/10 LOCATION: Abdomen. FINDINGS: Multiple supine views of the abdomen and pelvis were obtained and demonstrate gas and stool segmental ly in the colon. There are several loops of nondilated air-containing small bowel as well. On the ere ct film there are multiple air-fluid levels with no evidence of free air. The lung bases appear clear . The bony structures appear intact with scoliosis and degenerative change in lumbar spine. There are multiple calcified gallstones in the right upper quadrant. CONCLUSION: 1. Nonspecific bowel gas pattern which represent an ileus or gastroenteritis. 2. Calcified gallstones. Shashi Johnson MD on May 07, 2017 at 13:54 Board Certified Radiologist. This report was verified electronically.
[2017-05-07] MEDS ORDERED: ASP: Path resistant to other antimicrobials, culture proven PRN (14:45)
[2017-05-07] MEDS ORDERED: MISCELLANEOUS PHARMACY INFORMATION XX PRN (14:45)
[2017-05-07 15:19] LABS: MAGNESIUM 2.1 MG/DL (1.5-2.5); PHOSPHORUS 2.7 MG/DL (2.5-4.9)
[2017-05-07] MEDS: RESP: ALBUTEROL 2.5 MG/IPRATROPIUM 0.5 MG NEB (SCH) NEB ×2 (15:56→19:45)
[2017-05-07] MEDS: MEROPENEM INJ 1,000 MG in SODIUM CHLORIDE 0.9% INJ 100 ML IV SCH (16:50)
[2017-05-07] MEDS: LATANOPROST 0.005% OPHT SOLN 2.5 ML BTL EACH EYE SCH (21:00)
[2017-05-08] VITALS (10 sets, daily range): BP systolic 123–134; BP diastolic 61–74; PULSE 72–107; RESP 18–20; TEMP 97.6–99.6; O2SAT 90–98
[2017-05-08] MEDS: MEROPENEM INJ 1,000 MG in SODIUM CHLORIDE 0.9% INJ 100 ML IV SCH ×3 (00:30→08:51)
[2017-05-08] MEDS: INSULIN ASPART SUPPLEMENTAL SCALE SQ SCH ×4 (07:34→21:00)
[2017-05-08 07:47] LABS: AUTOMATED NEUTROPHIL # 8.1 TH/MM3 (1.8-7.7); BASOPHIL % 0.3 % (0.0-2.0); EOSINOPHIL # 0.1 TH/MM3 (0-0.4); HEMATOCRIT 33.8 % (35.0-46.0); LYMPH % 13.7 % (9.0-44.0); LYMPHOCYTE # 1.5 TH/MM3 (1.0-4.8); MEAN CELL VOLUME 83.7 FL (80.0-100.0); MEAN CORPUSCULAR HEMOGLOBIN 27.3 PG (27.0-34.0); MEAN CORPUSCULAR HGB CONC 32.6 % (32.0-36.0); MEAN PLATELET VOLUME 7.8 FL (7.0-11.0); MONO % 12.5 % (0.0-8.0); MONOCYTE # 1.4 TH/MM3 (0-0.9); NEUT % 72.5 % (16.0-70.0); PLATELET COUNT 237 TH/MM3 (150-450); RED BLOOD COUNT 4.03 MIL/MM3 (4.00-5.30); RED CELL DISTRIBUTION WIDTH 17.8 % (11.6-17.2); WHITE BLOOD COUNT 11.1 TH/MM3 (4.0-11.0)
[2017-05-08 08:09] LABS: ALBUMIN 2.2 GM/DL (3.4-5.0); AST (GOT) 20 U/L (15-37); BICARBONATE 29.7 MEQ/L (21.0-32.0); BLOOD UREA NITROGEN 23 MG/DL (7-18); CALCIUM 8.3 MG/DL (8.5-10.1); CHLORIDE 105 MEQ/L (98-107); CREATININE 1.37 MG/DL (0.50-1.00); GLOMERULAR FILTRATION RATE 36 ML/MIN (>89); GLUCOSE,RANDOM 63 MG/DL (74-106); SODIUM (NA) 141 MEQ/L (136-145)
[2017-05-08] MEDS: RESP: ALBUTEROL 2.5 MG/IPRATROPIUM 0.5 MG NEB (SCH) NEB ×3 (08:10→19:06)
[2017-05-08 08:11] LABS: ALT (GPT) 20 U/L (10-53)
[2017-05-08 08:12] LABS: ALKALINE PHOSPHATASE 86 U/L (45-117); TOTAL BILIRUBIN ADULT 0.5 MG/DL (0.2-1.0); TOTAL PROTEIN 6.4 GM/DL (6.4-8.2)
[2017-05-08] MEDS: ASPIRIN EC 81 MG TABEC PO SCH (08:50)
[2017-05-08] MEDS: DOCUSATE SODIUM 100 MG CAP PO SCH ×3 (08:50→16:20)
[2017-05-08] MEDS: POTASSIUM CHLORIDE 20 MEQ CONTROLLED RELEASE TAB PO SCH (08:50)
[2017-05-08] MEDS: APIXABAN 2.5 MG TABLET PO SCH ×2 (08:50→22:37)
[2017-05-08] MEDS: FUROSEMIDE 20 MG TAB PO SCH (08:50)
[2017-05-08] MEDS: PANTOPRAZOLE SOD 20 MG DELAYED RELEASE TAB PO SCH (08:50)
[2017-05-08] MEDS: PRAVASTATIN SOD 40 MG TAB PO SCH (08:50)
[2017-05-08] MEDS: SODIUM CHLORIDE 0.9% FLUSH 10 ML FLUSH IV FLUSH SCH ×2 (08:51→21:00)
[2017-05-08] MEDS: TIMOLOL MALEATE 0.5% OPHT SOLN 5 ML BTL EACH EYE SCH ×2 (08:51→21:00)
[2017-05-08] MEDS: METOPROLOL TARTRATE 25 MG TAB PO SCH ×2 (08:52→22:36)
--- NOTE | 2017-05-08 10:16 | HHI.FPPN ---
Subjective Remarks She doing much better today. Afebrile, vital signs at goal. She is no longer complaining of shortness of breath, and says "I think my breathing has cleared up." She is not complaining of any abdominal pain, and tolerated her clear liquid diet well yesterday, without nausea or vomiting. She did have a small bowel movement yesterday that was soft and without blood. She denies any fevers or night sweats over the past 24 hours. (Jonathan Curry MD, R3) Objective Vitals Vital Signs Date Time Temp Pulse Resp B/P (MAP) Pulse Ox O2 Delivery O2 Flow Rate FiO2 05/08/17 08:11 98 Nasal Cannula 2.00 05/08/17 08:00 97.6 96 18 123/66 (85) 98 05/08/17 04:34 97.7 92 18 133/67 (89) 96 05/08/17 00:01 84 05/08/17 00:00 99.6 72 18 131/61 (84) 97 05/07/17 20:17 78 05/07/17 20:00 99.3 86 16 125/58 (80) 96 05/07/17 19:02 92 Nasal Cannula 2.00 05/07/17 16:30 98.8 85 18 114/65 (81) 92 05/07/17 15:56 92 Nasal Cannula 2.00 05/07/17 12:21 99.0 88 18 118/62 (80) 94 I/O 05/07/17 05/07/17 05/07/17 05/08/17 05/08/17 05/08/17 07:00 15:00 23:00 07:00 15:00 23:00 Intake Total 580 ml Balance 580 ml Intake Oral 480 ml IV Total 100 ml # Voids 3 4 1 2 (Jonathan Curry MD, R3) Result Diagram: 05/08/17 0734 05/08/17 0734 Imaging Last 72 hours Impressions Chest X-Ray 05/07/17 0000 Signed Impressions: Service Date/Time: May 13:24 - CONCLUSION: No acute disease. There is no evidence of pneumonia. Shashi Johnson MD Abdomen X-Ray 05/07/17 0000 Signed Impressions: Service Date/Time: May 13:26 - CONCLUSION: 1. Nonspecific bowel gas pattern which represent an ileus or gastroenteritis. 2. Calcified gallstones. Shashi Johnson MD Head CT 05/05/171919 Signed Impressions: Service Date/Time: Friday, May 05, 2017 19:55 - CONCLUSION: 1. Stable diffuse atrophy and severe diffuse periventricular and subcortical white matter small vessel ischemic changes bilaterally. 2. No acute infarct, acute hemorrhage, mass effect or extra-axial fluid collections. 3. Fluid levels within the sphenoid sinuses bilaterally. Antonio Flores MD Chest X-Ray 05/05/171919 Signed Impressions: Service Date/Time: Friday, May 05, 2017 20:10 - CONCLUSION: 1. Cardiomegaly. 2. No acute focal pulmonary infiltrate or pulmonary vascular congestion. 3. Degenerative changes involving the shoulders with the right worse than the left. Antonio Flores MD Objective Remarks GENERAL: Well-nourished, well-developed patient. No acute distress. Elderly. SKIN: Warm and dry. No rash. EYES: No scleral icterus. No injection or drainage. PERRLA. EOMI. HENT: Normocephalic. Atraumatic. MMM. NECK: No visible JVD or lymphadenopathy. CARDIOVASCULAR: Warm and well perfused. Irregular rate, approximately 70 bpm. No murmurs appreciated. Right lower leg 2+ pitting edema to the mid shins. RESPIRATORY: Normal respiratory effort. Coarse crackles at the bases. Using abdominal muscles to breathe. Respiration rate at 28. GASTROINTESTINAL: Abdomen distended, tympanic to percussion, high-pitched bowel sounds. MUSCULOSKELETAL: Strength grossly WNL. BACK: Without obvious deformity. NEURO/PSYCH: Afocal. Awake, alert, and oriented x3. Moving all of her extremities. (Jonathan Curry MD, R3) A/P Assessment and Plan Patient seen and examined. Case reviewed and discussed with the resident team. Agree with plan of care as discussed with me and documented in the resident note. (Jonathan Curry MD, R3) Attending Attestation Patient seen and examined. Case reviewed and discussed with the resident team. Agree with plan of care as discussed with me and documented in the resident note. (Abel Romero MD) Problem List: (1) Sepsis secondary to UTI ICD Codes: A41.9 - Sepsis, unspecified organism; N39.0 - Urinary tract infection, site not specified Status: Acute Plan: History of multiple UTIs with ESBL Escherichia coli sensitive to Zosyn in the past. On admission was meeting sepsis criteria, however this has resolved. -Blood cultures, growing gram-negative rods x 1. Follow-up sensitivities. -Initial urine culture showing gram-negative rods, will follow sensitivities. -Transition from Zosyn 3.375 g every 6 hours and meropenem as directed by infectious disease. We appreciate their assistance. -Monitor for signs of severe sepsis. -Clinically improving. (2) Abdominal distension ICD Codes: R14.0 - Abdominal distension (gaseous) Plan: Abdominal distention stable over the past [address] of abdomen and pelvis on admission did not show any signs of obstruction or acute processes. Flat and upright abdominal series on 05/07/2017 showed., "Nonspecific bowel gas pattern which represents an ileus or gastroenteritis." We put her on a clear liquid diet yesterday, and she tolerated this well. She is also having bowel movements. We'll advance her diet today. Discussed adding Reglan 30 minutes before meals. May trial this on 05/09/2017, tolerating a full regular diet. (3) Lung crackles ICD Codes: R09.89 - Other specified symptoms and signs involving the circulatory and respiratory systems Plan: Respiratory status improved over the past 24 hours. No longer having crackles at the bases. She got 20 mg IV Lasix, as well as 20 mg by mouth Lasix daily. Chest x-ray did not reveal any consolidations, or pulmonary edema. BNP was elevated to 472. We'll check an echocardiogram. Last echocardiogram was in June 2016, which revealed a normal EF. We'll continue with daily diuretics. Hold IV fluids at this time as she is tolerating full diet. (4) Atrial fibrillation with RVR ICD Codes: I48.91 - Unspecified atrial fibrillation Status: Acute Plan: History of paroxysmal A. fib, presented with A. fib with RVR, rate controlled following interview. Troponin less than 0.02, -Continue home medications Eliquis, metoprolol. (5) UTI (urinary tract infection) ICD Codes: N39.0 - Urinary tract infection, site not specified Status: Acute Plan: Please see plan for sepsis secondary to UTI (6) Chronic kidney disease ICD Codes: N18.9 - Chronic kidney disease, unspecified Status: Acute Plan: Patient historically between 1.27 and 1.51 creatinine. -Creatinine 1.48 on admission. Stable. -Avoid nephrotoxic agents when possible. Eliquis at 2.5 mg twice a day. (7) Diabetes ICD Codes: E11.9 - Type 2 diabetes mellitus without complications Status: Chronic Plan: History of diabetes type 2 with macular degeneration, chronic kidney disease, takes Lantus 15 units subcutaneous twice a day at home -Sugars well controlled during hospitalization. -Detemir 15 units subcutaneous twice a day. On hold given a low blood sugar of 63. May resume if tolerating full diet. -Sliding-scale insulin (8) FEN Status: Acute Plan: Fluids: Tolerating by mouth fluids well Electrolytes: Monitor and replete as needed DVT prophylaxis: Anticoagulated on Eiliquis. GI prophylaxis: No indications. Discussed with Dr. Henry's. 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
[2017-05-08] MEDS ORDERED: POTASSIUM CHLORIDE 10 MEQ CONTROLLED RELEASE TAB PO ONE (12:00)
--- NOTE | 2017-05-08 15:21 | PD.ID.CON ---
History of Present Illness Service ID Consult Requested By //Antoinette Reason for Consult Evaluation and Mment of ESBL E.coli bacteremia and UTI Primary Care Physician Unknown Diagnoses: History of Present Illness Most of the history was obtained by review of medical records patient does not appear to be a reliable historian. Ms. Gee is an 89-year-old female with past medical history significant for type 2 diabetes, paroxysmal A. fib, frequent UTIs who presents from [facility] for suspected UTI. Portably the physician at the longterm was called for tachycardia. Patient also reported a history of nausea vomiting 2 chills and fever up to 101.2 Fahrenheit. Patient longterm physician asked for the patient to be admitted to the hospital through the ED. Patient reports chills as well as fevers. She denies any chest pain, shortness of breath, arm or jaw pain. She denies any diarrhea. Patient met criteria for sepsis on admission and underwent workup for the same. Blood cultures drawn on admission as well as urine cultures are positive for ESBL Escherichia coli. I was contacted by Dr. Melara yesterday and started meropenem pending ID of the ESBL. Infectious disease is consulted for evaluation and management of ESBL Escherichia coli bacteremia and UTI. Review of Systems ROS Limitations: Poor Historian Constitutional: COMPLAINS OF: Fatigue, Fever, Chills, DENIES: Diaphoretic episodes, Weight gain, Weight loss, Dizziness, Change in appetite, Night Sweats Endocrine: DENIES: Abnorml menstrual pattern, Heat/cold intolerance, Polydipsia , Polyuria, Polyphagia Eyes: DENIES: Blurred vision, Diplopia, Eye inflammation, Eye pain, Vision loss , Photosensitivity, Double Vision Ears, nose, mouth, throat: DENIES: Tinnitus, Hearing loss, Vertigo, Nasal discharge, Oral lesions, Throat pain, Hoarseness, Ear Pain, Running Nose, Epistaxis, Sinus Pain, Toothache, Odynophagia Respiratory: DENIES: Apneas, Cough, Snoring, Wheezing, Hemoptysis, Sputum production, Shortness of breath Cardiovascular: DENIES: Chest pain, Palpitations, Syncope, Dyspnea on Exertion , PND, Lower Extremity Edema, Orthopnea, Claudication Gastrointestinal: DENIES: Abdominal pain, Black stools, Bloody stools, Constipation, Diarrhea, Nausea, Vomiting, Difficulty Swallowing, Anorexia Genitourinary: COMPLAINS OF: Urinary frequency, DENIES: Abnormal vaginal bleeding, Dysmenorrhea, Dyspareunia, Sexual dysfunction, Urinary incontinence, Urgency, Hematuria, Dysuria, Nocturia, Vaginal discharge Musculoskeletal: DENIES: Joint pain, Muscle aches, Stiffness, Joint Swelling, Back pain, Neck pain Integumentary: DENIES: Abnormal pigmentation, Pruritus, Rash, Nail changes, Breast masses, Breast skin changes, Nipple discharge Hematologic/lymphatic: DENIES: Bruising, Lymphadenopathy Immunologic/allergic: DENIES: Eczema, Urticaria Neurologic: DENIES: Abnormal gait, Headache, Localized weakness, Paresthesias, Seizures, Speech Problems, Tremor, Poor Balance Psychiatric: DENIES: Anxiety, Confusion, Mood changes, Depression, Hallucinations, Agitation, Suicidal Ideation, Homicidal Ideation, Delusions Except as stated in HPI: all other systems reviewed are Neg Past Family Social History Allergies: Coded Allergies: *MDRO Multi-Drug Resistant Organism (Verified Adverse Reaction, Unknown, ) ESBL E.Coli (urine)-06/27/16 Past Medical History Type 2 diabetes Macular degeneration Glaucoma Paroxysmal atrial fibrillation Hospitalized June 2016 due to urinary tract infection with sepsis and associated pneumonia Hospitalized April 2017 Hx frequent UTIs Past Surgical History Hysterectomy age 52 Tonsillectomy 87 Right ankle surgery age 37 following an injury Reported Medications Reported Meds & Active Scripts Active Lorazepam 0.5 Mg Tab 0.5 Mg PO DIRECTED PRN 0.5mg HS scheudled; hold if sleeping or sedated Timoptic-Xe Opth Gel (Timolol Opth Gel) 0.5 % Gel 1 Drop EACH EYE DAILY Metoprolol Tartrate 25 Mg Tab 25 Mg PO Q12HR Eliquis (Apixaban) 2.5 Mg Tab 2.5 Mg PO BID Reported Duoneb (Ipratropium-Albuterol Neb) 0.5-2.5 Mg/3 Ml Neb 1 Nebule INH Q4HR NEB PRN Lantus Inj (Insulin Glargine) 1,000 Unit/10 Ml Vial 15 Units SQ BID Humulin R Inj (Insulin Human Regular) 1,000 Unit/10 Ml Vial 2 Units SQ DIRECTED 2 units prior to lunch Dulcolax Supp (Bisacodyl) 10 Mg Supp 10 Mg RECTAL DAILY PRN Tylenol (Acetaminophen) 325 Mg Tab 650 Mg PO Q4H PRN Humulin R Inj (Insulin Human Regular) 1,000 Unit/10 Ml Vial 1-21 Units SQ ONCE SS coverage: 150-200 3u, 201-250 6u, 251-300 9u, 301-350 12u, 351-400 15u, 401-450 18u, 451-500 21u Milk of Magnesia Concentrate Liq (Magnesium Hydroxide) 1,200 Mg/5 Ml Susp 30 Ml PO HS PRN Omeprazole 20 Mg Cap 20 Mg PO DAILY Docusate Sodium 100 Mg Cap 100 Mg PO TID Potassium Chloride ER (Potassium Chloride) 20 Meq Tab 20 Meq PO DAILY Xalatan Opth Drops (Latanoprost) 0.005% Drops 1 Drop EACH EYE HS Timolol Opth Drops 0.5 % Soln 1 Drop EACH EYE BID Aspirin 81 (Aspirin) 81 Mg Tabdr 81 Mg PO DAILY Simvastatin 20 Mg Tab 20 Mg PO DAILY Furosemide 20 Mg Tab 20 Mg PO DAILY Vitamin B-12 (Cyanocobalamin) 1,000 Mcg Tab 1,000 Mcg PO DAILY Active Ordered Medications Current Medications Medications (Trade) Dose Ordered Sig/Damaris Route Start Time Stop Time Status Last Admin (Tylenol) 650 mg Q4H PRN PO 05/05/17 21:15 05/06/17 04:30 (Eliquis) 2.5 mg BID PO 05/06/17 09:00 05/08/17 08:50 (Ecotrin Ec) 81 mg DAILY PO 05/06/17 09:00 05/08/17 08:50 (Dulcolax Supp) 10 mg DAILY PRN RECTAL 05/05/17 21:15 (Colace) 100 mg TID PO 05/06/17 09:00 05/08/17 13:44 (Lasix) 20 mg DAILY PO 05/06/17 09:00 05/08/17 08:50 (Levemir Inj) 15 units BID SQ 05/06/17 09:00 Future Hold 05/07/17 21:00 (Duoneb Neb) 1 ampule Q4HR NEB PRN NEB 05/05/17 22:00 (Xalatan 0.005% Opth Soln) 1 drop HS EACH EYE 05/05/17 21:15 05/07/17 21:00 (Lopressor) 25 mg Q12HR PO 05/05/17 21:15 05/08/17 08:52 (KCl) 20 meq DAILY PO 05/06/17 09:00 05/08/17 08:50 (Timoptic 0.5% Opth Soln) 1 drop BID EACH EYE 05/05/17 21:15 05/08/17 08:51 (Protonix) 20 mg DAILY PO 05/06/17 09:00 05/08/17 08:50 (Pravachol) 40 mg DAILY PO 05/06/17 09:00 05/08/17 08:50 Sodium Chloride 1,000 ml @ 100 mls/hr Q10H IV 05/05/17 22:00 Future Hold 05/07/17 03:33 (NS Flush) 2 ml UNSCH PRN IV FLUSH 05/05/17 21:30 (NS Flush) 2 ml BID IV FLUSH 05/05/17 21:30 05/08/17 08:51 (Zofran Inj) 4 mg Q6H PRN IVP 05/05/17 21:30 05/06/17 15:25 (Narcan Inj) 0.4 mg UNSCH PRN IV PUSH 05/05/17 21:30 (NovoLOG SUPPLEMENTAL SCALE) 1 ACHS SLIDING SCALE SQ 05/06/17 08:00 05/07/17 21:00 (Ativan) 0.5 mg Q8H PRN PO 05/05/17 21:45 (Duoneb Neb) 1 ampule Q6HR WHILE AWAKE NEB NEB 05/07/17 14:00 05/08/17 14:09 (Deltasone) 20 mg DAILY PO 05/07/17 12:00 Future Hold Meropenem 1000 mg/ Sodium Chloride 100 ml @ 200 mls/hr Q8H IV 05/07/17 16:00 05/08/17 08:51 Family History Father: at age 81 of heart problems Mother: [place] age 80 Siblings: none Children: Two daughters in [place], one daughter has had radiation to eye tumor. Son (bipolar disorder) Social History Marital Status: Living Situation: detention care resident at [facility]. Born in [place], moved to in the 1940s. Grew up in [place]. 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 Tobacco: none Alcohol: rare Illicit drug use: none Physical Exam Vital Signs Vital Signs Date Time Temp Pulse Resp B/P (MAP) Pulse Ox O2 Delivery O2 Flow Rate FiO2 05/08/17 12:00 98.6 95 18 134/70 (91) 94 05/08/17 08:11 98 Nasal Cannula 2.00 05/08/17 08:00 97.6 96 18 123/66 (85) 98 05/08/17 04:34 97.7 92 18 133/67 (89) 96 05/08/17 00:01 84 05/08/17 00:00 99.6 72 18 131/61 (84) 97 05/07/17 20:17 78 05/07/17 20:00 99.3 86 16 125/58 (80) 96 05/07/17 19:02 92 Nasal Cannula 2.00 05/07/17 16:30 98.8 85 18 114/65 (81) 92 05/07/17 15:56 92 Nasal Cannula 2.00 Physical Exam GENERAL: Obese, well-developed patient, in no apparent distress. SKIN: No rashes, ecchymoses or lesions. Cool and dry. HEAD: Atraumatic. Normocephalic. No temporal or scalp tenderness. EYES: Pupils equal round and reactive. Extraocular motions intact. No scleral icterus. No injection or drainage. ENT: Nose without bleeding, purulent drainage or septal hematoma. Throat without erythema, tonsillar hypertrophy or exudate. Uvula midline. Airway patent. NECK: Trachea midline. Supple, nontender, no meningeal signs. CARDIOVASCULAR: Regular rate and rhythm without murmurs, gallops, or rubs. RESPIRATORY: Clear to auscultation. Breath sounds equal bilaterally. GASTROINTESTINAL: Abdomen soft, non-tender, nondistended. MUSCULOSKELETAL: Extremities without clubbing, cyanosis, or edema. NEUROLOGICAL: Awake and alert. Non focal exam Psych cooperative IV line sites with no e.o infection. Laboratory Laboratory Tests Test 05/08/17 07:34 White Blood Count 11.1 Red Blood Count 4.03 Hemoglobin 11.0 Hematocrit 33.8 Mean Corpuscular Volume 83.7 Mean Corpuscular Hemoglobin 27.3 Mean Corpuscular Hemoglobin Concent 32.6 Red Cell Distribution Width 17.8 Platelet Count 237 Mean Platelet Volume 7.8 Neutrophils (%) (Auto) 72.5 Lymphocytes (%) (Auto) 13.7 Monocytes (%) (Auto) 12.5 Eosinophils (%) (Auto) 1.0 Basophils (%) (Auto) 0.3 Neutrophils # (Auto) 8.1 Lymphocytes # (Auto) 1.5 Monocytes # (Auto) 1.4 Eosinophils # (Auto) 0.1 Basophils # (Auto) 0.0 CBC Comment DIFF FINAL Differential Comment Blood Urea Nitrogen 23 Creatinine 1.37 Random Glucose 63 Total Protein 6.4 Albumin 2.2 Calcium Level 8.3 Alkaline Phosphatase 86 Aspartate Amino Transf (AST/SGOT) 20 Alanine Aminotransferase (ALT/SGPT) 20 Total Bilirubin 0.5 Sodium Level 141 Potassium Level 3.2 Chloride Level 105 Carbon Dioxide Level 29.7 Anion Gap 6 Estimat Glomerular Filtration Rate 36 Lactic Acid Level 0.6 Date/Time Source Procedure Growth Status 05/07/17 15:30 Blood Other Aerobic Blood Culture - Preliminary NO GROWTH IN 1 DAY Resulted 05/07/17 15:30 Blood Other Anaerobic Blood Culture - Preliminary NO GROWTH IN 1 DAY Resulted 05/05/17 19:34 Nasal Aspirate Influenza Types A,B Antigen (FABIANA) - Final NEGATIVE FOR FLU A AND B ANTIGEN.... Complete 05/05/17 19:34 Urine Catheterized Urine Urine Culture - Final Escherichia Coli Esbl Positive Complete Result Diagram: 05/08/17 0734 05/08/17 0734 Imaging Last Impressions Chest X-Ray 05/07/17 0000 Signed Impressions: Service Date/Time: May 13:24 - CONCLUSION: No acute disease. There is no evidence of pneumonia. Shashi Johnson MD Abdomen X-Ray 05/07/17 0000 Signed Impressions: Service Date/Time: May 13:26 - CONCLUSION: 1. Nonspecific bowel gas pattern which represent an ileus or gastroenteritis. 2. Calcified gallstones. Shashi Johnson MD Head CT 05/05/17 1920 Signed Impressions: Service Date/Time: Friday, May 05, 2017 19:55 - CONCLUSION: 1. Stable diffuse atrophy and severe diffuse periventricular and subcortical white matter small vessel ischemic changes bilaterally. 2. No acute infarct, acute hemorrhage, mass effect or extra-axial fluid collections. 3. Fluid levels within the sphenoid sinuses bilaterally. Antonio Flores MD Abdomen/Pelvis CT 05/05/17 0000 Signed Impressions: Service Date/Time: Friday, May 05, 2017 20:00 - CONCLUSION: 1. Cholelithiasis. 2. Uncomplicated colonic diverticulosis. 3. Stable 2 cm exophytic right renal mass. 4. Cardiomegaly and tiny pericardial effusion. 5. Scattered fibrotic scarring within the lung bases. 6. Degenerative changes and scoliosis of the lumbar spine. Antonio Flores MD Assessment and Plan Assessment and Plan Sepsis present on admission (leucocytosis, tachycardia, source: UTI) ESBL E.coli bacteremia ESBL E.coli UTI Recs: Started on Meropenem IV y pending final cultures. DC Meropenem Start Ertapenem IV Repeated blood cultures ECHO pending. If repeat blood cultures and ECHO negative and patient otherwise ready for discharge please call me on my cell phone to complete infusion orders. d/w pt and family appointed care transport nurse in room. covering for me this weekend. Maria Del Rosario Aleman MD May 08, 2017 15:21
[2017-05-08] MEDS ORDERED: ERTAPENEM SODIUM 1000 MG VIAL IV SCH (15:45)
[2017-05-08] MEDS: ERTAPENEM 1,000 MG/NS 100 ML IV SCH ×2 (16:20)
[2017-05-08] MEDS: LATANOPROST 0.005% OPHT SOLN 2.5 ML BTL EACH EYE SCH (21:00)
[2017-05-08] MEDS: LORazepam 0.5 MG TAB PO PRN (23:29)
[2017-05-09] VITALS (8 sets, daily range): BP systolic 127–170; BP diastolic 67–100; PULSE 92–104; RESP 17–22; TEMP 97.3–99.8; O2SAT 90–95
[2017-05-09 06:19] LABS: ALBUMIN 2.3 GM/DL (3.4-5.0); ALT (GPT) 26 U/L (10-53); AST (GOT) 21 U/L (15-37); BICARBONATE 27.6 MEQ/L (21.0-32.0); BLOOD UREA NITROGEN 21 MG/DL (7-18); CALCIUM 8.6 MG/DL (8.5-10.1); CHLORIDE 106 MEQ/L (98-107); CREATININE 1.24 MG/DL (0.50-1.00); GLOMERULAR FILTRATION RATE 41 ML/MIN (>89); GLUCOSE,RANDOM 181 MG/DL (74-106); SODIUM (NA) 141 MEQ/L (136-145)
[2017-05-09 06:44] LABS: ALKALINE PHOSPHATASE 93 U/L (45-117); TOTAL BILIRUBIN ADULT 0.4 MG/DL (0.2-1.0)
[2017-05-09] MEDS: LORazepam 0.5 MG TAB PO PRN (06:49)
[2017-05-09] MEDS: RESP: ALBUTEROL 2.5 MG/IPRATROPIUM 0.5 MG NEB (SCH) NEB ×3 (08:45→20:27)
[2017-05-09] MEDS: DOCUSATE SODIUM 100 MG CAP PO SCH ×3 (09:00→17:23)
[2017-05-09] MEDS: PRAVASTATIN SOD 40 MG TAB PO SCH (09:54)
[2017-05-09] MEDS: PANTOPRAZOLE SOD 20 MG DELAYED RELEASE TAB PO SCH (09:54)
[2017-05-09] MEDS: APIXABAN 2.5 MG TABLET PO SCH ×2 (09:55→20:51)
[2017-05-09] MEDS: SODIUM CHLORIDE 0.9% FLUSH 10 ML FLUSH IV FLUSH SCH ×2 (09:55→20:55)
[2017-05-09] MEDS: TIMOLOL MALEATE 0.5% OPHT SOLN 5 ML BTL EACH EYE SCH ×2 (09:55→20:53)
[2017-05-09] MEDS: POTASSIUM CHLORIDE 20 MEQ CONTROLLED RELEASE TAB PO SCH (09:55)
[2017-05-09] MEDS: ASPIRIN EC 81 MG TABEC PO SCH (09:55)
[2017-05-09] MEDS: METOPROLOL TARTRATE 25 MG TAB PO SCH ×2 (09:55→20:51)
[2017-05-09] MEDS: FUROSEMIDE 20 MG TAB PO SCH (09:55)
[2017-05-09] MEDS: INSULIN ASPART SUPPLEMENTAL SCALE SQ SCH ×4 (09:56→22:20)
[2017-05-09] MEDS: ERTAPENEM 1,000 MG/NS 100 ML IV SCH ×2 (17:22)
[2017-05-09] MEDS: LATANOPROST 0.005% OPHT SOLN 2.5 ML BTL EACH EYE SCH (20:52)
[2017-05-10] VITALS (8 sets, daily range): BP systolic 119–148; BP diastolic 63–80; PULSE 82–99; RESP 14–22; TEMP 97–98.7; O2SAT 92–96
[2017-05-10] MEDS: RESP: ALBUTEROL 2.5 MG/IPRATROPIUM 0.5 MG NEB (SCH) NEB ×3 (08:40→21:25)
[2017-05-10] MEDS: DOCUSATE SODIUM 100 MG CAP PO SCH ×3 (09:00→17:16)
[2017-05-10] MEDS: PRAVASTATIN SOD 40 MG TAB PO SCH (10:22)
[2017-05-10] MEDS: METOPROLOL TARTRATE 25 MG TAB PO SCH ×2 (10:22→22:18)
[2017-05-10] MEDS: POTASSIUM CHLORIDE 20 MEQ CONTROLLED RELEASE TAB PO SCH (10:23)
[2017-05-10] MEDS: APIXABAN 2.5 MG TABLET PO SCH ×2 (10:23→22:24)
[2017-05-10] MEDS: PANTOPRAZOLE SOD 20 MG DELAYED RELEASE TAB PO SCH (10:23)
[2017-05-10] MEDS: FUROSEMIDE 20 MG TAB PO SCH (10:23)
[2017-05-10] MEDS: ASPIRIN EC 81 MG TABEC PO SCH (10:23)
[2017-05-10] MEDS: SODIUM CHLORIDE 0.9% FLUSH 10 ML FLUSH IV FLUSH SCH ×2 (10:24→22:25)
[2017-05-10] MEDS: TIMOLOL MALEATE 0.5% OPHT SOLN 5 ML BTL EACH EYE SCH ×2 (10:24→22:16)
[2017-05-10] MEDS: INSULIN ASPART SUPPLEMENTAL SCALE SQ SCH ×4 (10:30→22:48)
[2017-05-10] MEDS: ERTAPENEM 1,000 MG/NS 100 ML IV SCH ×2 (17:15)
[2017-05-10 18:00] LABS: AUTOMATED NEUTROPHIL # 5.7 TH/MM3 (1.8-7.7); BASOPHIL % 0.4 % (0.0-2.0); EOSINOPHIL # 0.3 TH/MM3 (0-0.4); EOSINOPHIL % 3.7 % (0.0-4.0); HEMATOCRIT 36.8 % (35.0-46.0); HEMOGLOBIN 11.9 GM/DL (11.6-15.3); LYMPH % 20.4 % (9.0-44.0); LYMPHOCYTE # 1.8 TH/MM3 (1.0-4.8); MEAN CELL VOLUME 83.6 FL (80.0-100.0); MEAN CORPUSCULAR HGB CONC 32.3 % (32.0-36.0); MEAN PLATELET VOLUME 8.4 FL (7.0-11.0); MONO % 11.2 % (0.0-8.0); NEUT % 64.3 % (16.0-70.0); PLATELET COUNT 305 TH/MM3 (150-450); RED BLOOD COUNT 4.41 MIL/MM3 (4.00-5.30); RED CELL DISTRIBUTION WIDTH 17.9 % (11.6-17.2); WHITE BLOOD COUNT 8.9 TH/MM3 (4.0-11.0)
[2017-05-10 18:05] LABS: ALBUMIN 2.3 GM/DL (3.4-5.0); AST (GOT) 13 U/L (15-37); BICARBONATE 33.4 MEQ/L (21.0-32.0); BLOOD UREA NITROGEN 17 MG/DL (7-18); CALCIUM 8.6 MG/DL (8.5-10.1); CHLORIDE 101 MEQ/L (98-107); CREATININE 1.14 MG/DL (0.50-1.00); GLOMERULAR FILTRATION RATE 45 ML/MIN (>89); GLUCOSE,RANDOM 204 MG/DL (74-106); SODIUM (NA) 140 MEQ/L (136-145)
--- NOTE | 2017-05-10 18:05 | HHI.FPPN ---
Subjective Remarks Patient seen and examined bedside today. Per the daughter and the nurse from [facility] the patient has been more confused over the weekend. This commonly happens when she has UTIs another infection; she has periods of confusion and it worsens at night. The family thinks that if she moves back to [facility] she will go back to her normal mental state. This often happens when she is in the hospital. She denies any confusion herself. She thinks that she is acting normal. She denies any chest pain/shortness of breath/dizziness. She denies any pain with urination. Denies any fevers/chills. Denies any difficulties breathing. No acute events overnight. (Gloria Rivas MD R2) Objective Vitals Vital Signs Date Time Temp Pulse Resp B/P (MAP) Pulse Ox O2 Delivery O2 Flow Rate FiO2 05/10/17 16:00 97.2 90 17 126/69 (88) 92 05/10/17 12:00 97.5 82 18 119/75 (90) 94 05/10/17 08:44 94 21 05/10/17 08:00 97.3 99 17 140/80 (100) 96 05/10/17 04:00 98.2 99 22 123/77 (92) 96 05/10/17 00:00 98.7 97 22 148/76 (100) 95 05/09/17 20:00 98.1 97 22 170/100 (123) 95 I/O 05/09/17 05/09/17 05/09/17 05/10/17 05/10/17 05/10/17 07:00 15:00 23:00 07:00 15:00 23:00 Intake Total 240 ml 650 ml 60 ml Output Total 400 ml 1000 ml Balance -160 ml -350 ml 60 ml Intake Oral 240 ml 650 ml 60 ml Output Urine Total 400 ml 1000 ml # Voids 4 3 # Bowel Movements 1 2 (Gloria Rivas MD R2) Result Diagram: 05/08/17 0734 05/09/17 0436 Objective Remarks GENERAL: Well-nourished, well-developed patient. No acute distress. Elderly. SKIN: Warm and dry. No rash. EYES: No scleral icterus. No injection or drainage. PERRLA. EOMI. HENT: Normocephalic. Atraumatic. MMM. NECK: No visible JVD or lymphadenopathy. CARDIOVASCULAR: Warm and well perfused. Irregular rate, approximately 70 bpm. No murmurs appreciated. No pitting edema RESPIRATORY: Normal respiratory effort. Coarse crackles at the bases. Breathing comfortably GASTROINTESTINAL: Abdomen mildly distended but soft, positive bowel sounds MUSCULOSKELETAL: Strength grossly WNL. BACK: Without obvious deformity. NEURO/PSYCH: Afocal. Awake, alert, and oriented x3. Moving all of her extremities. (Gloria Rivas MD R2) A/P Assessment and Plan Patient seen and examined. Case reviewed and discussed with the resident team. Agree with plan of care as discussed with me and documented in the resident note. Discharge Planning Pending echocardiogram on Thursday with results, per infectious disease consult, ready for discharge with to complete infusion orders (Gloria Rivas MD R2) Attending Attestation Case reviewed and discussed with the resident team. Agree with plan of care as discussed with me and documented in the resident note. (Abel Romero MD) Problem List: (1) Sepsis secondary to UTI ICD Codes: A41.9 - Sepsis, unspecified organism; N39.0 - Urinary tract infection, site not specified Status: Acute Plan: History of multiple UTIs with ESBL Escherichia coli sensitive to Zosyn in the past. On admission was meeting sepsis criteria, however this has resolved. -Blood cultures (05/05): ESBL, sensitive to ertapenem and Zosyn and tetracycline and Augmentin - Blood culture (05/07): NG x 3 days -Urine cx (05/05) : ESBL, sensitive to Augmentin, nitrofurantoin, Zosyn, tetracycline -Continue ertapenem as per infectious disease consult --Follow up echocardiogram --OK to DC with infusion orders -Monitor for signs of severe sepsis. -Clinically improving. (2) Abdominal distension ICD Codes: R14.0 - Abdominal distension (gaseous) Plan: Patient is eating a regular diet, however her appetite continues to be decreased Add Reglan 30 minutes before meals 05/08: Abdominal distention stable over the past [address] of abdomen and pelvis on admission did not show any signs of obstruction or acute processes. Flat and upright abdominal series on 05/07/2017 showed., "Nonspecific bowel gas pattern which represents an ileus or gastroenteritis." We put her on a clear liquid diet yesterday, and she tolerated this well. She is also having bowel movements. We'll advance her diet today. Discussed adding Reglan 30 minutes before meals. May trial this on 05/09/2017, tolerating a full regular diet. (3) Lung crackles ICD Codes: R09.89 - Other specified symptoms and signs involving the circulatory and respiratory systems Plan: Pt needs to have a basilar lung crackles. However, no respiratory complaints per patient. Continue Lasix 20 mg daily by mouth BNP was elevated to 472. We'll check an echocardiogram. Last echocardiogram was in June 2016, which revealed a normal EF. We'll continue with daily diuretics. Hold IV fluids at this time as she is tolerating full diet. (4) Atrial fibrillation with RVR ICD Codes: I48.91 - Unspecified atrial fibrillation Status: Acute Plan: History of paroxysmal A. fib, presented with A. fib with RVR, rate controlled following interview. Troponin less than 0.02, -Continue home medications Eliquis, metoprolol. (5) UTI (urinary tract infection) ICD Codes: N39.0 - Urinary tract infection, site not specified Status: Acute Plan: Please see plan for sepsis secondary to UTI (6) Chronic kidney disease ICD Codes: N18.9 - Chronic kidney disease, unspecified Status: Acute Plan: Patient historically between 1.27 and 1.51 creatinine. -Creatinine 1.48 on admission. Stable. -Avoid nephrotoxic agents when possible. Eliquis at 2.5 mg twice a day. (7) Diabetes ICD Codes: E11.9 - Type 2 diabetes mellitus without complications Status: Chronic Plan: History of diabetes type 2 with macular degeneration, chronic kidney disease, takes Lantus 15 units subcutaneous twice a day at home -Sugars 190-260 over last 24hrs -tolerating full diet. - Resume Levemir 15 BID SQ -Sliding-scale insulin (8) FEN Status: Acute Plan: Fluids: Tolerating by mouth fluids well Electrolytes: Monitor and replete as needed DVT prophylaxis: Anticoagulated on Eiliquis. GI prophylaxis: No indications. 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
[2017-05-10 18:06] LABS: ALT (GPT) 20 U/L (10-53)
[2017-05-10 18:08] LABS: ALKALINE PHOSPHATASE 89 U/L (45-117); TOTAL BILIRUBIN ADULT 0.4 MG/DL (0.2-1.0); TOTAL PROTEIN 6.7 GM/DL (6.4-8.2)
[2017-05-10] MEDS: INSULIN DETEMIR 100 UNITS/ML VIAL SQ SCH ×2 (21:00→22:48)
[2017-05-10] MEDS: LATANOPROST 0.005% OPHT SOLN 2.5 ML BTL EACH EYE SCH (22:16)
[2017-05-10] MEDS: METOCLOPRAMIDE HCL 10 MG TAB PO SCH (22:18)
[2017-05-11] VITALS: BP 134/69; PULSE 89; RESP 17; TEMP 97.1; O2SAT 98
[2017-05-11 04:00] VITALS: BP 126/49; PULSE 78; RESP 14; TEMP 98.1; O2SAT 97
[2017-05-11 06:47] LABS: AUTOMATED NEUTROPHIL # 6.1 TH/MM3 (1.8-7.7); BASOPHIL # 0.1 TH/MM3 (0-0.2); BASOPHIL % 0.7 % (0.0-2.0); EOSINOPHIL # 0.4 TH/MM3 (0-0.4); EOSINOPHIL % 4.1 % (0.0-4.0); HEMATOCRIT 36.4 % (35.0-46.0); LYMPH % 18.4 % (9.0-44.0); LYMPHOCYTE # 1.7 TH/MM3 (1.0-4.8); MEAN CELL VOLUME 82.6 FL (80.0-100.0); MEAN CORPUSCULAR HEMOGLOBIN 27.3 PG (27.0-34.0); MEAN PLATELET VOLUME 8.2 FL (7.0-11.0); MONO % 11.1 % (0.0-8.0); NEUT % 65.7 % (16.0-70.0); PLATELET COUNT 308 TH/MM3 (150-450); RED BLOOD COUNT 4.41 MIL/MM3 (4.00-5.30); RED CELL DISTRIBUTION WIDTH 17.9 % (11.6-17.2); WHITE BLOOD COUNT 9.2 TH/MM3 (4.0-11.0)
--- NOTE | 2017-05-11 07:11 | HHI.FPPN ---
Subjective Remarks Patient doign much better today. jovani, who is a nursing resident / childcare provider is at her bedside again today. She reports that her mentation is back to her baseline. The patient does report that when she cannot see and when she is in a new setting, she can become confused. She denies any fevers overnight, cp, sob, cough, or difficulty with abdominal pain. PT evaluated her yesterday and was mainly bed-bound. Not complaining of headache today. Spoke with Lela, daughter and informed her of the plan. Objective Vitals Vital Signs Date Time Temp Pulse Resp B/P (MAP) Pulse Ox O2 Delivery O2 Flow Rate FiO2 05/11/17 04:00 98.1 78 14 126/49 (74) 97 05/11/17 00:00 97.1 89 17 134/69 (90) 98 05/10/17 20:00 91 05/10/17 20:00 97.0 99 14 133/63 (86) 96 05/10/17 16:00 97.2 90 17 126/69 (88) 92 05/10/17 12:00 97.5 82 18 119/75 (90) 94 05/10/17 08:44 94 21 05/10/17 08:00 97.3 99 17 140/80 (100) 96 I/O 05/10/17 05/10/17 05/10/17 05/11/17 05/11/17 05/11/17 07:00 15:00 23:00 07:00 15:00 23:00 Intake Total 60 ml 675 ml 240 ml Output Total 200 ml Balance 60 ml 475 ml 240 ml Intake Oral 60 ml 675 ml 240 ml Output Urine Total 200 ml # Voids 3 4 # Bowel Movements 2 4 3 Result Diagram: 05/11/17 0513 05/10/17 1655 Objective Remarks GENERAL: Well-nourished, well-developed patient. No acute distress. Elderly. SKIN: Warm and dry. No rash. EYES: No scleral icterus. No injection or drainage. PERRLA. EOMI. HENT: Normocephalic. Atraumatic. MMM. NECK: No visible JVD or lymphadenopathy. CARDIOVASCULAR: Warm and well perfused. Irregular rate, approximately 100 bpm. No murmurs appreciated. No pitting edema RESPIRATORY: Normal respiratory effort. Coarse crackles at the bases. Breathing comfortably GASTROINTESTINAL: Abdomen mildly distended but soft, positive bowel sounds MUSCULOSKELETAL: Strength grossly WNL. BACK: Without obvious deformity. NEURO/PSYCH: Afocal. Awake, alert, and oriented x3. Moving all of her extremities. A/P Assessment and Plan Patient seen and examined. Case reviewed and discussed with the resident team. Agree with plan of care as discussed with me and documented in the resident note. Discharge Planning Pending echocardiogram on Thursday with results, per infectious disease consult, ready for discharge with to complete infusion orders Problem List: (1) Sepsis secondary to UTI ICD Codes: A41.9 - Sepsis, unspecified organism; N39.0 - Urinary tract infection, site not specified Status: Acute Plan: History of multiple UTIs with ESBL Escherichia coli sensitive to Zosyn in the past. On admission was meeting sepsis criteria, however this has resolved. -Blood cultures (05/05): ESBL, sensitive to ertapenem and Zosyn and tetracycline and Augmentin - Blood culture (05/07): NG x 3 days -Urine cx (05/05) : ESBL, will be d/c'ed to [facility] with IV ABX as guided by ID. -Echocardiogram showed no vegetations and normal EF. Lungs clear today on exam. --OK to DC with infusion order (2) Abdominal distension ICD Codes: R14.0 - Abdominal distension (gaseous) Plan: Patient is eating a regular diet, however her appetite continues to be decreased Add Reglan 30 minutes before meals. Tolerating this well. 05/08:Abdominal distention stable over the past [address] of abdomen and pelvis on admission did not show any signs of obstruction or acute processes. Flat and upright abdominal series on 05/07/2017 showed., "Nonspecific bowel gas pattern which represents an ileus or gastroenteritis." Having loose BMs. Likely from ABX. Continue with Reglan, may decrease dose if having loose/frequent BMs. (3) Atrial fibrillation with RVR ICD Codes: I48.91 - Unspecified atrial fibrillation Status: Acute Plan: History of paroxysmal A. fib, presented with A. fib with RVR, rate controlled following interview. Troponin less than 0.02, -Continue home medications Eliquis, metoprolol. (4) UTI (urinary tract infection) ICD Codes: N39.0 - Urinary tract infection, site not specified Status: Acute Plan: Please see plan for sepsis secondary to UTI (5) Chronic kidney disease ICD Codes: N18.9 - Chronic kidney disease, unspecified Status: Acute Plan: Patient historically between 1.27 and 1.51 creatinine. -Creatinine 1.48 on admission. Stable. -Avoid nephrotoxic agents when possible. Eliquis at 2.5 mg twice a day. (6) Diabetes ICD Codes: E11.9 - Type 2 diabetes mellitus without complications Status: Chronic Plan: History of diabetes type 2 with macular degeneration, chronic kidney disease, takes Lantus 15 units subcutaneous twice a day at home -Sugars labile during admission. Well controlled with home Levemir 15 units BID. -tolerating full diet. - Resume Levemir 15 BID SQ -Sliding-scale insulin (7) FEN Status: Acute Plan: Fluids: Tolerating by mouth fluids well Electrolytes: Monitor and replete as needed DVT prophylaxis: Anticoagulated on Eiliquis. GI prophylaxis: No indications. Problem Qualifiers (1) Chronic kidney disease: Qualified Codes: N18.3 - Chronic kidney disease, stage 3 (moderate) (2) Diabetes: Qualified Codes: E11.39 - Type 2 diabetes mellitus with other diabetic ophthalmic complication; Z79.4 - intermediate (current) use of insulin Jonathan Curry MD, R3 May 11, 2017 07:11
[2017-05-11 07:26] LABS: BICARBONATE 30.5 MEQ/L (21.0-32.0); CALCIUM 8.8 MG/DL (8.5-10.1); CREATININE 1.12 MG/DL (0.50-1.00)
[2017-05-11 08:00] VITALS: BP 162/82; PULSE 84; RESP 18; TEMP 97.1; O2SAT 96
[2017-05-11] MEDS: INSULIN ASPART SUPPLEMENTAL SCALE SQ SCH ×3 (08:00→17:00)
[2017-05-11] MEDS: RESP: ALBUTEROL 2.5 MG/IPRATROPIUM 0.5 MG NEB (SCH) NEB ×2 (08:19→12:47)
[2017-05-11 08:21] VITALS: O2SAT 97
[2017-05-11] MEDS: SODIUM CHLORIDE 0.9% FLUSH 10 ML FLUSH IV FLUSH SCH (09:00)
[2017-05-11] MEDS: DOCUSATE SODIUM 100 MG CAP PO SCH ×2 (09:00→13:00)
[2017-05-11] MEDS: INSULIN DETEMIR 100 UNITS/ML VIAL SQ SCH (09:00)
[2017-05-11] MEDS: PRAVASTATIN SOD 40 MG TAB PO SCH (09:00)
--- NOTE | 2017-05-11 10:49 | ECHRPT ---
Indication: SHORTNESS OF BREATH CONCLUSIONS Normal left ventricular size. Mild concentric left ventricular hypertrophy. The left atrial size is eycx-tt-tyulsybtfc dilated. The right atrial size is lraq-xo-maaxwxpjqm dilated. Mild mitral valve regurgitation. Mild mitral annular calcification. Aortic valve sclerosis is present. There is trace tricuspid valve regurgitation. The estimated pulmonary arterial pressure is 49.7 mmHg. Trivial pulmonary valve regurgitation. BP: 123 / 66 HR: 96 Rhythm: Sinus MEASUREMENTS (Male / Female) Normal Values Technical Quality:Fair 2D ECHO LV Diastolic Diameter PLAX 5.6 cm 4.2 - 5.9 / 3.9 - 5.3 cm LV Systolic Diameter PLAX 4.0 cm IVS Diastolic Thickness 1.1 cm 0.6 - 1.0 / 0.6 - 0.9 cm LVPW Diastolic Thickness 1.1 cm 0.6 - 1.0 / 0.6 - 0.9 cm LV Relative Wall Thickness 0.4 RV Internal Dim ED PLAX 2.8 cm LVOT Diameter 1.9 cm Aortic Root Diameter 2.8 cm LA Systolic Diameter LX 4.5 cm 3.0 - 4.0 / 2.7 - 3.8 cm M-MODE AV Cusp Separation MM 1.2 cm DOPPLER AV Peak Velocity 166.0 cm/s AV Peak Gradient 11.0 mmHg AV Mean Gradient 7.0 mmHg AV Velocity Time Integral 32.2 cm LVOT Peak Velocity 43.4 cm/s LVOT Peak Gradient 0.8 mmHg LVOT Velocity Time Integral 7.7 cm AV Area Cont Eq vti 0.7 cm AV Area Cont Eq pk 0.7 cm Mitral E Point Velocity 94.4 cm/s LV E' Lateral Velocity 8.3 cm/s Mitral E to LV E' Lateral Ratio 11.3 LV E' Septal Velocity 7.4 cm/s Mitral E to LV E' Septal Ratio 12.8 TR Peak Velocity 315.0 cm/s TR Peak Gradient 39.7 mmHg Right Atrial Pressure 10.0 mmHg Pulmonary Artery Systolic Pressu 49.7 mmHg Right Ventricular Systolic Press 49.7 mmHg PV Peak Velocity 64.9 cm/s PV Peak Gradient 1.7 mmHg FINDINGS LEFT VENTRICLE Normal left ventricular size. Mild concentric left ventricular hypertrophy. The left ventricular systolic function is normal with an estimated ejection fraction in the range of 60-65%. RIGHT VENTRICLE Normal right ventricular size and systolic function. LEFT ATRIUM The left atrial size is zzew-zs-rdcmgvrnbk dilated. RIGHT ATRIUM The right atrial size is xtyw-gn-sauhkkdyff dilated. ATRIAL SEPTUM The interatrial septum not well visualized. AORTA The aortic root and proximal ascending aorta are normal in size on limited imaging. MITRAL VALVE Mild mitral valve regurgitation. Mild mitral annular calcification. AORTIC VALVE Aortic valve sclerosis is present. TRICUSPID VALVE There is trace tricuspid valve regurgitation. The estimated pulmonary arterial pressure is 49.7 mmHg. PULMONARY VALVE Trivial pulmonary valve regurgitation. VESSELS The inferior vena cava is normal in size. PERICARDIUM No pericardial effusion. Everett Kruse MD, FACC (Electronically Signed) Final Date:11 May 2017 10:48
[2017-05-11] MEDS: APIXABAN 2.5 MG TABLET PO SCH (10:52)
[2017-05-11] MEDS: FUROSEMIDE 20 MG TAB PO SCH (10:52)
[2017-05-11] MEDS: METOPROLOL TARTRATE 25 MG TAB PO SCH (10:53)
[2017-05-11] MEDS: ASPIRIN EC 81 MG TABEC PO SCH (10:53)
[2017-05-11] MEDS: POTASSIUM CHLORIDE 20 MEQ CONTROLLED RELEASE TAB PO SCH (10:53)
[2017-05-11] MEDS: METOCLOPRAMIDE HCL 10 MG TAB PO SCH (10:53)
[2017-05-11] MEDS: TIMOLOL MALEATE 0.5% OPHT SOLN 5 ML BTL EACH EYE SCH (10:54)
[2017-05-11] MEDS: PANTOPRAZOLE SOD 20 MG DELAYED RELEASE TAB PO SCH (10:56)
--- NOTE | 2017-05-11 11:46 | HHI.DCPOC ---
Discharge Care Plan Diagnosis: (1) ESBL (extended spectrum beta-lactamase) producing bacteria infection (2) Diabetes (3) Sepsis secondary to UTI Goals to Promote Your Health * To prevent worsening of your condition and complications * To maintain your health at the optimal level Directions to Meet Your Goals Take your medications as prescribed Follow your dietary instruction Follow activity as directed Keep your appointments as scheduled Take your immunizations and boosters as scheduled If your symptoms worsen call your PCP, if no PCP go to Urgent Care Center or Emergency Room Smoking is Dangerous to Your Health. Avoid second hand smoke Call the 24-hour hour crisis hotline for domestic abuse at Jonathan Curry MD, R3 May 11, 2017 11:46
--- NOTE | 2017-05-11 11:49 | HHI.DS ---
Discharge Summary Admission Date May 05, 2017 at 20:50 Admitting Diagnosis sepsis with UTI, leukocytosis, A. fib with RVR, CKD (1) Sepsis secondary to UTI Plan: History of multiple UTIs with ESBL Escherichia coli sensitive to Zosyn in the past. On admission was meeting sepsis criteria, however this has resolved. -Blood cultures (05/05): ESBL, sensitive to ertapenem and Zosyn and tetracycline and Augmentin - Blood culture (05/07): NG x 3 days -Urine cx (05/05) : ESBL, sensitive to Augmentin, nitrofurantoin, Zosyn, tetracycline -Continue ertapenem as per infectious disease consult --Follow up echocardiogram --OK to DC with infusion orders -Monitor for signs of severe sepsis. -Clinically improving. ICD Codes: A41.9 - Sepsis, unspecified organism; N39.0 - Urinary tract infection, site not specified Status: Acute (2) Abdominal distension Plan: Patient is eating a regular diet, however her appetite continues to be decreased Add Reglan 30 minutes before meals 05/08: Abdominal distention stable over the past [address] of abdomen and pelvis on admission did not show any signs of obstruction or acute processes. Flat and upright abdominal series on 05/07/2017 showed., "Nonspecific bowel gas pattern which represents an ileus or gastroenteritis." We put her on a clear liquid diet yesterday, and she tolerated this well. She is also having bowel movements. We'll advance her diet today. Discussed adding Reglan 30 minutes before meals. May trial this on 05/09/2017, tolerating a full regular diet. ICD Codes: R14.0 - Abdominal distension (gaseous) (3) Lung crackles Plan: Pt needs to have a basilar lung crackles. However, no respiratory complaints per patient. Continue Lasix 20 mg daily by mouth BNP was elevated to 472. We'll check an echocardiogram. Last echocardiogram was in June 2016, which revealed a normal EF. We'll continue with daily diuretics. Hold IV fluids at this time as she is tolerating full diet. ICD Codes: R09.89 - Other specified symptoms and signs involving the circulatory and respiratory systems (4) Atrial fibrillation with RVR Plan: History of paroxysmal A. fib, presented with A. fib with RVR, rate controlled following interview. Troponin less than 0.02, -Continue home medications Eliquis, metoprolol. ICD Codes: I48.91 - Unspecified atrial fibrillation Status: Acute (5) UTI (urinary tract infection) Plan: Please see plan for sepsis secondary to UTI ICD Codes: N39.0 - Urinary tract infection, site not specified Status: Acute (6) Chronic kidney disease Plan: Patient historically between 1.27 and 1.51 creatinine. -Creatinine 1.48 on admission. Stable. -Avoid nephrotoxic agents when possible. Eliquis at 2.5 mg twice a day. ICD Codes: N18.9 - Chronic kidney disease, unspecified Status: Acute (7) Diabetes Plan: History of diabetes type 2 with macular degeneration, chronic kidney disease, takes Lantus 15 units subcutaneous twice a day at home -Sugars 190-260 over last 24hrs -tolerating full diet. - Resume Levemir 15 BID SQ -Sliding-scale insulin ICD Codes: E11.9 - Type 2 diabetes mellitus without complications Status: Chronic (8) FEN Plan: Fluids: Tolerating by mouth fluids well Electrolytes: Monitor and replete as needed DVT prophylaxis: Anticoagulated on Eiliquis. GI prophylaxis: No indications. Status: Acute Brief History Patient's an 89-year-old female past history of diabetes type 2, paroxysmal A. fib, frequent UTIs presenting today from [facility] for suspected UTI. Covering physician was contacted earlier today due to patient's heart rate being in the 130s. The staff also alerted the physician that the patient had had nausea, vomiting 2, chills, fever last night up to 101.2 however the patient had been afebrile today. The covering physician advised click staff to bring the patient into the ED. When speaking with the patient she stated that she has had nausea and vomiting today, some chills but does not feel febrile. Denies cough, chest pain, shortness of breath, arm or jaw pain, diaphoresis, abdominal pain, changes in bowel habits (states that she is usually pretty regular and passes 2 BMs a day, soft and brown with no blood), urinary frequency , change in smell/color, dysuria, vaginal discharge, headache, change in vision , lightheadedness, dizziness, neck pain. No other complaints today. CBC/BMP: 05/11/17 0513 05/11/17 0513 Significant Findings Laboratory Tests Test 05/09/17 04:36 05/10/17 16:55 05/11/17 05:13 Blood Urea Nitrogen 21 MG/DL (7-18) 19 MG/DL (7-18) Creatinine 1.24 MG/DL (0.50-1.00) 1.14 MG/DL (0.50-1.00) 1.12 MG/DL (0.50-1.00) Random Glucose 181 MG/DL (74-106) 204 MG/DL (74-106) 126 MG/DL (74-106) Albumin 2.3 GM/DL (3.4-5.0) 2.3 GM/DL (3.4-5.0) Estimat Glomerular Filtration Rate 41 ML/MIN (>89) 45 ML/MIN (>89) 46 ML/MIN (>89) Red Cell Distribution Width 17.9 % (11.6-17.2) 17.9 % (11.6-17.2) Monocytes (%) (Auto) 11.2 % (0.0-8.0) 11.1 % (0.0-8.0) Monocytes # (Auto) 1.0 TH/MM3 (0-0.9) 1.0 TH/MM3 (0-0.9) Aspartate Amino Transf (AST/SGOT) 13 U/L (15-37) Carbon Dioxide Level 33.4 MEQ/L (21.0-32.0) Eosinophils (%) (Auto) 4.1 % (0.0-4.0) PE at Discharge GENERAL: Well-nourished, well-developed patient. No acute distress. Elderly. SKIN: Warm and dry. No rash. EYES: No scleral icterus. No injection or drainage. PERRLA. EOMI. HENT: Normocephalic. Atraumatic. MMM. NECK: No visible JVD or lymphadenopathy. CARDIOVASCULAR: Warm and well perfused. Irregular rate, approximately 70 bpm. No murmurs appreciated. No pitting edema RESPIRATORY: Normal respiratory effort. Coarse crackles at the bases. Breathing comfortably GASTROINTESTINAL: Abdomen mildly distended but soft, positive bowel sounds MUSCULOSKELETAL: Strength grossly WNL. BACK: Without obvious deformity. NEURO/PSYCH: Afocal. Awake, alert, and oriented x3. Moving all of her extremities. Hospital Course Mrs. Christianied a pleasant 89-year-old female, with past medical history significant for atrial fibrillation on oral anticoagulants, recurrent UTIs, 2 diabetes, who presented with a fever of 102, confusion, and tachycardia. She was found to have a urinary tract infection, that was ESBL positive. Infectious disease was consulted, and she was started on ertapenem IV. She responded well to antibiotic therapy, fluids, and supportive care. Her heart rate remained relatively under control during the hospitalization (less than 110 ). Her blood sugars were labile throughout the hospitalization, ranging from 65 -200. Her home Levemir 15 units twice a day was continued during her last day of hospitalization, and she tolerated this well. She was also noted to have some abdominal distention, and a KUB showed a nonspecific bowel gas pattern, suggestive of an ileus. Her diet was decreased to clear liquids, and gradually advanced to a full regular diet. She is tolerating this well now, and is having normal bowel movements. Daughter was informed daily, as to her progress and treatment plans. She was discharged home in stable condition, with a PICC line and IV antibiotics as guided by our infectious disease specialist. Pt Condition on Discharge: Stable Discharge Disposition: Discharge to SNF Discharge Instructions DIET: Follow Instructions for: As Tolerated, No Restrictions Activities you can perform: Regular-No Restrictions New Medications: Epinephrine Inj (Epinephrine Inj) 1 Mg/Ml (1 Ml) Inj 0.3 MG IV PUSH ONCE PRN for ALLERGIC REACTION, #1 VIAL Epinephrine Inj (Epinephrine Inj) 1 Mg/Ml (1 Ml) Inj 0.3 MG SQ ONCE PRN for ALLERGIC REACTION, #1 VIAL Give with any signs of respiratory distress. Ertapenem Inj (Invanz Inj) 1 Gm Addvial 1 GM IV Q24H for ESBL bacteremia for 11 Days, INJECTION 0 Refills ADMINISTER IN 100ML NS Hydrocortisone Inj (Solu-Cortef Inj) 250 Mg/2 Ml Inj 250 MG IV PUSH ONCE PRN for ALLERGIC REACTION, #1 VIAL 0 Refills Give over 30-60 seconds. Continued Medications: Acetaminophen (Tylenol) 325 Mg Tab 650 MG PO Q4H PRN for PAIN SCALE 1 TO 10, TAB 0 Refills Apixaban (Eliquis) 2.5 Mg Tab 2.5 MG PO BID, #[address] (Aspirin 81) 81 Mg Tabdr 81 MG PO DAILY, TAB 0 Refills Bisacodyl Supp (Dulcolax Supp) 10 Mg Supp 10 MG RECTAL DAILY PRN for CONSTIPATION, #12 SUPP 0 Refills Cyanocobalamin (Vitamin B-12) 1,000 Mcg Tab 1000 MCG PO DAILY for Nutritional Supplement, #1 BOTTLE 0 Refills Docusate Sodium (Docusate Sodium) 100 Mg Cap 100 MG PO TID for Prevent Constipation, #60 CAP 0 Refills Furosemide (Furosemide) 20 Mg Tab 20 MG PO DAILY, #30 TAB 0 Refills Insulin Glargine Inj (Lantus Inj) 1,000 Unit/10 Ml Vial 15 UNITS SQ BID for Blood Sugar Management, VIAL 0 Refills Insulin Human Regular Inj (Humulin R Inj) 1,000 Unit/10 Ml Vial 1-21 UNITS SQ ONCE for Blood Sugar Management, #10 ML 0 Refills SS coverage: 150-200 3u, 201-250 6u, 251-300 9u, 301-350 12u, 351-400 15u, 401-450 18u, 451-500 21u Ipratropium-Albuterol Neb (Duoneb) 0.5-2.5 Mg/3 Ml Neb 1 NEBULE INH Q4HR NEB PRN for SOB/WHEEZING, #120 NEBULE 0 Refills Latanoprost Opth Drops (Xalatan Opth Drops) 0.005% Drops 1 DROP EACH EYE HS for Glaucoma, #2.5 ML 0 Refills Lorazepam (Lorazepam) 0.5 Mg Tab 0.5 MG PO DIRECTED PRN for ANXIETY, #90 TAB 0 Refills 0.5mg HS scheudled; hold if sleeping or sedated Magnesium Hydroxide Concentrate Liq (Milk of Magnesia Concentrate Liq) 1,200 Mg/ 5 Ml Susp 30 ML PO HS PRN for CONSTIPATION, #1 BOTTLE Metoprolol Tartrate (Metoprolol Tartrate) 25 Mg Tab 25 MG PO Q12HR, #60 TAB Omeprazole (Omeprazole) 20 Mg Cap 20 MG PO DAILY Potassium Chloride ER (Potassium Chloride ER) 20 Meq Tab 20 MEQ PO DAILY for Electrolyte Replacement, #30 TAB 0 Refills Simvastatin (Simvastatin) 20 Mg Tab 20 MG PO DAILY for Cholesterol Management, #30 TAB 0 Refills Timolol Opth Drops (Timolol Opth Drops) 0.5 % Soln 1 DROP EACH EYE BID for Glaucoma, #1 BOTTLE 0 Refills Timolol Opth Gel (Timoptic-Xe Opth Gel) 0.5 % Gel 1 DROP EACH EYE DAILY for Glaucoma, #1 BOTTLE 3 Refills Discontinued Medications: Insulin Human Regular Inj (Humulin R Inj) 1,000 Unit/10 Ml Vial 2 UNITS SQ DIRECTED for Blood Sugar Management, #10 ML 0 Refills 2 units prior to lunch Jonathan Curry MD, R3 May 11, 2017 11:49
[2017-05-11] MEDS ORDERED: EPIN1INJ21 SQ (11:57)
[2017-05-11] MEDS ORDERED: EPIN1INJ21 IV PUSH (11:57)
[2017-05-11] MEDS ORDERED: INVA1INJ IV (11:57)
[2017-05-11] MEDS ORDERED: SOLU250I IV PUSH (11:57)
[2017-05-11 12:00] VITALS: BP 125/79; PULSE 90; RESP 17; TEMP 97.3; O2SAT 94
--- NOTE | 2017-05-11 12:00 | HHI.FF ---
Infusion Therapy Location of Infusion Therapy: [facility] Infusion Therapy Order Patient Information Appointment Date: May 11, 2017 Patient Weight 81.2 kg Diagnosis: Diagnosis ESBL E.coli bacteremia ESBL E.coli UTI/Pyelonephritis. Coded Allergies: *MDRO Multi-Drug Resistant Organism (Verified Adverse Reaction, Unknown, ) ESBL E.Coli (urine)-06/27/16 Administer Medication Ertapenem 1 gram IV q 24 hours Start Treatment: May 11, 2017 Stop Treatment: May 23, 2017 Additional Information Venous access: Other (Midline) Additional Instructions [x] Peripheral flush and dressing changes per protocol [x] Implanted port and central airline hostess: * Implanted port: 10 ml Normal Saline followed by 5 ml Heparin 100 units/ml Heparin flush after each use and monthly to maintain. [] May leave port accessed during therapy. [] May leave peripheral site accessed for duration of therapy. [x] If patient has SOB or respiratory distress, check oxygen saturation. If less than 90% or clinical signs of respiratory distress, administer oxygen at 2 L/min. via nasal cannula and notify physician. [x] Anaphylaxis/Reaction orders: * Stop infusion. * Keep IV line open with saline flush. * Notify physician. * Monitor vital signs every 15 minutes until symptoms resolve. * Check Oxygen saturation; Oxygen at 2 L/min. via nasal cannula if less than 90% or clinical signs of respiratory distress. * Administer diphenhydramine (Benadryl) 25 mg IV STAT, (unless patient has received as pre-med). May repeat once, if necessary. * Solu-Cortef 250 mg IVP over 30-60 seconds, use 100 mg vials for each dissolution. * Epinephrine (1mg/1 ml) 0.3 mg subcutaneously or IVP now with any signs of respiratory distress. * Check with physician for new additional pre-med orders if patient is re- challenged or re-treated. [x] May remove PICC line when treatment complete, after confirming with Physician. [x] If the patient is admitted to the hospital, the ED, or transferred via [facility] , complete transfer form including medication reconciliation order sheet. Laboratory Tests Weekly Labs: CBC w/diff, Creatinine, LFT's (Hepatic function test) Additional Information Please draw weekly labs while on IV antibiotics, and let PCP at [facility] know. Call with abnormals, change in clinical condition or problems to: or covering ID Physician (can be reached if any questions or concerns while on IV Ertapenem) Maria Del Rosairo Aleman MD May 11, 2017 12:00
--- NOTE | 2017-05-11 12:02 | HHI.IDPN ---
Subjective Subjective Remarks Ms. Gee is an 89-year-old female with past medical history significant for type 2 diabetes, paroxysmal A. fib, frequent UTIs who presents from [facility] for suspected UTI. Portably the physician at the snf was called for tachycardia. Patient also reported a history of nausea vomiting 2 chills and fever up to 101.2 Fahrenheit. Patient snf physician asked for the patient to be admitted to the hospital through the ED. Patient reports chills as well as fevers. She denies any chest pain, shortness of breath, arm or jaw pain. She denies any diarrhea. Patient met criteria for sepsis on admission and underwent workup for the same. Blood cultures drawn on admission as well as urine cultures are positive for ESBL Escherichia coli. I was contacted by Dr. Melara yesterday and started meropenem pending ID of the ESBL. Infectious disease is consulted for evaluation and management of ESBL Escherichia coli bacteremia and UTI. Overnight events reviewed No fevers No rash No diarrhea WBC ok. ECHO negative. Repeat BCX negative. Antibiotics Ertapenem IV Lines Line sites with no e.o infection Past Medical History reviewed Allergies: Coded Allergies: *MDRO Multi-Drug Resistant Organism (Verified Adverse Reaction, Unknown, ) ESBL E.Coli (urine)-06/27/16 Objective . Vital Signs Date Time Temp Pulse Resp B/P (MAP) Pulse Ox O2 Delivery O2 Flow Rate FiO2 05/11/17 08:21 97 05/11/17 08:00 97.1 84 18 162/82 (108) 96 05/11/17 04:00 98.1 78 14 126/49 (74) 97 05/11/17 00:00 97.1 89 17 134/69 (90) 98 05/10/17 20:00 91 05/10/17 20:00 97.0 99 14 133/63 (86) 96 05/10/17 16:00 97.2 90 17 126/69 (88) 92 . Laboratory Tests Test 05/10/17 16:55 05/11/17 05:13 White Blood Count 8.9 TH/MM3 9.2 TH/MM3 Red Blood Count 4.41 MIL/MM3 4.41 MIL/MM3 Hemoglobin 11.9 GM/DL 12.0 GM/DL Hematocrit 36.8 % 36.4 % Mean Corpuscular Volume 83.6 FL 82.6 FL Mean Corpuscular Hemoglobin 27.0 PG 27.3 PG Mean Corpuscular Hemoglobin Concent 32.3 % 33.0 % Red Cell Distribution Width 17.9 % 17.9 % Platelet Count 305 TH/MM3 308 TH/MM3 Mean Platelet Volume 8.4 FL 8.2 FL Neutrophils (%) (Auto) 64.3 % 65.7 % Lymphocytes (%) (Auto) 20.4 % 18.4 % Monocytes (%) (Auto) 11.2 % 11.1 % Eosinophils (%) (Auto) 3.7 % 4.1 % Basophils (%) (Auto) 0.4 % 0.7 % Neutrophils # (Auto) 5.7 TH/MM3 6.1 TH/MM3 Lymphocytes # (Auto) 1.8 TH/MM3 1.7 TH/MM3 Monocytes # (Auto) 1.0 TH/MM3 1.0 TH/MM3 Eosinophils # (Auto) 0.3 TH/MM3 0.4 TH/MM3 Basophils # (Auto) 0.0 TH/MM3 0.1 TH/MM3 CBC Comment DIFF FINAL DIFF FINAL Differential Comment Laboratory Tests Test 05/10/17 16:55 05/11/17 05:13 Blood Urea Nitrogen 17 MG/DL 19 MG/DL Creatinine 1.14 MG/DL 1.12 MG/DL Random Glucose 204 MG/DL 126 MG/DL Total Protein 6.7 GM/DL Albumin 2.3 GM/DL Calcium Level 8.6 MG/DL 8.8 MG/DL Alkaline Phosphatase 89 U/L Aspartate Amino Transf (AST/SGOT) 13 U/L Alanine Aminotransferase (ALT/SGPT) 20 U/L Total Bilirubin 0.4 MG/DL Sodium Level 140 MEQ/L 141 MEQ/L Potassium Level 3.6 MEQ/L 3.6 MEQ/L Chloride Level 101 MEQ/L 105 MEQ/L Carbon Dioxide Level 33.4 MEQ/L 30.5 MEQ/L Anion Gap 6 MEQ/L 6 MEQ/L Estimat Glomerular Filtration Rate 45 ML/MIN 46 ML/MIN Imaging Last Impressions Chest X-Ray 05/07/17 0000 Signed Impressions: Service Date/Time: May 13:24 - CONCLUSION: No acute disease. There is no evidence of pneumonia. Shashi Johnson MD Abdomen X-Ray 05/07/17 0000 Signed Impressions: Service Date/Time: May 13:26 - CONCLUSION: 1. Nonspecific bowel gas pattern which represent an ileus or gastroenteritis. 2. Calcified gallstones. Shashi Johnson MD Head CT 05/05/17 192 Signed Impressions: Service Date/Time: Friday, May 05, 2017 19:55 - CONCLUSION: 1. Stable diffuse atrophy and severe diffuse periventricular and subcortical white matter small vessel ischemic changes bilaterally. 2. No acute infarct, acute hemorrhage, mass effect or extra-axial fluid collections. 3. Fluid levels within the sphenoid sinuses bilaterally. Antonio Flores MD Abdomen/Pelvis CT 05/05/17 0000 Signed Impressions: Service Date/Time: Friday, May 05, 2017 20:00 - CONCLUSION: 1. Cholelithiasis. 2. Uncomplicated colonic diverticulosis. 3. Stable 2 cm exophytic right renal mass. 4. Cardiomegaly and tiny pericardial effusion. 5. Scattered fibrotic scarring within the lung bases. 6. Degenerative changes and scoliosis of the lumbar spine. Antonio Flores MD Assessment & Plan Remarks Sepsis present on admission (leucocytosis, tachycardia, source: UTI) ESBL E.coli bacteremia appears transient secondary to UTI. ESBL E.coli UTI Recs: Continue Ertapenem IV Repeated blood cultures negative ECHO no vegetations reported. RN order placed yday to get report in chart. d/w pt and family appointed youth care specialist in room. d/w CM d.w Will sign off please call back if any change in clinical condition or questions. Maria Del Rosario Aleman MD May 11, 2017 12:02
[2017-05-11] MEDS ORDERED: PILL SPLITTER OTHER PRN (12:15)
[2017-05-11] MEDS ORDERED: LORA-392 PO ×2 (14:05→18:25)
[2017-05-11 16:00] VITALS: BP 149/79; PULSE 88; RESP 17; TEMP 97.3; O2SAT 96
[2017-05-11] MEDS ORDERED: METOCLOPRAMIDE HCL 10 MG TAB PO SCH (17:00)
== END 2017-05-11 18:49 | DRG 872 ==
LOC: NEPE 19:07 → NEDA 20:50 → NEPGCP 23:20 → N07A 05-07 16:07
PROVIDERS: ADMIT Family Medicine; ATTEND Family Medicine
PROC: 05HY33Z Insertion of Infusion Device into Upper Vein, Percutaneous Approach (ICD-10-PCS; principal; 2017-05-11)
DX: A41.51 Sepsis due to Escherichia coli [E. coli] (principal); E11.22 Type 2 diabetes mellitus with diabetic chronic kidney disease; K56.7 Ileus, unspecified; I48.0 Paroxysmal atrial fibrillation; E11.311 Type 2 diabetes mellitus with unspecified diabetic retinopathy with macular edema; N39.0 Urinary tract infection, site not specified; N18.3 Chronic kidney disease, stage 3 (moderate); F41.9 Anxiety disorder, unspecified; E78.00 Pure hypercholesterolemia, unspecified; I12.9 Hypertensive chronic kidney disease with stage 1 through stage 4 chronic kidney disease, or unspecified chronic kidney disease; H40.9 Unspecified glaucoma; B96.20 Unspecified Escherichia coli [E. coli] as the cause of diseases classified elsewhere; R00.0 Tachycardia, unspecified; K52.9 Noninfective gastroenteritis and colitis, unspecified; H35.30 Unspecified macular degeneration; Z16.12 Extended spectrum beta lactamase (ESBL) resistance; Z74.01 Bed confinement status; Z79.4 Long term (current) use of insulin; Z79.01 Long term (current) use of anticoagulants; Z79.82 Long term (current) use of aspirin; Z87.440 Personal history of urinary (tract) infections
CPT/HCPCS: 36569; 70450; 71045; 71046; 74019; 74176; 76937; 80048; 80053; 81001; 82550; 82948; 83605; 83735; 83880; 84100; 84443; 84484; 85025; 85610; 85730; 87040; 87077; 87086; 87186; 87205; 87804; 93005; 93306; 94640; 94664; 96365; 96375; J1335; J1815; J1940; J2185; J2405; J2543; J7030; P9612